=== PATIENT | male | born 1945 | race Caucasian/White ===

== ENCOUNTER → 2017-12-01 09:52 | Outpatient (CLI) | payer MEDICARE, SELFPAY ==
--- NOTE | 2017-12-01 09:57 | MRI_ITS ---
STUDY: MRI LEFT SHOULDER REASON FOR EXAM: Left shoulder pain status post fall. TECHNIQUE: Standardized fat and water weighted pulse sequences were obtained in all 3 orthogonal planes. COMPARISON: Radiographs 11/19/2017. FINDINGS: Although there is image degradation secondary to patient motion, there is still significant diagnostically useful information available from this examination. There is a full-thickness tear of the supraspinatus tendon retracted approximately 3.3 cm to the level of acromioclavicular joint and extending into the anterior infraspinatus tendon (T2 coronal images 9-16). There is an undersurface partial-thickness tear of the distal subscapularis tendon with medial dislocation of the long biceps tendon (T2 axial images 11-13). Normal teres minor tendon. There is mild edema in the supraspinatus muscle. Normal infraspinatus muscle. Normal subscapularis muscle. Normal teres minor muscle. There is a glenohumeral joint effusion. Normal humeral head and visualized proximal humerus. Normal biceps labral complex. Normal labrum. Normal capsulo- ligamentous complex. There is acromioclavicular arthrosis without substantial undersurface osteophytes (T2 sagittal image 8). There is a Type II morphology (curved), with a neutral orientation. There is a small volume of subacromial-subdeltoid bursal fluid. There is thickening of the coracoacromial ligament (T2 sagittal image 10). Normal deltoid muscle. Normal trapezius muscle. MRI/Upper Ext Joint Only(Routine) IMPRESSION: Full-thickness tear of the supraspinatus and infraspinatus tendons. Partial-thickness tear of the subscapularis tendon with medial dislocation of the long biceps tendon. Acromioclavicular arthrosis. Thickening of the coracoacromial ligament. Glenohumeral joint fluid communicating with the subacromial-subdeltoid bursa. Electronically Signed: Jose Alejandro Nunes MD at 13:21 EST Tel , Service support ,
== END ==
PROVIDERS: Family Provider Family Medicine; PCP Family Medicine; Visit Provider Family Medicine
DX: M25.512 Pain in left shoulder (principal)
CPT/HCPCS: 73221

== ENCOUNTER → 2018-01-04 13:03 | Outpatient (CLI) | payer MEDICARE, SELFPAY ==
--- NOTE | 2018-01-04 13:00 | SP.MBSS_ITS ---
PRIMARY / SECONDARY DIAGNOSIS: dysphagia (R13.12) REFERRING PHYSICIAN: Dr. Kameron Fitzgerald MD CURRENT DIET: mechanical soft textures, nectar thickened liquids DENTITION: WFL MENTAL STATUS: mild impairment RESPIRATORY STATUS: O2 via room air PREVIOUS MODIFIED BARIUM SWALLOW STUDY: 11/15/2014 MBS revealing mild to moderate oropharyngeal dysphagia with penetration without ejection of thin liquids 10/09/2016 MBS revealing mild to moderate oropharyngeal dysphagia with SILENT aspiration of thin liquids via chin tuck 10/07/2017 MBS revealed moderate to severe oropharyngeal dysphagia with SILENT aspiration of thin, nectar, and honey thickened liquids via cup (cleared for honey via tsp.) 10/19/2017 MBS revealed moderate oropharyngeal dysphagia (R13.12) with SILENT aspiration of thin liquids REASON FOR REFERRAL: Patient is a 72 year old male referred for a modified barium swallow (MBS) study to reassess the Patients oropharyngeal swallow function under fluoroscopy following recent MBS completion demonstrating extensive silent aspiration secondary to the diagnosis of Parkinsons disease exacerbated by recent medical condition. Patient well known to this clinician, Patient and Patients report stable intake tolerance with use of thickened liquids since prior study. Continued overall improved physical appearance and functioning in comparison to prior session. MEDICAL HISTORY: Parkinsons disease, hypertension, history of cancer (approximately 10 years ago ), history of an appendectomy, and previous knee replacement. STUDY FINDINGS: Patient participated in a Modified Barium Swallow (MBS) study on 01/04/2018. Dr. Barrera was the radiologist present for this evaluation. This study was recorded in the lateral view and images were sent to PACs for storage. The following consistencies were presented to this patient for analysis of oropharyngeal swallow function: thin liquids, nectar thickened liquids, pudding , and a regular textured, [place] cookie. Results of the MBS are as follows: PENETRATION / ASPIRATION SCALE (TOL[place]ERT): 1 = does not enter airway 2 = enters airway/above vocal folds/ejected 3 = enters airway/above vocal folds/not ejected 4 = enters airway/contacts vocal folds/ejected 5 = enters airway/contacts vocal folds/not ejected 6 = enters airway/below vocal folds/ejected 7 = enters airway/below vocal folds/not ejected despite effort 8 = enters airway/below vocal folds/no effort VIDEOFLOROSCOPIC SCALE SCORE ([place]ERT): Grade I = aspiration of material that has penetrated into the laryngeal vestibule, intact cough reflex Grade II = aspiration < 10 % of the bolus, intact cough reflex Grade III = aspiration of < 10 % of the bolus, reduced cough reflex or aspiration of > 10 % of the bolus, intact cough reflex Grade IV = aspiration of > 10 % of the bolus, reduced cough reflex PENETRATION / ASPIRATION SCALE (SCORE) WITH VIDEOFLOROSCOPIC SCALE SCORE: Thin liquid - 5 mL tsp.: 1 Thin liquids via cup (single sip): NA* Thin liquids via straw (single sip): NA Thin liquids via straw (single sip): 8 - Grade III [place] thickened liquids via cup (single sip): 1 [place] thickened liquids via cup (single sip): 5 [place] thickened liquids via cup (single sip): 1 [place] thickened liquids via cup (single sip): 1 Thin liquids via straw (single sip): 8 - Grade IV Pudding via spoon: 1 Regular textured cookie: 1 [place] thickened liquids via cup (single sip): 1 * denotes inability to consume liquid from cup, noted freezing of movement. denotes inability to visualize trial due to excessive forward movement IMPRESSION: DIAGNOSIS: moderate oropharyngeal dysphagia (R13.12) ORAL PHASE CHARACTERIZED BY: LABIAL SEAL: no labial escape TONGUE CONTROL DURING BOLUS MANIPULATION: intermittent posterior escape of greater than half of bolus; consistent posterior escape of less than half of bolus BOLUS PREPARATION / MASTICATION: timely and efficient chewing with notable anterior munching quality (improved) BOLUS TRANSPORT / LINGUAL MOTION: repetitive/disorganized tongue motion; slowed tongue motion ORAL RESIDUE: trace residue lining oral structures (improved) PHARYNGEAL PHASE CHARACTERIZED BY: INITIATION OF PHARYNGEAL SWALLOW: bolus head in pyriforms at first hyoid excursion SOFT PALATE ELEVATION: intermittent trace column of contrast/air between soft palate and pharyngeal wall LARYNGEAL ELEVATION: partial superior movement of thyroid cartilage/partial approximation of arytenoids cartilage to epiglottic petiole ANTERIOR HYOID EXCURSION: partial anterior movement EPIGLOTTIC MOVEMENT: intermittent complete epiglottic inversion LARYNGEAL VESTIBULE CLOSURE AT HEIGHT OF SWALLOW: incomplete laryngeal vestibule closure with narrow column of air/contrast in laryngeal vestibule PHARYNGEAL STRIPPING WAVE: pharyngeal stripping wave present / diminished PHARYNGOESOPHAGEAL SEGMENT OPENING: complete distension and complete duration with no obstruction of flow TONGUE BASE RETRACTION: narrow column of contrast between tongue base and posterior pharyngeal wall PHARYNGEAL RESIDUE: collection of residue within or on pharyngeal structures ESOPHAGEAL PHASE CHARACTERIZED BY: ESOPHAGEAL BOLUS CLEARANCE IN THE UPRIGHT POSITION: could not view EFFECTS OF TREATMENT STRATEGIES ATTEMPTED: Anterior lean = minimally effective 3 second prep = ineffective Cough and reswallow = ineffective Reduced bolus size = moderately effective Removal of straw = moderately effective DIET TEXTURE RECOMMENDATIONS: Will recommend a regular-soft textured, nectar thickened liquid diet. COMPENSATORY STRATEGIES RECOMMENDED: Supervision, forward anterior lean, reduced bolus volume with solid textures cut into bite sized pieces, avoid straws, seated upright at 90 degrees during PO intake, remain upright for 30-60 minutes post meal (GERD precaution), medications whole with applesauce. INTERPRETATION OF RESULTS: Patient presents with moderate oropharyngeal dysphagia (R13.12) secondary to the diagnosis of Parkinsons disease exacerbated by current medical condition very similar in nature to the previous assessment, with multiple minor improvements in swallow subdomains, though limited functional improvements. Oral phase primarily marked by suboptimal lingual control with noted lingual festinations / lingual rolling pattern resulting in premature bolus loss contributing to pre-prandial penetration and aspiration; and continued delayed oral swallow onset resulting in premature bolus loss contributing to pre- prandial penetration and aspiration. Pharyngeal phase primarily marked by delayed pharyngeal swallow onset timing resulting in suboptimal bolus location upon swallow onset contributing to prandial penetration and aspiration; reduced closure of the airway during deglutition attributed to reduced laryngeal elevation and reduced anterior hyoid excursion resulting in insufficient epiglottic inversion and inconsistent laryngeal vestibule closure / pressure contributing to prandial penetration and aspiration; and suboptimal pharyngeal motility attributed to reduced tongue based retraction and reduced posterior pharyngeal stripping wave action resulting in pharyngeal retention primarily within the valleculae contributing to post-prandial penetration of thin liquids. Insufficient cough response to expel penetrated material / laryngotracheal aspiration with weak cued cough noted. Patient noted to SILENTLY aspirate with thin liquids, with clinical assessment at bedside relying on identification of classic overt signs and symptoms of aspiration unreliable. 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 RECOMMENDATIONS: Would strongly discourage advancement past nectar thickened liquids without completion of a repeat modified barium swallow study due to the extent of aspirate identified that was SILENT in nature. Would not anticipate any need for repeat MBS unless diet texture intolerance is suspected, as the Patient has likely returned to new baseline level of functioning. Recommend continued implementation of the Card Free Water Protocol (FFWP) following trials and Patient education to facilitate improved liquid intake between meals. No further skilled speech-language services warranted at this time targeting dysphagia. ADDITIONAL COMMENTS/RECOMMENDATIONS: Results and recommendations were discussed with the Patient immediately following MBS completion, with the Patient verbalizing understanding and agreement with all recommendations and education provided. IMAGE COUNT: [id number] G-CODES: SWALLOWING G8996 Current Status: SWALLOWING G8997 Goal Status: SWALLOWING G8998 Discharge Status: CJ
--- NOTE | 2018-01-04 13:05 | RAD_ITS ---
STUDY: SWALLOWING STUDY REASON FOR EXAM: Male, 72 years old. Parkinson's disease. TECHNIQUE: The examination was performed with Speech Pathology in attendance. Under fluoroscopic observation, the patient ingested thin barium, thick barium, barium pudding, and barium coated cracker. FLUOROSCOPY TIME: 2:00 minutes/seconds. 3990 spot views were obtained. RADIOLOGIST INVOLVEMENT: Radiologist was present and providing direct supervision. COMPARISON: Comparison is made with prior study dated October 19, 2017. FINDINGS: The following was observed during swallowing of the various mixtures of barium: Thin Barium: 17 aspiration with ingestion of thin liquids. Thick Barium: There was no evidence of aspiration or laryngeal penetration. Barium Pudding: There was no evidence of aspiration or laryngeal penetration. Barium Coated Cracker: There was no evidence of aspiration or laryngeal penetration. RAD/Swallowing Function w/Video IMPRESSION: Silent aspiration with ingestion of thin liquids. The swallow study findings were discussed with the patient by the speech pathologist at the conclusion of the examination. Please see speech pathology report for more information and recommendations. Electronically Signed: Grayson Barrera MD at 15:11 EST Tel [phone], Service support ,
== END ==
PROVIDERS: Family Provider Family Medicine; PCP Family Medicine; Visit Provider Family Medicine
DX: G20 Parkinson's disease (principal)
CPT/HCPCS: 74230; 92611; G8996; G8997; G8998

== ENCOUNTER 2018-03-25 12:00 | Outpatient (RCR) | payer MEDICARE, SELFPAY ==
--- NOTE | 2018-03-11 14:35 | HP.OTEVAL_ITS ---
Patient's Visit Information YNES CODY is a 72 year old M, referred to Occupational Therapy by Kameron Fitzgerald, with a diagnosis of Parkinsons. Date of Evaluation: 03/11/18 Occupational Therapist: Kita Boyd - Subjective Subjective: Pt seen for initial occupational therapy evaluation for physical reconditioning, strengthening BUE, ROM BUE and increasing independence with ADL' s using AE as needed. Pt has Parkinsons. Pt states pain in lower back and bilateral shoulders. Pt lives with in a one level condo with 1 step to enter holding onto door frame to get in/out of house. Bathroom setup-tub/shower w/ extended tub bench, grab bars and HHS, has walk in shower in other bathroom. BSC over std toilet. Requires assist with bathing tasks, sponge baths with assist on days he doesn't get in shower and requires assist. Completes own toileting 50% of the time, dressing requires increased assist with no AE. Indep w/ self feeding. AMB independently around house, has cane and WW, uses w/c in community occassionally pending on how he is feeling for the day. - Objective Objective/Observation: Lethargic, speaks very softly, slow moving extra time needed - ROM Shoulder: Flexion AROM R 100, L 90 PROM R 110, L 100 Elbow: WFL Forearm: WFL Wrist: WFL - Strength Shoulder: R 3+/5, L 3+/5 Elbow: R 3+/5, L 3+/5 [employer]: R 45#, L 45# Strength Comments: Generalized BUE strength 3+/5 - Edema Other: No Edema Noted - Sensation Sensation Comments: Numbness/Tingling L fingers - Movement Tremors: No tremors noted, spouse states he doesn't have tremors - Cognitive Skills Follows Directions: Yes Cognitive Comments: Oriented to person, place, date - Balance Static Sitting: Good Dynamic Sitting: Good - Transfers Transfers: Slow moving extra time needed, sit to stand transfer SBA/CGA with verbal cues for safety and proper hand placement. Pt sat on edge of w/c and had to scoot over with verbal cues to keep turning. - Quick DASH-Disab of Arm,Shoulder& Hand Quick DASH Score: 47.7250 - Goals Goal:: Pt will progress w/ generalized BUE strength 4/5 to increase independence with functional transfers and BADLs. Goal:: Pt will demo no pain greater than 1/10 bilateral shoulders by d/c from OT. Goal:: Pt will progress w/ UB/LB dressing tasks SUP level using AE as needed with good safety awareness. Goal:: Pt will progress with toilet transfers SUP level with good safety awareness and use of handles on commode. Goal:: Pt will progress with functional activity tolerance for BADL's 8-10 minutes without rest breaks needed. Goal:: Pt will be educated on BUE HEP with good understanding and demo 100%x. Goal:: Pt/spouse will be educated on DME/AE to assist with BADLs and adaptive techniques/compensatory strategies with good understanding and demo 100%x. - Rehabilitation General Assessment: Pt demonstrates decreased BUE strength, increased pain bilateral shoulders, decreased safety with transfers and ADLs, decreased independence with ADLs and decreased activity tolerance all indicating a need for skilled OT interventions to increase activity tolerance, strength, decrease pain of bilateral shoulders and increase independence with ADLs with good safety awareness. Rehabilitation Potential: Good - Anticipated Interventions Anticipated Interventions: A/AAROM/PROM, Strengthening, Modalities, Joint Protection/Energy Conservation, Fine Motor Coord/Kain, Neuro Reeducation, Visual/Perceptual Skills, ADL Training, Education re assistive Equipment, Caregiver Training, Home Program - Visit Plan Frequency: 1x/Week Duration: 4 Weeks General Plan: increase activity tolerance, strength, decrease pain of bilateral shoulders and increase independence with ADLs with good safety awareness. TEXT: Thank you for the opportunity to evaluate your patient. For Medicare and Medicare HMO plans, please review the plan of care and approve it. It will need to be FAXED BACK to us at [phone] for Medicare purposes. Please let me know if there are questions or concerns regarding this plan of care. Physician Signature: Date:
--- NOTE | 2018-09-16 14:27 | HP.OTDCNRP_ITS ---
HP - Discharge Summary - Patient Information YNES CODY was seen in my office for initial evaluation on 03/11/18. The following Plan of Care was established for this patient: Initial Frequency: 1x/Week Initial Duration: 4 Weeks Plan: plan to inform of pts limited progress and walker recommendation for safety with functional AMB for ADLs in the house. - Anticipated Interventions Anticipated Interventions: A/AAROM/PROM, Strengthening, Modalities, Joint Protection/Energy Conservation, Fine Motor Coord/Kain, Neuro Reeducation, Visual/Perceptual Skills, ADL Training, Education re assistive Equipment, Ca regiver Training, Home Program This patient was last seen in our office 03/25/18. Pertinent comments regarding their Occupational therapy will appear below: Pt last seen 03/25/18. Pt was completing OT services with a focus on increasing BUE strength and ROM, education on DME/AE for BADLs with increased safety awareness and increasing independence with self care tasks. Pt was working on functional transfers and increasing standing tolerance. Pt d/c from OT services. Non-returning pt. At this point I will be discontinuing this patient from occupational therapy. I would be happy to see this patient again in the future if found appropriate by the physician. Thank you! Kita Boyd
== END 2018-03-25 19:00 | disposition home or self-care (01) ==
LOC: OT 12:00
PROVIDERS: Family Provider Family Medicine; PCP Family Medicine; Visit Provider Family Medicine
DX: G20 Parkinson's disease (principal)
CPT/HCPCS: 97110; 97165; 97166; 97530; 97535; G8987; G8988

== ENCOUNTER 2018-04-04 16:33 | Emergency (ER) | payer MEDICARE, SELFPAY ==
[2018-04-04 16:33] VITALS: BP 84/55; PULSE 73; RESP 18; TEMP 36.4; O2SAT 97; BMI 22.2
[2018-04-04 16:47] VITALS: PULSE 66; RESP 14; O2SAT 97
--- NOTE | 2018-04-04 17:13 | EKG12_ITS ---
Test Reason : DIZZINESS Blood Pressure : / mmHG Vent. Rate : 061 BPM Atrial Rate : 061 BPM P-R Int : 230 ms QRS Dur : 088 ms QT Int : 444 ms P-R-T Axes : 081 000 037 degrees QTc Int : 446 ms Sinus rhythm with 1st degree A-V block Otherwise normal ECG Confirmed by GERRI ROBERTSON, DEISY ([id number]), slot editor EZEQUIEL GUZMAN ([id number]) on 04/14/2018 6:52:40 PM Referred By: REEMA Confirmed By:DEISY TALLEY MD
--- NOTE | 2018-04-04 17:13 | RAD_ITS ---
STUDY: X-RAY - LEFT WRIST REASON FOR EXAM: Male, 72 years old. Fall TECHNIQUE: 3 view(s) of the wrist were obtained. COMPARISON: None. FINDINGS: There is no evidence of fracture or dislocation. There are mild degenerative changes. There are no radiodense foreign bodies. RAD/Wrist min 3 Views IMPRESSION: No fracture or dislocation. Mild degenerative change. Electronically Signed: Devyn Gustafson, at 17:54 EDT Tel , Service support ,
--- NOTE | 2018-04-04 17:13 | RAD_ITS ---
STUDY: X-RAY CHEST REASON FOR EXAM: Male, 72 years old. Chest pain TECHNIQUE: Frontal view of the chest COMPARISON: 07/30/2017 FINDINGS: There is a stable calcified granuloma in the lingula The lungs are otherwise clear. There are no pleural effusions. There is no pneumothorax. The heart is normal in size. The visualized osseous structures are within normal limits. RAD/Chest 1 View (Portable) IMPRESSION: No acute thoracic pathology. Electronically Signed: Devyn Gustafson, at 18:15 EDT Tel , Service support ,
[2018-04-04] MEDS: 0.9% Normal Saline 1,000 ML 1000 ML IV (17:33)
[2018-04-04] MEDS: Aspirin 81 MG TAB.CHEW 324 MG PO (17:33)
[2018-04-04 17:35] VITALS: O2SAT 96
[2018-04-04 17:38] VITALS: BP 135/87; PULSE 61
[2018-04-04 17:41] LABS: Absolute Lymphocyte Count 1.56 X10^3/ul (0.83-4.51); Basophil# 0.01 X10^3/uL; Basophil% 0.1 % (0-1); Eosinophil# 0.03 X10^3/uL; Eosinophils% 0.2 % (0-5); Hematocrit 39.4 % (40-54); Hemoglobin 13.2 g/dl (13.0-16.5); Lymphocyte # 1.56 X10^3/ul (4.0); Lymphocyte % 11.3 % (19-41); Mean Corp Hgb Conc 33.5 g/gl (32-36); Mean Corpuscular Hgb 32.4 pg (27.0-32.0); Mean Corpuscular Volume 96.8 fL (80-94); Mean Platelet Vol. 9.5 fl (6.2-12.0); Monocyte# 1.17 X10^3/uL; Monocyte% 8.5 % (0-10); Neutrophil # 10.98 X10^3/uL (2.7-7.7); Neutrophil % 79.6 % (47-70); Platelet Count 317 K/mm3 (150-450); RBC Distribution Width CV 15.6 % (11.6-14.6); RBC Distribution Width SD 54.1 fl (35.1-43.9); Red Blood Count 4.07 M/mm3 (4.6-6.2); White Blood Count 13.8 K/mm3 (4.4-11.0)
[2018-04-04 17:42] LABS: POSITIVE COUNT NO; POSITIVE DIFFERENTIAL NO; POSITIVE MORPHOLOGY NO
[2018-04-04 17:57] LABS: Anion Gap 9 (5-15); BUN 12 mg/dL (7-18); BUN/Creat Ratio 15.1 RATIO (10-20); Calcium,Total 8.3 mg/dL (8.5-10.1); Chloride 103 mmol/L (98-107); EST Glomerular Filtration Rate 101 mL/min (>60); Est Glom Filt Rate - Afr Amer 122 mL/min (>60); Estimated Creatinine Clearance 72.81 ml/min; Glucose 87 mg/dL (74-106); Potassium 3.5 mmol/L (3.5-5.1); Sodium Level 137 mmol/L (136-145)
[2018-04-04 18:11] LABS: Lactic Acid 1.6 mmol/L (0.4-2.0)
[2018-04-04 18:15] LABS: Bacteria 0 SEEN /hpf (None Seen); Mucous, Urine 0 SEEN /hpf (<or=2+); Red Blood Cells-Urine 0 SEEN /hpf (0-5); Squamous Epithelial Cells - UA 0 SEEN /hpf (0-5); White Blood Cells 0 SEEN /hpf (0-5)
[2018-04-04 18:17] LABS: Color, Urine Yellow (Yellow); Glucose, Dipstick Normal (Normal); Ketone-Dipstick Negative (Negative); Leukocyte Esterase-Dipstick Negative /ul (Negative); Nitrite-Dipstick Negative (Negative); Occult Blood-Urine 10 /ul (Negative); Protein-Dipstick Negative (Negative); Urine Bilirubin Dipstick Negative (Negative); Urine Clarity Clear (Clear); Urine Urobilinogen Normal (Normal); Urine pH 6.5 (5.0 - 8.0)
--- NOTE | 2018-04-04 19:04 | ED.VISSUMM ---
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 According to his today he had decreased oral intake. Yesterday he was outside for lengthy period of time she is concerned he may be dehydrated. His any nausea, vomiting or diarrhea. No fever. No cough. No dysuria. She is giving the patient's information he is a poor informant due to dementia and Parkinson's disease. Physical Examination: Well-appearing older male. Vital signs initial blood pressure is 84/55 otherwise vital signs are stable afebrile. Pulse ox 97% room air no signs of hypoxia. H EENT exam atraumatic. His right eye prosthesis. No facial droop. Moist mucous membranes. Neck nontender no lymphadenopathy. Lungs clear to auscultation bilaterally. Heart regular rhythm rate about 60 no murmur. Abdomen is soft and nontender. Normal bowel sounds. Nondistended. No signs of obstruction. Nontender. No peritoneal signs. Moving all 4 extremities. Left wrist is mildly swollen with abrasions. No gross bony deformity. Left hand is neurovascular intact. Neurologically is awake. He follows commands. Test Results: Chest x-ray shows no acute abnormality. His left wrist x-ray shows soft tissue swelling but no fracture read both by myself the radiologist. There was degenerative changes. EKG shows a sinus rhythm rate is 60 with a first-degree AV block. CBC shows an elevated white count of 13.8. H&H of 13 and 39. No bands. Chemistry panel normal. Normal gap of 9 normal creatinine is 0.8. BUN of 12. UA was normal. Troponin normal. Due to the hypotension I did obtain a lactic acid which was normal 1.6. Emergency Department Course and Treatment: He was treated with a liter normal saline. On repeat exam at 1900 he is doing well. His current pressure is 150/74. I went over all test results with the patient and the family. They are comfortable taking him home. Treatment Plan: Discharged home. Follow-up primary care physician if not improving or return to ER if doing worse. Disposition: Discharge Impression: Acute transient hypotension resolved. Left wrist sprain and contusion This note was generated with Brag[employer]ation software. It may contain incorrect words, spelling, and punctuation that were not noted in review of the chart prior to signing ED Disposition - Plan for ED Patient: Chief Complaint: General Illness Referrals: Kameron Fitzgerald MD [Primary Care Provider] -
--- NOTE | 2018-04-04 19:10 | ED.DCSUM_ITS ---
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 According to his today he had decreased oral intake. Yesterday he was outside for lengthy period of time she is concerned he may be dehydrated. His any nausea, vomiting or diarrhea. No fever. No cough. No dysuria. She is giving the patient's information he is a poor informant due to dementia and Parkinson's disease. Physical Examination: Well-appearing older male. Vital signs initial blood pressure is 84/55 otherwise vital signs are stable afebrile. Pulse ox 97% room air no signs of hypoxia. H EENT exam atraumatic. His right eye prosthesis. No facial droop. Moist mucous membranes. Neck nontender no lymphadenopathy. Lungs clear to auscultation bilaterally. Heart regular rhythm rate about 60 no murmur. Abdomen is soft and nontender. Normal bowel sounds. Nondistended. No signs of obstruction. Nontender. No peritoneal signs. Moving all 4 extremities. Left wrist is mildly swollen with abrasions. No gross bony deformity. Left hand is neurovascular intact. Neurologically is awake. He follows commands. Test Results: Chest x-ray shows no acute abnormality. His left wrist x-ray shows soft tissue swelling but no fracture read both by myself the radiologist. There was degenerative changes. EKG shows a sinus rhythm rate is 60 with a first-degree AV block. CBC shows an elevated white count of 13.8. H&H of 13 and 39. No bands. Chemistry panel normal. Normal gap of 9 normal creatinine is 0.8. BUN of 12. UA was normal. Troponin normal. Due to the hypotension I did obtain a lactic acid which was normal 1.6. Emergency Department Course and Treatment: He was treated with a liter normal saline. On repeat exam at 1900 he is doing well. His current pressure is 150/ 74. I went over all test results with the patient and the family. They are comfortable taking him home. Treatment Plan: Discharged home. Follow-up primary care physician if not improving or return to ER if doing worse. Disposition: Discharge Impression: Acute transient hypotension resolved. Left wrist sprain and contusion This note was generated with [employer]rec[employer] software. It may contain incorrect words, spelling, and punctuation that were not noted in review of the chart prior to signing ED Disposition - Plan for ED Patient: Chief Complaint: General Illness Referrals: Kameron Fitzgerald MD [Primary Care Provider] -
--- NOTE | 2018-04-04 19:10 | ED.DEP ---
ED Disposition - Plan for ED Patient: Disposition: Home or Assisted Living Chief Complaint: General Illness Diagnosis: Generalized weakness Instructions: ED Hypotension All Causes Referrals: Kameron Fitzgerald MD [Primary Care Provider] - 1-2 Days if not improving Additional Instructions: Plenty of fluids and rest. Return if doing worse. Otherwise follow-up your primary care physician.
[2018-04-04 19:28] VITALS: BP 137/73; PULSE 61; RESP 15; O2SAT 96
== END 2018-04-04 19:29 | disposition home or self-care (01) ==
PROVIDERS: Emergency Provider Emergency Medicine; Family Provider Family Medicine; PCP Family Medicine
DX: I95.9 Hypotension, unspecified (principal); G20 Parkinson's disease; F02.80 Dementia in other diseases classified elsewhere, unspecified severity, without behavioral disturbance, psychotic disturbance, mood disturbance, and anxiety; Z85.840 Personal history of malignant neoplasm of eye; S63.502A Unspecified sprain of left wrist, initial encounter; S60.812A Abrasion of left wrist, initial encounter; Z79.899 Other long term (current) drug therapy; X58.XXXA Exposure to other specified factors, initial encounter; Y93.9 Activity, unspecified; Y92.9 Unspecified place or not applicable; Y99.9 Unspecified external cause status
CPT/HCPCS: 71045; 73110; 80048; 81001; 83605; 84484; 85025; 93005; 96360; 96361; 99285; J7030; A4216

== ENCOUNTER → 2018-04-06 12:15 | Outpatient (CLI) | payer MEDICARE, SELFPAY ==
--- NOTE | 2018-04-06 12:15 | DT_ITS ---
This patient was seen during an EMR downtime April 05, 2018 - April 12, 2018. This patient may have a combination of paper and electronic documentation or all paper documentation. All documentation is viewable within the e-chart portion of [facility] [employer] for each patient visit.
== END ==
PROVIDERS: Family Provider Family Medicine; PCP Family Medicine; Visit Provider Family Medicine
DX: L89.90 Pressure ulcer of unspecified site, unspecified stage (principal)
CPT/HCPCS: 87070; 87205

== ENCOUNTER 2018-06-28 13:00 | Outpatient (RCR) | payer MEDICARE, SELFPAY ==
[2018-06-07 14:46] VITALS: BP 135/80; PULSE 80; RESP 16; TEMP 37.4; BMI 22.6
--- NOTE | 2018-06-07 16:30 | PCM.WC.HP ---
(1) Pressure injury of coccygeal region, stage 3 Status: Acute Current Visit: Yes Code(s): L89.153 - Pressure ulcer of sacral region, stage 3 (2) Urinary incontinence Status: Chronic Current Visit: No Code(s): R32 - Unspecified urinary incontinence (3) Dementia Status: Chronic Current Visit: Yes Code(s): F03.90 - Unspecified dementia without behavioral disturbance (4) Debility Status: Chronic Current Visit: Yes Code(s): R53.81 - Other malaise (5) Failure to thrive Status: Chronic Current Visit: Yes (6) Parkinson's disease dementia Status: Chronic Current Visit: Yes Code(s): G20 - Parkinson's disease; F02.80 - Dementia in other diseases classified elsewhere without behavioral disturbance (7) Parkinson disease Status: Chronic Current Visit: No Code(s): G20 - Parkinson's disease (8) Generalized weakness Status: Acute Current Visit: No Code(s): R53.1 - Weakness History of Present Illness Date of Service: 06/07/18 Chief Complaint: Coccygeal pressure ulceration, stage III History of Wound: This is a 72-year-old male who is currently a resident of [facility]. Until recently, the patient lived at home, cared for by his elderly . Upon admission to the assisted, it was realized that the patient had a coccygeal pressure ulceration, though its age is indeterminate. The patient is currently on a waffle mattress. He has a nonspecific cushion on his wheelchair. He is of limited mobility, though ambulates with assistance and with the assistance of a walker. Otherwise, he spends long hours each day either lying in bed or sitting in a chair. Past Medical History Past Medical History: Chronic Problems Urinary incontinence (Chronic) Dementia (Chronic) Debility (Chronic) Failure to thrive (Chronic) Macrocytic anemia (Chronic) Parkinson's disease dementia (Chronic) Parkinson disease (Chronic) Past Medical History: The patient's history is negative for myocardial infarction, congestive heart failure, cerebrovascular accident, hypertension, diabetes mellitus, hyperlipidemia, thyroid disease, pulmonary disease, and renal disease. 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 The patient also suffers from urinary incontinence. He suffers from Parkinson's disease and dementia. Surgical History: appendectomy, herniorrhaphy - Multiple procedures in his groin., total knee arthroplasty - Right knee, - - Cervical spine surgery-fusion, removal of right eye approximately 25 years ago secondary to melanoma Allergies/Adverse Reactions: Allergies No Known Allergies Allergy (Verified 04/04/18 16:37) Home Medications: Ambulatory Orders Medication Instructions Recorded Donepezil HCl [Aricept] 5 mg PO QHS 10/06/17 Carbidopa/Levodopa 50/200 [Sinemet 1 tablet PO HS@2100 tablet.sa 10/09/17 CR 50/200] Carbidopa/Levodopa [Carbidopa-Levo 1 each PO TID 04/04/18 25-100 mg Odt] - Family History Maternal No pertinent history, - - The patient's mother had a history of rectal cancer. Paternal No pertinent history, - - Patient's father had a history of throat cancer. Social History: Patient is a resident of [facility]. He is . 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 Smoking and alcohol history are negative. Smoking Status: Never smoker Tobacco Use: Non-smoker Alcohol: None Drugs: None Review of Systems Constitutional: Denies: Chills, Fever, Weight Change Eyes: Denies: Pain, Vision Change HEENT: Denies: Difficulty Hearing, Difficulty Swallowing, Sinus Congestion Cardiovascular: Denies: Chest Pain, Palpitations Respiratory: Denies: Cough, Shortness of Breath Gastrointestinal: Denies: Diarrhea, Nausea, Vomiting Genitourinary: Denies: Dysuria, Hematuria Endocrine: Denies: Heat/ Cold Intolerance, Polydipsia, Polyuria Hematologic/ Lymphatic: Denies: Easy Bruising, Easy Bleeding - Physical Exam Vital Signs Temp Pulse Resp BP 99.3 F H 80 16 135/80 H 06/07/18 14:46 06/07/18 14:46 06/07/18 14:46 06/07/18 14:46 General: Alert, Oriented x3, Cooperative, No apparent distress, Well developed, - - The patient appears comfortable. However, he appears weak and debilitated. HEENT: Atraumatic, PERRLA, EOMI, Normocephalic Oral: Moist Mucosa Neck: Supple, No JVD, Negative Carotid Bruits, Negative Hepatojugular Reflux, No Nuchal Rigidity, Trachea Midline Lungs: Clear to auscultation, Normal air movement, No rhonchi, No wheeze, No rales Cardiovascular: Regular rate, Regular Rhythm, Normal S1, Normal S2, No murmurs Abdomen: Soft, Non Tender, Non-Distended Extremities: No clubbing, No cyanosis, No edema, No Calf Tenderness Skin: - - A coccygeal pressure ulceration is noted in the midline. Its dimensions are documented elsewhere. It is generally pink and healthy in appearance. There is no bertha-ulcer erythema or any sign of infection or cellulitis. However, swab cultures were obtained for aerobic and anaerobic growth. There is no significant undermining. Probing suggests that underlying bone may be involved, though bone is not visible. Wound Measurements and Assessment WC - Nurse 1 - General Ulcer Measurement Start: 06/07/18 14:33 Freq: Status: Active Protocol: Activity Type Activity Date Activity User E-Sign Co-Sign Detail Recorded Client Recorded Date Recorded By Document 06/07/18 14:46 [id number] 06/07/18 14:56 06/07/18 14:46 Wound Center Nurse 1 [Ulcer Assessment] #1 coccyx -Combined with other wound No -Current Size (cm) - Length 2.1 -Current Size (cm) - Width 1 -Current Size (cm) - Depth 1.5 -Total Square Cm 2.1 -Date of Last Picture (Recall this 06/07/18 field) -Photo Taken Yes -Epithelialization None Present -Tunneling No -Undermining/Tunneling No -Circular Undermining No -Exudate Amt Small (1-33%) -Exudate Type Serosanguineous -Wound Margin Distinct, Outline Attached -Granulation Amt Medium (34-66%) -Granulation Quality Red -Slough/Fibrin Yes -Necrosis Amt Medium (34-66%) -Necrotic Tissue Type Adherent Slough -Structure Exposed None/Limited to Skin Breakdown -Texture (Bertha-wound Skin Appearance) No Abnormality Assessed -Moisture (Bertha-wound Skin Appearance No Abnormality ) Assessed -Color (Bertha-wound Skin Appearance) No Abnormality Assessed -Temperature (Bertha-wound Skin No Abnormality Appearance) (Pt Warm) -Tenderness on Palpation (Bertha-wound No Skin Appearance) -Ulcer Cleansing Rinsed/ Irrigated with Saline -Foul Odor after Cleansing No -Anesthetic Used 4% Lidocaine Solution [Edema Assessment] -Lower Limb Edema Present NA WC - Nurse 2 - General Ulcer CM Notes Start: 06/07/18 14:33 Freq: Status: Active Protocol: Activity Type Activity Date Activity User E-Sign Co-Sign Detail Recorded Client Recorded Date Recorded By Document 06/07/18 15:37 [id number] 06/07/18 15:46 06/07/18 15:37 Wound Center Nurse 2 [Procedure/Treatment] #1 coccyx -Time 15:37 -Correct Patient Yes -Correct Side, Site, Position Yes -Correct Procedure Yes -Procedure Performed Yes -Type of Procedure Debridement -Clinical Debridement Subcutaneous -Post Debridement Size (cm) - Length 2.5 -Post Debridement Size (cm) - Width 1.3 -Post Debridement Size (cm) - Depth 2.5 -Total Square Cm 3.25 -Wound/Ulcer Outcome Not Healed -Ulcer Cleansing Rinsed/ Irrigated with Saline -Foul Odor after Cleansing No -Bioengineered Tissue No -Bleeding Controlled with NA -Treatment Response Procedure Tolerated Well [See Physician Procedure note for Specifics] Pain Scale: 0-10 Numeric [Pain] -Is Patient Pain Free? Yes Musculoskeletal: Muscle Wasting Neurological: Cranial nerves II-XII grossly intact, Neuro grossly intact, - - The patient responds appropriately to verbal questioning. Psych/Mental Status: Appropriate, Flat Affect Debridement Note Post-Debridement Measurements/Treatment WC - Nurse 2 - General Ulcer CM Notes Start: 06/07/18 14:33 Freq: Status: Active Protocol: Activity Type Activity Date Activity User E-Sign Co-Sign Detail Recorded Client Recorded Date Recorded By Document 06/07/18 15:37 [id number] 06/07/18 15:46 06/07/18 15:37 Wound Center Nurse 2 #1 coccyx -Time 15:37 -Correct Patient Yes -Correct Side, Site, Position Yes -Correct Procedure Yes -Procedure Performed Yes -Type of Procedure Debridement -Clinical Debridement Subcutaneous -Post Debridement Size (cm) - Length 2.5 -Post Debridement Size (cm) - Width 1.3 -Post Debridement Size (cm) - Depth 2.5 -Total Square Cm 3.25 -Wound/Ulcer Outcome Not Healed -Ulcer Cleansing Rinsed/ Irrigated with Saline -Foul Odor after Cleansing No -Bioengineered Tissue No -Bleeding Controlled with NA -Treatment Response Procedure Tolerated Well Pain Scale: 0-10 Numeric Is Patient Pain Free? Yes Laterality: Not Applicable - Coccygeal pressure ulceration Type of Debridement: Excisional debridement Anesthesia Used: 4% Lidocaine Solution Depth: Down to and including healthy tissue, in the subcutaneous layer Percentage of wound debrided: 100 Instrument Used: 5mm curette Severity: Fat Layer Exposed Amount of bleeding with debridement: Mild Bleeding Controlled with: Compression and gauze Patient tolerated procedure well Assessment/Plan Active Problems Pressure injury of coccygeal region, stage 3 (Acute) Dementia (Chronic) Debility (Chronic) Failure to thrive (Chronic) Parkinson's disease dementia (Chronic) Assessment: This is a 72-year-old debilitated male with Parkinson's disease and dementia. He is a recent resident of [facility]. He presents with a coccygeal pressure ulceration, appearing to be stage III. Cultures have been obtained, and results will be awaited. The patient appears to be of limited mobility, and generally weak and frail. Recent laboratory studies have been obtained, with results as follows: White blood count 13.8, hemoglobin 13.2, hematocrit 39.4, platelets 317,000, sodium 137, potassium 3.5, chloride 103, BUN 12, creatinine 0.80, glucose 87, calcium 8.3. Plan: Offloading measures are to be implemented. Frequent repositioning is to be recommended. A low air loss mattress has been advised. A Roho cushion for the patient's wheelchair is to be requested. Communication with the patient's caregivers will suggest repositioning of the patient on a frequent basis, with change of position at least every 30-60 minutes. Optimization of the patient's oral intake and good nutrition has been recommended. Continued oral supplements such as Ensure or Inderjit have been recommended. Culture results will be awaited, and appropriate management will be based upon the results. An x-ray of the patient's sacrococcygeal region will be obtained, to determine the possible presence of osteomyelitis. We are to implement the use of Silver Jil packing, which will be applied to the wound every other day, or more frequently if necessary. The patient is to return to the wound healing center 1 week for reassessment. Given the patient's advanced age and general debility, is not likely to be a candidate for plastic surgical consultation with consideration of flap reconstruction. Influenza vaccine was not administered today. The patient is not a smoker. He weighs 140 pounds. He stands 5 feet 6 inches tall. His BMI is 22.6, which is normal.
--- NOTE | 2018-06-07 16:35 | HP.PCM_ITS ---
(1) Pressure injury of coccygeal region, stage 3 Status: Acute Current Visit: Yes Code(s): L89.153 - Pressure ulcer of sacral region, stage 3 (2) Urinary incontinence Status: Chronic Current Visit: No Code(s): R32 - Unspecified urinary incontinence (3) Dementia Status: Chronic Current Visit: Yes Code(s): F03.90 - Unspecified dementia without behavioral disturbance (4) Debility Status: Chronic Current Visit: Yes Code(s): R53.81 - Other malaise (5) Failure to thrive Status: Chronic Current Visit: Yes (6) Parkinson's disease dementia Status: Chronic Current Visit: Yes Code(s): G20 - Parkinson's disease; F02.80 - Dementia in other diseases classified elsewhere without behavioral disturbance (7) Parkinson disease Status: Chronic Current Visit: No Code(s): G20 - Parkinson's disease (8) Generalized weakness Status: Acute Current Visit: No Code(s): R53.1 - Weakness History of Present Illness Date of Service: 06/07/18 Chief Complaint: Coccygeal pressure ulceration, stage III History of Wound: This is a 72-year-old male who is currently a resident of [facility]. Until recently, the patient lived at home, cared for by his elderly . Upon admission to the [place] [facility], it was realized that the patient had a coccygeal pressure ulceration, though its age is indeterminate. The patient is currently on a waffle mattress. He has a nonspecific cushion on his wheelchair. He is of limited mobility, though ambulates with assistance and with the assistance of a walker. Otherwise, he spends long hours each day either lying in bed or sitting in a chair. Past Medical History Past Medical History: Chronic Problems Urinary incontinence (Chronic) Dementia (Chronic) Debility (Chronic) Failure to thrive (Chronic) Macrocytic anemia (Chronic) Parkinson's disease dementia (Chronic) Parkinson disease (Chronic) Past Medical History: The patient's history is negative for myocardial infarction, congestive heart failure, cerebrovascular accident, hypertension, diabetes mellitus, hyperlipidemia, thyroid disease, pulmonary disease, and renal disease. 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 The patient also suffers from urinary incontinence. He suffers from Parkinson' s disease and dementia. Surgical History: appendectomy, herniorrhaphy - Multiple procedures in his groin., total knee arthroplasty - Right knee, - - Cervical spine surgery-fusion , removal of right eye approximately 25 years ago secondary to melanoma Allergies/Adverse Reactions: Allergies No Known Allergies Allergy (Verified 04/04/18 16:37) Home Medications: Ambulatory Orders Medication Instructions Recorded Donepezil HCl [Aricept] 5 mg PO QHS 10/06/17 Carbidopa/Levodopa 50/200 [Sinemet 1 tablet PO HS@2100 tablet.sa 10/09/17 CR 50/200] Carbidopa/Levodopa [Carbidopa-Levo 1 each PO TID 04/04/18 25-100 mg Odt] - Family History Maternal No pertinent history, - - The patient's mother had a history of rectal cancer. Paternal No pertinent history, - - Patient's father had a history of throat cancer. Social History: Patient is a resident of [facility]. He is . 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 Smoking and alcohol history are negative. Smoking Status: Never smoker Tobacco Use: Non-smoker Alcohol: None Drugs: None Review of Systems Constitutional: Denies: Chills, Fever, Weight Change Eyes: Denies: Pain, Vision Change HEENT: Denies: Difficulty Hearing, Difficulty Swallowing, Sinus Congestion Cardiovascular: Denies: Chest Pain, Palpitations Respiratory: Denies: Cough, Shortness of Breath Gastrointestinal: Denies: Diarrhea, Nausea, Vomiting Genitourinary: Denies: Dysuria, Hematuria Endocrine: Denies: Heat/ Cold Intolerance, Polydipsia, Polyuria Hematologic/ Lymphatic: Denies: Easy Bruising, Easy Bleeding - Physical Exam Vital Signs Temp Pulse Resp BP 99.3 F H 80 16 135/80 H 06/07/18 14:46 06/07/18 14:46 06/07/18 14:46 06/07/18 14:46 General: Alert, Oriented x3, Cooperative, No apparent distress, Well developed, - - The patient appears comfortable. However, he appears weak and debilitated. HEENT: Atraumatic, PERRLA, EOMI, Normocephalic Oral: Moist Mucosa Neck: Supple, No JVD, Negative Carotid Bruits, Negative Hepatojugular Reflux, No Nuchal Rigidity, Trachea Midline Lungs: Clear to auscultation, Normal air movement, No rhonchi, No wheeze, No rales Cardiovascular: Regular rate, Regular Rhythm, Normal S1, Normal S2, No murmurs Abdomen: Soft, Non Tender, Non-Distended Extremities: No clubbing, No cyanosis, No edema, No Calf Tenderness Skin: - - A coccygeal pressure ulceration is noted in the midline. Its dimensions are documented elsewhere. It is generally pink and healthy in appearance. There is no bertha-ulcer erythema or any sign of infection or cellulitis. However, swab cultures were obtained for aerobic and anaerobic growth. There is no significant undermining. Probing suggests that underlying bone may be involved, though bone is not visible. Wound Measurements and Assessment WC - Nurse 1 - General Ulcer Measurement Start: 06/07/18 14:33 Freq: Status: Active Protocol: Activity Type Activity Date Activity User E-Sign Co-Sign Detail Recorded Client Recorded Date Recorded By Document 06/07/18 14:46 [id number] 06/07/18 14:56 06/07/18 14:46 Wound Center Nurse 1 [Ulcer Assessment] #1 coccyx -Combined with other wound No -Current Size (cm) - Length 2.1 -Current Size (cm) - Width 1 -Current Size (cm) - Depth 1.5 -Total Square Cm 2.1 -Date of Last Picture (Recall this 06/07/18 field) -Photo Taken Yes -Epithelialization None Present -Tunneling No -Undermining/Tunneling No -Circular Undermining No -Exudate Amt Small (1-33%) -Exudate Type Serosanguineous -Wound Margin Distinct, Outline Attached -Granulation Amt Medium (34-66%) -Granulation Quality Red -Slough/Fibrin Yes -Necrosis Amt Medium (34-66%) -Necrotic Tissue Type Adherent Slough -Structure Exposed None/Limited to Skin Breakdown -Texture (Bertha-wound Skin Appearance) No Abnormality Assessed -Moisture (Berhta-wound Skin Appearance No Abnormality ) Assessed -Color (Bertha-wound Skin Appearance) No Abnormality Assessed -Temperature (Bertha-wound Skin No Abnormality Appearance) (Pt Warm) -Tenderness on Palpation (Bertha-wound No Skin Appearance) -Ulcer Cleansing Rinsed/ Irrigated with Saline -Foul Odor after Cleansing No -Anesthetic Used 4% Lidocaine Solution [Edema Assessment] -Lower Limb Edema Present NA WC - Nurse 2 - General Ulcer CM Notes Start: 06/07/18 14:33 Freq: Status: Active Protocol: Activity Type Activity Date Activity User E-Sign Co-Sign Detail Recorded Client Recorded Date Recorded By Document 06/07/18 15:37 [id number] 06/07/18 15:46 06/07/18 15:37 Wound Center Nurse 2 [Procedure/Treatment] #1 coccyx -Time 15:37 -Correct Patient Yes -Correct Side, Site, Position Yes -Correct Procedure Yes -Procedure Performed Yes -Type of Procedure Debridement -Clinical Debridement Subcutaneous -Post Debridement Size (cm) - Length 2.5 -Post Debridement Size (cm) - Width 1.3 -Post Debridement Size (cm) - Depth 2.5 -Total Square Cm 3.25 -Wound/Ulcer Outcome Not Healed -Ulcer Cleansing Rinsed/ Irrigated with Saline -Foul Odor after Cleansing No -Bioengineered Tissue No -Bleeding Controlled with NA -Treatment Response Procedure Tolerated Well [See Physician Procedure note for Specifics] Pain Scale: 0-10 Numeric [Pain] -Is Patient Pain Free? Yes Musculoskeletal: Muscle Wasting Neurological: Cranial nerves II-XII grossly intact, Neuro grossly intact, - - The patient responds appropriately to verbal questioning. Psych/Mental Status: Appropriate, Flat Affect Debridement Note Post-Debridement Measurements/Treatment WC - Nurse 2 - General Ulcer CM Notes Start: 06/07/18 14:33 Freq: Status: Active Protocol: Activity Type Activity Date Activity User E-Sign Co-Sign Detail Recorded Client Recorded Date Recorded By Document 06/07/18 15:37 [id number] 06/07/18 15:46 06/07/18 15:37 Wound Center Nurse 2 #1 coccyx -Time 15:37 -Correct Patient Yes -Correct Side, Site, Position Yes -Correct Procedure Yes -Procedure Performed Yes -Type of Procedure Debridement -Clinical Debridement Subcutaneous -Post Debridement Size (cm) - Length 2.5 -Post Debridement Size (cm) - Width 1.3 -Post Debridement Size (cm) - Depth 2.5 -Total Square Cm 3.25 -Wound/Ulcer Outcome Not Healed -Ulcer Cleansing Rinsed/ Irrigated with Saline -Foul Odor after Cleansing No -Bioengineered Tissue No -Bleeding Controlled with NA -Treatment Response Procedure Tolerated Well Pain Scale: 0-10 Numeric Is Patient Pain Free? Yes Laterality: Not Applicable - Coccygeal pressure ulceration Type of Debridement: Excisional debridement Anesthesia Used: 4% Lidocaine Solution Depth: Down to and including healthy tissue, in the subcutaneous layer Percentage of wound debrided: 100 Instrument Used: 5mm curette Severity: Fat Layer Exposed Amount of bleeding with debridement: Mild Bleeding Controlled with: Compression and gauze Patient tolerated procedure well Assessment/Plan Active Problems Pressure injury of coccygeal region, stage 3 (Acute) Dementia (Chronic) Debility (Chronic) Failure to thrive (Chronic) Parkinson's disease dementia (Chronic) Assessment: This is a 72-year-old debilitated male with Parkinson's disease and dementia. He is a recent resident of [facility]. He presents with a coccygeal pressure ulceration, appearing to be stage III. Cultures have been obtained, and results will be awaited. The patient appears to be of limited mobility, and generally weak and frail. Recent laboratory studies have been obtained, with results as follows: White blood count 13.8, hemoglobin 13.2 , hematocrit 39.4, platelets 317,000, sodium 137, potassium 3.5, chloride 103, BUN 12, creatinine 0.80, glucose 87, calcium 8.3. Plan: Offloading measures are to be implemented. Frequent repositioning is to be recommended. A low air loss mattress has been advised. A Roho cushion for the patient's wheelchair is to be requested. Communication with the patient's caregivers will suggest repositioning of the patient on a frequent basis, with change of position at least every 30-60 minutes. Optimization of the patient's oral intake and good nutrition has been recommended. Continued oral supplements such as Ensure or Inderjit have been recommended. Culture results will be awaited, and appropriate management will be based upon the results. An x-ray of the patient's sacrococcygeal region will be obtained, to determine the possible presence of osteomyelitis. We are to implement the use of Silver Jil packing, which will be applied to the wound every other day, or more frequently if necessary. The patient is to return to the wound healing center 1 week for reassessment. Given the patient's advanced age and general debility, is not likely to be a candidate for plastic surgical consultation with consideration of flap reconstruction. Influenza vaccine was not administered today. The patient is not a smoker. He weighs 140 pounds. He stands 5 feet 6 inches tall. His BMI is 22.6, which is normal.
[2018-06-14 14:14] VITALS: BP 121/70; PULSE 76; RESP 18; TEMP 37.3; BMI 22.6
--- NOTE | 2018-06-14 14:52 | PCM.WC.HP ---
(1) Pressure injury of coccygeal region, stage 3 Status: Chronic Current Visit: Yes Code(s): L89.153 - Pressure ulcer of sacral region, stage 3 (2) Urinary incontinence Status: Chronic Current Visit: No Code(s): R32 - Unspecified urinary incontinence (3) Dementia Status: Chronic Current Visit: Yes Code(s): F03.90 - Unspecified dementia without behavioral disturbance (4) Debility Status: Chronic Current Visit: Yes Code(s): R53.81 - Other malaise (5) Failure to thrive Status: Chronic Current Visit: Yes (6) Parkinson's disease dementia Status: Chronic Current Visit: Yes Code(s): G20 - Parkinson's disease; F02.80 - Dementia in other diseases classified elsewhere without behavioral disturbance (7) Parkinson disease Status: Chronic Current Visit: No Code(s): G20 - Parkinson's disease (8) Generalized weakness Status: Chronic Current Visit: Yes Code(s): R53.1 - Weakness History of Present Illness Date of Service: 06/14/18 Chief Complaint: Coccygeal pressure ulceration, stage III History of Wound: This is a 72-year-old male who is currently a resident of [facility]. Until recently, the patient lived at home, cared for by his elderly . Upon admission to the intermediate, it was realized that the patient had a coccygeal pressure ulceration, though its age is indeterminate. The patient is currently on a waffle mattress. He has a nonspecific cushion on his wheelchair. He is of limited mobility, though ambulates with assistance and with the assistance of a walker. Otherwise, he spends long hours each day either lying in bed or sitting in a chair. Past Medical History Past Medical History: Chronic Problems Pressure injury of coccygeal region, stage 3 (Chronic) Urinary incontinence (Chronic) Dementia (Chronic) Debility (Chronic) Failure to thrive (Chronic) Macrocytic anemia (Chronic) Parkinson's disease dementia (Chronic) Parkinson disease (Chronic) Generalized weakness (Chronic) Surgical History: appendectomy, herniorrhaphy - Multiple procedures in his groin., total knee arthroplasty - Right knee, - - Cervical spine surgery-fusion, removal of right eye approximately 25 years ago secondary to melanoma Allergies/Adverse Reactions: Allergies No Known Allergies Allergy (Verified 04/04/18 16:37) Home Medications: Ambulatory Orders Medication Instructions Recorded Donepezil HCl [Aricept] 5 mg PO QHS 10/06/17 Carbidopa/Levodopa 50/200 [Sinemet 1 tablet PO HS@2100 tablet.sa 10/09/17 CR 50/200] Carbidopa/Levodopa [Carbidopa-Levo 1 each PO TID 04/04/18 25-100 mg Odt] - Family History Maternal No pertinent history, - - The patient's mother had a history of rectal cancer. Paternal No pertinent history, - - Patient's father had a history of throat cancer. Smoking Status: Never smoker Tobacco Use: Non-smoker Alcohol: None Drugs: None Review of Systems Constitutional: Denies: Chills, Fever, Weight Change Eyes: Denies: Pain, Vision Change HEENT: Denies: Difficulty Hearing, Difficulty Swallowing, Sinus Congestion Cardiovascular: Denies: Chest Pain, Palpitations Respiratory: Denies: Cough, Shortness of Breath Gastrointestinal: Denies: Diarrhea, Nausea, Vomiting Genitourinary: Denies: Dysuria, Hematuria Endocrine: Denies: Heat/ Cold Intolerance, Polydipsia, Polyuria Hematologic/ Lymphatic: Denies: Easy Bruising, Easy Bleeding - Physical Exam Vital Signs Temp Pulse Resp BP 99.1 F 76 18 121/70 H 06/14/18 14:14 06/14/18 14:14 06/14/18 14:14 06/14/18 14:14 General: Alert, Oriented x3, Cooperative, No apparent distress, - - Patient appears sickly and frail HEENT: Atraumatic, PERRLA, EOMI, Normocephalic Oral: Moist Mucosa Neck: No JVD Lungs: Normal air movement Abdomen: Non-Distended Extremities: No clubbing, No cyanosis, No edema, No Calf Tenderness Skin: - - Stage III coccygeal pressure ulceration is noted. It is little changed from that noted last week. There is a mild amount of undermining. The ulceration is generally pink and healthy in appearance, with a moderate amount of bioburden. There is no obvious sign of infection or cellulitis. However, cultures from last week are positive for Streptococcus agalactiae Wound Measurements and Assessment WC - Nurse 1 - General Ulcer Measurement Start: 06/07/18 14:33 Freq: Status: Active Protocol: Activity Type Activity Date Activity User E-Sign Co-Sign Detail Recorded Client Recorded Date Recorded By Document 06/14/18 14:14 [id number] 06/14/18 14:16 06/14/18 14:14 Wound Center Nurse 1 [Ulcer Assessment] #1 coccyx -Combined with other wound No -Current Size (cm) - Length 1.7 -Current Size (cm) - Width 0.7 -Current Size (cm) - Depth 2.0 -Total Square Cm 1.19 -Photo Taken No -Tunneling No -Undermining/Tunneling No -Circular Undermining No -Exudate Amt Medium (34-66%) -Exudate Type Yellow/Green -Wound Margin Distinct, Outline Attached -Granulation Amt None Present (0 %) -Granulation Quality N/A -Slough/Fibrin Yes -Necrosis Amt None Present (0 %) -Necrotic Tissue Type Adherent Slough -Structure Exposed None/Limited to Skin Breakdown -Texture (Bertha-wound Skin Appearance) No Abnormality Assessed -Moisture (Bertha-wound Skin Appearance No Abnormality ) Assessed -Temperature (Bertha-wound Skin No Abnormality Appearance) (Pt Warm) -Tenderness on Palpation (Bertha-wound No Skin Appearance) -Ulcer Cleansing Wound Cleanser -Foul Odor after Cleansing No -Anesthetic Used 5% Lidocaine Gel [Edema Assessment] -Lower Limb Edema Present NA WC - Nurse 2 - General Ulcer CM Notes Start: 06/07/18 14:33 Freq: Status: Active Protocol: Activity Type Activity Date Activity User E-Sign Co-Sign Detail Recorded Client Recorded Date Recorded By Document 06/14/18 14:40 [id number] 06/14/18 14:43 06/14/18 14:40 Wound Center Nurse 2 [Procedure/Treatment] #1 coccyx -Time 14:40 -Correct Patient Yes -Correct Side, Site, Position Yes -Correct Procedure Yes -Procedure Performed Yes -Type of Procedure Debridement -Clinical Debridement Subcutaneous -Post Debridement Size (cm) - Length 1.3 -Post Debridement Size (cm) - Width 1.5 -Post Debridement Size (cm) - Depth 2.5 -Total Square Cm 1.95 -Wound/Ulcer Outcome Not Healed -Ulcer Cleansing Rinsed/ Irrigated with Saline -Foul Odor after Cleansing No -Bioengineered Tissue No -Bleeding Controlled with NA -Treatment Response Procedure Tolerated Well [See Physician Procedure note for Specifics] Pain Scale: 0-10 Numeric [Pain] -Is Patient Pain Free? Yes Musculoskeletal: Muscle Wasting Neurological: Cranial nerves II-XII grossly intact, Neuro grossly intact Psych/Mental Status: Normal Affect Debridement Note Post-Debridement Measurements/Treatment WC - Nurse 2 - General Ulcer CM Notes Start: 06/07/18 14:33 Freq: Status: Active Protocol: Activity Type Activity Date Activity User E-Sign Co-Sign Detail Recorded Client Recorded Date Recorded By Document 06/07/18 15:37 [email or web address] 06/07/18 15:46 JS Document 06/14/18 14:40 [id number] 06/14/18 14:43 JS 06/07/18 06/14/18 15:37 14:40 Wound Center Nurse 2 #1 coccyx -Time 15:37 14:40 -Correct Patient Yes Yes -Correct Side, Site, Position Yes Yes -Correct Procedure Yes Yes -Procedure Performed Yes Yes -Type of Procedure Debridement Debridement -Clinical Debridement Subcutaneous Subcutaneous -Post Debridement Size (cm) - Length 2.5 1.3 -Post Debridement Size (cm) - Width 1.3 1.5 -Post Debridement Size (cm) - Depth 2.5 2.5 -Total Square Cm 3.25 1.95 -Wound/Ulcer Outcome Not Healed Not Healed -Ulcer Cleansing Rinsed/ Rinsed/ Irrigated with Irrigated with Saline Saline -Foul Odor after Cleansing No No -Bioengineered Tissue No No -Bleeding Controlled with NA NA -Treatment Response Procedure Procedure Tolerated Well Tolerated Well Pain Scale: 0-10 Numeric Is Patient Pain Free? Yes Yes Laterality: Not Applicable - Coccygeal pressure ulcer Type of Debridement: Excisional debridement Anesthesia Used: 4% Lidocaine Solution Depth: Down to and including healthy tissue, in the subcutaneous layer Percentage of wound debrided: 100 Instrument Used: 5mm curette Severity: Fat Layer Exposed Amount of bleeding with debridement: Mild Bleeding Controlled with: Compression and gauze Patient tolerated procedure well Assessment/Plan Active Problems Pressure injury of coccygeal region, stage 3 (Chronic) Dementia (Chronic) Debility (Chronic) Failure to thrive (Chronic) Parkinson's disease dementia (Chronic) Generalized weakness (Chronic) Assessment: This is a 72-year-old debilitated male with Parkinson's disease and dementia. He is a recent resident of [facility]. He presents with a coccygeal pressure ulceration, appearing to be stage III. Cultures have been obtained, and results will be awaited. The patient appears to be of limited mobility, and generally weak and frail. Recent laboratory studies have been obtained, with results as follows: White blood count 13.8, hemoglobin 13.2, hematocrit 39.4, platelets 317,000, sodium 137, potassium 3.5, chloride 103, BUN 12, creatinine 0.80, glucose 87, calcium 8.3. The patient has also had an x-ray of the sacrum and coccyx, revealing no acute fracture or bony erosions. Magnetic resonance imaging is suggested for evaluation of osteomyelitis. Cultures which were taken last week are positive for Streptococcus agalactiae. Plan: Offloading measures are to be implemented. Frequent repositioning is to be recommended. A low air loss mattress has been advised. A Roho cushion for the patient's wheelchair is to be requested. Communication with the patient's caregivers will suggest repositioning of the patient on a frequent basis, with change of position at least every 30-60 minutes. Optimization of the patient's oral intake and good nutrition has been recommended. Continued oral supplements such as Ensure or Inderjit have been recommended. We are to initiate antibiotic treatment using amoxicillin 850 mg p.o. twice daily for 10 days. We are to continue the use of Silver Jil packing, which will be applied to the wound every other day, or more frequently if necessary. An MRI of the sacrococcygeal region will be obtained to assess for possible osteomyelitis. The patient is to [facility] for reassessment. Given the patient's advanced age and general debility, is not likely to be a candidate for plastic surgical consultation with consideration of flap reconstruction. Influenza vaccine was not administered today. The patient is not a smoker. He weighs 140 pounds. He stands 5 feet 6 inches tall. His BMI is 22.6, which is normal.
[2018-06-19 13:16] LABS: CREATININE FINGERSTICK 0.6 mg/dL (0.70-1.30)
[2018-06-22 13:39] VITALS: BP 134/72; PULSE 77; RESP 16; TEMP 36.9; BMI 22.6
--- NOTE | 2018-06-22 14:05 | PCM.WC.HP ---
(1) Pressure injury of coccygeal region, stage 3 Status: Inactive Current Visit: Yes Code(s): L89.153 - Pressure ulcer of sacral region, stage 3 (2) Urinary incontinence Status: Chronic Current Visit: No Code(s): R32 - Unspecified urinary incontinence (3) Dementia Status: Chronic Current Visit: Yes Code(s): F03.90 - Unspecified dementia without behavioral disturbance (4) Debility Status: Chronic Current Visit: Yes Code(s): R53.81 - Other malaise (5) Failure to thrive Status: Chronic Current Visit: Yes (6) Parkinson's disease dementia Status: Chronic Current Visit: Yes Code(s): G20 - Parkinson's disease; F02.80 - Dementia in other diseases classified elsewhere without behavioral disturbance (7) Parkinson disease Status: Chronic Current Visit: No Code(s): G20 - Parkinson's disease (8) Generalized weakness Status: Chronic Current Visit: Yes Code(s): R53.1 - Weakness (9) Pressure ulcer, stage 4 Status: Chronic Current Visit: Yes Qualifiers: Pressure injury location: sacral region Qualified Code(s): L89.154 - Pressure ulcer of sacral region, stage 4 Code(s): L89.94 - Pressure ulcer of unspecified site, stage 4 History of Present Illness Date of Service: 06/22/18 Chief Complaint: Sacro-coccygeal pressure ulceration, stage IV History of Wound: This is a 72-year-old male who is currently a resident of [facility]. Until recently, the patient lived at home, cared for by his elderly . Upon admission to the correction, it was realized that the patient had a sacro-coccygeal pressure ulceration, though its age is indeterminate. The patient was sleeping on a waffle mattress. He had a nonspecific cushion on his wheelchair. He is of limited mobility, though ambulates with assistance and with the assistance of a walker. Otherwise, he spends long hours each day either lying in bed or sitting in a chair. 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 Paternal No pertinent history, - - Patient's father had a history of throat cancer. Smoking Status: Never smoker Tobacco Use: Non-smoker Alcohol: None Drugs: None Review of Systems Constitutional: Denies: Chills, Fever, Weight Change Eyes: Denies: Pain, Vision Change HEENT: Denies: Difficulty Hearing, Difficulty Swallowing, Sinus Congestion Cardiovascular: Denies: Chest Pain, Palpitations Respiratory: Denies: Cough, Shortness of Breath Gastrointestinal: Denies: Diarrhea, Nausea, Vomiting Genitourinary: Denies: Dysuria, Hematuria Endocrine: Denies: Heat/ Cold Intolerance, Polydipsia, Polyuria Hematologic/ Lymphatic: Denies: Easy Bruising, Easy Bleeding - Physical Exam Vital Signs Temp Pulse Resp BP 98.4 F 77 16 134/72 H 06/22/18 13:39 06/22/18 13:39 06/22/18 13:39 06/22/18 13:39 General: Alert, Oriented x3, Cooperative, No apparent distress, Well developed, Well nourished, - - The patient is weak, frail, and debilitated HEENT: Atraumatic, PERRLA, EOMI, Normocephalic Oral: Moist Mucosa Neck: No JVD Lungs: Normal air movement Abdomen: Non-Distended Extremities: No clubbing, No cyanosis, No Calf Tenderness Skin: - - The patient's sacro-coccygeal pressure ulceration is relatively unchanged. It appears pink, with a moderate amount of bioburden. It appears to track down to underlying sacrum. Wound Measurements and Assessment - Nurse 1 - General Ulcer Measurement Start: 06/07/18 14:33 Freq: Status: Active Protocol: Activity Type Activity Date Activity User E-Sign Co-Sign Detail Recorded Client Recorded Date Recorded By Document 06/22/18 13:39 [id number] 06/22/18 13:51 06/22/18 13:39 Wound Center Nurse 1 [Ulcer Assessment] #1 coccyx -Combined with other wound No -Current Size (cm) - Length 1.1 -Current Size (cm) - Width 1 -Current Size (cm) - Depth 3 -Total Square Cm 1.1 -Photo Taken No -Epithelialization None Present -Tunneling No -Undermining/Tunneling No -Circular Undermining No -Exudate Amt Medium (34-66%) -Exudate Type Serosanguineous -Wound Margin Distinct, Outline Attached -Granulation Amt Large (67-100%) -Granulation Quality Red -Slough/Fibrin No -Necrosis Amt None Present (0 %) -Texture (Bertha-wound Skin Appearance) Scarring -Moisture (Bertha-wound Skin Appearance Maceration ) -Color (Bertha-wound Skin Appearance) Erythema Palor -Temperature (Bertha-wound Skin No Abnormality Appearance) (Pt Warm) -Tenderness on Palpation (Bertha-wound No Skin Appearance) -Ulcer Cleansing Rinsed/ Irrigated with Saline -Foul Odor after Cleansing No -Anesthetic Used 4% Lidocaine Solution - Nurse 2 - General Ulcer CM Notes Start: 06/07/18 14:33 Freq: Status: Active Protocol: Activity Type Activity Date Activity User E-Sign Co-Sign Detail Recorded Client Recorded Date Recorded By Document 06/22/18 13:56 [id number] 06/22/18 13:59 06/22/18 13:56 Wound Center Nurse 2 [Procedure/Treatment] -Time 13:57 -Correct Patient Yes -Correct Side, Site, Position Yes -Correct Procedure Yes -Procedure Performed Yes -Type of Procedure Debridement -Clinical Debridement Muscle Bone -Post Debridement Size (cm) - Length 1.1 -Post Debridement Size (cm) - Width 1.0 -Post Debridement Size (cm) - Depth 3.0 -Total Square Cm 1.10 -Wound/Ulcer Outcome Not Healed -Ulcer Cleansing Rinsed/ Irrigated with Saline -Foul Odor after Cleansing No -Bioengineered Tissue No -Bleeding Controlled with NA -Treatment Response Procedure Tolerated Well [See Physician Procedure note for Specifics] Pain Scale: 0-10 Numeric [Pain] -Is Patient Pain Free? Yes Musculoskeletal: Muscle Wasting Neurological: Cranial nerves II-XII grossly intact Psych/Mental Status: Flat Affect, - - Patient demonstrates behavior consistent with his diagnosis of dementia Debridement Note Post-Debridement Measurements/Treatment WC - Nurse 2 - General Ulcer CM Notes Start: 06/07/18 14:33 Freq: Status: Active Protocol: Activity Type Activity Date Activity User E-Sign Co-Sign Detail Recorded Client Recorded Date Recorded By Document 06/07/18 15:37 [id number] 06/07/18 15:46 JS Document 06/14/18 14:40 JS [id number] 06/14/18 14:43 JS Document 06/22/18 13:56 JS [id number] 06/22/18 13:59 JS 06/07/18 06/14/18 06/22/18 15:37 14:40 13:56 Wound Center Nurse 2 #1 coccyx -Time 15:37 14:40 13:57 -Correct Patient Yes Yes Yes -Correct Side, Site, Position Yes Yes Yes -Correct Procedure Yes Yes Yes -Procedure Performed Yes Yes Yes -Type of Procedure Debridement Debridement Debridement -Clinical Debridement Subcutaneous Subcutaneous Muscle Bone -Post Debridement Size (cm) - Length 2.5 1.3 1.1 -Post Debridement Size (cm) - Width 1.3 1.5 1.0 -Post Debridement Size (cm) - Depth 2.5 2.5 3.0 -Total Square Cm 3.25 1.95 1.10 -Wound/Ulcer Outcome Not Healed Not Healed Not Healed -Ulcer Cleansing Rinsed/ Rinsed/ Rinsed/ Irrigated with Irrigated with Irrigated with Saline Saline Saline -Foul Odor after Cleansing No No No -Bioengineered Tissue No No No -Bleeding Controlled with NA NA NA -Treatment Response Procedure Procedure Procedure Tolerated Well Tolerated Well Tolerated Well Pain Scale: 0-10 Numeric Is Patient Pain Free? Yes Yes Yes Laterality: Not Applicable - Sacro-coccygeal pressure ulceration Type of Debridement: Excisional debridement Anesthesia Used: 4% Lidocaine Solution Depth: Down to and including healthy tissue, to bone Percentage of wound debrided: 100 Instrument Used: 5mm curette Severity: Necrosis of Bone Amount of bleeding with debridement: Mild Bleeding Controlled with: Compression and gauze Patient tolerated procedure well Assessment/Plan Clinical Impression(s) from Imaging Studies Pelvis MRI 06/19/18 07:45 IMPRESSION: 1. 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 2. Enhancement of the precoccygeal soft tissues and gluteus juan bilaterally is consistent with adjacent inflammation. 3. 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 Electronically Signed: Sandrita Wakefield MD at 17:56 EDT Tel , Service support , Active Problems Dementia (Chronic) Debility (Chronic) Pressure ulcer, stage 4 (Chronic) Failure to thrive (Chronic) Parkinson's disease dementia (Chronic) Generalized weakness (Chronic) Assessment: This is a 72-year-old debilitated male with Parkinson's disease and dementia. He is a recent resident of [facility]. He presented with a sacro-coccygeal pressure ulceration, appearing to be stage IV. Cultures have been obtained, and results were positive for Streptococcus algactiae. The patient appears to be of limited mobility, and generally weak and frail. Recent laboratory studies have been obtained, with results as follows: White blood count 13.8, hemoglobin 13.2, hematocrit 39.4, platelets 317,000, sodium 137, potassium 3.5, chloride 103, BUN 12, creatinine 0.80, glucose 87, calcium 8.3. The patient has also had an x-ray of the sacrum and coccyx, revealing no acute fracture or bony erosions. Magnetic resonance imaging has been performed, which reveals the presence of coccygeal osteomyelitis. As result of the positive cultures, and confirmation of osteomyelitis, patient has been placed on amoxicillin 850 mg p.o. twice daily, which will continue for several weeks. To assist in the patient's management, we are to seek consultation with the Plastic Surgery service and the Infectious Disease service. Assistance with appropriate antibiotic management will be sought, with evaluation to determine whether there may be a role for surgical debridement, bone culture, and possible preparation for flap reconstruction. Plan: Offloading measures are to be implemented. Frequent repositioning is to be recommended. A low air loss mattress has been obtained. An offloading cushion for the patient's wheelchair has been obtained. Communication with the patient's caregivers will suggest repositioning of the patient on a frequent basis, with change of position at least every 30-60 minutes. Optimization of the patient's oral intake and good nutrition has been recommended. Continued oral supplements such as Ensure or Inderjit have been recommended. We are to continue antibiotic treatment using amoxicillin 850 mg p.o. twice daily. We are to continue the use of Silver Jil packing, which will be applied to the wound every other day, or more frequently if necessary. Given confirmation of osteomyelitis of the sacrum by MRI exam, we are to seek consultation with the Plastic Surgery and Infectious Disease specialists. The patient is to return to the [facility] 1 week for reassessment. Given the patient's advanced age and general debility, is not likely to be a candidate for plastic surgical consultation with consideration of flap reconstruction. However, such input will be helpful. Influenza vaccine was not administered today. The patient is not a smoker. He weighs 140 pounds. He stands 5 feet 6 inches tall. His BMI is 22.6, which is normal.
[2018-06-28 13:00] VITALS: BP 108/59; PULSE 78; RESP 16; TEMP 36.6; BMI 22.6
--- NOTE | 2018-06-28 14:00 | PCM.WC.HP ---
(1) Urinary incontinence Status: Chronic Current Visit: No Code(s): R32 - Unspecified urinary incontinence (2) Dementia Status: Chronic Current Visit: Yes Code(s): F03.90 - Unspecified dementia without behavioral disturbance (3) Debility Status: Chronic Current Visit: Yes Code(s): R53.81 - Other malaise (4) Failure to thrive Status: Chronic Current Visit: Yes (5) Parkinson's disease dementia Status: Chronic Current Visit: Yes Code(s): G20 - Parkinson's disease; F02.80 - Dementia in other diseases classified elsewhere without behavioral disturbance (6) Parkinson disease Status: Chronic Current Visit: Yes Code(s): G20 - Parkinson's disease (7) Generalized weakness Status: Chronic Current Visit: Yes Code(s): R53.1 - Weakness (8) Pressure ulcer, stage 4 Status: Chronic Current Visit: Yes Qualifiers: Pressure injury location: sacral region Qualified Code(s): L89.154 - Pressure ulcer of sacral region, stage 4 Code(s): L89.94 - Pressure ulcer of unspecified site, stage 4 History of Present Illness Date of Service: 06/28/18 Chief Complaint: Sacro-coccygeal pressure ulceration, stage IV History of Wound: This is a 72-year-old male who is currently a resident of [facility]. Until recently, the patient lived at home, cared for by his elderly . Upon admission to the snf, it was realized that the patient had a sacro-coccygeal pressure ulceration, though its age is indeterminate. The patient was sleeping on a waffle mattress. He had a nonspecific cushion on his wheelchair. He is of very limited mobility, though ambulates with assistance and with the assistance of a walker. Otherwise, he spends long hours each day either lying in bed or sitting in a chair. 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 Paternal No pertinent history, - - Patient's father had a history of throat cancer. Smoking Status: Never smoker Tobacco Use: Non-smoker Alcohol: None Drugs: None Review of Systems Constitutional: Denies: Chills, Fever, Weight Change Eyes: Denies: Pain, Vision Change HEENT: Denies: Difficulty Hearing, Difficulty Swallowing, Sinus Congestion Cardiovascular: Denies: Chest Pain, Palpitations Respiratory: Denies: Cough, Shortness of Breath Gastrointestinal: Denies: Diarrhea, Nausea, Vomiting Genitourinary: Denies: Dysuria, Hematuria Endocrine: Denies: Heat/ Cold Intolerance, Polydipsia, Polyuria Hematologic/ Lymphatic: Denies: Easy Bruising, Easy Bleeding - Physical Exam Vital Signs Temp Pulse Resp BP 98 F 78 16 108/59 L 06/28/18 13:00 06/28/18 13:00 06/28/18 13:00 06/28/18 13:00 General: Cooperative, No apparent distress, Well developed, Well nourished, Lethargic, - - Patient appears frail and weak HEENT: Atraumatic, PERRLA, EOMI, Normocephalic Oral: Moist Mucosa Neck: No JVD Lungs: Normal air movement Abdomen: Non-Distended Extremities: No clubbing, No cyanosis, No edema Skin: Ulcer/ Wound - Sacrum, - - Stage IV sacral pressure ulceration is noted Wound Measurements and Assessment WC - Nurse 1 - General Ulcer Measurement Start: 06/07/18 14:33 Freq: Status: Active Protocol: Activity Type Activity Date Activity User E-Sign Co-Sign Detail Recorded Client Recorded Date Recorded By Document 06/28/18 13:00 DL [id number] 06/28/18 13:11 DL 06/28/18 13:00 Wound Center Nurse 1 [Ulcer Assessment] #1 coccyx -Current Size (cm) - Length 1.1 -Current Size (cm) - Width 1 -Current Size (cm) - Depth 2.4 -Total Square Cm 1.1 -Photo Taken No -Tunneling Position (O'clock) 12 -Tunneling Distance (cm) 2.2 -Exudate Amt Small (1-33%) -Exudate Type Serosanguineous -Wound Margin Distinct, Outline Attached -Granulation Amt Large (67-100%) -Granulation Quality Red -Necrosis Amt None Present (0 %) -Necrotic Tissue Type Adherent Slough -Structure Exposed N/A -Texture (Bertha-wound Skin Appearance) No Abnormality -Moisture (Bertha-wound Skin Appearance No Abnormality ) -Color (Bertha-wound Skin Appearance) No Abnormality -Temperature (Bertha-wound Skin No Abnormality Appearance) (Pt Warm) -Tenderness on Palpation (Bertha-wound Yes Skin Appearance) -Ulcer Cleansing Rinsed/ Irrigated with Saline -Foul Odor after Cleansing No -Anesthetic Used 5% Lidocaine Gel Musculoskeletal: Muscle Wasting Neurological: Cranial nerves II-XII grossly intact Psych/Mental Status: - - Patient did not participate in discussion, as it occurred between medical staff and the patient's family. He appears to be in no acute distress. Debridement Note Post-Debridement Measurements/Treatment WC - Nurse 2 - General Ulcer CM Notes Start: 06/07/18 14:33 Freq: Status: Active Protocol: Activity Type Activity Date Activity User E-Sign Co-Sign Detail Recorded Client Recorded Date Recorded By Document 06/07/18 15:37 [id number] 06/07/18 15:46 Document 06/14/18 14:40 [id number] 06/14/18 14:43 JS Document 06/22/18 13:56 [id number] 06/22/18 13:59 JS 06/07/18 06/14/18 06/22/18 15:37 14:40 13:56 Wound Center Nurse 2 #1 coccyx -Time 15:37 14:40 13:57 -Correct Patient Yes Yes Yes -Correct Side, Site, Position Yes Yes Yes -Correct Procedure Yes Yes Yes -Procedure Performed Yes Yes Yes -Type of Procedure Debridement Debridement Debridement -Clinical Debridement Subcutaneous Subcutaneous Muscle Bone -Post Debridement Size (cm) - Length 2.5 1.3 1.1 -Post Debridement Size (cm) - Width 1.3 1.5 1.0 -Post Debridement Size (cm) - Depth 2.5 2.5 3.0 -Total Square Cm 3.25 1.95 1.10 -Wound/Ulcer Outcome Not Healed Not Healed Not Healed -Ulcer Cleansing Rinsed/ Rinsed/ Rinsed/ Irrigated with Irrigated with Irrigated with Saline Saline Saline -Foul Odor after Cleansing No No No -Bioengineered Tissue No No No -Bleeding Controlled with NA NA NA -Treatment Response Procedure Procedure Procedure Tolerated Well Tolerated Well Tolerated Well Pain Scale: 0-10 Numeric Is Patient Pain Free? Yes Yes Yes Laterality: Not Applicable - Stage IV sacral pressure ulceration Type of Debridement: Excisional debridement Anesthesia Used: 4% Lidocaine Solution Depth: in the subcutaneous layer, to bone Percentage of wound debrided: 100 Instrument Used: 3mm curette Severity: Necrosis of Bone Amount of bleeding with debridement: Mild Bleeding Controlled with: Compression and gauze Patient tolerated procedure well Using the sterile curette, it is apparent that the patient's pressure ulceration extends down to bone in the sacral area. Assessment/Plan Clinical Impression(s) from Imaging Studies Pelvis MRI 06/19/18 07:45 IMPRESSION: 1. 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 2. Enhancement of the precoccygeal soft tissues and gluteus juan bilaterally is consistent with adjacent inflammation. 3. 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 Electronically Signed: Sandrita Wakefield MD at 17:56 EDT Tel , Service support , Active Problems Dementia (Chronic) Debility (Chronic) Pressure ulcer, stage 4 (Chronic) Failure to thrive (Chronic) Parkinson's disease dementia (Chronic) Parkinson disease (Chronic) Generalized weakness (Chronic) Assessment: This is a 72-year-old debilitated male with Parkinson's disease and dementia. He is a recent resident of [facility]. He presented with a sacro-coccygeal pressure ulceration, appearing to be stage IV. Cultures have been obtained, and results were positive for Streptococcus algactiae. The patient appears to be of limited mobility, and generally weak and frail. Recent laboratory studies have been obtained, with results as follows: White blood count 13.8, hemoglobin 13.2, hematocrit 39.4, platelets 317,000, sodium 137, potassium 3.5, chloride 103, BUN 12, creatinine 0.80, glucose 87, calcium 8.3. The patient has also had an x-ray of the sacrum and coccyx, revealing no acute fracture or bony erosions. Magnetic resonance imaging has been performed, which reveals the presence of sacro-coccygeal osteomyelitis. As result of the positive cultures, and confirmation of osteomyelitis, patient has been placed on amoxicillin 850 mg p.o. twice daily, which will continue for several weeks. To assist in the patient's management, we are to seek consultation with the Plastic Surgery service and the Infectious Disease service. The patient currently has an appointment with Dr. Bryant on July 19, 2018. We will continue in our efforts to secure a consultation with Infectious Disease. Assistance with appropriate antibiotic management will be sought, with evaluation to determine whether there may be a role for surgical debridement, bone culture, and possible preparation for flap reconstruction. Plan: Offloading measures are to be implemented. Frequent repositioning is to be recommended. A low air loss mattress has been obtained. An offloading cushion for the patient's wheelchair has been obtained. We are to request a Roho cushion. Communication with the patient's caregivers will suggest repositioning of the patient on a frequent basis, with change of position at least every 30-60 minutes. Optimization of the patient's oral intake and good nutrition has been recommended. Continued oral supplements such as Ensure or Inderjit have been recommended. We are to continue antibiotic treatment using amoxicillin 850 mg p.o. twice daily. We are to continue the use of Silver Jil packing, which will be applied to the wound every other day, or more frequently if necessary. Given confirmation of osteomyelitis of the sacrum by MRI exam, we are to seek consultation with the Plastic Surgery and Infectious Disease specialists. The [facility] for reassessment. Given the patient's advanced age and general debility, is not likely to be a candidate for plastic surgical consultation with consideration of flap reconstruction. However, such input will be helpful. Influenza vaccine was not administered today. The patient is not a smoker. He weighs 140 pounds. He stands 5 feet 6 inches tall. His BMI is 22.6, which is normal.
== END 2018-07-02 23:59 ==
LOC: WC 13:00
PROVIDERS: Family Provider Family Medicine; PCP Family Medicine; Visit Provider Surgery
DX: L89.153 Pressure ulcer of sacral region, stage 3 (principal); R32 Unspecified urinary incontinence; F03.90 Unspecified dementia, unspecified severity, without behavioral disturbance, psychotic disturbance, mood disturbance, and anxiety; G20 Parkinson's disease; F02.80 Dementia in other diseases classified elsewhere, unspecified severity, without behavioral disturbance, psychotic disturbance, mood disturbance, and anxiety; Z85.820 Personal history of malignant melanoma of skin
CPT/HCPCS: 11042; 72197; 87070; 87075; 87077; 87186; 87205; 99213; A9585; G0463

== ENCOUNTER 2018-07-27 10:30 | Outpatient (RCR) | payer MEDICARE, SELFPAY ==
[2018-07-03 01:40] VITALS: BP 108/59; PULSE 78; RESP 16; TEMP 36.6
[2018-07-06 10:36] VITALS: BP 140/72; PULSE 71; RESP 18; TEMP 37.2
--- NOTE | 2018-07-06 11:03 | PCM.WC.HP ---
(1) Pressure injury of coccygeal region, stage 3 Status: Inactive Current Visit: No Code(s): L89.153 - Pressure ulcer of sacral region, stage 3 (2) Urinary incontinence Status: Chronic Current Visit: Yes Code(s): R32 - Unspecified urinary incontinence (3) Dementia Status: Chronic Current Visit: Yes Code(s): F03.90 - Unspecified dementia without behavioral disturbance (4) Debility Status: Chronic Current Visit: Yes Code(s): R53.81 - Other malaise (5) Pressure ulcer, stage 4 Status: Chronic Current Visit: Yes Qualifiers: Pressure injury location: sacral region Code(s): L89.94 - Pressure ulcer of unspecified site, stage 4 (6) Dysphagia Status: Acute Current Visit: No Code(s): R13.10 - Dysphagia, unspecified (7) Failure to thrive Status: Chronic Current Visit: Yes Qualifiers: Failure to thrive age range: in adult Qualified Code(s): R62.7 - Adult failure to thrive (8) Macrocytic anemia Status: Chronic Current Visit: No Code(s): D53.9 - Nutritional anemia, unspecified (9) Parkinson's disease dementia Status: Chronic Current Visit: Yes Code(s): G20 - Parkinson's disease; F02.80 - Dementia in other diseases classified elsewhere without behavioral disturbance (10) Parkinson disease Status: Chronic Current Visit: Yes Code(s): G20 - Parkinson's disease (11) Incontinence Status: Acute Current Visit: Yes Qualifiers: Incontinence type: fecal Code(s): R32 - Unspecified urinary incontinence (12) Generalized weakness Status: Chronic Current Visit: Yes Code(s): R53.1 - Weakness History of Present Illness Date of Service: 07/06/18 Chief Complaint: Sacro-coccygeal pressure ulceration, stage IV History of Wound: This is a 72-year-old male who is currently a resident of [facility]. Until recently, the patient lived at home, cared for by his elderly . Upon admission to the halfway, it was realized that the patient had a sacro-coccygeal pressure ulceration, though its age is indeterminate. The patient was sleeping on a waffle mattress. He had a nonspecific cushion on his wheelchair. He is of very limited mobility, though ambulates with assistance and with the assistance of a walker. Otherwise, he spends long hours each day either lying in bed or sitting in a chair. 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 Paternal No pertinent history, - - Patient's father had a history of throat cancer. Smoking Status: Never smoker Tobacco Use: Non-smoker Review of Systems Constitutional: Denies: Chills, Fever, Weight Change Eyes: Denies: Pain, Vision Change HEENT: Denies: Difficulty Hearing, Difficulty Swallowing, Sinus Congestion Cardiovascular: Denies: Chest Pain, Palpitations Respiratory: Denies: Cough, Shortness of Breath Gastrointestinal: Denies: Diarrhea, Nausea, Vomiting Genitourinary: Denies: Dysuria, Hematuria Endocrine: Denies: Heat/ Cold Intolerance, Polydipsia, Polyuria Hematologic/ Lymphatic: Denies: Easy Bruising, Easy Bleeding - Physical Exam Vital Signs Temp Pulse Resp BP 98.9 F 71 18 140/72 H 07/06/18 10:36 07/06/18 10:36 07/06/18 10:36 07/06/18 10:36 General: Alert, Oriented x3, Cooperative, No apparent distress, Well developed, Well nourished HEENT: Atraumatic, PERRLA, EOMI, Normocephalic Oral: Moist Mucosa Neck: No JVD Lungs: Normal air movement Abdomen: Non-Distended Extremities: No clubbing, No cyanosis, No edema, No Calf Tenderness Skin: - - The sacrococcygeal pressure ulceration is little changed in appearance. It appears to represent a stage IV pressure ulceration. It extends down to underlying bone. There is no significant drainage. There is no malodor. Dimensions are documented elsewhere. Wound Measurements and Assessment WC - Nurse 1 - General Ulcer Measurement Start: 07/06/18 10:36 Freq: Status: Active Protocol: Activity Type Activity Date Activity User E-Sign Co-Sign Detail Recorded Client Recorded Date Recorded By Document 07/06/18 10:36 [id number] 07/06/18 10:38 07/06/18 10:36 Wound Center Nurse 1 [Ulcer Assessment] #1 coccyx -Combined with other wound No -Current Size (cm) - Length 1.3 -Current Size (cm) - Width 0.3 -Current Size (cm) - Depth 3.5 -Total Square Cm 0.39 -Date of Last Picture (Recall this 07/06/18 field) -Photo Taken Yes -Epithelialization None Present -Tunneling No -Undermining/Tunneling No -Circular Undermining No -Exudate Amt None Present (0 %) -Exudate Type Serosanguineous -Wound Margin Distinct, Outline Attached -Granulation Amt Medium (34-66%) -Granulation Quality Red -Slough/Fibrin Yes -Necrosis Amt None Present (0 %) -Necrotic Tissue Type Adherent Slough -Structure Exposed Bone -Texture (Bertha-wound Skin Appearance) No Abnormality Assessed -Moisture (Bertha-wound Skin Appearance No Abnormality ) Assessed -Color (Bertha-wound Skin Appearance) No Abnormality Assessed -Temperature (Bertha-wound Skin No Abnormality Appearance) (Pt Warm) -Tenderness on Palpation (Bertha-wound No Skin Appearance) -Ulcer Cleansing Rinsed/ Irrigated with Saline -Foul Odor after Cleansing No -Anesthetic Used 4% Lidocaine Solution [Edema Assessment] -Lower Limb Edema Present NA Neurological: Cranial nerves II-XII grossly intact Psych/Mental Status: Flat Affect, - - The patient interacts with environment, but only upon demand. Debridement Note Laterality: Not Applicable - Sacrococcygeal pressure ulcer Type of Debridement: Excisional debridement Anesthesia Used: 4% Lidocaine Solution Depth: Down to and including healthy tissue, in the subcutaneous layer Percentage of wound debrided: 100 Instrument Used: 5mm curette Severity: Fat Layer Exposed Amount of bleeding with debridement: Mild Bleeding Controlled with: Compression and gauze Patient tolerated procedure well Assessment/Plan Active Problems Urinary incontinence (Chronic) Dementia (Chronic) Debility (Chronic) Pressure ulcer, stage 4 (Chronic) Failure to thrive (Chronic) Parkinson's disease dementia (Chronic) Parkinson disease (Chronic) Incontinence (Acute) Generalized weakness (Chronic) Assessment: This is a 72-year-old debilitated male with Parkinson's disease and dementia. He is a recent resident of [facility]. He presented with a sacro-coccygeal pressure ulceration, appearing to be stage IV. Cultures have been obtained, and results were positive for Streptococcus algactiae. The patient appears to be of limited mobility, and generally weak and frail. Recent laboratory studies have been obtained, with results as follows: White blood count 13.8, hemoglobin 13.2, hematocrit 39.4, platelets 317,000, sodium 137, potassium 3.5, chloride 103, BUN 12, creatinine 0.80, glucose 87, calcium 8.3. The patient has also had an x-ray of the sacrum and coccyx, revealing no acute fracture or bony erosions. Magnetic resonance imaging has been performed, which reveals the presence of sacro-coccygeal osteomyelitis. As result of the positive cultures, and confirmation of osteomyelitis, patient has been placed on amoxicillin 850 mg p.o. twice daily, which will continue for several weeks. To assist in the patient's management, we are to seek consultation with the Plastic Surgery service and the Infectious Disease service. The patient currently has an appointment with Dr. Bryant on July 19, 2018. We will continue in our efforts to secure a consultation with Infectious Disease. Assistance with appropriate antibiotic management will be sought, with evaluation to determine whether there may be a role for surgical debridement, bone culture, and possible preparation for flap reconstruction. Plan: Offloading measures are to be implemented. Frequent repositioning is to be recommended. A low air loss mattress has been obtained. An offloading cushion for the patient's wheelchair has been obtained. We are to request a Roho cushion. Communication with the patient's caregivers will suggest repositioning of the patient on a frequent basis, with change of position at least every 30-60 minutes. Optimization of the patient's oral intake and good nutrition has been recommended. Continued oral supplements such as Ensure or Inderjit have been recommended. We are to continue antibiotic treatment using amoxicillin 850 mg p.o. twice daily. We are to continue the use of Silver Jil packing, which will be applied to the wound every other day, or more frequently if necessary. Given confirmation of osteomyelitis of the sacrum by MRI exam, we are to seek consultation with the Plastic Surgery and Infectious Disease specialists. A multidisciplinary approach to the patient's management will be implemented. The [facility] to [facility] for reassessment. Given the patient's advanced age and general debility, is not likely to be a candidate for plastic surgical consultation with consideration of flap reconstruction, or perhaps even aggressive surgical debridement and unroofing. However, such multi-disciplinary input will be helpful. Influenza vaccine was not administered today. The patient is not a smoker. He weighs 140 pounds. He stands 5 feet 6 inches tall. His BMI is 22.6, which is normal.
[2018-07-13 11:31] VITALS: BP 134/78; PULSE 70; RESP 16; TEMP 36.9
--- NOTE | 2018-07-13 12:18 | PCM.WC.HP ---
(1) Urinary incontinence Status: Chronic Current Visit: Yes Code(s): R32 - Unspecified urinary incontinence (2) Dementia Status: Chronic Current Visit: Yes Code(s): F03.90 - Unspecified dementia without behavioral disturbance (3) Debility Status: Chronic Current Visit: Yes Code(s): R53.81 - Other malaise (4) Pressure ulcer, stage 4 Status: Chronic Current Visit: Yes Qualifiers: Pressure injury location: sacral region Code(s): L89.94 - Pressure ulcer of unspecified site, stage 4 (5) Dysphagia Status: Acute Current Visit: No Code(s): R13.10 - Dysphagia, unspecified (6) Failure to thrive Status: Chronic Current Visit: Yes Qualifiers: Failure to thrive age range: in adult Qualified Code(s): R62.7 - Adult failure to thrive (7) Macrocytic anemia Status: Chronic Current Visit: No Code(s): D53.9 - Nutritional anemia, unspecified (8) Parkinson's disease dementia Status: Chronic Current Visit: Yes Code(s): G20 - Parkinson's disease; F02.80 - Dementia in other diseases classified elsewhere without behavioral disturbance (9) Parkinson disease Status: Chronic Current Visit: Yes Code(s): G20 - Parkinson's disease (10) Incontinence Status: Acute Current Visit: Yes Qualifiers: Incontinence type: fecal Code(s): R32 - Unspecified urinary incontinence (11) Generalized weakness Status: Chronic Current Visit: Yes Code(s): R53.1 - Weakness History of Present Illness Date of Service: 07/13/18 Chief Complaint: Sacro-coccygeal pressure ulceration, stage IV History of Wound: This is a 72-year-old male who is currently a resident of [facility]. Until recently, the patient lived at home, cared for by his elderly . Upon admission to the [facility], it was realized that the patient had a sacro-coccygeal pressure ulceration, though its age is indeterminate. The patient was sleeping on a waffle mattress. He had a nonspecific cushion on his wheelchair. He is of very limited mobility, though ambulates with assistance and with the assistance of a walker. Otherwise, he spends long hours each day either lying in bed or sitting in a chair. 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 Paternal No pertinent history, - - Patient's father had a history of throat cancer. Smoking Status: Never smoker Tobacco Use: Non-smoker Review of Systems Constitutional: Denies: Chills, Fever, Weight Change Eyes: Denies: Pain, Vision Change HEENT: Denies: Difficulty Hearing, Difficulty Swallowing, Sinus Congestion Cardiovascular: Denies: Chest Pain, Palpitations Respiratory: Denies: Cough, Shortness of Breath Gastrointestinal: Denies: Diarrhea, Nausea, Vomiting Genitourinary: Denies: Dysuria, Hematuria Endocrine: Denies: Heat/ Cold Intolerance, Polydipsia, Polyuria Hematologic/ Lymphatic: Denies: Easy Bruising, Easy Bleeding - Physical Exam Vital Signs Temp Pulse Resp BP 98.4 F 70 16 134/78 H 07/13/18 11:31 07/13/18 11:31 07/13/18 11:31 07/13/18 11:31 General: Alert, Oriented x3, Cooperative, No apparent distress, Well developed, Well nourished, - - The patient is bedridden, weak, and debilitated HEENT: Atraumatic, PERRLA, EOMI, Normocephalic Oral: Moist Mucosa Neck: No JVD Lungs: Normal air movement Abdomen: Non-Distended Extremities: No clubbing, No cyanosis, No edema, No Calf Tenderness Skin: - - There is little change in the patient's sacrococcygeal pressure ulceration. It appears to be a stage IV pressure ulcer, extending down to bone, and positive for osteomyelitis. Dimensions are documented elsewhere. Wound Measurements and Assessment WC - Nurse 1 - General Ulcer Measurement Start: 07/06/18 10:36 Freq: Status: Active Protocol: Activity Type Activity Date Activity User E-Sign Co-Sign Detail Recorded Client Recorded Date Recorded By Document 07/13/18 11:31 [facility] [id number] 07/13/18 11:33 [facility] 07/13/18 11:31 Wound Center Nurse 1 [Ulcer Assessment] #1 coccyx -Combined with other wound No -Current Size (cm) - Length 1 -Current Size (cm) - Width 0.8 -Current Size (cm) - Depth 2.5 -Total Square Cm 0.8 -Photo Taken No -Epithelialization None Present -Tunneling No -Undermining/Tunneling Yes -Undermining/Tunneling Starts (O' 12 clock) -Undermining/Tunneling Ends (O'clock) 12 -Circular Undermining Yes -Exudate Amt Small (1-33%) -Exudate Type Serous -Wound Margin Distinct, Outline Attached -Granulation Amt Large (67-100%) -Granulation Quality Red -Slough/Fibrin No -Necrosis Amt None Present (0 %) -Structure Exposed Bone -Texture (Bertha-wound Skin Appearance) Scarring -Moisture (Bertha-wound Skin Appearance Assessed ) -Color (Bertha-wound Skin Appearance) Erythema -Temperature (Bertha-wound Skin No Abnormality Appearance) (Pt Warm) -Tenderness on Palpation (Bertha-wound No Skin Appearance) -Ulcer Cleansing Rinsed/ Irrigated with Saline -Foul Odor after Cleansing No -Anesthetic Used 5% Lidocaine Gel Musculoskeletal: Muscle Wasting Neurological: Cranial nerves II-XII grossly intact, Neuro grossly intact Psych/Mental Status: Normal Affect, Appropriate Debridement Note Post-Debridement Measurements/Treatment WC - Nurse 2 - General Ulcer CM Notes Start: 07/06/18 10:36 Freq: Status: Active Protocol: Activity Type Activity Date Activity User E-Sign Co-Sign Detail Recorded Client Recorded Date Recorded By Document 07/06/18 10:50 [id number] 07/06/18 11:06 07/06/18 10:50 Wound Center Nurse 2 #1 coccyx -Time 10:51 -Correct Patient Yes -Correct Side, Site, Position Yes -Correct Procedure Yes -Procedure Performed Yes -Type of Procedure Debridement -Clinical Debridement Subcutaneous -Post Debridement Size (cm) - Length 1.4 -Post Debridement Size (cm) - Width 0.5 -Post Debridement Size (cm) - Depth 3.4 -Total Square Cm 0.70 -Wound/Ulcer Outcome Amputation Anticipated Laterality: Not Applicable - Sacrococcygeal pressure ulcer Type of Debridement: Excisional debridement Anesthesia Used: 4% Lidocaine Solution Depth: Down to and including healthy tissue, in the subcutaneous layer Percentage of wound debrided: 100 Instrument Used: 5mm curette Severity: Fat Layer Exposed Amount of bleeding with debridement: Mild Bleeding Controlled with: Compression and gauze Patient tolerated procedure well Assessment/Plan Active Problems Urinary incontinence (Chronic) Dementia (Chronic) Debility (Chronic) Pressure ulcer, stage 4 (Chronic) Failure to thrive (Chronic) Parkinson's disease dementia (Chronic) Parkinson disease (Chronic) Incontinence (Acute) Generalized weakness (Chronic) Assessment: This is a 72-year-old debilitated male with Parkinson's disease and dementia. He is a recent resident of [facility]. He presented with a sacro-coccygeal pressure ulceration, appearing to be stage IV. Cultures have been obtained, and results were positive for Streptococcus algactiae. The patient appears to be of limited mobility, and generally weak and frail. Recent laboratory studies have been obtained, with results as follows: White blood count 13.8, hemoglobin 13.2, hematocrit 39.4, platelets 317,000, sodium 137, potassium 3.5, chloride 103, BUN 12, creatinine 0.80, glucose 87, calcium 8.3. The patient has also had an x-ray of the sacrum and coccyx, revealing no acute fracture or bony erosions. Magnetic resonance imaging has been performed, which reveals the presence of sacro-coccygeal osteomyelitis. As result of the positive cultures, and confirmation of osteomyelitis, patient has been placed on amoxicillin 850 mg p.o. twice daily, which will continue for several weeks. To assist in the patient's management, we are to seek consultation with the Plastic Surgery service and the Infectious Disease service. The patient currently has an appointment with Dr. Bryant on July 19, 2018. We will continue in our efforts to secure a consultation with Infectious Disease. Assistance with appropriate antibiotic management will be sought, with evaluation to determine whether there may be a role for surgical debridement, bone culture, and possible preparation for flap reconstruction. Plan: Offloading measures are to be implemented. Frequent repositioning is to be recommended. A low air loss mattress has been obtained. An offloading cushion for the patient's wheelchair has been obtained. We are to request a Roho cushion. Communication with the patient's caregivers will suggest repositioning of the patient on a frequent basis, with change of position at least every 30-60 minutes. Optimization of the patient's oral intake and good nutrition has been recommended. Continued oral supplements such as Ensure or Inderjit have been recommended. We are to continue antibiotic treatment using amoxicillin 850 mg p.o. twice daily. We are to continue the use of Silver Jil packing, which will be applied to the wound every other day, or more frequently if necessary. Given confirmation of osteomyelitis of the sacrum by MRI exam, we are to seek consultation with the Plastic Surgery and Infectious Disease specialists. A multidisciplinary approach to the patient's management will be implemented. The [facility] for reassessment. Given the patient's advanced age and general debility, is not likely to be a candidate for plastic surgical consultation with consideration of flap reconstruction, or perhaps even aggressive surgical debridement and unroofing. However, such multi-disciplinary input will be helpful. Influenza vaccine was not administered today. The patient is not a smoker. He weighs 140 pounds. He stands 5 feet 6 inches tall. His BMI is 22.6, which is normal.
--- NOTE | 2018-07-13 12:23 | HP.PCM_ITS ---
(1) Urinary incontinence Status: Chronic Current Visit: Yes Code(s): R32 - Unspecified urinary incontinence (2) Dementia Status: Chronic Current Visit: Yes Code(s): F03.90 - Unspecified dementia without behavioral disturbance (3) Debility Status: Chronic Current Visit: Yes Code(s): R53.81 - Other malaise (4) Pressure ulcer, stage 4 Status: Chronic Current Visit: Yes Qualifiers: Pressure injury location: sacral region Code(s): L89.94 - Pressure ulcer of unspecified site, stage 4 (5) Dysphagia Status: Acute Current Visit: No Code(s): R13.10 - Dysphagia, unspecified (6) Failure to thrive Status: Chronic Current Visit: Yes Qualifiers: Failure to thrive age range: in adult Qualified Code(s): R62.7 - Adult failure to thrive (7) Macrocytic anemia Status: Chronic Current Visit: No Code(s): D53.9 - Nutritional anemia, unspecified (8) Parkinson's disease dementia Status: Chronic Current Visit: Yes Code(s): G20 - Parkinson's disease; F02.80 - Dementia in other diseases classified elsewhere without behavioral disturbance (9) Parkinson disease Status: Chronic Current Visit: Yes Code(s): G20 - Parkinson's disease (10) Incontinence Status: Acute Current Visit: Yes Qualifiers: Incontinence type: fecal Code(s): R32 - Unspecified urinary incontinence (11) Generalized weakness Status: Chronic Current Visit: Yes Code(s): R53.1 - Weakness History of Present Illness Date of Service: 07/13/18 Chief Complaint: Sacro-coccygeal pressure ulceration, stage IV History of Wound: This is a 72-year-old male who is currently a resident of [facility]. Until recently, the patient lived at home, cared for by his elderly . Upon admission to the [facility], it was realized that the patient had a sacro-coccygeal pressure ulceration, though its age is indeterminate. The patient was sleeping on a waffle mattress. He had a nonspecific cushion on his wheelchair. He is of very limited mobility, though ambulates with assistance and with the assistance of a walker. Otherwise, he spends long hours each day either lying in bed or sitting in a chair. 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 Paternal No pertinent history, - - Patient's father had a history of throat cancer. Smoking Status: Never smoker Tobacco Use: Non-smoker Review of Systems Constitutional: Denies: Chills, Fever, Weight Change Eyes: Denies: Pain, Vision Change HEENT: Denies: Difficulty Hearing, Difficulty Swallowing, Sinus Congestion Cardiovascular: Denies: Chest Pain, Palpitations Respiratory: Denies: Cough, Shortness of Breath Gastrointestinal: Denies: Diarrhea, Nausea, Vomiting Genitourinary: Denies: Dysuria, Hematuria Endocrine: Denies: Heat/ Cold Intolerance, Polydipsia, Polyuria Hematologic/ Lymphatic: Denies: Easy Bruising, Easy Bleeding - Physical Exam Vital Signs Temp Pulse Resp BP 98.4 F 70 16 134/78 H 07/13/18 11:31 07/13/18 11:31 07/13/18 11:31 07/13/18 11:31 General: Alert, Oriented x3, Cooperative, No apparent distress, Well developed, Well nourished, - - The patient is bedridden, weak, and debilitated HEENT: Atraumatic, PERRLA, EOMI, Normocephalic Oral: Moist Mucosa Neck: No JVD Lungs: Normal air movement Abdomen: Non-Distended Extremities: No clubbing, No cyanosis, No edema, No Calf Tenderness Skin: - - There is little change in the patient's sacrococcygeal pressure ulceration. It appears to be a stage IV pressure ulcer, extending down to bone , and positive for osteomyelitis. Dimensions are documented elsewhere. Wound Measurements and Assessment WC - Nurse 1 - General Ulcer Measurement Start: 07/06/18 10:36 Freq: Status: Active Protocol: Activity Type Activity Date Activity User E-Sign Co-Sign Detail Recorded Client Recorded Date Recorded By Document 07/13/18 11:31 [facility] [id number] 07/13/18 11:33 [facility] 07/13/18 11:31 Wound Center Nurse 1 [Ulcer Assessment] #1 coccyx -Combined with other wound No -Current Size (cm) - Length 1 -Current Size (cm) - Width 0.8 -Current Size (cm) - Depth 2.5 -Total Square Cm 0.8 -Photo Taken No -Epithelialization None Present -Tunneling No -Undermining/Tunneling Yes -Undermining/Tunneling Starts (O' 12 clock) -Undermining/Tunneling Ends (O'clock) 12 -Circular Undermining Yes -Exudate Amt Small (1-33%) -Exudate Type Serous -Wound Margin Distinct, Outline Attached -Granulation Amt Large (67-100%) -Granulation Quality Red -Slough/Fibrin No -Necrosis Amt None Present (0 %) -Structure Exposed Bone -Texture (Bertha-wound Skin Appearance) Scarring -Moisture (Bertha-wound Skin Appearance Assessed ) -Color (Bertha-wound Skin Appearance) Erythema -Temperature (Bertha-wound Skin No Abnormality Appearance) (Pt Warm) -Tenderness on Palpation (Bertha-wound No Skin Appearance) -Ulcer Cleansing Rinsed/ Irrigated with Saline -Foul Odor after Cleansing No -Anesthetic Used 5% Lidocaine Gel Musculoskeletal: Muscle Wasting Neurological: Cranial nerves II-XII grossly intact, Neuro grossly intact Psych/Mental Status: Normal Affect, Appropriate Debridement Note Post-Debridement Measurements/Treatment WC - Nurse 2 - General Ulcer CM Notes Start: 07/06/18 10:36 Freq: Status: Active Protocol: Activity Type Activity Date Activity User E-Sign Co-Sign Detail Recorded Client Recorded Date Recorded By Document 07/06/18 10:50 [id number] 07/06/18 11:06 07/06/18 10:50 Wound Center Nurse 2 #1 coccyx -Time 10:51 -Correct Patient Yes -Correct Side, Site, Position Yes -Correct Procedure Yes -Procedure Performed Yes -Type of Procedure Debridement -Clinical Debridement Subcutaneous -Post Debridement Size (cm) - Length 1.4 -Post Debridement Size (cm) - Width 0.5 -Post Debridement Size (cm) - Depth 3.4 -Total Square Cm 0.70 -Wound/Ulcer Outcome Amputation Anticipated Laterality: Not Applicable - Sacrococcygeal pressure ulcer Type of Debridement: Excisional debridement Anesthesia Used: 4% Lidocaine Solution Depth: Down to and including healthy tissue, in the subcutaneous layer Percentage of wound debrided: 100 Instrument Used: 5mm curette Severity: Fat Layer Exposed Amount of bleeding with debridement: Mild Bleeding Controlled with: Compression and gauze Patient tolerated procedure well Assessment/Plan Active Problems Urinary incontinence (Chronic) Dementia (Chronic) Debility (Chronic) Pressure ulcer, stage 4 (Chronic) Failure to thrive (Chronic) Parkinson's disease dementia (Chronic) Parkinson disease (Chronic) Incontinence (Acute) Generalized weakness (Chronic) Assessment: This is a 72-year-old debilitated male with Parkinson's disease and dementia. He is a recent resident of [facility]. He presented with a sacro-coccygeal pressure ulceration, appearing to be stage IV. Cultures have been obtained, and results were positive for Streptococcus algactiae. The patient appears to be of limited mobility, and generally weak and frail. Recent laboratory studies have been obtained, with results as follows: White blood count 13.8, hemoglobin 13.2, hematocrit 39.4, platelets 317,000, sodium 137, potassium 3.5, chloride 103, BUN 12, creatinine 0.80, glucose 87, calcium 8.3. The patient has also had an x-ray of the sacrum and coccyx, revealing no acute fracture or bony erosions. Magnetic resonance imaging has been performed , which reveals the presence of sacro-coccygeal osteomyelitis. As result of the positive cultures, and confirmation of osteomyelitis, patient has been placed on amoxicillin 850 mg p.o. twice daily, which will continue for several weeks. To assist in the patient's management, we are to seek consultation with the Plastic Surgery service and the Infectious Disease service. The patient currently has an appointment with Dr. Bryant on July 19, 2018. We will continue in our efforts to secure a consultation with Infectious Disease. Assistance with appropriate antibiotic management will be sought, with evaluation to determine whether there may be a role for surgical debridement, bone culture, and possible preparation for flap reconstruction. Plan: Offloading measures are to be implemented. Frequent repositioning is to be recommended. A low air loss mattress has been obtained. An offloading cushion for the patient's wheelchair has been obtained. We are to request a Roho cushion. Communication with the patient's caregivers will suggest repositioning of the patient on a frequent basis, with change of position at least every 30-60 minutes. Optimization of the patient's oral intake and good nutrition has been recommended. Continued oral supplements such as Ensure or Inderjit have been recommended. We are to continue antibiotic treatment using amoxicillin 850 mg p.o. twice daily. We are to continue the use of Silver Jil packing, which will be applied to the wound every other day, or more frequently if necessary. Given confirmation of osteomyelitis of the sacrum by MRI exam, we are to seek consultation with the Plastic Surgery and Infectious Disease specialists. A multidisciplinary approach to the patient's management will be implemented. The patient is to [facility] 1 [facility] for reassessment. Given the patient's advanced age and general debility, is not likely to be a candidate for plastic surgical consultation with consideration of flap reconstruction, or perhaps even aggressive surgical debridement and unroofing. However, such multi-disciplinary input will be helpful. Influenza vaccine was not administered today. The patient is not a smoker. He weighs 140 pounds. He stands 5 feet 6 inches tall. His BMI is 22.6, which is normal.
--- NOTE | 2018-07-13 14:45 | WC ---
Orders and Progress Note from 07/13/18 Wound Center visit faxed to [facility]. Receipt of Fax received.
[2018-07-19 09:53] VITALS: BP 116/61; PULSE 72; RESP 16; TEMP 36.7
--- NOTE | 2018-07-19 23:07 | PCM.WC.HP ---
History of Present Illness Date of Service: 07/19/18 - WOUND CENTER CONSULT REFERRING PHYSICIAN: Dr. Daniels. ELECTROSTATIC POWDER COATING TECHNICIAN: Dr. Bryant. Chief Complaint: Sacral pressure sore, stage IV. History of Wound: This is a 72-year-old male who is currently a resident of [facility]. He presented to the Wound Center with a sacral pressure sore. Recent culture showed Streptococcus agalactiae and is on Amoxicillin. MRI was done which showed osteomyelitis. Wound care is currently being done with Silver dressings. At the shelter, he takes nutritional supplementation with protein to help the healing process. He has a history of urinary incontinence. He is of very limited mobility, though ambulates with assistance and with the assistance of a walker. Otherwise, he spends long hours each day either lying in bed or sitting in a chair. I was asked to evaluate this patient for surgical options for treatment. Past Medical History Past Medical History: Chronic Problems Chronic osteomyelitis of sacrum (Chronic) Pressure ulcer of sacral region, stage 4 (Chronic) Urinary incontinence (Chronic) Dementia (Chronic) Debility (Chronic) Pressure ulcer, stage 4 (Chronic) Failure to thrive (Chronic) Macrocytic anemia (Chronic) Parkinson's disease dementia (Chronic) Parkinson disease (Chronic) Generalized weakness (Chronic) Surgical History: appendectomy, herniorrhaphy - Multiple procedures in his groin., total knee arthroplasty - Right knee, - - Cervical spine surgery-fusion, removal of right eye approximately 25 years ago secondary to melanoma Allergies/Adverse Reactions: Allergies No Known Allergies Allergy (Verified 08/11/18 13:10) Home Medications: Ambulatory Orders Medication Instructions Recorded Donepezil HCl [Aricept] 5 mg PO QHS 10/06/17 Carbidopa/Levodopa 50/200 [Sinemet 1 tablet PO HS@2100 tablet.sa 10/09/17 CR 50/200] Acetaminophen [Tylenol Extra 500 mg PO BID 08/11/18 Strength] Amoxicillin 875 mg PO BID 08/11/18 Carbidopa/Levodopa 25/100 [Sinemet] 2 tablet PO TIDAC 08/11/18 Cholecalciferol (Vitamin D3) 1,000 unit PO DAILY 08/11/18 [Vitamin D3] Multivitamin [Multiple Vitamins] 1 each PO DAILY 08/11/18 Polyethylene Glycol 3350 [Miralax] 17 gm PO DAILY 08/11/18 Vitamin B Complex 1 each PO DAILY 08/11/18 - Family History Maternal No pertinent history, - - The patient's mother had a history of rectal cancer. Paternal No pertinent history, - - Patient's father had a history of throat cancer. Smoking Status: Never smoker Tobacco Use: Non-smoker Review of Systems Constitutional: Denies: Chills, Fever, Weight Change. Eyes: Denies: Pain, Vision Change. HEENT: Denies: Difficulty Hearing, Difficulty Swallowing, Sinus Congestion. Cardiovascular: Denies: Chest Pain, Palpitations. Respiratory: Denies: Cough, Shortness of Breath. Gastrointestinal: Denies: Diarrhea, Nausea, Vomiting. Genitourinary: Denies: Dysuria, Hematuria. Has urinary incontinence. Endocrine: Denies: Heat/ Cold Intolerance, Polydipsia, Polyuria. Hematologic/ Lymphatic: Denies: Easy Bruising, Easy Bleeding. Neuro: Has some dementia. Skin: Has a sacral pressure sore, Stage IV. - Physical Exam General: Alert, Oriented x3. No apparent distress. The patient appears comfortable. He appears weak and debilitated. HEENT: PERRLA, EOMI. Oral: Moist Mucosa. Neck: Supple, Nontender. No cervical adenopathy. Lungs: Clear to auscultation. Cardiovascular: Regular rate, Regular Rhythm. Abdomen: Soft, Non-Distended. Extremities: No clubbing, No cyanosis, No edema, No Calf Tenderness. Skin: - - There is a sacral pressure sore. The pressure sore extends to the bone. Measures 2 x 1 x 3 cm. Some undermining is present. It is generally pink and healthy in appearance. There is no kareen-ulcer erythema or any sign of infection or cellulitis. Musculoskeletal: Muscle Wasting Neurological: Cranial nerves II-XII grossly intact. Psych/Mental Status: Appropriate, Flat Affect. Vital Signs Temp Pulse Resp BP 98.0 F 72 16 116/61 07/19/18 09:53 07/19/18 09:53 07/19/18 09:53 07/19/18 09:53 Wound Measurements and Assessment WC - Nurse 1 - General Ulcer Measurement Start: 07/06/18 10:36 Freq: Status: Active Protocol: Activity Type Activity Date Activity User E-Sign Co-Sign Detail Recorded Client Recorded Date Recorded By Document 07/19/18 09:53 [id number] 07/19/18 09:55 CS 07/19/18 09:53 Wound Center Nurse 1 [Ulcer Assessment] #1 coccyx -Combined with other wound No -Current Size (cm) - Length 1.2 -Current Size (cm) - Width 0.4 -Current Size (cm) - Depth 2.3 -Total Square Cm 0.48 -Photo Taken No -Epithelialization None Present -Tunneling No -Undermining/Tunneling No -Circular Undermining No -Exudate Amt Small (1-33%) -Exudate Type Serosanguineous -Wound Margin Distinct, Outline Attached -Granulation Amt Medium (34-66%) -Granulation Quality Laverne -Slough/Fibrin Yes -Necrosis Amt None Present (0 %) -Necrotic Tissue Type Adherent Slough -Structure Exposed Bone -Texture (Kareen-wound Skin Appearance) No Abnormality Assessed -Moisture (Kareen-wound Skin Appearance No Abnormality ) Assessed -Color (Kareen-wound Skin Appearance) No Abnormality Assessed -Temperature (Kareen-wound Skin No Abnormality Appearance) (Pt Warm) -Tenderness on Palpation (Kareen-wound No Skin Appearance) -Ulcer Cleansing Rinsed/ Irrigated with Saline -Foul Odor after Cleansing No -Anesthetic Used 4% Lidocaine Solution [Edema Assessment] -Lower Limb Edema Present NA - Nurse 2 - General Ulcer CM Notes Start: 07/06/18 10:36 Freq: Status: Active Protocol: Activity Type Activity Date Activity User E-Sign Co-Sign Detail Recorded Client Recorded Date Recorded By Document 07/19/18 10:39 [id number] 07/19/18 10:40 07/19/18 10:39 Wound Center Nurse 2 [Procedure/Treatment] #1 coccyx -Time 10:39 -Correct Patient Yes -Correct Side, Site, Position Yes -Correct Procedure Yes -Procedure Performed Yes -Type of Procedure Debridement -Clinical Debridement Muscle -Post Debridement Size (cm) - Length 1.2 -Post Debridement Size (cm) - Width 0.5 -Post Debridement Size (cm) - Depth 2.8 -Total Square Cm 0.60 -Wound/Ulcer Outcome Not Healed -Ulcer Cleansing Rinsed/ Irrigated with Saline -Foul Odor after Cleansing No -Bioengineered Tissue No -Bleeding Controlled with Pressure -Treatment Response Procedure Tolerated Well [See Physician Procedure note for Specifics] Pain Scale: 0-10 Numeric [Pain] -Is Patient Pain Free? Yes Debridement Note Post-Debridement Measurements/Treatment WC - Nurse 2 - General Ulcer CM Notes Start: 07/06/18 10:36 Freq: Status: Active Protocol: Activity Type Activity Date Activity User E-Sign Co-Sign Detail Recorded Client Recorded Date Recorded By Document 07/06/18 10:50 [id number] 07/06/18 11:06 JS Document 07/13/18 12:12 JS [id number] 07/13/18 12:19 JS Document 07/19/18 10:39 [id number] 07/19/18 10:40 07/06/18 07/13/18 07/19/18 10:50 12:12 10:39 Wound Center Nurse 2 #1 coccyx -Time 10:51 12:12 10:39 -Correct Patient Yes Yes Yes -Correct Side, Site, Position Yes Yes Yes -Correct Procedure Yes Yes Yes -Procedure Performed Yes Yes Yes -Type of Procedure Debridement Debridement Debridement -Clinical Debridement Subcutaneous Bone Muscle -Post Debridement Size (cm) - Length 1.4 1.2 1.2 -Post Debridement Size (cm) - Width 0.5 0.7 0.5 -Post Debridement Size (cm) - Depth 3.4 3.2 2.8 -Total Square Cm 0.70 0.84 0.60 -Wound/Ulcer Outcome Amputation Not Healed Not Healed Anticipated -Ulcer Cleansing Rinsed/ Rinsed/ Irrigated with Irrigated with Saline Saline -Foul Odor after Cleansing No No -Bioengineered Tissue No No -Bleeding Controlled with NA Pressure -Treatment Response Procedure Procedure Tolerated Well Tolerated Well Pain Scale: 0-10 Numeric Is Patient Pain Free? Yes Yes Wound debrided: #1 Sacral area. Laterality: Not Applicable Wound Grade/Stage: IV. Type of Debridement: Excisional debridement Anesthesia Used: 4% Lidocaine Solution Depth: Down to and including healthy tissue, in the subcutaneous layer, to muscle, to bone - bone is palpable but not debrided. Percentage of wound debrided: 100 Instrument Used: 7mm curette Tissue Removed: subcutaneous tissue and muscle. Severity: Fat Layer Exposed - muscle is exposed. bone is palpable but not debrided. Amount of bleeding with debridement: Mild Bleeding Controlled with: Pressure Patient tolerated procedure well Assessment/Plan Assessment: 1. Sacral pressure sore, Stage IV. 2. Osteomyelitis. 3. Urinary incontinence. 4. Dementia. Plan: Continue Silver dressing changes daily. Continue Amoxicillin for recent culture showing Streptococcus agalactiae. MRI reviewed. There is some evidence of osteomyelitis. Recommend to the patient and his caregivers present that surgical excision of this pressure sore is necessary. The pressure sore will not heal with surgery. With healing comes lessening of his pain in the area. Since bone is palpable and the MRI shows osteomyelitis, a partial ostectomy will be necessary to evaluate for osteomyelitis. Encourage nutritional supplementation with protein to help the healing process. At the time of surgery, a Prealbumin will be checked. Discussed with the patient and his caregivers, that surgery will make the ulcer larger, but it will make the wound care easier with the VAC if no undermining is present. At the time of surgery, soft tissue and bone will be sent to Pathology for analysis to rule out carcinoma and to assess for osteomyelitis and to Microbiology for culture. A positive culture may necessitate antibiotic modification. Surgery will be done under general anesthesia with an overnight stay at the [facility]. The VAC will be placed the next day. After surgery, will order PT to help to get him a little bit more which will help healing because of pressure releases that are done when he gets up. With his advanced age and medical comorbidities, he is not a good candidate for future surgery to close the pressure sore with muscle flaps. That would require 6 weeks of bedrest. Even before considering a discussion about wound closure with muscle flaps in the future, the infection needs to be controlled and his nutrition needs to be maximized. Will discuss with his family in the future at the appropriate time. Patient and his caregivers in the room were informed of the risks and complications of the procedure including alternatives to surgery. These were discussed with them personally. They voice understanding and wish to proceed.
== END 2018-08-01 23:59 ==
LOC: WC 10:30
PROVIDERS: Family Provider Family Medicine; PCP Family Medicine; Visit Provider Surgery
DX: L89.154 Pressure ulcer of sacral region, stage 4 (principal); G20 Parkinson's disease; F02.80 Dementia in other diseases classified elsewhere, unspecified severity, without behavioral disturbance, psychotic disturbance, mood disturbance, and anxiety; R32 Unspecified urinary incontinence; R62.7 Adult failure to thrive; Z85.820 Personal history of malignant melanoma of skin; Z79.899 Other long term (current) drug therapy
CPT/HCPCS: 11042; 11043; 99204; G0463

== ENCOUNTER 2018-08-17 15:49 | Inpatient (IN) | payer MEDICARE, SELFPAY ==
[2018-08-17] VITALS (8 sets, daily range): BP systolic 94–189; BP diastolic 54–90; PULSE 63–86; RESP 16–18; TEMP 36.4–37.4; O2SAT 84–98; BMI 24.3
--- NOTE | 2018-08-17 12:30 | PRES_PTH ---
PATIENT: YNES CODY LOC: MS3 U#:[id number] AGE/SX: 73/M ROOM: MS319 RE08/17/[address]: Dr. Luis M Gonzales DO : 1945 BED: 1 DIS: 08/23/2018 SPEC #: [id number] RECD: 08/17/18 16:24 STATUS: REKHA REQ #: [id number] JOLENE: 08/17/18 12:[address]: Elier Bryant DEPT: SURGICAL PATHOLOGY RECD BY: Octavio Jose ENTERED: 08/18/18 08:22 SP TYPE: PRESS SORE OTHR DR: DO Dr. Kameron Mendez MD Dr. Ghasem E Ashelfah, MD Dr. James A Slaby, MD Tissues: A - Sacrum, NOS B - Sacral region Procedures: Decalcification bone/plaque Surgery Specimen Level III Comments: @ Ordering doctor for DEC edited from to @ by BRITANY at 08/18/18 1301 @ Ordering doctor for SUIV edited from to @ by BRITANY at 08/18/18 1301 @ Submitting doctor edited from to @ by NJOD at 08/18/18 1301 HEADER OPERATION: Excision pressure sore with partial ostectomy for osteomyelitis PRE-OP DIAGNOSIS: Sacral pressure sore stage IV; osteomyelitis TISSUE SUBMITTED: A - Sacral bone, B - Sacral soft tissue MICROSCOPIC DIAGNOSIS A. Sacral bone: Pieces of bone with acute osteomyelitis. B. Sacral soft tissue: Focal ulceration, acute and chronic inflammation and granulation tissue reaction. JOAN:lyle 08/23/18 MICROSCOPIC DESCRIPTION Slides are reviewed. GROSS DESCRIPTION A - Received in fixative is one container labeled with the patient's name and designated sacral bone. The specimen consists of multiple fragments of bone that in aggregate measure 5 x 3 x 0.4 cm. The entire specimen is submitted in two cassettes after decalcification. B - Received in fixative is one container labeled with the patient's name and designated sacral soft tissue. The specimen consists of a piece of skin with underlying tissue measuring 4.5 x 3 cm and up to 1.8 cm in thickness. Also present in the container is a detached piece of indurated tissue measuring 3 x 2 x 1.5 cm. Sections do not reveal any mass lesion. Communications And Signals Supervisor sections are submitted in three cassettes. / JOAN:lyle 08/18/18 TC:2 CPT: 26826 x2, 45031
--- NOTE | 2018-08-17 15:43 | PCM.IMDPSTOP ---
Immediate Post-Op Note Date of Procedure: 08/17/18 Primary Surgeon/Physician: Elier Bryant risk management specialist: None Pre-Operative Diagnosis: 1. Sacral pressure sore, Stage IV. 2. Osteomyelitis. 3. Urinary incontinence. 4. Dementia. Post-Operative Diagnosis: Same. Surgery/Procedure Performed:: Excision sacral pressure sore, Stage IV, with partial ostectomy for osteomyelitis. Description of Surgical Findings:: This is a 73-year-old male who is currently a resident of [facility]. He presented to the Wound Center with a sacral pressure sore. Recent culture showed Streptococcus agalactiae and is on Amoxicillin. MRI was done which showed osteomyelitis. Wound care is currently being done with Silver dressings. At the snf, he takes nutritional supplementation with protein to help the healing process. He has a history of urinary incontinence. He is of very limited mobility, though ambulates with assistance and with the assistance of a walker. Otherwise, he spends long hours each day either lying in bed or sitting in a chair. I was asked to evaluate this patient for surgical options for treatment. Today the patient underwent excision sacral pressure sore, Stage IV, with partial ostectomy for osteomyelitis. Size of defect sacral area - 5 x 4 x 4 cm. Estimated Blood Loss: 50 ml. Specimen's removed: 1. Sacral pressure sore soft tissue to Pathology and Microbiology. 2. Sacral pressure sore bone to Pathology and Microbiology. Drains: None. Type of Anesthesia:: General - Admit VTE Documentation VTE Present on Admission: No VTE Mechan Device Prophylaxis: SCD's VTE Pharm Prophylaxis ordered?: No
--- NOTE | 2018-08-17 15:46 | OP.PN_ITS ---
Immediate Post-Op Note Date of Procedure: 08/17/18 Primary Surgeon/Physician: Elier Bryant intellectual property lawyer: None Pre-Operative Diagnosis: 1. Sacral pressure sore, Stage IV. 2. Osteomyelitis. 3. Urinary incontinence. 4. Dementia. Post-Operative Diagnosis: Same. Surgery/Procedure Performed:: Excision sacral pressure sore, Stage IV, with partial ostectomy for osteomyelitis. Description of Surgical Findings:: This is a 73-year-old male who is currently a resident of [facility]. He presented to the Wound Center with a sacral pressure sore. Recent culture showed Streptococcus agalactiae and is on Amoxicillin. MRI was done which showed osteomyelitis. Wound care is currently being done with Silver dressings. At the skilled nursing, he takes nutritional supplementation with protein to help the healing process. He has a history of urinary incontinence. He is of very limited mobility, though ambulates with assistance and with the assistance of a walker. Otherwise, he spends long hours each day either lying in bed or sitting in a chair. I was asked to evaluate this patient for surgical options for treatment. Today the patient underwent excision sacral pressure sore, Stage IV, with partial ostectomy for osteomyelitis. Size of defect sacral area - 5 x 4 x 4 cm. Estimated Blood Loss: 50 ml. Specimen's removed: 1. Sacral pressure sore soft tissue to Pathology and Microbiology. 2. Sacral pressure sore bone to Pathology and Microbiology. Drains: None. Type of Anesthesia:: General - Admit VTE Documentation VTE Present on Admission: No VTE Mechan Device Prophylaxis: SCD's VTE Pharm Prophylaxis ordered?: No
--- NOTE | 2018-08-17 17:10 | PCM.PROGNOTE ---
Subjective: Chief complaint: Consultation for postoperative medical management. This patient underwent excision of stage IV sacral pressure sore with partial ostectomy for osteomyelitis and I was consulted for postoperative medical management. The patient has a history of dementia and Parkinson's disease and he is having difficulty communicating. He was not able to provide any good history. He was able to answer couple of questions by yes or no. He denied chest pain or shortness of breath. He denied abdominal pain, nausea or vomiting. He denied headache. I was not able to assess his orientation. He was able to move all limbs. At this time, no family were at the bedside. He is afebrile, blood pressure is elevated, other vital signs are stable. - Physical Exam General: Alert, Cooperative, No apparent distress, - - Resting tremor. HEENT: Atraumatic, PERRLA, EOMI, Normocephalic Oral: Moist Mucosa, No Gingival or Mucosal Lesions/ Ulcerations Neck: Supple, No JVD, Negative Carotid Bruits, Trachea Midline, Thyroid Normal Size and Texture Lungs: Clear to auscultation, No rhonchi, No wheeze, No rales, Diminished Cardiovascular: Regular rate, Regular Rhythm, Normal S1, Normal S2, PMI Normal Abdomen: Bowel Sounds Present, Soft, Non Tender, Non-Distended, No Hepato-splenomegaly Extremities: No clubbing, No cyanosis, No edema Skin: No rashes, No breakdown Lymphatic: No Cervical, Supraclavicular, or Inguinal Adenopathy Neurological: Cranial nerves II-XII grossly intact, Neuro grossly intact Psych/Mental Status: Flat Affect Vital Signs Temp Pulse Resp BP Pulse Ox 97.6 F L 82 16 186/90 H 97 08/17/18 16:58 08/17/18 16:58 08/17/18 16:58 08/17/18 16:58 08/17/18 16:58 Oxygen Flow Rate (L/min) 2 Oxygen Delivery Method Room Air Weight: 151 lb Body Mass Index (BMI) 24.3 Intake and Output for Last 24 Hours 08/15/18 08/16/18 08/17/18 23:59 23:59 23:59 Intake Total 1300 / 1300 Balance 1300 / 1300 Medical Necessity - Tobacco Use Smoking Status: Never smoker Assessment/Plan This is a 73 years old male patient underwent excision of stage IV sacral pressure sore with partial ostectomy for stage IV sacral pressure sore with osteomyelitis and I am seeing this patient in consultation for postoperative medical management. #1 status post excision of sacral pressure sore stage IV with partial ostectomy for osteomyelitis: This was done for sacral pressure sore stage IV and sacral osteomyelitis, postoperative day 0. At this time, patient has no complaints although he has difficult in communication, not able to speak and he is almost nonverbal. His blood pressure elevated, other vital signs are stable. He is on IV Unasyn. Wound culture sent. Plastic surgery is managing. #2 elevated blood pressure: Without history of hypertension. Patient is not on any antihypertensive medications. This could be because of surgery and pain. Plan: Start IV Dilaudid as needed, close monitoring. #3 Parkinson's disease: Continue Sinemet. #4 dementia: Continue donepezil. #5 urinary incontinence: He is on Sanchez catheter. #6 DVT prophylaxis: SCDs for now. This note was generated with [employer] dictation software. It may contain incorrect words, spelling, and punctuation that were not noted in checking the note before signing. Code Visit Inpatient E&M: 53642 Subs Hosp L2
--- NOTE | 2018-08-17 17:13 | PN_ITS ---
Subjective: Chief complaint: Consultation for postoperative medical management. This patient underwent excision of stage IV sacral pressure sore with partial o stectomy for osteomyelitis and I was consulted for postoperative medical management. The patient has a history of dementia and Parkinson's disease and he is having difficulty communicating. He was not able to provide any good history. He was able to answer couple of questions by yes or no. He denied chest pain or shortness of breath. He denied abdominal pain, nausea or vomiting. He denied headache. I was not able to assess his orientation. He was able to move all limbs. At this time, no family were at the bedside. He is afebrile, blood pressure is elevated, other vital signs are stable. - Physical Exam General: Alert, Cooperative, No apparent distress, - - Resting tremor. HEENT: Atraumatic, PERRLA, EOMI, Normocephalic Oral: Moist Mucosa, No Gingival or Mucosal Lesions/ Ulcerations Neck: Supple, No JVD, Negative Carotid Bruits, Trachea Midline, Thyroid Normal Size and Texture Lungs: Clear to auscultation, No rhonchi, No wheeze, No rales, Diminished Cardiovascular: Regular rate, Regular Rhythm, Normal S1, Normal S2, PMI Normal Abdomen: Bowel Sounds Present, Soft, Non Tender, Non-Distended, No Hepato- splenomegaly Extremities: No clubbing, No cyanosis, No edema Skin: No rashes, No breakdown Lymphatic: No Cervical, Supraclavicular, or Inguinal Adenopathy Neurological: Cranial nerves II-XII grossly intact, Neuro grossly intact Psych/Mental Status: Flat Affect Vital Signs Temp Pulse Resp BP Pulse Ox 97.6 F L 82 16 186/90 H 97 08/17/18 16:58 08/17/18 16:58 08/17/18 16:58 08/17/18 16:58 08/17/18 16:58 Oxygen Flow Rate (L/min) 2 Oxygen Delivery Method Room Air Weight: 151 lb Body Mass Index (BMI) 24.3 Intake and Output for Last 24 Hours 08/15/18 08/16/18 08/17/18 23:59 23:59 23:59 Intake Total 1300 / 1300 Balance 1300 / 1300 Medical Necessity - Tobacco Use Smoking Status: Never smoker Assessment/Plan This is a 73 years old male patient underwent excision of stage IV sacral pr essure sore with partial ostectomy for stage IV sacral pressure sore with osteomyelitis and I am seeing this patient in consultation for postoperative medical management. #1 status post excision of sacral pressure sore stage IV with partial ostectomy for osteomyelitis: This was done for sacral pressure sore stage IV and sacral osteomyelitis, postoperative day 0. At this time, patient has no complaints although he has difficult in communication, not able to speak and he is almost nonverbal. His blood pressure elevated, other vital signs are stable. He is on IV Unasyn. Wound culture sent. Plastic surgery is managing. #2 elevated blood pressure: Without history of hypertension. Patient is not on any antihypertensive medications. This could be because of surgery and pain. Plan: Start IV Dilaudid as needed, close monitoring. #3 Parkinson's disease: Continue Sinemet. #4 dementia: Continue donepezil. #5 urinary incontinence: He is on Sanchez catheter. #6 DVT prophylaxis: SCDs for now. This note was generated with [employer] dictation software. It may contain incorrect words, spelling, and punctuation that were not noted in checking the note before signing. Code Visit Inpatient E&M: 99515 Subs Hosp L2
--- NOTE | 2018-08-17 17:37 | PCA ---
rn in with pt
--- NOTE | 2018-08-17 17:39 | NURSING ---
CALL PLACED TO [facility] REGARDING ADMISSION QUESTIONS FOR PT. PT HAS NOT RECEIVED FLU VACCINE THIS SEASON, WILL RE-EVAL WITH . HEARD PLACED 06/26/18 WITH NOT RECORDED DATE OF BEING CHANGED-WILL CHANGE HEARD PER POLICY. UPDATED NAN LAROSE FROM [facility] REGARDING POC.
[2018-08-17] MEDS: Carbidopa/Levodopa 25/100 Tablet PO (17:54)
[2018-08-17] MEDS: hydrALAZINE 20 MG/ML Vial 10 MG IV (17:55)
--- NOTE | 2018-08-17 19:14 | PCM.OPRPT ---
Report of Operation Date of Procedure: 08/17/18 Pre-Operative Diagnosis: 1. Sacral pressure sore, Stage IV. 2. Osteomyelitis. 3. Urinary incontinence. 4. Dementia. Post-Operative Diagnosis: Same. Surgery/Procedure Performed:: Excision sacral pressure sore, Stage IV, with partial ostectomy for osteomyelits. Description of Surgical Findings:: This is a 73-year-old male who is currently a resident of [facility]. He presented to the [facility] with a sacral pressure sore. Recent culture showed Streptococcus agalactiae and is on Amoxicillin. MRI was done which showed osteomyelitis. Wound care is currently being done with Silver dressings. At the group home, he takes nutritional supplementation with protein to help the healing process. He has a history of urinary incontinence. He is of very limited mobility, though ambulates with assistance and with the assistance of a walker. Otherwise, he spends long hours each day either lying in bed or sitting in a chair. I was asked to evaluate this patient for surgical options for treatment. Patient and his family were informed of the risks and complications of the procedure including alternatives to surgery. These were discussed with them personally. They voice understanding and wish to proceed. Size of defect sacral area - 5 x 4 x 4 cm. interventional tech: None Type of Anesthesia:: General Specimen's removed: 1. Sacral pressure sore soft tissue to Pathology and Microbiology. 2. Sacral pressure sore bone to Pathology and Microbiology. Drains: None. Estimated Blood Loss (mL): 50 ml. Description of Procedure: Patient was taken to OR in supine position and was placed under general anesthesia. He was then placed in the prone position. The sacral area was prepped and draped in the usual fashion. SCD's were placed for DVT prophylaxis. Perioperative antibiotics were given intravenously. Using xylocaine with epinephrine, the sacral pressure sore was infiltrated. After waiting 5 minutes for the anesthetic to take effect, I probed the pressure sore and there was superior undermining. Not much was noted laterally and inferiorly. Using a scalpel, I excised the pressure sore into the subcutaneous tissue through the muscle until the bone was seen. There was a sinus tract that extended to the bone. A partial ostectomy was performed with rongeurs. The bone was not very strong. It looked clinically suspicious for osteomyelitis. A rasp was used to smooth out the bony edges. Half the soft tissue and half the bone was sent to Pathology for analysis to rule out carcinoma and to evaluate for osteomyelitis. Half the soft tissue and half the bone was sent to Microbiology for culture. A positive culture may necessitate antibiotic modification. The size of the defect after excision of the pressure sore was 5 x 4 x 4 cm. Hemostasis was obtained with electrocautery. The wound was irrigated with saline. The wound was then dressed with Mepitel nonadherent dressing and Kerlix gauze with Betadine followed by dry Kerlix gauze and ABD pads compression dressing. Patient tolerated the procedure well and was sent to PACU in satisfactory condition. Patient will be sent upstairs for continued postop care. Will continue IV antibiotics. The VAC will be applied tomorrow. Grafts/Implants Used: None. - Complications None. - Admit VTE Documentation VTE Present on Admission: No VTE Mechan Device Prophylaxis: SCD's VTE Pharm Prophylaxis ordered?: No Code Visit Surgery Charges CPT - 51693 ICD-10 - L89.154, M86.68
[2018-08-17] MEDS: Donepezil HCl 5 MG Tablet PO (21:42)
[2018-08-17] MEDS: Acetaminophen 500 MG Tablet PO (21:42)
[2018-08-17] MEDS: CARBIDOPA/LEVODOPA CR 50/200 Tablet PO (21:42)
[2018-08-18] MEDS: Lactated Ringers 1,000 ML 60 ML IV ×2 (00:20→22:03)
[2018-08-18 02:45] VITALS: BP 125/67; PULSE 80; RESP 16; TEMP 36.6; O2SAT 93
[2018-08-18] MEDS: Enoxaparin 30 MG/0.3 ML Syringe SC (06:42)
[2018-08-18] MEDS: Carbidopa/Levodopa 25/100 Tablet PO ×3 (06:42→17:52)
[2018-08-18 07:44] LABS: Hemoglobin 10.8 g/dl (13.0-16.5); Mean Corp Hgb Conc 32.7 g/gl (32-36); Mean Corpuscular Volume 100.9 fL (80-94); Mean Platelet Vol. 9.3 fl (6.2-12.0); Platelet Count 256 K/mm3 (150-450); RBC Distribution Width CV 17.3 % (11.6-14.6); RBC Distribution Width SD 63.5 fl (35.1-43.9); Red Blood Count 3.27 M/mm3 (4.6-6.2); White Blood Count 9.6 K/mm3 (4.4-11.0)
[2018-08-18 07:47] LABS: Scan Indicated on CBC? Y/N NO
[2018-08-18 08:11] LABS: Anion Gap 8 (5-15); BUN 20 mg/dL (7-18); BUN/Creat Ratio 21.9 RATIO (10-20); Calcium,Total 8.3 mg/dL (8.5-10.1); Chloride 107 mmol/L (98-107); Creatinine, Serum 0.91 mg/dL (0.70-1.30); EST Glomerular Filtration Rate 86 mL/min (>60); Est Glom Filt Rate - Afr Amer 104 mL/min (>60); Estimated Creatinine Clearance 64.27 ml/min; Glucose 83 mg/dL (74-106); Potassium 4.4 mmol/L (3.5-5.1); Prealbumin 27.6 mg/dL (20.0-40.0); Sodium Level 142 mmol/L (136-145)
[2018-08-18] MEDS: oxyCODONE 5 MG Tablet PO ×2 (08:42→22:10)
[2018-08-18] MEDS: Multivitamins,Therapeutic Tablet 1 TABLET PO (08:42)
[2018-08-18] MEDS: Vitamin B Comp W-C Capsule 1 CAP PO (08:42)
[2018-08-18 08:45] VITALS: BP 125/67; PULSE 75; RESP 16; TEMP 37.3; O2SAT 94
--- NOTE | 2018-08-18 09:29 | NURSING ---
wound photo: sacrum
--- NOTE | 2018-08-18 11:00 | PCM.PN.HOSP ---
Subjective: Follow up medical mgmt: Uncomfortable. but no new complaints. Vitals/I&O's: Vital Signs Temp Pulse Resp BP Pulse Ox 37.3 C 75 16 125/67 H 94 08/18/18 08:45 08/18/18 08:45 08/18/18 08:45 08/18/18 08:45 08/18/18 08:45 Oxygen Flow Rate (L/min) 2 Oxygen Delivery Method Room Air Weight: 68.492 kg Body Mass Index (BMI) 24.3 Intake and Output for Last 24 Hours 08/16/18 08/17/18 08/18/18 23:59 23:59 23:59 Intake Total 1555 / 1555 909 / 909 Output Total 350 / 350 400 / 400 Balance 1205 / 1205 509 / 509 General: Alert, No apparent distress HEENT: Atraumatic, Normocephalic Oral: Moist Mucosa, No Gingival or Mucosal Lesions/ Ulcerations Neck: No Nodes, Thyroid Normal Size and Texture Lungs: Clear to auscultation, Normal air movement, No rhonchi, No wheeze Cardiovascular: Regular rate, Regular Rhythm, Normal S1, Normal S2 Abdomen: Bowel Sounds Present, Soft, Non Tender, Non-Distended Extremities: No edema, No Calf Tenderness Skin: No rashes, No breakdown Musculoskeletal: Cachexia, Muscle Wasting Psych/Mental Status: Normal Affect, Appropriate Microbiology Past 72 Hours 08/17/18 Unknown Tissue - Other Gram Stain - Final 08/17/18 Unknown Bone - Other Gram Stain - Final Laboratory Results 08/18/18 07:14: WBC 9.6, RBC 3.27 L, Hgb 10.8 L, Hct 33.0 L, MCV 100.9 H, MCH 33.0 H, MCHC 32.7, RDW 17.3 H, RDW Differential 63.5 H, Plt Count 256, MPV 9.3 08/18/18 07:14: Sodium 142, Potassium 4.4, Chloride 107, Carbon Dioxide 27.0, Anion Gap 8, BUN 20 H, Creatinine 0.91, Estim Creat Clear Calc 64.27, Est GFR (MDRD) Af Amer 104, Est GFR (MDRD) Non-Af 86, BUN/Creatinine Ratio 21.9 H, Glucose 83, Calcium 8.3 L, Prealbumin 27.6 Current Medications Acetaminophen (Tylenol) 500 mg PO BID [facility] Last Admin: 08/17/18 21:42 Dose: 500 mg Carbidopa/Levodopa (Sinemet) 2 tablet PO TIDAC [facility] Last Admin: 08/18/18 06:42 Dose: 2 tablet Carbidopa/Levodopa (Sinemet Cr) 1 tablet PO HS@2100 [facility] Last Admin: 08/17/18 21:42 Dose: 1 tablet Cholecalciferol (Vitamin D) 1,000 unit PO DAILY@1000 [facility] Donepezil HCl (Aricept) 5 mg PO QHS [facility] Last Admin: 08/17/18 21:42 Dose: 5 mg Enoxaparin Sodium (Lovenox) 30 mg SC DAILY@0600 [facility] Last Admin: 08/18/18 06:42 Dose: 30 mg Hydralazine HCl (Apresoline Iv) 10 mg IV Q6H PRN PRN PRN Reason: for SBP>160 Last Admin: 08/17/18 17:55 Dose: 10 mg Ampicillin Sodium/Sulbactam (Sodium 3 gm/ Sodium Chloride) 112 mls @ 150 mls/hr IV Q6 [facility] Last Admin: 08/18/18 06:43 Dose: 150 mls/hr Lactated Ringer's () 1,000 mls @ 60 mls/hr IV .[id number] [facility] Last Admin: 08/18/18 00:20 Dose: 60 mls/hr Multivitamins (Multivitamin) 1 tablet PO DAILY@0800 [facility] Last Admin: 08/18/18 08:42 Dose: 1 tablet Multivitamins (Allbee W/C Caplet, Thera B Comp/C) 1 capsule PO DAILY@0800 [facility] Last Admin: 08/18/18 08:42 Dose: 1 capsule Nutritional Formula (Inderjit - [place] Flavor) 1 packet PO BIDCM [facility] Last Admin: 08/18/18 08:42 Dose: 1 packet Ondansetron HCl (Zofran) 4 mg IV Q6H PRN PRN PRN Reason: NAUSEA Oxycodone HCl (Oxyir) 5 mg PO Q4H PRN PRN PRN Reason: SEVERE PAIN (6-10/10) Last Admin: 08/18/18 08:42 Dose: 5 mg Polyethylene Glycol (Miralax) 17 gm PO DAILY [facility] Promethazine HCl (Phenergan Tablet) 25 mg PO Q4H PRN PRN PRN Reason: NAUSEA/VOMITING Sodium Chloride () 5 - 30 ml IV UD PRN PRN Reason: SALINE FLUSH Medical Necessity - Tobacco Use Smoking Status: Never smoker Assessment/Plan 1. stage IV sacral pressure ulcer 2/p ostectomy and debridement on empiric unasyn cultures pending wound vac in place 2. Parkinson's disease continue Sinemet avoid medications that can exacerbate confusion (I have discontinued the diazepam and hydromorphone--which he hasn't taken) 3. DVT proph: LMWH. DW patient's at bedside. Code Visit Inpatient E&M: 70603 Subs Hosp L2
--- NOTE | 2018-08-18 11:06 | PN_ITS ---
Subjective: Follow up medical mgmt: Uncomfortable. but no new complaints. Vitals/I&O's: Vital Signs Temp Pulse Resp BP Pulse Ox 37.3 C 75 16 125/67 H 94 08/18/18 08:45 08/18/18 08:45 08/18/18 08:45 08/18/18 08:45 08/18/18 08:45 Oxygen Flow Rate (L/min) 2 Oxygen Delivery Method Room Air Weight: 68.492 kg Body Mass Index (BMI) 24.3 Intake and Output for Last 24 Hours 08/16/18 08/17/18 08/18/18 23:59 23:59 23:59 Intake Total 1555 / 1555 909 / 909 Output Total 350 / 350 400 / 400 Balance 1205 / 1205 509 / 509 General: Alert, No apparent distress HEENT: Atraumatic, Normocephalic Oral: Moist Mucosa, No Gingival or Mucosal Lesions/ Ulcerations Neck: No Nodes, Thyroid Normal Size and Texture Lungs: Clear to auscultation, Normal air movement, No rhonchi, No wheeze Cardiovascular: Regular rate, Regular Rhythm, Normal S1, Normal S2 Abdomen: Bowel Sounds Present, Soft, Non Tender, Non-Distended Extremities: No edema, No Calf Tenderness Skin: No rashes, No breakdown Musculoskeletal: Cachexia, Muscle Wasting Psych/Mental Status: Normal Affect, Appropriate Microbiology Past 72 Hours 08/17/18 Unknown Tissue - Other Gram Stain - Final 08/17/18 Unknown Bone - Other Gram Stain - Final Laboratory Results 08/18/18 07:14: WBC 9.6, RBC 3.27 L, Hgb 10.8 L, Hct 33.0 L, MCV 100.9 H, MCH 33.0 H, MCHC 32.7, RDW 17.3 H, RDW Differential 63.5 H, Plt Count 256, MPV 9.3 08/18/18 07:14: Sodium 142, Potassium 4.4, Chloride 107, Carbon Dioxide 27.0, Anion Gap 8, BUN 20 H, Creatinine 0.91, Estim Creat Clear Calc 64.27, Est GFR (MDRD) Af Amer 104, Est GFR (MDRD) Non-Af 86, BUN/Creatinine Ratio 21.9 H, Glucose 83, Calcium 8.3 L, Prealbumin 27.6 Current Medications Acetaminophen (Tylenol) 500 mg PO BID [facility] Last Admin: 08/17/18 21:42 Dose: 500 mg Carbidopa/Levodopa (Sinemet) 2 tablet PO TIDAC [facility] Last Admin: 08/18/18 06:42 Dose: 2 tablet Carbidopa/Levodopa (Sinemet Cr) 1 tablet PO HS@2100 [facility] Last Admin: 08/17/18 21:42 Dose: 1 tablet Cholecalciferol (Vitamin D) 1,000 unit PO DAILY@1000 [facility] Donepezil HCl (Aricept) 5 mg PO QHS [facility] Last Admin: 08/17/18 21:42 Dose: 5 mg Enoxaparin Sodium (Lovenox) 30 mg SC DAILY@0600 [facility] Last Admin: 08/18/18 06:42 Dose: 30 mg Hydralazine HCl (Apresoline Iv) 10 mg IV Q6H PRN PRN PRN Reason: for SBP>160 Last Admin: 08/17/18 17:55 Dose: 10 mg Ampicillin Sodium/Sulbactam (Sodium 3 gm/ Sodium Chloride) 112 mls @ 150 mls/hr IV Q6 [facility] Last Admin: 08/18/18 06:43 Dose: 150 mls/hr Lactated Ringer's () 1,000 mls @ 60 mls/hr IV .[id number] [facility] Last Admin: 08/18/18 00:20 Dose: 60 mls/hr Multivitamins (Multivitamin) 1 tablet PO DAILY@0800 [facility] Last Admin: 08/18/18 08:42 Dose: 1 tablet Multivitamins (Allbee W/C Caplet, Thera B Comp/C) 1 capsule PO DAILY@0800 [facility] Last Admin: 08/18/18 08:42 Dose: 1 capsule Nutritional Formula (Inderjit - [place] Flavor) 1 packet PO BIDCM [facility] Last Admin: 08/18/18 08:42 Dose: 1 packet Ondansetron HCl (Zofran) 4 mg IV Q6H PRN PRN PRN Reason: NAUSEA Oxycodone HCl (Oxyir) 5 mg PO Q4H PRN PRN PRN Reason: SEVERE PAIN (6-10/10) Last Admin: 08/18/18 08:42 Dose: 5 mg Polyethylene Glycol (Miralax) 17 gm PO DAILY [facility] Promethazine HCl (Phenergan Tablet) 25 mg PO Q4H PRN PRN PRN Reason: NAUSEA/VOMITING Sodium Chloride () 5 - 30 ml IV UD PRN PRN Reason: SALINE FLUSH Medical Necessity - Tobacco Use Smoking Status: Never smoker Assessment/Plan 1. stage IV sacral pressure ulcer * 2/p ostectomy and debridement * on empiric unasyn * cultures pending * wound vac in place 2. Parkinson's disease * continue Sinemet * avoid medications that can exacerbate confusion (I have discontinued the diazepam and hydromorphone--which he hasn't taken) 3. DVT proph: LMWH. DW patient's at bedside. Code Visit Inpatient E&M: 75783 Subs Hosp L2
[2018-08-18] MEDS: Acetaminophen 500 MG Tablet PO ×2 (11:48→22:02)
[2018-08-18] MEDS: Polyethylene Glycol 3350 17 GM PACKET PO (11:48)
--- NOTE | 2018-08-18 11:57 | CASEMGMT ---
Social Work Note Pt is listed as being from [facility]. Per previous reports, pt has difficulty communicating, is not able to speak and almost nonverbal. GABRIELLE met with pt and pt's Ginger present in room. GABRIELLE introduced self and role at [facility]. Ginger confirms that pt came from [facility] and the plan is for pt to return there at discharge. Ginger states that equipment operator intermodal yard care for pt has been talked about but states the hope is that pt is able to return home at some point. GABRIELLE placed a call to Yandy Gonzalez in admissions at [facility] ([phone] ext: [phone]) and left a message for Yandy regarding pt's admission into hospital. GABRIELLE received a call back from Yandy stating he would like to get pre-cert for pt and information can be faxed to [phone]. GABRIELLE faxed clinicals to [facility]. RN TOMASA Prieto placed a call to Dr. Bryant updating him on plan and asked if PT/OT could be ordered for pt as typically insurance companies like to see PT/OT notes for pre-cert. SW to continue to follow along to assist with discharge planning. Plan: [facility] pending pre-cert Keely Hanna BICYCLE II ASSEMBLER, ROLL OR TAPE EDGE MACHINE OPERATOR
--- NOTE | 2018-08-18 14:07 | CASEMGMT ---
Social Work Note RN TOMASA Prieto updated this worker that she spoke with pt's and pt's would like [facility] to transport pt when discharged. Keely Hanna MONTESSORI PARAPROFESSIONAL, FIELD ARTILLERY SENIOR SERGEANT
[2018-08-18 14:45] VITALS: BP 112/61; PULSE 73; RESP 16; TEMP 37.1; O2SAT 93
--- NOTE | 2018-08-18 19:15 | OP.PCM_ITS ---
Report of Operation Date of Procedure: 08/17/18 Pre-Operative Diagnosis: 1. Sacral pressure sore, Stage IV. 2. Osteomyelitis. 3. Urinary incontinence. 4. Dementia. Post-Operative Diagnosis: Same. Surgery/Procedure Performed:: Excision sacral pressure sore, Stage IV, with partial ostectomy for osteomyelits. Description of Surgical Findings:: This is a 73-year-old male who is currently a resident of [facility]. He presented to the Wound Center with a sacral pressure sore. Recent culture showed Streptococcus agalactiae and is on Amoxicillin. MRI was done which showed osteomyelitis. Wound care is currently being done with Silver dressings. At the [facility], he takes nutritional supplementation with protein to help the healing process. He has a history of urinary incontinence. He is of very limited mobility, though ambulates with assistance and with the assistance of a walker. Otherwise, he spends long hours each day either lying in bed or sitting in a chair. I was asked to evaluate this patient for surgical options for treatment. Patient and his family were informed of the risks and complications of the procedure including alternatives to surgery. These were discussed with them personally. They voice understanding and wish to proceed. Size of defect sacral area - 5 x 4 x 4 cm. machine or machinery mechanic: None Type of Anesthesia:: General Specimen's removed: 1. Sacral pressure sore soft tissue to Pathology and Microbiology. 2. Sacral pressure sore bone to Pathology and Microbiology. Drains: None. Estimated Blood Loss (mL): 50 ml. Description of Procedure: Patient was taken to OR in supine position and was placed under general anesthesia. He was then placed in the prone position. The sacral area was prepped and draped in the usual fashion. SCD's were placed for DVT prophylaxis. Perioperative antibiotics were given intravenously. Using xylocaine with epinephrine, the sacral pressure sore was infiltrated. After waiting 5 minutes for the anesthetic to take effect, I probed the pressure sore and there was superior undermining. Not much was noted laterally and inferiorly. Using a scalpel, I excised the pressure sore into the subcutaneous tissue through the muscle until the bone was seen. There was a sinus tract that extended to the bone. A partial ostectomy was performed with rongeurs. The bone was not very strong. It looked clinically suspicious for osteomyelitis. A rasp was used to smooth out the bony edges. Half the soft tissue and half the bone was sent to Pathology for analysis to rule out carcinoma and to evaluate for osteomyelitis. Half the soft tissue and half the bone was sent to Microbiology for culture. A positive culture may necessitate antibiotic modification. The size of the defect after excision of the pressure sore was 5 x 4 x 4 cm. Hemostasis was obtained with electrocautery. The wound was irrigated with saline. The wound was then dressed with Mepitel nonadherent dressing and Kerlix gauze with Betadine followed by dry Kerlix gauze and ABD pads compression dressing. Patient tolerated the procedure well and was sent to PACU in satisfactory condition. Patient will be sent upstairs for continued postop care. Will continue IV antibiotics. The VAC will be applied tomorrow. Grafts/Implants Used: None. - Complications None. - Admit VTE Documentation VTE Present on Admission: No VTE Mechan Device Prophylaxis: SCD's VTE Pharm Prophylaxis ordered?: No Code Visit Surgery Charges CPT - 10597 ICD-10 - L89.154, M86.68
--- NOTE | 2018-08-18 19:15 | PCM.PN.SRG ---
Subjective: Postop #1 Patient is resting comfortably. - Physical Exam General: Alert, Oriented x3 HEENT: PERRLA, EOMI Oral: Moist Mucosa Neck: Supple Abdomen: Soft, Non-Distended Skin: Ulcer/ Wound - sacral wound is stable. Minor oozing easily controlled with gentle pressure as reported by the nurses. VAC applied today. Neurological: Cranial nerves II-XII grossly intact Psych/Mental Status: Appropriate, Flat Affect Vital Signs Temp Pulse Resp BP Pulse Ox 98.7 F 73 16 112/61 93 08/18/18 14:45 08/18/18 14:45 08/18/18 14:45 08/18/18 14:45 08/18/18 14:45 Oxygen Flow Rate (L/min) 2 Oxygen Delivery Method Room Air Weight: 150 lb 15.984 oz Body Mass Index (BMI) 24.3 Intake and Output for Last 24 Hours 08/16/18 08/17/18 08/18/18 23:59 23:59 23:59 Intake Total 1555 / 1555 1873 / 1873 Output Total 350 / 350 1300 / 1300 Balance 1205 / 1205 573 / 573 Microbiology Past 72 Hours 08/17/18 Unknown Gram Stain - Final Tissue - Other Wound Culture - Preliminary No growth-Final to follow 08/17/18 Unknown Gram Stain - Final Bone - Other Pathology - pending. Laboratory Tests Past 24 Hrs 08/18/18 08/18/18 07:14 07:14 WBC 9.6 RBC 3.27 L Hgb 10.8 L Hct 33.0 L MCV 100.9 H MCH 33.0 H MCHC 32.7 RDW 17.3 H RDW Differential 63.5 H Plt Count 256 MPV 9.3 Sodium 142 Potassium 4.4 Chloride 107 Carbon Dioxide 27.0 Anion Gap 8 BUN 20 H Creatinine 0.91 Estim Creat Clear Calc 64.27 Est GFR (MDRD) Af Amer 104 Est GFR (MDRD) Non-Af 86 BUN/Creatinine Ratio 21.9 H Glucose 83 Calcium 8.3 L Prealbumin 27.6 Medical Necessity - Tobacco Use Smoking Status: Never smoker Assessment/Plan 1. Sacral pressure sore, Stage IV. 2. Osteomyelitis. 3. Urinary incontinence. 4. Dementia. 5. s/p excision sacral pressure sore, Stage IV, with partial ostectomy for osteomyelitis. VAC applied today. To be changed three times per week at 150 mmHg continuous suction. Continue Unasyn. Operative cultures are pending thus far. Pathology is pending. Prealbumin was 27.6. Encourage nutritional supplementation with protein to help the healing process. Will have PT evaluate for ambulation and gait training and strengthening. Will return back to his ECF that he was at before surgery, [facility].
[2018-08-18 22:00] VITALS: BP 132/55; PULSE 67; RESP 16; TEMP 36.6; O2SAT 93
[2018-08-18] MEDS: Donepezil HCl 5 MG Tablet PO (22:02)
[2018-08-18] MEDS: CARBIDOPA/LEVODOPA CR 50/200 Tablet PO (22:03)
[2018-08-19 04:00] VITALS: BP 164/74; PULSE 70; RESP 16; TEMP 37.1; O2SAT 96
[2018-08-19] MEDS: Enoxaparin 30 MG/0.3 ML Syringe SC (06:14)
[2018-08-19] MEDS: Carbidopa/Levodopa 25/100 Tablet PO ×3 (06:14→17:04)
[2018-08-19] MEDS: oxyCODONE 5 MG Tablet PO ×2 (06:15→17:04)
[2018-08-19 06:25] VITALS: BP 164/74; PULSE 71
[2018-08-19] MEDS: hydrALAZINE 20 MG/ML Vial 10 MG IV (06:25)
[2018-08-19 06:53] LABS: Hematocrit 32.1 % (40-54); Hemoglobin 10.8 g/dl (13.0-16.5); Mean Corp Hgb Conc 33.6 g/gl (32-36); Mean Corpuscular Hgb 34.3 pg (27.0-32.0); Mean Corpuscular Volume 101.9 fL (80-94); Mean Platelet Vol. 9.2 fl (6.2-12.0); Platelet Count 249 K/mm3 (150-450); RBC Distribution Width CV 16.5 % (11.6-14.6); RBC Distribution Width SD 58.5 fl (35.1-43.9); Red Blood Count 3.15 M/mm3 (4.6-6.2); White Blood Count 8.1 K/mm3 (4.4-11.0)
[2018-08-19 07:03] LABS: Scan Indicated on CBC? Y/N NO
[2018-08-19 07:06] LABS: BUN 18 mg/dL (7-18); Creatinine, Serum 0.79 mg/dL (0.70-1.30); Glucose 89 mg/dL (74-106)
[2018-08-19 07:07] LABS: Anion Gap 6 (5-15); BUN/Creat Ratio 22.9 RATIO (10-20); Calcium,Total 8.4 mg/dL (8.5-10.1); Chloride 108 mmol/L (98-107); EST Glomerular Filtration Rate 103 mL/min (>60); Est Glom Filt Rate - Afr Amer 124 mL/min (>60); Estimated Creatinine Clearance 58.48 ml/min; Potassium 3.9 mmol/L (3.5-5.1); Sodium Level 141 mmol/L (136-145)
[2018-08-19 07:10] VITALS: BP 131/62
--- NOTE | 2018-08-19 07:41 | NURSING ---
Kalpesh, LITO assisting patient with breakfast. wound VAC with good seal noted at 150mmHg low continuous suction. possible discharge back to detention today. will remove wound VAC dressing and apply a wet to dry dressing if discharged.
[2018-08-19 08:10] VITALS: BP 128/83; PULSE 60; RESP 16; TEMP 37.2; O2SAT 93
--- NOTE | 2018-08-19 08:28 | PCM.PN.SRG ---
Subjective: Postop #2 Patient is resting comfortably. - Physical Exam HEENT: PERRLA Oral: Moist Mucosa Neck: Supple Abdomen: Soft, Non-Distended Skin: Ulcer/ Wound - sacral wound stable. VAC in place. Minimal drainage in the canister. Neurological: Cranial nerves II-XII grossly intact Psych/Mental Status: Appropriate, Flat Affect Vital Signs Temp Pulse Resp BP Pulse Ox 98.9 F 60 16 128/83 H 93 08/19/18 08:10 08/19/18 08:10 08/19/18 08:10 08/19/18 08:10 08/19/18 08:10 Oxygen Flow Rate (L/min) 2 Oxygen Delivery Method Room Air Weight: 150 lb 15.984 oz Body Mass Index (BMI) 24.3 Intake and Output for Last 24 Hours 08/17/18 08/18/18 08/19/18 23:59 23:59 23:59 Intake Total 1555 / 1555 1873 / 1873 793 / 793 Output Total 350 / 350 1300 / 1300 1275 / 1275 Balance 1205 / 1205 573 / 573 -482 / -482 Microbiology Past 72 Hours 08/17/18 Unknown Gram Stain - Final Tissue - Other Wound Culture - Preliminary No growth-Final to follow 08/17/18 Unknown Gram Stain - Final Bone - Other Pathology - pending. Laboratory Tests Past 24 Hrs 08/19/18 08/19/18 06:34 06:34 WBC 8.1 RBC 3.15 L Hgb 10.8 L Hct 32.1 L MCV 101.9 H MCH 34.3 H MCHC 33.6 RDW 16.5 H RDW Differential 58.5 H Plt Count 249 MPV 9.2 Sodium 141 Potassium 3.9 Chloride 108 H Carbon Dioxide 27.0 Anion Gap 6 BUN 18 Creatinine 0.79 Estim Creat Clear Calc 58.48 Est GFR (MDRD) Af Amer 124 Est GFR (MDRD) Non-Af 103 BUN/Creatinine Ratio 22.9 H Glucose 89 Calcium 8.4 L Medical Necessity - Tobacco Use Smoking Status: Never smoker Assessment/Plan 1. Sacral pressure sore, Stage IV. 2. Osteomyelitis. 3. Urinary incontinence. 4. Dementia. 5. s/p excision sacral pressure sore, Stage IV, with partial ostectomy for osteomyelitis. VAC in place. Minimal drainage in the canister. To be changed three times per week at 150 mmHg continuous suction. Continue Unasyn. Operative cultures are pending thus far. Pathology is pending. I anticipate osteomyelitis is present. If so, will need emt intermediate IV antibiotics. Prealbumin was 27.6. Encourage nutritional supplementation with protein to help the healing process. Will have PT evaluate for ambulation and gait training and strengthening. At discharge, he will return back to his ECF that he was at before surgery, [facility].
[2018-08-19] MEDS: Polyethylene Glycol 3350 17 GM PACKET PO (09:14)
[2018-08-19] MEDS: Acetaminophen 500 MG Tablet PO ×2 (09:15→23:18)
[2018-08-19] MEDS: Multivitamins,Therapeutic Tablet 1 TABLET PO (09:15)
[2018-08-19] MEDS: Vitamin B Comp W-C Capsule 1 CAP PO (09:15)
--- NOTE | 2018-08-19 11:23 | CASEMGMT ---
Addendum entered by Keely Hanna 08/19/18 11:43: GABRIELLE [facility]. GABRIELLE informed Denice and this worker has a call out to the physician already today to determine if pt will be discharged on IV antibiotics. GABRIELLE informed Denice that as soon as this worker gets confirmation about IV antibiotics this worker will call her back. Denice states understanding. Original Note: Social Work Note GABRIELLE received message from Yandy at [facility] asking if pt will be discharged on IV antibiotics and if PT has evaluated pt yet as pt's insurance is asking. RN TOMASA Prieto placed a call to Dr. Bryant and left him a message asking about IV antibiotics. Per physician's note, pt is currently on Unasyn and operative cultures are pending thus far. GABRIELLE faxed updated clinicals to Yandy at [facility]. GABRIELLE to continue to follow along to assist with discharge planning. Plan: [facility] pending pre-cert Keely Hanna BOOKMAKER MAP, PHOTOVOLTAIC SOLAR CELL DESIGNER
[2018-08-19 14:22] VITALS: BP 105/50; PULSE 76; RESP 16; TEMP 37; O2SAT 94
[2018-08-19] MEDS: Lactated Ringers 1,000 ML 60 ML IV (16:03)
--- NOTE | 2018-08-19 18:46 | PCM.PROGNOTE ---
Subjective: She was seen and examined today, I talked extensively with his who is in the room during my examination, I also talked with plastic surgery who stated that it would be necessary to put a PICC line in the patient so he could have at least 2 weeks of antibiotics when he returns to an extended care facility. We are currently awaiting bone biopsy results, he states that if the bone biopsy results are positive the patient may need up to 6 weeks of IV antibiotic treatment. I talked this over with the patient's who is in the room today. Patient was nonverbal during my examination today. - Physical Exam General: Alert, No apparent distress, Well developed HEENT: Atraumatic, PERRLA, EOMI, Normocephalic Oral: Moist Mucosa Neck: Supple, No Nuchal Rigidity, Trachea Midline, Thyroid Normal Size and Texture Lungs: Clear to auscultation, Normal air movement, No rhonchi, No wheeze, No rales Cardiovascular: Regular rate, Regular Rhythm, Normal S1, Normal S2, No murmurs, No Ectopic Activity, PMI Normal, No rub noted, No Gallop Abdomen: Bowel Sounds Present, Soft, Non Tender, Non-Distended, No hernias noted Extremities: No clubbing, No cyanosis, No edema Neurological: Cranial nerves II-XII grossly intact, Neuro grossly intact, Sensory exam intact to light touch and pain Psych/Mental Status: Flat Affect, - - Patient is alert, he is nonverbal Vital Signs Temp Pulse Resp BP Pulse Ox 98.6 F 76 16 105/50 L 94 08/19/18 14:22 08/19/18 14:22 08/19/18 14:22 08/19/18 14:22 08/19/18 14:22 Oxygen Flow Rate (L/min) 2 Oxygen Delivery Method Room Air Weight: 68.492 kg Body Mass Index (BMI) 24.3 Intake and Output for Last 24 Hours 08/17/18 08/18/18 08/19/18 23:59 23:59 23:59 Intake Total 1555 / 1555 1873 / 1873 1968 / 1968 Output Total 350 / 350 1300 / 1300 2425 / 2425 Balance 1205 / 1205 573 / 573 -456 / -456 Microbiology Past 72 Hours 08/17/18 Unknown Gram Stain - Final Tissue - Other Wound Culture - Preliminary Gram Positive Cocci Anaerobic Culture - Preliminary No growth in 48 hours. 08/17/18 Unknown Gram Stain - Final Bone - Other Wound Culture - Preliminary Gram Positive Cocci Laboratory Tests Past 24 Hrs 08/19/18 08/19/18 06:34 06:34 WBC 8.1 RBC 3.15 L Hgb 10.8 L Hct 32.1 L MCV 101.9 H MCH 34.3 H MCHC 33.6 RDW 16.5 H RDW Differential 58.5 H Plt Count 249 MPV 9.2 Sodium 141 Potassium 3.9 Chloride 108 H Carbon Dioxide 27.0 Anion Gap 6 BUN 18 Creatinine 0.79 Estim Creat Clear Calc 58.48 Est GFR (MDRD) Af Amer 124 Est GFR (MDRD) Non-Af 103 BUN/Creatinine Ratio 22.9 H Glucose 89 Calcium 8.4 L Medical Necessity - Tobacco Use Smoking Status: Never smoker Assessment/Plan #1 Parkinson's disease #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
--- NOTE | 2018-08-19 19:44 | NURSING ---
prior to picc insertion, this RN educated pt and his on necessity for line. Patient nodded head in agreement when asked if it was ok. verbalized understanding and stated that she would sign for patient as he is unable to do so for himself. Same completed.
--- NOTE | 2018-08-19 21:12 | NURSING ---
Addendum entered by Nimo Rodríguez 08/19/18 23:16: This note was written by this RN not by Denice Candelario RN. Original Note: Talked to Catherine Gonzalez from [facility]. She said they give pt his medications whole in applesauce. In particular, we were concerned about pt's ER Sinemet. Catherine indicated that he takes that just fine and even some larger pills without difficulty.
[2018-08-19 21:17] VITALS: BP 161/86; PULSE 77; RESP 16; TEMP 37.1; O2SAT 93
[2018-08-19] MEDS: CARBIDOPA/LEVODOPA CR 50/200 Tablet PO (23:18)
[2018-08-19] MEDS: Donepezil HCl 5 MG Tablet PO (23:18)
--- NOTE | 2018-08-19 23:18 | NURSING ---
PT TAKES PO PILLS WITHOUT DIFFICULTY.
[2018-08-20 05:17] VITALS: BP 155/83; PULSE 69; RESP 16; TEMP 37.1; O2SAT 94
[2018-08-20] MEDS: 0.9% NaCl Peripheral Flush Adult/Peds IV (05:21)
[2018-08-20] MEDS: Enoxaparin 30 MG/0.3 ML Syringe SC (05:22)
[2018-08-20] MEDS: Carbidopa/Levodopa 25/100 Tablet PO ×3 (07:35→16:21)
[2018-08-20] MEDS: Multivitamins,Therapeutic Tablet 1 TABLET PO (07:35)
[2018-08-20] MEDS: Vitamin B Comp W-C Capsule 1 CAP PO (07:38)
--- NOTE | 2018-08-20 09:17 | CASEMGMT ---
Addendum entered by Keely Hanna 08/20/18 13:54: GABRIELLE faxed IV antibiotics script to Yandy at [facility]. Original Note: Addendum entered by Keely Hanna 08/20/18 11:43: GABRIELLE received call from Yandy at [facility] frequency, dose, and length of IV antibiotics pt will be on at discharge. GABRIELLE informed Yandy that this worker is still waiting for script for IV antibiotics. GABRIELLE informed Yandy that this worker will check on reports and send him what is available. GABRIELLE faxed pharmacology report, microbiology and PT/OT notes from today to Yandy. Original Note: Social Work Note GABRIELLE faxed updated clinicals to Yandy at [facility]. Pt had PICC line inserted yesterday and per physician notes pt will be discharged on IV antibiotics. GABRIELLE placed a call to Yandy and updated him on this information. GABRIELLE informed Yandy that cultures are still pending. Yandy states that he will send updates to [facility] this morning. Plan: [facility] pending pre-cert Keely Hanna [employer]LY[employer] TUBE TESTER, DIE REAMER
[2018-08-20] MEDS: Lactated Ringers 1,000 ML 60 ML IV (09:52)
[2018-08-20] MEDS: Acetaminophen 500 MG Tablet PO ×2 (09:52→21:56)
[2018-08-20] MEDS: Polyethylene Glycol 3350 17 GM PACKET PO (09:53)
[2018-08-20 10:10] VITALS: BP 134/74; PULSE 74; RESP 18; TEMP 37.3; O2SAT 96
--- NOTE | 2018-08-20 10:39 | PCM.RX.CS ---
Consult Pharmacy has been consulted to manage selected antiobiotic: Vancomycin Type of Consult: New start Suspected Infection: Osteomyelitis Prior Doses of Antibiotics Received/Current Regimen: Received ~25mg/kg (1750mg) IV x 1 08.20.18. Labs: Sodium 141 mmol/L (136-145) 08/19/18 06:34 Potassium 3.9 mmol/L (3.5-5.1) 08/19/18 06:34 Chloride 108 mmol/L (98-107) H 08/19/18 06:34 Carbon Dioxide 27.0 mmol/L (21.0-32.0) 08/19/18 06:34 Anion Gap 6 (5-15) 08/19/18 06:34 BUN 18 mg/dL (7-18) 08/19/18 06:34 Creatinine 0.79 mg/dL (0.70-1.30) 08/19/18 06:34 Est GFR (MDRD) Af Amer 124 mL/min (>60) 08/19/18 06:34 Est GFR (MDRD) Non-Af 103 mL/min (>60) 08/19/18 06:34 BUN/Creatinine Ratio 22.9 RATIO (10-20) H 08/19/18 06:34 Glucose 89 mg/dL (74-106) 08/19/18 06:34 Microbiology: Microbiology 08/17/18 Unknown Tissue - Other Gram Stain - Final 08/17/18 Unknown Tissue - Other Wound Culture - Final Staphylococcus epidermidis 08/17/18 Unknown Tissue - Other Anaerobic Culture - Preliminary No growth in 48 hours. 08/17/18 Unknown Bone - Other Gram Stain - Final 08/17/18 Unknown Bone - Other Wound Culture - Final Meth. resistant Staph. aureus Weight used for dosin.5 kg Estimated Creatinine Clearance: 58 ml/min Goal Trough: 15-20 mcg/mL Pharmacy Plan for Drug Dosing: Patient reviewed for indication, weight and renal status (Cr 0.8 with CrCl ~58 ml/min). After initial dose of 1750mg, will follow with 750mg IV q12h. Vancomycin trough is ordered for before 4th dose with goal of 15-20 mcg/ml. Pharmacy Service will continue to monitor and adjust dosing as required. Follow-Up Labs: Trough Vancomycin - 08.21.18 @2130 before 2200 dose
--- NOTE | 2018-08-20 13:58 | PCM.HP.ID ---
Problem List (1) Chronic osteomyelitis of sacrum Status: Chronic Reason for Consult: osteo Consulted by: Dr. Gonzales History of Present Illness: The patient is a 73 year old M with Parkinson's and dementia who presented for sacral osteo. Follows with Dr. Bryant at wound care center. Had sacral wound for several months. Had cx in June with strep, had been on amox. Wound worsened, MRI showed osteo, taken to OR 08/17 for debridement. Now bone cx with MRSA, so vanc started and unasyn stopped. No fever, no n/v/d. Picc in place. D/c to ECF planned. ROS limited by mental status and ability to communicate, but denies cough, SOB, fever, abd pain, n/v. - Medical History Past Medical History (Chronic Problems): Chronic Problems Chronic osteomyelitis of sacrum (Chronic) Pressure ulcer of sacral region, stage 4 (Chronic) Urinary incontinence (Chronic) Dementia (Chronic) Debility (Chronic) Pressure ulcer, stage 4 (Chronic) Failure to thrive (Chronic) Macrocytic anemia (Chronic) Parkinson's disease dementia (Chronic) Parkinson disease (Chronic) Generalized weakness (Chronic) Allergies/Adverse Reactions: Allergies No Known Allergies Allergy (Verified 08/11/18 13:10) Home Medications: Ambulatory Orders Medication Instructions Recorded Donepezil HCl [Aricept] 5 mg PO QHS 10/06/17 Carbidopa/Levodopa 50/200 [Sinemet 1 tablet PO HS@2100 tablet.sa 10/09/17 CR 50/200] Acetaminophen [Tylenol Extra 500 mg PO BID 08/11/18 Strength] Amoxicillin 875 mg PO BID 08/11/18 Carbidopa/Levodopa 25/100 [Sinemet] 2 tablet PO TIDAC 08/11/18 Cholecalciferol (Vitamin D3) 1,000 unit PO DAILY 08/11/18 [Vitamin D3] Multivitamin [Multiple Vitamins] 1 each PO DAILY 08/11/18 Polyethylene Glycol 3350 [Miralax] 17 gm PO DAILY 08/11/18 Vitamin B Complex 1 each PO DAILY 08/11/18 Vancomycin IV 750 mg IV Q12H #85 vial 08/20/18 - Social History Tobacco Use: non-smoker Vital Signs Temp Pulse Resp BP Pulse Ox 99.1 F 74 18 134/74 H 96 08/20/18 10:10 08/20/18 10:10 08/20/18 10:10 08/20/18 10:10 08/20/18 10:10 Oxygen Flow Rate (L/min) 2 Oxygen Delivery Method Room Air Weight: 68.492 kg Body Mass Index (BMI) 24.3 Microbiology Past 72 Hours 08/17/18 Unknown Gram Stain - Final Tissue - Other Wound Culture - Final Staphylococcus epidermidis Anaerobic Culture - Preliminary No growth in 48 hours. 08/17/18 Unknown Gram Stain - Final Bone - Other Wound Culture - Final Meth. resistant Staph. aureus - Other Studies Radiology: [] reviewed Other Studies: [] Route of nutrition/ use of supplements: [] Nutritional Intake: [] IV Site: [] Sanchez Catheter: [] - Physical Exam General: Cooperative, No apparent distress HEENT: Atraumatic, PERRLA, EOMI Neck: Supple, No Nodes Lungs: Clear to auscultation, Normal air movement Cardiovascular: Regular rate, Regular Rhythm Abdomen: Soft, Non Tender, Non-Distended Extremities: No edema Skin: Ulcer/ Wound - bandaged IV Site: PICC, without redness Musculoskeletal: No Tenderness to Palpation of Joints or Extremities Neurological: - - parkinson's - Assessment/Plan Antibiotics: [] Assessment/Plan: [] Sacral MRSA osteo - s/p OR 08/17/[address] Bryant. Tissue cx also with MRSE. Prior cx with strepKelby Robert for d/c to facility for 6 week course of iv vanc. Rx written with weekly labs. I can follow him at wound center as needed. Thank you, d/w child support case officer and primary team.
[2018-08-20 14:37] VITALS: BP 121/70; PULSE 71; RESP 18; TEMP 36.6; O2SAT 96
[2018-08-20 14:44] VITALS: RESP 18
--- NOTE | 2018-08-20 15:23 | CASEMGMT ---
Social Work Note SW is leaving for the day. GABRIELLE placed a call to Yandy at [facility] and left him a message informing him that this worker is leaving and if pre-cert is obtained to call the floor. Direct number for floor provided to Yandy. GABRIELLE completed convalescent [facility] in [facility]. GABRIELLE placed Green sheet, transport form, and convalescent [facility]000 on pt's chart. Plan: Discharge to [facility] IF pre-cert is obtained. Keely Hanna OYSTER WORKER, MUSIC TYPOGRAPHER
--- NOTE | 2018-08-20 18:50 | PCM.PROGNOTE ---
Subjective: Patient seen and examined today, I talked at length with his , we were not able to obtain approval for the patient to go to a shelter facility today. Patient's bone culture grew out MRSA, patient was switched to IV vancomycin, his Unasyn was stopped and infectious diseases saw the patient. - Physical Exam General: Alert, Cooperative, No apparent distress, Well developed HEENT: Atraumatic, PERRLA, EOMI, Normocephalic Oral: Moist Mucosa Neck: Supple, No Nuchal Rigidity, Trachea Midline, Thyroid Normal Size and Texture Lungs: Clear to auscultation, Normal air movement, No rhonchi, No wheeze, No rales Cardiovascular: Regular rate, Regular Rhythm, Normal S1, Normal S2, No murmurs, No Ectopic Activity, PMI Normal Abdomen: Bowel Sounds Present, Soft, Non Tender, Non-Distended Extremities: No clubbing, No cyanosis, No edema Neurological: Cranial nerves II-XII grossly intact, Neuro grossly intact, Sensory exam intact to light touch and pain Psych/Mental Status: Flat Affect, - - Patient is alert, he does not spontaneously enter into conversation with this examiner, he does speak but has slurred speech which is chronic Vital Signs Temp Pulse Resp BP Pulse Ox 97.9 F 71 18 121/70 H 96 08/20/18 14:37 08/20/18 14:37 08/20/18 14:44 08/20/18 14:37 08/20/18 14:37 Oxygen Flow Rate (L/min) 2 Oxygen Delivery Method Room Air Weight: 68.492 kg Body Mass Index (BMI) 24.3 Intake and Output for Last 24 Hours 08/18/18 08/19/18 08/20/18 23:59 23:59 23:59 Intake Total 1873 / 1873 1968 / 1969 3898 / 3898 Output Total 1300 / 1300 2425 / 2425 1999 / 1999 Balance 573 / 573 -456 / -456 1898 / 1898 Microbiology Past 72 Hours 08/17/18 Unknown Gram Stain - Final Tissue - Other Wound Culture - Final Staphylococcus epidermidis Anaerobic Culture - Preliminary No growth in 48 hours. 08/17/18 Unknown Gram Stain - Final Bone - Other Wound Culture - Final Meth. resistant Staph. 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
--- NOTE | 2018-08-20 18:55 | PN_ITS ---
Subjective: Patient seen and examined today, I talked at length with his , we were not able to obtain approval for the patient to go to a [facility] facility today. Patient's bone culture grew out MRSA, patient was switched to IV vancomycin, his Unasyn was stopped and infectious diseases saw the patient. - Physical Exam General: Alert, Cooperative, No apparent distress, Well developed HEENT: Atraumatic, PERRLA, EOMI, Normocephalic Oral: Moist Mucosa Neck: Supple, No Nuchal Rigidity, Trachea Midline, Thyroid Normal Size and Texture Lungs: Clear to auscultation, Normal air movement, No rhonchi, No wheeze, No rales Cardiovascular: Regular rate, Regular Rhythm, Normal S1, Normal S2, No murmurs, No Ectopic Activity, PMI Normal Abdomen: Bowel Sounds Present, Soft, Non Tender, Non-Distended Extremities: No clubbing, No cyanosis, No edema Neurological: Cranial nerves II-XII grossly intact, Neuro grossly intact, Sensory exam intact to light touch and pain Psych/Mental Status: Flat Affect, - - Patient is alert, he does not spontaneously enter into conversation with this examiner, he does speak but has slurred speech which is chronic Vital Signs Temp Pulse Resp BP Pulse Ox 97.9 F 71 18 121/70 H 96 08/20/18 14:37 08/20/18 14:37 08/20/18 14:44 08/20/18 14:37 08/20/18 14:37 Oxygen Flow Rate (L/min) 2 Oxygen Delivery Method Room Air Weight: 68.492 kg Body Mass Index (BMI) 24.3 Intake and Output for Last 24 Hours 08/18/18 08/19/18 08/20/18 23:59 23:59 23:59 Intake Total 1873 / 1873 1968 / 1969 3898 / 3898 Output Total 1300 / 1300 2425 / 2425 1999 / 1999 Balance 573 / 573 -456 / -456 1898 / 1898 Microbiology Past 72 Hours 08/17/18 Unknown Gram Stain - Final Tissue - Other Wound Culture - Final Staphylococcus epidermidis Anaerobic Culture - Preliminary No growth in 48 hours. 08/17/18 Unknown Gram Stain - Final Bone - Other Wound Culture - Final Meth. resistant Staph. 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
--- NOTE | 2018-08-20 20:50 | PCM.PN.SRG ---
Subjective: Postop #3 Patient is resting comfortably. - Physical Exam General: Alert, Oriented x3 HEENT: PERRLA, EOMI Oral: Moist Mucosa Neck: Supple Abdomen: Soft, Non-Distended Skin: Ulcer/ Wound - sacral wound is stable. VAC in place. Neurological: Cranial nerves II-XII grossly intact Psych/Mental Status: Appropriate, Flat Affect Vital Signs Temp Pulse Resp BP Pulse Ox 97.9 F 71 18 121/70 H 96 08/20/18 14:37 08/20/18 14:37 08/20/18 14:44 08/20/18 14:37 08/20/18 14:37 Oxygen Flow Rate (L/min) 2 Oxygen Delivery Method Room Air Weight: 150 lb 15.984 oz Body Mass Index (BMI) 24.3 Intake and Output for Last 24 Hours 08/18/18 08/19/18 08/20/18 23:59 23:59 23:59 Intake Total 1873 / 1873 1968 / 1968 3898 / 3898 Output Total 1300 / 1300 2425 / 2425 1999 Balance 573 / 573 -456 / -456 1898 / 1898 Microbiology Past 72 Hours 08/17/18 Unknown Gram Stain - Final Tissue - Other Wound Culture - Final Staphylococcus epidermidis Anaerobic Culture - Preliminary No growth in 48 hours. 08/17/18 Unknown Gram Stain - Final Bone - Other Wound Culture - Final Meth. resistant Staph. aureus Pathology - pending. Medical Necessity - Tobacco Use Smoking Status: Never smoker Assessment/Plan 1. Sacral pressure sore, Stage IV. 2. Osteomyelitis. 3. Urinary incontinence. 4. Dementia. 5. s/p excision sacral pressure sore, Stage IV, with partial ostectomy for osteomyelitis. 6. MRSA. VAC in place. Minimal drainage in the canister. To be changed three times per week at 150 mmHg continuous suction. Operative cultures show MRSA in the bone and MRSE in the soft tissue. Will stop the Unasyn and Start Vancomycin. Will need 6 weeks of IV antibiotics. PICC line has been placed. Pathology is pending. I anticipate osteomyelitis is present. Prealbumin was 27.6. Encourage nutritional supplementation with protein to help the healing process. Will have PT evaluate for ambulation and gait training and strengthening. At discharge, he will return back to his [facility] that he was at before surgery, [facility].
--- NOTE | 2018-08-20 20:54 | PN.SURG_ITS ---
Subjective: Postop #3 Patient is resting comfortably. - Physical Exam General: Alert, Oriented x3 HEENT: PERRLA, EOMI Oral: Moist Mucosa Neck: Supple Abdomen: Soft, Non-Distended Skin: Ulcer/ Wound - sacral wound is stable. VAC in place. Neurological: Cranial nerves II-XII grossly intact Psych/Mental Status: Appropriate, Flat Affect Vital Signs Temp Pulse Resp BP Pulse Ox 97.9 F 71 18 121/70 H 96 08/20/18 14:37 08/20/18 14:37 08/20/18 14:44 08/20/18 14:37 08/20/18 14:37 Oxygen Flow Rate (L/min) 2 Oxygen Delivery Method Room Air Weight: 150 lb 15.984 oz Body Mass Index (BMI) 24.3 Intake and Output for Last 24 Hours 08/18/18 08/19/18 08/20/18 23:59 23:59 23:59 Intake Total 1873 / 1873 1968 / 1968 3898 / 3898 Output Total 1300 / 1300 2425 / 2425 1999 Balance 573 / 573 -456 / -456 1898 / 1898 Microbiology Past 72 Hours 08/17/18 Unknown Gram Stain - Final Tissue - Other Wound Culture - Final Staphylococcus epidermidis Anaerobic Culture - Preliminary No growth in 48 hours. 08/17/18 Unknown Gram Stain - Final Bone - Other Wound Culture - Final Meth. resistant Staph. aureus Pathology - pending. Medical Necessity - Tobacco Use Smoking Status: Never smoker Assessment/Plan 1. Sacral pressure sore, Stage IV. 2. Osteomyelitis. 3. Urinary incontinence. 4. Dementia. 5. s/p excision sacral pressure sore, Stage IV, with partial ostectomy for osteomyelitis. 6. MRSA. VAC in place. Minimal drainage in the canister. To be changed three times per week at 150 mmHg continuous suction. Operative cultures show MRSA in the bone and MRSE in the soft tissue. Will stop the Unasyn and Start Vancomycin. Will need 6 weeks of IV antibiotics. PICC line has been placed. Pathology is pending. I anticipate osteomyelitis is present. Prealbumin was 27.6. Encourage nutritional supplementation with protein to help the healing process. Will have PT evaluate for ambulation and gait training and strengthening. At discharge, he will return back to his [facility] that he was at before surgery, [facility].
[2018-08-20 21:40] VITALS: BP 134/73; PULSE 72; RESP 18; TEMP 37.2; O2SAT 94
[2018-08-20] MEDS: CARBIDOPA/LEVODOPA CR 50/200 Tablet PO (21:55)
[2018-08-20] MEDS: Donepezil HCl 5 MG Tablet PO (21:56)
[2018-08-21 03:31] VITALS: BP 161/84; PULSE 71; RESP 18; TEMP 37.1; O2SAT 94
[2018-08-21] MEDS: Lactated Ringers 1,000 ML 60 ML IV (06:05)
[2018-08-21] MEDS: Carbidopa/Levodopa 25/100 Tablet PO ×3 (06:08→15:38)
[2018-08-21] MEDS: Enoxaparin 30 MG/0.3 ML Syringe SC (06:08)
[2018-08-21] MEDS: Multivitamins,Therapeutic Tablet 1 TABLET PO (08:41)
[2018-08-21] MEDS: Polyethylene Glycol 3350 17 GM PACKET PO (08:41)
[2018-08-21] MEDS: Vitamin B Comp W-C Capsule 1 CAP PO (08:41)
[2018-08-21] MEDS: Acetaminophen 500 MG Tablet PO ×2 (09:59→21:34)
[2018-08-21 10:05] VITALS: BP 160/78; PULSE 78; RESP 16; TEMP 37; O2SAT 95
--- NOTE | 2018-08-21 12:21 | PCM.PROGNOTE ---
Subjective: Patient seen and examined today, his is in the room, patient responds to simple questions. - Physical Exam General: Alert, Cooperative, No apparent distress, Well developed HEENT: Atraumatic, PERRLA, EOMI, Normocephalic Oral: Moist Mucosa Neck: Supple, No Nuchal Rigidity, Trachea Midline, Thyroid Normal Size and Texture Lungs: Clear to auscultation, Normal air movement, No rhonchi, No wheeze Cardiovascular: Regular rate, Regular Rhythm, Normal S1, Normal S2, No murmurs, PMI Normal, No rub noted, No Gallop Abdomen: Bowel Sounds Present, Soft, Non Tender, Non-Distended Extremities: No clubbing, No cyanosis, No edema, Capillary Refill Less than 3 Seconds Neurological: Cranial nerves II-XII grossly intact, Neuro grossly intact, Sensory exam intact to light touch and pain Psych/Mental Status: Flat Affect, - - Patient answers simple questions appropriately Vital Signs Temp Pulse Resp BP Pulse Ox 98.6 F 78 16 160/78 H 95 08/21/18 10:05 08/21/18 10:05 08/21/18 10:05 08/21/18 10:05 08/21/18 10:05 Oxygen Flow Rate (L/min) 2 Oxygen Delivery Method Room Air Weight: 68.492 kg Body Mass Index (BMI) 24.3 Intake and Output for Last 24 Hours 08/19/18 08/20/18 08/21/18 23:59 23:59 23:59 Intake Total 1968 / 1968 4397 / 4397 375 / 375 Output Total 2425 / 2425 2650 / 2650 900 / 900 Balance -456 / -456 1747 / 1747 -525 / -525 Microbiology Past 72 Hours 08/17/18 Unknown Gram Stain - Final Bone - Other Wound Culture - Final Meth. resistant Staph. aureus Anaerobic Culture - Final No anaerobic bacteria isolated. 08/17/18 Unknown Gram Stain - Final Tissue - Other Wound Culture - Final Staphylococcus epidermidis Anaerobic Culture - Preliminary No growth in 48 hours. 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
--- NOTE | 2018-08-21 12:24 | PN_ITS ---
Subjective: Patient seen and examined today, his is in the room, patient responds to simple questions. - Physical Exam General: Alert, Cooperative, No apparent distress, Well developed HEENT: Atraumatic, PERRLA, EOMI, Normocephalic Oral: Moist Mucosa Neck: Supple, No Nuchal Rigidity, Trachea Midline, Thyroid Normal Size and Texture Lungs: Clear to auscultation, Normal air movement, No rhonchi, No wheeze Cardiovascular: Regular rate, Regular Rhythm, Normal S1, Normal S2, No murmurs, PMI Normal, No rub noted, No Gallop Abdomen: Bowel Sounds Present, Soft, Non Tender, Non-Distended Extremities: No clubbing, No cyanosis, No edema, Capillary Refill Less than 3 Seconds Neurological: Cranial nerves II-XII grossly intact, Neuro grossly intact, Sensory exam intact to light touch and pain Psych/Mental Status: Flat Affect, - - Patient answers simple questions appropriately Vital Signs Temp Pulse Resp BP Pulse Ox 98.6 F 78 16 160/78 H 95 08/21/18 10:05 08/21/18 10:05 08/21/18 10:05 08/21/18 10:05 08/21/18 10:05 Oxygen Flow Rate (L/min) 2 Oxygen Delivery Method Room Air Weight: 68.492 kg Body Mass Index (BMI) 24.3 Intake and Output for Last 24 Hours 08/19/18 08/20/18 08/21/18 23:59 23:59 23:59 Intake Total 1968 / 1968 4397 / 4397 375 / 375 Output Total 2425 / 2425 2650 / 2650 900 / 900 Balance -456 / -456 1747 / 1747 -525 / -525 Microbiology Past 72 Hours 08/17/18 Unknown Gram Stain - Final Bone - Other Wound Culture - Final Meth. resistant Staph. aureus Anaerobic Culture - Final No anaerobic bacteria isolated. 08/17/18 Unknown Gram Stain - Final Tissue - Other Wound Culture - Final Staphylococcus epidermidis Anaerobic Culture - Preliminary No growth in 48 hours. 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
--- NOTE | 2018-08-21 12:58 | PCM.PN.SRG ---
Subjective: Postop #4 Patient is resting comfortably. - Physical Exam General: Alert, Oriented x3 HEENT: PERRLA, EOMI Oral: Moist Mucosa Neck: Supple Abdomen: Soft, Non-Distended Skin: Ulcer/ Wound - sacral wound is stable. VAC in place. Neurological: Cranial nerves II-XII grossly intact Psych/Mental Status: Appropriate, Flat Affect Vital Signs Temp Pulse Resp BP Pulse Ox 98.6 F 78 16 160/78 H 95 08/21/18 10:05 08/21/18 10:05 08/21/18 10:05 08/21/18 10:05 08/21/18 10:05 Oxygen Flow Rate (L/min) 2 Oxygen Delivery Method Room Air Weight: 150 lb 15.984 oz Body Mass Index (BMI) 24.3 Intake and Output for Last 24 Hours 08/19/18 08/20/18 08/21/18 23:59 23:59 23:59 Intake Total 1968 / 1968 4397 / 4397 375 / 375 Output Total 2425 / 2425 2650 / 2650 900 / 900 Balance -456 / -456 1747 / 1747 -525 / -525 Microbiology Past 72 Hours 08/17/18 Unknown Gram Stain - Final Bone - Other Wound Culture - Final Meth. resistant Staph. aureus Anaerobic Culture - Final No anaerobic bacteria isolated. 08/17/18 Unknown Gram Stain - Final Tissue - Other Wound Culture - Final Staphylococcus epidermidis Anaerobic Culture - Preliminary No growth in 48 hours. Pathology - pending. Medical Necessity - Tobacco Use Smoking Status: Never smoker Assessment/Plan 1. Sacral pressure sore, Stage IV. 2. Osteomyelitis. 3. Urinary incontinence. 4. Dementia. 5. s/p excision sacral pressure sore, Stage IV, with partial ostectomy for osteomyelitis. 6. MRSA. VAC in place. Minimal drainage in the canister. To be changed three times per week at 150 mmHg continuous suction. Operative cultures show MRSA in the bone and MRSE in the soft tissue. Continue Vancomycin. Will need 6 weeks of IV antibiotics. PICC line has been placed. Pathology is pending. I anticipate osteomyelitis is present. Prealbumin was 27.6. Encourage nutritional supplementation with protein to help the healing process. Will have PT evaluate for ambulation and gait training and strengthening. Awaiting evaluation for return to [facility].
[2018-08-21 15:34] VITALS: BP 146/71; PULSE 64; RESP 16; TEMP 37.2; O2SAT 93
[2018-08-21 17:21] VITALS: BP 152/83; PULSE 70; RESP 18; TEMP 36.7; O2SAT 95
[2018-08-21] MEDS: oxyCODONE 5 MG Tablet PO ×2 (17:29→21:33)
[2018-08-21 21:23] VITALS: RESP 18
[2018-08-21 21:28] VITALS: BP 155/77; PULSE 67; RESP 16; TEMP 37; O2SAT 92
[2018-08-21] MEDS: Donepezil HCl 5 MG Tablet PO (21:34)
[2018-08-21] MEDS: CARBIDOPA/LEVODOPA CR 50/200 Tablet PO (21:34)
[2018-08-21 22:15] LABS: Vancomycin, Trough Level 9.7 ug/mL (5.0-15.0)
[2018-08-22] VITALS (8 sets, daily range): BP systolic 133–189; BP diastolic 71–95; PULSE 65–84; RESP 16–18; TEMP 36.7–37.1; O2SAT 93–100
--- NOTE | 2018-08-22 00:01 | PCM.RX.CS ---
Consult Pharmacy has been consulted to manage selected antiobiotic: Vancomycin Type of Consult: Follow-up Suspected Infection: Skin/Soft tissue Prior Doses of Antibiotics Received/Current Regimen: Medications Vancomycin HCl 1,250 mg/ (Sodium Chloride) 275 mls @ 167 mls/hr IV Q12H [facility] Discontinued Medications Vancomycin HCl 750 mg/ Sodium (Chloride) 265 mls @ 250 mls/hr IV Q12H [facility] Last Admin: 08/21/18 21:33 Dose: 250 mls/hr Labs: Sodium 141 mmol/L (136-145) 08/19/18 06:34 Potassium 3.9 mmol/L (3.5-5.1) 08/19/18 06:34 Chloride 108 mmol/L (98-107) H 08/19/18 06:34 Carbon Dioxide 27.0 mmol/L (21.0-32.0) 08/19/18 06:34 Anion Gap 6 (5-15) 08/19/18 06:34 BUN 18 mg/dL (7-18) 08/19/18 06:34 Creatinine 0.79 mg/dL (0.70-1.30) 08/19/18 06:34 Est GFR (MDRD) Af Amer 124 mL/min (>60) 08/19/18 06:34 Est GFR (MDRD) Non-Af 103 mL/min (>60) 08/19/18 06:34 BUN/Creatinine Ratio 22.9 RATIO (10-20) H 08/19/18 06:34 Glucose 89 mg/dL (74-106) 08/19/18 06:34 Vancomycin Trough 9.7 ug/mL (5.0-15.0) 08/21/18 21:25 Microbiology: Microbiology 08/17/18 Unknown Bone - Other Gram Stain - Final 08/17/18 Unknown Bone - Other Wound Culture - Final Meth. resistant Staph. aureus 08/17/18 Unknown Bone - Other Anaerobic Culture - Final No anaerobic bacteria isolated. 08/17/18 Unknown Tissue - Other Gram Stain - Final 08/17/18 Unknown Tissue - Other Wound Culture - Final Staphylococcus epidermidis 08/17/18 Unknown Tissue - Other Anaerobic Culture - Preliminary No growth in 48 hours. Weight used for dosin.5 kg Estimated Creatinine Clearance: 58 Goal Trough: 15-20 mcg/mL Pharmacy Plan for Drug Dosing: Received trough level of 9.7, below the target range of 15-20. Dose was increased to 1250mg q 12 hours. Another trough level will be drawn after 4 doses. Pharmacy Service will continue to monitor and adjust dosing as required. Follow-Up Labs: Trough Vancomycin Labs to be done on [date and time ordered]: 08/23/18 @5983
[2018-08-22] MEDS: Lactated Ringers 1,000 ML 60 ML IV ×2 (03:50→23:16)
[2018-08-22] MEDS: Enoxaparin 30 MG/0.3 ML Syringe SC (06:29)
[2018-08-22] MEDS: Carbidopa/Levodopa 25/100 Tablet PO ×3 (06:29→15:43)
[2018-08-22] MEDS: oxyCODONE 5 MG Tablet PO (06:29)
[2018-08-22] MEDS: Vitamin B Comp W-C Capsule 1 CAP PO (09:09)
[2018-08-22] MEDS: Multivitamins,Therapeutic Tablet 1 TABLET PO (09:09)
[2018-08-22] MEDS: Polyethylene Glycol 3350 17 GM PACKET PO (09:09)
[2018-08-22] MEDS: Acetaminophen 500 MG Tablet PO ×2 (09:43→21:17)
--- NOTE | 2018-08-22 18:36 | PN_ITS ---
Subjective: Was seen and examined today, there is been no overall change in his condition, we are currently awaiting approval for the patient to go to an extended care facility. I talked briefly with his today who was in the room. Patient's blood pressure is been a little bit elevated today, I am going to place the patient on a small amount of Diovan for his blood pressure, I have reviewed his blood pressure readings since his admission and his blood pressure for the most part seems to be elevated. - Physical Exam General: Alert, No apparent distress, Well developed HEENT: Atraumatic, PERRLA, EOMI, Normocephalic Oral: Moist Mucosa Neck: Supple, No Nuchal Rigidity, Trachea Midline, Thyroid Normal Size and Texture Lungs: Clear to auscultation, Normal air movement, No rhonchi, No wheeze, No rales Cardiovascular: Regular rate, Regular Rhythm, Normal S1, Normal S2, No murmurs, No Ectopic Activity, PMI Normal, No rub noted, No Gallop Abdomen: Bowel Sounds Present, Soft, Non Tender, Non-Distended, No hernias noted Extremities: No clubbing, No cyanosis, No edema, Capillary Refill Less than 3 Seconds Neurological: Cranial nerves II-XII grossly intact, Neuro grossly intact Psych/Mental Status: Flat Affect, - - Patient answer some questions appropriately, for the most part he is confused Vital Signs Temp Pulse Resp BP Pulse Ox 98.1 F 81 16 168/89 H 94 08/22/18 15:07 08/22/18 15:42 08/22/18 15:07 08/22/18 15:42 08/22/18 15:07 Oxygen Flow Rate (L/min) 2 Oxygen Delivery Method Room Air Weight: 68.492 kg Body Mass Index (BMI) 24.3 Intake and Output for Last 24 Hours 08/20/18 08/21/18 08/22/18 23:59 23:59 23:59 Intake Total 4397 / 4397 2256 / 2256 1725 / 1725 Output Total 2650 / 2650 2800 / 2800 3100 / 3100 Balance 1747 / 1747 -544 / -544 -1375 / -1375 Microbiology Past 72 Hours 08/17/18 Unknown Gram Stain - Final Bone - Other Wound Culture - Final Meth. resistant Staph. aureus Anaerobic Culture - Final No anaerobic bacteria isolated. 08/17/18 Unknown Gram Stain - Final Tissue - Other Wound Culture - Final Staphylococcus epidermidis Anaerobic Culture - Preliminary No growth in 48 hours. 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 daily # 6 oropharyngeal dysphagia-secondary to Parkinson's disease, speech therapy is participating in his care, patient is on a modified diet Further note: I talked with the patient's son who was in his room yesterday in the presence of the patient and the patient's , I asked the patient's and son that they consider what would be done if the patient was not able to eat due to his Parkinson's disease. They have not made any decision about any other means of feeding concerning this patient. I think in the end it may come down to this if the patient's health continues to deteriorate. Code Visit Inpatient E&M: 47388 Subs Hosp L2
[2018-08-22] MEDS: Donepezil HCl 5 MG Tablet PO (21:17)
[2018-08-22] MEDS: CARBIDOPA/LEVODOPA CR 50/200 Tablet PO (21:22)
--- NOTE | 2018-08-22 21:28 | PCM.PN.SRG ---
Subjective: Postop #5 Patient is resting comfortably. - Physical Exam General: Alert, Oriented x3 HEENT: PERRLA, EOMI Oral: Moist Mucosa Neck: Supple Abdomen: Soft, Non-Distended Skin: Ulcer/ Wound - sacral wound is stable. VAC in place. Minimal drainage noted in the canister. Neurological: Cranial nerves II-XII grossly intact Psych/Mental Status: Appropriate, Flat Affect Vital Signs Temp Pulse Resp BP Pulse Ox 98.0 F 76 18 180/87 H 93 08/22/18 21:12 08/22/18 21:12 08/22/18 21:12 08/22/18 21:12 08/22/18 21:12 Oxygen Flow Rate (L/min) 2 Oxygen Delivery Method Room Air Weight: 150 lb 15.984 oz Body Mass Index (BMI) 24.3 Intake and Output for Last 24 Hours 08/20/18 08/21/18 08/22/18 23:59 23:59 23:59 Intake Total 4397 / 4397 2256 / 2256 2176 / 2176 Output Total 2650 / 2650 2800 / 2800 4100 / 4100 Balance 1747 / 1747 -544 / -544 -1924 / -1924 Microbiology Past 72 Hours 08/17/18 Unknown Gram Stain - Final Bone - Other Wound Culture - Final Meth. resistant Staph. aureus Anaerobic Culture - Final No anaerobic bacteria isolated. 08/17/18 Unknown Gram Stain - Final Tissue - Other Wound Culture - Final Staphylococcus epidermidis Anaerobic Culture - Preliminary No growth in 48 hours. Pathology - pending. Laboratory Tests Past 24 Hrs 08/21/18 21:25 Vancomycin Trough 9.7 Medical Necessity - Tobacco Use Smoking Status: Never smoker Assessment/Plan 1. Sacral pressure sore, Stage IV. 2. Osteomyelitis. 3. Urinary incontinence. 4. Dementia. 5. s/p excision sacral pressure sore, Stage IV, with partial ostectomy for osteomyelitis. 6. MRSA. VAC in place. Minimal drainage in the canister. To be changed three times per week at 150 mmHg continuous suction. Operative cultures show MRSA in the bone and MRSE in the soft tissue. Continue Vancomycin. Will need 6 weeks of IV antibiotics. PICC line has been placed. Pathology is pending. I anticipate osteomyelitis is present. Prealbumin was 27.6. Encourage nutritional supplementation with protein to help the healing process. Will have PT evaluate for ambulation and gait training and strengthening. Awaiting evaluation for return to ECF.
[2018-08-23 00:55] VITALS: BP 163/84; PULSE 73
[2018-08-23 03:15] VITALS: BP 150/70; PULSE 73; RESP 18; TEMP 36.7; O2SAT 94
[2018-08-23] MEDS: Enoxaparin 30 MG/0.3 ML Syringe SC (06:32)
[2018-08-23] MEDS: Carbidopa/Levodopa 25/100 Tablet PO ×3 (06:32→17:39)
[2018-08-23 08:16] VITALS: BP 155/81; PULSE 74; RESP 16; TEMP 37.3; O2SAT 91
--- NOTE | 2018-08-23 09:26 | CASEMGMT ---
Social Work Note GABRIELLE received message from Yandy at [facility] stating he submitted clinicals to [facility] on Thursday but he hasn't heard back yet. Yandy is requesting updated clinicals. GABRIELLE faxed updated clinicals to Yandy at [facility]. Plan: [facility] pending pre-cert Keely Hanna PREPARATION PLANT SUPERVISOR, VEST MAKER
[2018-08-23] MEDS: Multivitamins,Therapeutic Tablet 1 TABLET PO (10:00)
[2018-08-23] MEDS: Vitamin B Comp W-C Capsule 1 CAP PO (10:00)
[2018-08-23] MEDS: Polyethylene Glycol 3350 17 GM PACKET PO (10:00)
[2018-08-23] MEDS: Acetaminophen 500 MG Tablet PO (10:00)
[2018-08-23 11:00] VITALS: BP 138/68; PULSE 68; TEMP 36.9; O2SAT 91
--- NOTE | 2018-08-23 11:06 | NURSING ---
wound photo: sacrum
--- NOTE | 2018-08-23 13:50 | PN.ID_ITS ---
Subjective: Feeling ok no fever, no n/v/d. - Physical Exam General: Cooperative, No apparent distress Lungs: Clear to auscultation, Normal air movement Cardiovascular: Regular rate, Regular Rhythm Abdomen: Soft, Non Tender, Non-Distended Skin: No rashes Vital Signs Temp Pulse Resp BP Pulse Ox 98.5 F 68 16 138/68 H 91 08/23/18 11:00 08/23/18 11:00 08/23/18 08:16 08/23/18 11:00 08/23/18 11:00 Oxygen Flow Rate (L/min) 2 Oxygen Delivery Method Room Air Weight: 68.492 kg Body Mass Index (BMI) 24.3 Intake and Output for Last 24 Hours 08/21/18 08/22/18 08/23/18 23:59 23:59 23:59 Intake Total 2256 / 2256 2992 / 2992 1432 / 1432 Output Total 2800 / 2800 4750 / 4750 1700 / 1700 Balance -544 / -544 -1758 / -1758 -268 / -268 Microbiology Past 72 Hours 08/17/18 Unknown Gram Stain - Final Tissue - Other Wound Culture - Final Staphylococcus epidermidis Anaerobic Culture - Final No growth in 5 days. 08/17/18 Unknown Gram Stain - Final Bone - Other Wound Culture - Final Meth. resistant Staph. aureus Anaerobic Culture - Final No anaerobic bacteria isolated. Medical Necessity - Tobacco Use Smoking Status: Never smoker Route of nutrition/ use of supplements: [] Nutritional Intake: [] IV Site: [] Sanchez Catheter: [] - Assessment/Plan Antibiotics: [] Assessment/Plan: [] Sacral MRSA osteo - s/p OR 08/17/[address] Bryant. Tissue cx also with MRSE. Prior cx with strep. Ok for d/c to facility for 6 week course of iv vanc, stop 10/01/18. Rx written with weekly labs. I can follow him at wound center as needed. Vanc dose adjusted, rx updated. Thank you, d/w continuous pillowcase cutter and primary team.
--- NOTE | 2018-08-23 13:58 | CASEMGMT ---
Social Work Note SW received message from Yandy at [facility] stating pre-cert has been obtained and pt is able to discharge today. SW updated physician of this. SW in to speak with pt's Ginger and updated her that pre-cert has been obtained. SW to fax discharge paperwork once completed. Plan: Discharge to [facility] skilled today Keely Hanna TRANSPORTATION JOB TITLES, LINING SCRUBBER
--- NOTE | 2018-08-23 14:37 | CASEMGMT ---
Addendum entered by Keely Hanna 08/23/18 16:34: GABRIELLE spoke with Yandy and updated him that this worker is leaving for the day and staff will fax discharge paperwork when completed. Yandy has [facility] direct number if he has questions about discharge. Yandy states understanding. NAN Burton states she called Dr. Bryant and left him a message stating pre-cert has been obtained and pt is able to discharge today. Green sheet on chart. Transportation form on chart. [facility] completed in [facility]. Original on pt's chart. Original Note: Social Work Note GABRIELLE placed a call to Yandy in admissions and updated him that pt will be discharged today and that this worker is waiting for the physician to complete discharge paperwork. Plan: Discharge to [facility] today skilled Keely Hanna OIL WELL PERFORATOR OPERATOR, IMPLEMENTATION PROJECT MANAGER
--- NOTE | 2018-08-23 16:28 | TREXTCAR_ITS ---
- Diet 08/17/18 16:32 Diet: Regular Diet Dietary Modifications:: Mechanical Soft Diet [place] Thick Liquids Diet Comments: ground meats - Wound(s) SACROILIAC RIGHT Wound Type: Surgical Incision Dressing Change: Dry Sterile Dressing sacrum Wound Type: Pressure Injury Dressing Change: Wet to Dry Dressing left flank Wound Type: Abrasion L knee Wound Type: scab - Therapies Weight Bearing: Weight bearing as tolerated - with wheeled walker Physical Therapy: Eval and Treat Occupational Therapy: Eval and Treat Speech Therapy: Eval and Treat - Problem/Diagnosis (1) Chronic osteomyelitis of sacrum Status: Chronic Current Visit: No (2) Pressure ulcer of sacral region, stage 4 Status: Chronic Current Visit: No (3) Urinary incontinence Status: Chronic Current Visit: No (4) Dementia Status: Chronic Current Visit: No (5) Parkinson disease Status: Chronic Current Visit: No - Allergies/Procedures Done in Hospital Allergies/Adverse Reactions: Allergies No Known Allergies Allergy (Verified 08/11/18 13:10) Procedures: - - excision sacral pressure ulcer stage 4, partial ostectomy for osteomyelitis- 08/17/18 - Type of Care/Length of Stay Estimated LOS: Convalescent Care Less Than 30 days Type of Care Needed: Skilled Rehab Potential: Fair Prognosis: Fair - Additional Orders/Day of Discharge Additional Orders: See Dr. Bryant at wound center-call for appointment. Wound vac to be changed three times per week at 150mm continuous suction. See Dr. Wood at wound center-call for appointment Day of Discharge: 08/23/18 - Dietary and Speech Recommendations Dietitian Recommendations/Changes: Will provide ensure pudding or magic cup w/ meals for increased nutrition if consumed. Continue regular diet- consistency per BLOW MOLD MACHINE OPERATOR. Continue Inderjit BID for wound healing - Follow Up Care Primary Care Physician: Kameron Fitzgerald MD [Primary Care Provider] -
[2018-08-23 17:40] VITALS: BP 155/76; PULSE 71; RESP 16; TEMP 37.1; O2SAT 95
[2018-08-23] MEDS: 0.9% NaCl Peripheral Flush Adult/Peds IV (17:42)
[2018-08-23] MEDS: Acetaminophen 325 MG Tablet 650 MG PO (17:47)
--- NOTE | 2018-08-23 18:00 | NURSING ---
report called to Xuan at [facility]
--- NOTE | 2018-08-23 18:00 | PCM.DC.SUM ---
Discharge Date and Diagnosis Date of Admission: 08/17/18 Date of Discharge: 08/23/18 - Primary Discharge Diagnosis Sacral pressure sore, Stage IV. Osteomyelitis. MRSA. - Secondary Discharge Diagnosis Urinary incontinence Dementia Debility Failure to thrive Macrocytic anemia Parkinson's disease dementia Parkinson disease Generalized weakness Hospital Course and Treatment Imaging Results: None. Consultations 08/18/18 06:53 Consult: Onc/Wound/manager advertising Routine Comment: Reason for Consult:: VAC application Hospitalist Group - Drs. Vigil, Dawn, and Janet. Infectious Diseases - Dr. Wood. Operations: - - 08/17/18 - Excision sacral pressure sore, Stage IV, with partial ostectomy for osteomyelitis. Procedures: PICC line placement, Wound vac placement Summary of Care Provided: This is a 73-year-old male who is currently a resident of [facility]. He presented to the Wound Center with a sacral pressure sore. Recent culture showed Streptococcus agalactiae and is on Amoxicillin. MRI was done which showed osteomyelitis. Wound care is currently being done with Silver dressings. At the long term, he takes nutritional supplementation with protein to help the healing process. He has a history of urinary incontinence. A torres catheter was placed. He is of very limited mobility, though ambulates with assistance and with the assistance of a walker. Otherwise, he spends long hours each day either lying in bed or sitting in a chair. I was asked to evaluate this patient for surgical options for treatment. Patient was taken to the OR on 08/17/18 and underwent excision sacral pressure sore, Stage IV, with partial ostectomy for osteomyelitis. Patient tolerated the procedure well. The following day the VAC was applied. He was initially treated with Unasyn for a preop culture that showed Streptococcus agalactiae. The Hospitalist Group was consulted for medical management. Infectious Diseases was consulted for antibiotic management. His Prealbumin was 27.6. Encourage nutritional supplementation with protein to help the healing process. On the third postop day, operative cultures showed MRSE in the soft tissue and MRSA in the bone. The Unasyn was stopped and he was started on Vancomycin. A PICC line was placed in anticipation of long term care social worker IV antibiotics after discharge. PT was also involved to help with ambulation, gait training, and strengthening. On the 6th postop day, he was approve to go back to the ECF that he came from, [facility]. The Pathology was available on that day prior to discharge. It was positive for acute osteomyelitis. So he will continue IV antibiotics with Vancomycin for 6 weeks. He was discharged in satisfactory condition. He will followup at the Wound Center in the next 2-4 weeks to monitor the healing of his sacral pressure sore. Subjective: Postop #6 Patient is resting comfortably. - Physical Exam General: Alert, Oriented x3 HEENT: PERRLA, EOMI Oral: Moist Mucosa Neck: Supple Abdomen: Soft, Non-Distended Skin: Ulcer/ Wound - sacral wound is stable. VAC in place. Minimal drainage in the canister. Neurological: Cranial nerves II-XII grossly intact Psych/Mental Status: Appropriate, Flat Affect Vital Signs Temp Pulse Resp BP Pulse Ox 98.5 F 68 16 138/68 H 91 08/23/18 11:00 08/23/18 11:00 08/23/18 08:16 08/23/18 11:00 08/23/18 11:00 Oxygen Flow Rate (L/min) 2 Oxygen Delivery Method Room Air Weight: 150 lb 15.984 oz Body Mass Index (BMI) 24.3 Intake and Output for Last 24 Hours 08/21/18 08/22/18 08/23/18 23:59 23:59 23:59 Intake Total 2256 / 2256 2992 / 2992 1432 / 1432 Output Total 2800 / 2800 4750 / 4750 1700 / 1700 Balance -544 / -544 -1758 / -1758 -268 / -268 Microbiology Past 72 Hours 08/17/18 Unknown Gram Stain - Final Tissue - Other Wound Culture - Final Staphylococcus epidermidis Anaerobic Culture - Final No growth in 5 days. 08/17/18 Unknown Gram Stain - Final Bone - Other Wound Culture - Final Meth. resistant Staph. aureus Anaerobic Culture - Final No anaerobic bacteria isolated. Discharge Diet: No Restrictions, - - encourage nutritional supplementation with protein to help the healing process. Call your doctor if your incision/area has: Continuous Slow Oozing, Sudden Increased Bleeding, Increased Pain/ Swelling, Increased Redness, Foul Smelling Discharge, Swelling at the incision site Call your doctor if you observe: Fever of 101 or Higher, Coldness, Increased Pain, Shortness of breath, Chest pain, Calf discomfort, Uncontrolled pain Suture Line Care: - - vac changes three times per week at 150 mmHg continuous suction. Change Dressing in (Days):: 2 - vac changes three times per week. Cleanse incision/area with: Soap & Water - cleanse the wound with soap and water on the days the vac is changed. Catheter: Torres to leg bag Home Medications: Medications to take at Discharge Carbidopa/Levodopa 50/200 [Sinemet CR 50/200] 1 tablet PO HS@2100 tablet.sa 10/09/17 Acetaminophen [Tylenol] 500 mg PO BID 08/11/18 Carbidopa/Levodopa 25/100 [Sinemet 25/100] 2 tablet PO TIDAC 08/11/18 Cholecalciferol (Vitamin D3) [Vitamin D3] 1,000 unit PO DAILY 08/11/18 Multivitamin [Multiple Vitamins] 1 each PO DAILY 08/11/18 Polyethylene Glycol 3350 [Miralax] 17 gm PO DAILY 08/11/18 Vitamin B Complex 1 each PO DAILY 08/11/18 Donepezil HCl [Aricept] 10 mg PO QHS #1 tablet 08/23/18 Nutritional Supplement [Inderjit - ORANGE FLAVOR] 1 packet PO BIDCM packet 08/23/18 Oxycodone [Oxyir] 5 mg PO Q4H PRN PRN 7 Days #20 tab 08/23/18 Valsartan [Diovan] 80 mg PO DAILY tablet 08/23/18 Vancomycin IV 1,250 mg IV Q12H #76 vial 08/23/18 Following Prescrptions Were Given to Patient: Oxycodone [Oxyir] 5 mg PO Q4H PRN PRN 7 Days #20 tab PRN Reason: Severe Pain (-08/11) Donepezil HCl [Aricept] 10 mg PO QHS #1 tablet Vancomycin IV 1,250 mg IV Q12H #76 vial Primary Care Physician: Kameron Fitzgerald MD [Primary Care Provider] - Please Follow Up With: Elier Bryant MD When: 2-4 weeks at the Wound Center. call [phone] for appt. Disposition: Custodial facility Minutes spent on discharge:: 35 Patient Condition:: Stable Medical Necessity - Tobacco Use Smoking Status: Never smoker Meaningful Use Info Meaningful Use Diagnoses (Choose all that apply): None applicable
--- NOTE | 2018-08-25 18:26 | PCM.PROGNOTE ---
Subjective: The date of this progress note should be 08/23/18: Patient was seen and examined today, he does not appear to be in any distress, we received approval for transfer to an extended care facility today. I talked briefly with his who is at the bedside today. - Physical Exam General: Alert, Cooperative, No apparent distress, Well developed HEENT: Atraumatic, PERRLA, EOMI, Normocephalic Oral: Moist Mucosa Neck: Supple, Trachea Midline, Thyroid Normal Size and Texture Lungs: Clear to auscultation, Normal air movement, No rhonchi, No wheeze, No rales Cardiovascular: Regular rate, Regular Rhythm, Normal S1, Normal S2, No murmurs, No Ectopic Activity Abdomen: Bowel Sounds Present, Soft, Non Tender, Non-Distended, No hernias noted Extremities: No edema, Capillary Refill Less than 3 Seconds Neurological: Cranial nerves II-XII grossly intact, Neuro grossly intact, Sensory exam intact to light touch and pain Psych/Mental Status: Flat Affect, - - Patient exhibits mild confusion Vital Signs Temp Pulse Resp BP Pulse Ox 98.7 F 71 16 155/76 H 95 08/23/18 17:40 08/23/18 17:40 08/23/18 17:40 08/23/18 17:40 08/23/18 17:40 Oxygen Flow Rate (L/min) 2 Oxygen Delivery Method Room Air Weight: 68.492 kg Body Mass Index (BMI) 24.3 Intake and Output for Last 24 Hours 08/23/18 08/24/18 08/25/18 23:59 23:59 23:59 Intake Total 1815 / 1815 Output Total 1900 / 1900 Balance -85 / -85 Microbiology Past 72 Hours 08/17/18 Unknown Gram Stain - Final Tissue - Other Wound Culture - Final Staphylococcus epidermidis Anaerobic Culture - Final No growth in 5 days. 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 Discharge paper work for transfer to the extended care facility was filled out by myself Code Visit Inpatient E&M: [id number] Subs Hosp L2
== END 2018-08-23 18:17 | disposition skilled nursing facility (03) | DRG 477 ==
LOC: SDC 08-18 14:06
PROVIDERS: Admitting Provider Surgery; Family Provider Family Medicine; PCP Family Medicine; Referring Provider Surgery; Visit Provider Internal Medicine
PROC: 0KBP0ZZ Excision of Left Hip Muscle, Open Approach (ICD-10-PCS; principal; 2018-08-17 12:15)
DX: M46.28 Osteomyelitis of vertebra, sacral and sacrococcygeal region (principal); L89.154 Pressure ulcer of sacral region, stage 4; G20 Parkinson's disease; R32 Unspecified urinary incontinence; Z23 Encounter for immunization; F03.90 Unspecified dementia, unspecified severity, without behavioral disturbance, psychotic disturbance, mood disturbance, and anxiety; B95.62 Methicillin resistant Staphylococcus aureus infection as the cause of diseases classified elsewhere; R13.12 Dysphagia, oropharyngeal phase; D53.9 Nutritional anemia, unspecified
CPT/HCPCS: 36415; 36569; 80048; 80202; 84134; 85027; 87070; 87075; 87077; 87102; 87186; 87205; 87206; 88304; 88305; 88311; 92526; 97110; 97116; 97163; 97165; 97530; 97535; 97802; J7040; J7050; J7120; 90686; A4216; J0295; J2405

== ENCOUNTER 2018-09-27 10:30 | Outpatient (RCR) | payer MEDICARE, SELFPAY ==
[2018-08-02 01:14] VITALS: BP 116/61; PULSE 72; RESP 16; TEMP 36.7
[2018-09-13 10:38] VITALS: BP 105/55; PULSE 81; RESP 18; TEMP 37.1; BMI 25.1
--- NOTE | 2018-09-13 17:41 | PCM.WC.PN ---
Type of Wound Date of Service: 09/13/18 Chief Complaint: Sacral pressure sore, stage IV. History of Wound: Surgery 08/17/18 - Excision sacral pressure sore, Stage IV, with partial ostectomy for osteomyelitis. Wound care - VAC. Operative culture - soft tissue, MRSE, and bone, MRSA. He was placed on Vancomycin. Pathology - acute osteomyelitis. Prealbumin from 08/18/18 was 27.6. Encourage nutritional supplementation with protein to help with the healing process. MRI Pelvis from 06/19/18 was consistent with osteomyelitis. Today the patient denies fever. His appetite is ok. Progress of Wound: Slowly healing. - Physical Exam Vital Signs Temp Pulse Resp BP 98.7 F 81 18 105/55 L 09/13/18 10:38 09/13/18 10:38 09/13/18 10:38 09/13/18 10:38 Wound Measurements and Assessment WC - Nurse 1 - General Ulcer Measurement Start: 09/13/18 10:38 Freq: Status: Active Protocol: Activity Type Activity Date Activity User E-Sign Co-Sign Detail Recorded Client Recorded Date Recorded By Document 09/13/18 10:38 MW [id number] 09/13/18 10:41 MW 09/13/18 10:38 Wound Center Nurse 1 [Ulcer Assessment] #2 coccyx -Combined with other wound No -Current Size (cm) - Length 4.8 -Current Size (cm) - Width 3.8 -Current Size (cm) - Depth 4.0 -Total Square Cm 18.24 -Date of Last Picture (Recall this 09/13/18 field) -Photo Taken Yes -Epithelialization None Present -Tunneling No -Undermining/Tunneling No -Circular Undermining No -Classification - Pressure Ulcer Stage 4 -Exudate Amt Medium (34-66%) -Exudate Type Serosanguineous -Wound Margin Distinct, Outline Attached -Granulation Amt Large (67-100%) -Granulation Quality Red -Slough/Fibrin Yes -Necrosis Amt Small (1-33%) -Necrotic Tissue Type Adherent Slough -Structure Exposed Bone -Texture (Bertha-wound Skin Appearance) Assessed Scarring -Moisture (Bertha-wound Skin Appearance No Abnormality ) Assessed -Color (Bertha-wound Skin Appearance) No Abnormality Assessed -Temperature (Bertha-wound Skin No Abnormality Appearance) (Pt Warm) -Tenderness on Palpation (Bertha-wound No Skin Appearance) -Ulcer Cleansing Rinsed/ Irrigated with Saline -Foul Odor after Cleansing No -Anesthetic Used 4% Lidocaine Solution [Edema Assessment] -Lower Limb Edema Present No - Nurse 2 - General Ulcer CM Notes Start: 09/13/18 10:38 Freq: Status: Active Protocol: Activity Type Activity Date Activity User E-Sign Co-Sign Detail Recorded Client Recorded Date Recorded By Document 09/13/18 11:21 [id number] 09/13/18 11:24 09/13/18 11:21 Wound Center Nurse 2 [Procedure/Treatment] #2 coccyx -Time 11:23 -Correct Patient Yes -Correct Side, Site, Position Yes -Correct Procedure Yes -Procedure Performed Yes -Type of Procedure Debridement -Clinical Debridement Muscle -Post Debridement Size (cm) - Length 4.8 -Post Debridement Size (cm) - Width 3.9 -Post Debridement Size (cm) - Depth 4.1 -Total Square Cm 18.72 -Wound/Ulcer Outcome Not Healed -Ulcer Cleansing Rinsed/ Irrigated with Saline -Foul Odor after Cleansing No -Bioengineered Tissue No -Bleeding Controlled with Pressure -Treatment Response Procedure Tolerated Well [See Physician Procedure note for Specifics] Pain Scale: 0-10 Numeric [Pain] -Is Patient Pain Free? Yes Debridement Note Post-Debridement Measurements/Treatment JOSHUA - Nurse 2 - General Ulcer CM Notes Start: 09/13/18 10:38 Freq: Status: Active Protocol: Activity Type Activity Date Activity User E-Sign Co-Sign Detail Recorded Client Recorded Date Recorded By Document 09/13/18 11:21 [id number] 09/13/18 11:24 09/13/18 11:21 Wound Center Nurse 2 #2 coccyx -Time 11:23 -Correct Patient Yes -Correct Side, Site, Position Yes -Correct Procedure Yes -Procedure Performed Yes -Type of Procedure Debridement -Clinical Debridement Muscle -Post Debridement Size (cm) - Length 4.8 -Post Debridement Size (cm) - Width 3.9 -Post Debridement Size (cm) - Depth 4.1 -Total Square Cm 18.72 -Wound/Ulcer Outcome Not Healed -Ulcer Cleansing Rinsed/ Irrigated with Saline -Foul Odor after Cleansing No -Bioengineered Tissue No -Bleeding Controlled with Pressure -Treatment Response Procedure Tolerated Well Pain Scale: 0-10 Numeric Is Patient Pain Free? Yes Wound debrided: #2 Sacral area. Laterality: Not Applicable Wound Grade/Stage: IV. Type of Debridement: Excisional debridement Anesthesia Used: 4% Lidocaine Solution Depth: Down to and including healthy tissue, in the subcutaneous layer, to muscle, to bone - bone is partially exposed but not debrided. Percentage of wound debrided: 100 Instrument Used: 7mm curette Tissue Removed: subcutaneous tissue and muscle. Severity: Fat Layer Exposed - muscle is exposed. bone is partially exposed but not debrided. Amount of bleeding with debridement: Mild Bleeding Controlled with: Pressure Patient tolerated procedure well Assessment/Plan Assessment: 1. Sacral pressure sore, Stage IV. 2. Osteomyelitis. 3. MRSA. 4. Dementia. Plan: Continue the VAC at 150 mmHg continuous suction. To be changed three times per week. Continue Vancomycin for MRSA. Prealbumin from 08/18/18 was 27.6. Encourage nutritional supplementation with protein to help the healing process. With his advanced age and medical comorbidities, he is not a good candidate for future surgery to close the pressure sore with muscle flaps. That would require 6 weeks of bedrest. Even before considering a discussion about wound closure with muscle flaps in the future, the infection needs to be controlled and his nutrition needs to be maximized. Followup 2 weeks.
[2018-09-27 11:02] VITALS: BP 133/69; PULSE 79; RESP 16; TEMP 36.7; BMI 25.1
--- NOTE | 2018-09-27 22:21 | PN.PCM_ITS ---
Type of Wound Date of Service: 09/27/18 Chief Complaint: Sacral pressure sore, stage IV. History of Wound: Surgery 08/17/18 - Excision sacral pressure sore, Stage IV, with partial ostectomy for osteomyelitis. Wound care - VAC. Operative culture - soft tissue, MRSE, and bone, MRSA. He was placed on Vancomycin. Pathology - acute osteomyelitis. Prealbumin from 08/18/18 was 27.6. Encourage nutritional supplementation with protein to help with the healing process. MRI Pelvis from 06/19/18 was consistent with osteomyelitis. Today the patient denies fever. His appetite is ok. Progress of Wound: Slowly healing. - Physical Exam Vital Signs Temp Pulse Resp BP 98.0 F 79 16 133/69 H 09/27/18 11:02 09/27/18 11:02 09/27/18 11:02 09/27/18 11:02 Wound Measurements and Assessment WC - Nurse 1 - General Ulcer Measurement Start: 09/13/18 10:38 Freq: Status: Active Protocol: Activity Type Activity Date Activity User E-Sign Co-Sign Detail Recorded Client Recorded Date Recorded By Document 09/27/18 11:02 [id number] 09/27/18 11:30 09/27/18 11:02 Wound Center Nurse 1 [Ulcer Assessment] #2 coccyx -Combined with other wound No -Current Size (cm) - Length 5.0 -Current Size (cm) - Width 2.1 -Current Size (cm) - Depth 4.5 -Total Square Cm 10.50 -Photo Taken No -Epithelialization None Present -Tunneling No -Undermining/Tunneling No -Circular Undermining No -Classification - Thickness Full Thickness without Exposed Support Structure -Classification - Pressure Ulcer Stage 4 -Change in Wound Grade/Stage No Query Text:If change please identify the Stage/Grade in the comment (ie. S2 G3) -Exudate Type Serosanguineous -Wound Margin Distinct, Outline Attached -Granulation Amt Large (67-100%) -Granulation Quality Red -Slough/Fibrin Yes -Necrosis Amt None Present (0 %) -Necrotic Tissue Type Adherent Slough -Structure Exposed Muscle -Texture (Bertha-wound Skin Appearance) No Abnormality -Moisture (Bertha-wound Skin Appearance No Abnormality ) -Color (Bertha-wound Skin Appearance) No Abnormality -Temperature (Bertha-wound Skin No Abnormality Appearance) (Pt Warm) -Tenderness on Palpation (Bertha-wound No Skin Appearance) -Ulcer Cleansing Rinsed/ Irrigated with Saline -Foul Odor after Cleansing No -Anesthetic Used 4% Lidocaine Solution - Nurse 2 - General Ulcer CM Notes Start: 09/13/18 10:38 Freq: Status: Active Protocol: Activity Type Activity Date Activity User E-Sign Co-Sign Detail Recorded Client Recorded Date Recorded By Document 09/27/18 12:16 [id number] 09/27/18 12:17 09/27/18 12:16 Wound Center Nurse 2 [Procedure/Treatment] -Time 12:16 -Correct Patient Yes -Correct Side, Site, Position Yes -Correct Procedure Yes -Procedure Performed Yes -Type of Procedure Debridement -Clinical Debridement Muscle -Post Debridement Size (cm) - Length 5.2 -Post Debridement Size (cm) - Width 2.2 -Post Debridement Size (cm) - Depth 4.5 -Total Square Cm 11.44 -Wound/Ulcer Outcome Not Healed -Ulcer Cleansing Rinsed/ Irrigated with Saline -Foul Odor after Cleansing No -Bioengineered Tissue No -Bleeding Controlled with Pressure -Treatment Response Procedure Tolerated Well [See Physician Procedure note for Specifics] Pain Scale: 0-10 Numeric [Pain] -Is Patient Pain Free? Yes Debridement Note Post-Debridement Measurements/Treatment - Nurse 2 - General Ulcer CM Notes Start: 09/13/18 10:38 Freq: Status: Active Protocol: Activity Type Activity Date Activity User E-Sign Co-Sign Detail Recorded Client Recorded Date Recorded By Document 09/13/18 11:21 [id number] 09/13/18 11:24 Document 09/27/18 12:16 [id number] 09/27/18 12:17 09/13/18 09/27/18 11:21 12:16 Wound Center Nurse 2 #2 coccyx -Time 11:23 12:16 -Correct Patient Yes Yes -Correct Side, Site, Position Yes Yes -Correct Procedure Yes Yes -Procedure Performed Yes Yes -Type of Procedure Debridement Debridement -Clinical Debridement Muscle Muscle -Post Debridement Size (cm) - Length 4.8 5.2 -Post Debridement Size (cm) - Width 3.9 2.2 -Post Debridement Size (cm) - Depth 4.1 4.5 -Total Square Cm 18.72 11.44 -Wound/Ulcer Outcome Not Healed Not Healed -Ulcer Cleansing Rinsed/ Rinsed/ Irrigated with Irrigated with Saline Saline -Foul Odor after Cleansing No No -Bioengineered Tissue No No -Bleeding Controlled with Pressure Pressure -Treatment Response Procedure Procedure Tolerated Well Tolerated Well Pain Scale: 0-10 Numeric Is Patient Pain Free? Yes Yes Wound debrided: #2 Sacral area. Laterality: Not Applicable Wound Grade/Stage: IV. Type of Debridement: Excisional debridement Anesthesia Used: 4% Lidocaine Solution Depth: Down to and including healthy tissue, in the subcutaneous layer, to muscle, to bone - bone is partially exposed but not debrided. Percentage of wound debrided: 100 Instrument Used: 7mm curette Tissue Removed: subcutaneous tissue and muscle. Severity: Fat Layer Exposed - muscle is exposed. bone is partially exposed but not debrided. Amount of bleeding with debridement: Mild Bleeding Controlled with: Pressure Patient tolerated procedure well Assessment/Plan Assessment: 1. Sacral pressure sore, Stage IV. 2. Osteomyelitis. 3. MRSA. 4. Dementia. Plan: Continue the VAC at 150 mmHg continuous suction. To be changed three time s per week. Continue Vancomycin for MRSA. The Vancomycin treatment will end 10/01/18. Prealbumin from 08/18/18 was 27.6. Encourage nutritional supplementation with protein to help the healing process. With his advanced age and medical comorbidities, he is not a good candidate for future surgery to close the pressure sore with muscle flaps. That would require 6 weeks of bedrest. Even before considering a discussion about wound closure with muscle flaps in the future, the infection needs to be controlled and his nutrition needs to be maximized. Family states he gets [facility] at the [facility] with assist. He is working with therapy for strengthening and ambulation. I looked at his wheelchair and the cushion is not very good. It is not pressure reducing. He needs a Roho cushion. Will order one. The problem is at the facility, when they get him in the wheelchair, sometimes he will sit there for a few hours without any effort with pressure releases. Followup 3 weeks.
== END 2018-10-01 23:59 ==
LOC: WC 10:30
PROVIDERS: Family Provider Family Medicine; PCP Family Medicine; Referring Provider Surgery; Visit Provider Surgery
DX: L89.154 Pressure ulcer of sacral region, stage 4 (principal); F03.90 Unspecified dementia, unspecified severity, without behavioral disturbance, psychotic disturbance, mood disturbance, and anxiety; Z86.14 Personal history of Methicillin resistant Staphylococcus aureus infection; M46.28 Osteomyelitis of vertebra, sacral and sacrococcygeal region
CPT/HCPCS: 11043; 97605

== ENCOUNTER 2018-10-18 09:25 | Outpatient (RCR) | payer SELFPAY ==
[2018-10-02 00:16] VITALS: BP 133/69; PULSE 79; RESP 16; TEMP 36.7
[2018-10-18 11:23] VITALS: BP 126/84; PULSE 81; RESP 18; TEMP 27.2; BMI 25.1
--- NOTE | 2018-10-18 19:14 | PCM.WC.PN ---
Type of Wound Date of Service: 10/18/18 Chief Complaint: Sacral pressure sore, stage IV. History of Wound: Surgery 08/17/18 - Excision sacral pressure sore, Stage IV, with partial ostectomy for osteomyelitis. Wound care - VAC. Operative culture - soft tissue, MRSE, and bone, MRSA. He was placed on Vancomycin and has finished them. Pathology - acute osteomyelitis. Prealbumin from 08/18/18 was 27.6. Encourage nutritional supplementation with protein to help with the healing process. MRI Pelvis from 06/19/18 was consistent with osteomyelitis. Today the patient denies fever. His appetite is ok. It was noted when the NPWT device was being changed that there were bugs in the canister. Patient's is concerned about the bugs. Progress of Wound: Slowly healing. - Physical Exam Vital Signs Temp Pulse Resp BP 81 F L 81 18 126/84 H 10/18/18 11:23 10/18/18 11:23 10/18/18 11:23 10/18/18 11:23 Wound Measurements and Assessment WC - Nurse 1 - General Ulcer Measurement Start: 10/18/18 11:22 Freq: Status: Active Protocol: Activity Type Activity Date Activity User E-Sign Co-Sign Detail Recorded Client Recorded Date Recorded By Document 10/18/18 11:23 DV [id number] 10/18/18 11:41 DV 10/18/18 11:23 Wound Center Nurse 1 [Ulcer Assessment] #2 coccyx -Combined with other wound No -Current Size (cm) - Length 4 -Current Size (cm) - Width 3.4 -Current Size (cm) - Depth 3.5 -Total Square Cm 13.6 -Photo Taken No -Epithelialization None Present -Tunneling No -Undermining/Tunneling No -Exudate Amt Medium (34-66%) -Exudate Type Serosanguineous -Wound Margin Distinct, Outline Attached -Granulation Amt Large (67-100%) -Granulation Quality Red -Slough/Fibrin Yes -Necrosis Amt Small (1-33%) -Necrotic Tissue Type Adherent Slough -Structure Exposed None/Limited to Skin Breakdown -Texture (Bertha-wound Skin Appearance) Scarring -Moisture (Bertha-wound Skin Appearance No Abnormality ) Assessed -Color (Bertha-wound Skin Appearance) No Abnormality Assessed -Temperature (Bertha-wound Skin No Abnormality Appearance) (Pt Warm) -Tenderness on Palpation (Bertha-wound Yes Skin Appearance) -Ulcer Cleansing Rinsed/ Irrigated with Saline -Foul Odor after Cleansing No -Anesthetic Used 4% Lidocaine Solution [Edema Assessment] -Lower Limb Edema Present NA - Nurse 2 - General Ulcer CM Notes Start: 10/18/18 11:22 Freq: Status: Active Protocol: Activity Type Activity Date Activity User E-Sign Co-Sign Detail Recorded Client Recorded Date Recorded By Document 10/18/18 12:13 [email or web address] [id number] 10/18/18 12:16 [email or web address] 10/18/18 12:13 Wound Center Nurse 2 [Procedure/Treatment] #2 coccyx -Time 12:14 -Correct Patient Yes -Correct Side, Site, Position Yes -Correct Procedure Yes -Procedure Performed Yes -Type of Procedure Debridement -Clinical Debridement Muscle -Post Debridement Size (cm) - Length 4 -Post Debridement Size (cm) - Width 3.5 -Post Debridement Size (cm) - Depth 3.5 -Total Square Cm 14.0 -Wound/Ulcer Outcome Not Healed -Ulcer Cleansing Rinsed/ Irrigated with Saline -Foul Odor after Cleansing No -Bioengineered Tissue No -Bleeding Controlled with Pressure -Offloading No -Treatment Response Procedure Tolerated Well [See Physician Procedure note for Specifics] Pain Scale: 0-10 Numeric [Pain] -Is Patient Pain Free? Yes Debridement Note Post-Debridement Measurements/Treatment - Nurse 2 - General Ulcer CM Notes Start: 10/18/18 11:22 Freq: Status: Active Protocol: Activity Type Activity Date Activity User E-Sign Co-Sign Detail Recorded Client Recorded Date Recorded By Document 10/18/18 12:13 [email or web address] [id number] 10/18/18 12:16 [email or web address] 10/18/18 12:13 Wound Center Nurse 2 #2 coccyx -Time 12:14 -Correct Patient Yes -Correct Side, Site, Position Yes -Correct Procedure Yes -Procedure Performed Yes -Type of Procedure Debridement -Clinical Debridement Muscle -Post Debridement Size (cm) - Length 4 -Post Debridement Size (cm) - Width 3.5 -Post Debridement Size (cm) - Depth 3.5 -Total Square Cm 14.0 -Wound/Ulcer Outcome Not Healed -Ulcer Cleansing Rinsed/ Irrigated with Saline -Foul Odor after Cleansing No -Bioengineered Tissue No -Bleeding Controlled with Pressure -Offloading No -Treatment Response Procedure Tolerated Well Pain Scale: 0-10 Numeric Is Patient Pain Free? Yes Wound debrided: #2 Sacral area. Laterality: Not Applicable Wound Grade/Stage: IV. Type of Debridement: Excisional debridement Anesthesia Used: 4% Lidocaine Solution Depth: Down to and including healthy tissue, in the subcutaneous layer, to muscle, to bone - bone is partially exposed but not debrided. Percentage of wound debrided: 100 Instrument Used: 7mm curette Tissue Removed: subcutaneous tissue and muscle. Severity: Fat Layer Exposed - muscle is exposed. bone is partially exposed but not debrided. Amount of bleeding with debridement: Mild Bleeding Controlled with: Pressure Patient tolerated procedure well Assessment/Plan Assessment: 1. Sacral pressure sore, Stage IV. 2. Osteomyelitis. 3. MRSA. 4. Dementia. Plan: Continue NPWT device. To be changed three times per week. The Vancomycin for MRSA has been completed. Prealbumin from 08/18/18 was 27.6. Encourage nutritional supplementation with protein to help the healing process. With his advanced age and medical comorbidities, he is not a good candidate for future surgery to close the pressure sore with muscle flaps. That would require 6 weeks of bedrest. Even before considering a discussion about wound closure with muscle flaps in the future, the infection needs to be controlled and his nutrition needs to be maximized. Family states he gets up at the [facility] with assist. He is working with therapy for strengthening and ambulation. I looked at his wheelchair and the cushion is not very good. It is not pressure reducing. He needs a Roho cushion. It has been ordered. The problem is at the facility, when they get him in the wheelchair, sometimes he will sit there for a few hours without any effort with pressure releases. Recommended an Extermination Service at the facility to help with the bug problem. With the presence of the bug problem, if it can't be controlled, he may need additional surgical debridement to try and improve the healing. Followup 4 weeks.
--- OUTSIDE RECORDS SUMMARY | 2019-01-19 21:37 | XMS RPT_ITS ---
:1945 Author Organization [place] Support Name Relationship Address Phone DETWEITER, JERSON Unavailable [address] [place] [address] GONZALEZ, SHIVANI Unavailable [address] + [place] [address] R Unavailable Unavailable Unavailable DETWEITER, JERSON Unavailable [address] + [address] [place] [address] GONZALEZ, SHIVANI Unavailable [address] + [place] [address] R Unavailable Unavailable Unavailable GLO, JERSON Unavailable Unavailable Unavailable GONZALEZ, SHIVANI Unavailable [address] + [place] [address] DETWEITER, JERSON Unavailable [address] + [address] [place] [address] GONZALEZ, SHIVANI Unavailable [address] + [place] [address] R Unavailable Unavailable Unavailable DETWEITER, JERSON Unavailable [address] + [address] [place] [address] GONZALEZ, SHIVANI Unavailable [address] + [place] [address] R Unavailable Unavailable Unavailable DETWEITER, JERSON Unavailable [address] + [address] [place] [address] GONZALEZ, SHIVANI Unavailable [address] + [place] [address] R Unavailable Unavailable Unavailable DETWEITER, JERSON Unavailable [address] + [address] [place] [address] GONZALEZ, SHIVANI Unavailable [address] + [place] [address] R Unavailable Unavailable Unavailable DETWEITER, JERSON Unavailable [address] + [address] [place] [address] GONZALEZ, SHIVANI Unavailable [address] + [place] [address] R Unavailable Unavailable Unavailable GONZALEZ, SHIVANI Unavailable [address] + [facility] [place] [address] GONZALEZ, SHIVANI Unavailable [address] + [place] [address] DETWEITER, JERSON Unavailable [address] + [address] [place] [address] GONZALEZ, SHIVANI Unavailable [address] + [place] [address] R Unavailable Unavailable Unavailable DETWEITER, JERSON Unavailable [address] + [address] [place] [address] GONZALEZ, SHIVANI Unavailable [address] + [place] [address] R Unavailable Unavailable Unavailable DETWEITER, JERSON Unavailable [address] + [address] [place] [address] GONZALEZ, SHIVANI Unavailable [address] + [place] [address] R Unavailable Unavailable Unavailable DETWEITER, JERSON Unavailable [address] + [address] [place] [address] GONZALEZ, SHIVANI Unavailable [address] + [place] [address] R Unavailable Unavailable Unavailable DETWEITER, JERSON Unavailable [address] + [address] [place] [address] GONZALEZ, SHIVANI Unavailable [address] + [place] [address] R Unavailable Unavailable Unavailable DETWEITER, JERSON Unavailable [address] + [address] [place] [address] GONZALEZ, SHIVANI Unavailable [address] + [place] [address] R Unavailable Unavailable Unavailable DETWEITER, JERSON Unavailable [address] + [address] [place] [address] GONZALEZ, SHIVANI Unavailable [address] + [place] [address] R Unavailable Unavailable Unavailable DETWEITER, JERSON Unavailable [address] + [address] [place] [address] GONZALEZ, SHIVANI Unavailable [address] + [place] [address] R Unavailable Unavailable Unavailable DETWEITER, JERSON Unavailable [address] + [address] [place] [address] GONZALEZ, SHIVANI Unavailable [address] + [place] [address] R Unavailable Unavailable Unavailable DETWEITER, JERSON Unavailable [address] + [address] [place] [address] GONZALEZ, SHIVANI Unavailable [address] + [place] [address] R Unavailable Unavailable Unavailable DETWEITER, JERSON Unavailable [address] + [address] [place] [address] GONZALEZ, SHIVANI Unavailable [address] + [place] [address] R Unavailable Unavailable Unavailable DETWEITER, JERSON Unavailable [address] + [address] [place] [address] GONZALEZ, SHIVANI Unavailable [address] + [place] [address] R Unavailable Unavailable Unavailable DETWEITER, JERSON Unavailable [address] + [address] [place] [address] GONZALEZ, SHIVANI Unavailable [address] + [place] [address] R Unavailable Unavailable Unavailable DETWEITER, JERSON Unavailable [address] + [address] [place] [address] GONZALEZ, SHIVANI Unavailable [address] + [place] [address] R Unavailable Unavailable Unavailable DETWEITER, JERSON Unavailable [address] + [address] [place] [address] GONZALEZ, SHIVANI Unavailable [address] + [place] [address] R Unavailable Unavailable Unavailable DETWEITER, JERSON Unavailable [address] + [address] [place] [address] GONZALEZ, SHIVANI Unavailable [address] + [place] [address] R Unavailable Unavailable Unavailable DETWEITER, JERSON Unavailable [address] + [address] [place] [address] GONZALEZ, SHIVANI Unavailable [address] + [place] [address] R Unavailable Unavailable Unavailable DETWEITER, JERSON Unavailable [address] + [address] [place] [address] GONZALEZ, SHIVANI Unavailable [address] + [place] [address] R Unavailable Unavailable Unavailable DETWEITER, JERSON Unavailable [address] + [address] [place] [address] GONZALEZ, SHIVANI Unavailable [address] + [place] [address] R Unavailable Unavailable Unavailable GONZALEZ, SHIVANI Unavailable [address] + [place] [address] DETWEITER, JERSON Unavailable [address] + [address] [place] [address] GONZALEZ, SHIVANI Unavailable [address] + [place] [address] R Unavailable Unavailable Unavailable DETWEITER, JERSON Unavailable [address] + [address] [place] [address] GONZALEZ, SHIVANI Unavailable [address] + [place] [address] R Unavailable Unavailable Unavailable DETWEITER, JERSON Unavailable [address] + [address] [place] [address] GONZALEZ, SHIVANI Unavailable [address] + [place] [address] R Unavailable Unavailable Unavailable DETWEITER, JERSON Unavailable [address] + [address] [place] [address] GONZALEZ, SHIVANI Unavailable [address] + [place] [address] R Unavailable Unavailable Unavailable DETWEITER, JERSON Unavailable [address] + [address] [place] [address] SHIVANI GONZALEZ Unavailable [address] + [place] [address] R Unavailable Unavailable Unavailable NICHOL GONZALEZDA Unavailable Unavailable + Care Team Providers Name Role Phone SHO FITZGERALD Admitting Unavailable SHO FITZGERALD Attending Unavailable LINDA FITZGERALDIC A Primary Care Unavailable SHO FITZGERALD A Consulting Unavailable PROVIDER, UNKNOWN Consulting Unavailable SHO GONZALEZ MD Admitting Unavailable SHO GONZALEZ MD Attending Unavailable SHO GONZALEZ MD Primary Care Unavailable LINDA FITZGERALDIC A Consulting Unavailable PROVIDER, UNKNOWN Consulting Unavailable DAVID, DR MARCELO Kim Admitting Unavailable DAVID, DR MARCELO Kim Attending Unavailable DAVID, DR MARCELO Kim Primary Care Unavailable SHO FITZGERALD A Consulting Unavailable PROVIDER, UNKNOWN Consulting Unavailable SHO GONZALEZ MD Admitting Unavailable SHO GONZALEZ MD Attending Unavailable SHO GONZALEZ MD Primary Care Unavailable SHO FITZGERALD A Consulting Unavailable PROVIDER, UNKNOWN Consulting Unavailable SHO GONZALEZ MD Admitting Unavailable SHO GONZALEZ MD Attending Unavailable SHO GONZALEZ MD Primary Care Unavailable SHO FITZGERALD A Consulting Unavailable PROVIDER, UNKNOWN Consulting Unavailable Linda Fitzgeraldic Attending Unavailable Fitzgerald, Sho Referring Unavailable Fitzgerald, Sho Primary Care Unavailable Elier Bryant Attending Unavailable Daniels, Emanuel Referring Unavailable Fitzgerald, Sho Primary Care Unavailable Jeremiah Emanuel Consulting Unavailable Elier Bryant Admitting Unavailable Elier Bryant Attending Unavailable Elier Bryant Referring Unavailable Fitzgerald, Sho Primary Care Unavailable Ashelfah, Ghasem Consulting Unavailable Tereletsky, Luis M Consulting Unavailable Elier Bryant Attending Unavailable Daniels, Emanuel Referring Unavailable Fitzgerald, Sho Primary Care Unavailable Elier Bryant Attending Unavailable Daniels, Emanuel Referring Unavailable Fitzgerald, Sho Primary Care Unavailable Elier Bryant Consulting Unavailable Elier Bryant Admitting Unavailable Elier Bryant Attending Unavailable Elier Bryant Referring Unavailable Fitzgerald, Sho Primary Care Unavailable Ashelfah, Ghasem Consulting Unavailable Israel, Sahil Consulting Unavailable Tereletsky, Luis M Consulting Unavailable Elier Bryant Admitting Unavailable Janet Luis M Attending Unavailable Elier Bryant Referring Unavailable Fitzgerald, Sho Primary Care Unavailable Ashelfah, Ghasem Consulting Unavailable Israel, Sahil Consulting Unavailable Tereletsky, Luis M Consulting Unavailable Slabaugustine, Elier Admitting Unavailable Tereletsky, Luis M Attending Unavailable Slaby, Elier Referring Unavailable Fitzgerald, Sho Primary Care Unavailable Ashelfah, Ghasem Consulting Unavailable Israel, Sahil Consulting Unavailable Tereletsky, Luis M Consulting Unavailable Slaby, Elier Admitting Unavailable Slaby, Elier Attending Unavailable Slabaugustine, Elier Referring Unavailable Fitzgerald, Sho Primary Care Unavailable Ashelfah, Ghasem Consulting Unavailable Israel, Sahil Consulting Unavailable Tereletsky, Luis M Consulting Unavailable Slaby, Elier Admitting Unavailable Tereletsky, Luis M Attending Unavailable Slaby, Elier Referring Unavailable Fitzgerald, Sho Primary Care Unavailable Ashelfah, Ghasem Consulting Unavailable Israel, Sahil Consulting Unavailable Tereletsky, Luis M Consulting Unavailable Slaby, Elier Admitting Unavailable Slaby, Elier Attending Unavailable Slabaugustine, Elier Referring Unavailable Fitzgerald, Sho Primary Care Unavailable Ashelfah, Ghasem Consulting Unavailable Israel, Sahil Consulting Unavailable Tereletsky, Luis M Consulting Unavailable Slaby, Elier Admitting Unavailable Tereletsky, Luis M Attending Unavailable Slabaugustine, Elier Referring Unavailable Fitzgerald, Sho Primary Care Unavailable Ashelfah, Ghasem Consulting Unavailable Israel, Sahil Consulting Unavailable Tereletsky, Luis M Consulting Unavailable Slabaugustine, Elier Admitting Unavailable Slabaugustine, Elier Attending Unavailable Annette, Elier Referring Unavailable Fitzgerald, Sho Primary Care Unavailable Ashelfah, Ghasem Consulting Unavailable Israel, Sahil Consulting Unavailable Tereletsky, Luis M Consulting Unavailable Slabaugustine, Elier Admitting Unavailable Terjaguar, Luis M Attending Unavailable Annette, Elier Referring Unavailable Fitzgerald, Sho Primary Care Unavailable Ashelfah, Ghasem Consulting Unavailable Israel, Sahil Consulting Unavailable Tereletsky, Luis M Consulting Unavailable Slaby, Elier Admitting Unavailable Tereletsky, Luis M Attending Unavailable Slabaugustine, Elier Referring Unavailable Fitzgerald, Sho Primary Care Unavailable Ashelfah, Ghasem Consulting Unavailable Tereletsky, Luis M Consulting Unavailable Annette, Elier Admitting Unavailable Annette, Elier Attending Unavailable Annette, Elier Referring Unavailable Fitzgerald, Sho Primary Care Unavailable Ashelfah, Ghasem Consulting Unavailable Tereletsky, Luis M Consulting Unavailable Annette, Elier Admitting Unavailable Elier Bryant Attending Unavailable Annette, Elier Referring Unavailable Fitzgerald, Sho Primary Care Unavailable Ashelfah, Ghasem Consulting Unavailable Tereletsky, Luis M Consulting Unavailable Sho Seymour Attending Unavailable Annette, Elier Referring Unavailable Fitzgerald, Sho Primary Care Unavailable Ashelfah, Ghasem Consulting Unavailable Jopperi, Sho Consulting Unavailable Ashelfah, Ghasem Attending Unavailable Slabaugustine, Elier Referring Unavailable Fitzgerald, Sho Primary Care Unavailable Ashelfah, Ghasem Consulting Unavailable Slaby, Elier Consulting Unavailable Slaby, Elier Referring Unavailable Fitzgerald, Sho Primary Care Unavailable Ashelfah, Ghasem Consulting Unavailable Slabaugustine, Elier Admitting Unavailable Luis M Gonzales Attending Unavailable Sahil Wood Consulting Unavailable Daniels, Emanuel Referring Unavailable Fitzgerald, Sho Primary Care Unavailable Slaby, Elier Attending Unavailable Daniels, Emanuel Attending Unavailable Daniels, Emanuel Referring Unavailable Fitzgerald, Sho Primary Care Unavailable Daniels, Emanuel Attending Unavailable Fitzgerald, Sho Primary Care Unavailable Daniels, Emanuel Referring Unavailable Fitzgerald, Sho Attending Unavailable Fitzgerald, Sho Primary Care Unavailable Fitzgerald, Sho Primary Care Unavailable Dima Delatorre Attending Unavailable Kita Hussein Attending Unavailable Daniels, Emanuel Referring Unavailable Fitzgerald, Sho Primary Care Unavailable Slaby, Elier Consulting Unavailable Fitzgerald, Sho Attending Unavailable Fitzgerald, Sho Referring Unavailable Fitzgerald, Sho Primary Care Unavailable Fitzgerald, Sho Attending Unavailable Fitzgerald, Sho Referring Unavailable Fitzgerald, Sho Primary Care Unavailable Slaby, Elier Attending Unavailable Daniels, Emanuel Referring Unavailable Fitzgerald, Sho Primary Care Unavailable Slaby, Elier Attending Unavailable Daniels, Emanuel Referring Unavailable Fitzgerald, Sho Primary Care Unavailable Slaby, Elier Consulting Unavailable Slaby, Elier Attending Unavailable Daniels, Emanuel Referring Unavailable Fitzgerald, Sho Primary Care Unavailable Slaby, Elier Consulting Unavailable PROBLEMS PROBLEMS DATE TYPE CONDITION / CODE ATTENDING STATUS SOURCE 11/12/2018 Unknown L89.154 - Elier Bryant Active Davin 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 / Repository L89.154(ICD-10) 08/28/[address] MARCELO HERNANDEZ Active Yassine [place] Diagnosis examination and [facility] other specified Repository reasons / Z0489(ICD-10) 08/28/[address] MARCELO HERNANDEZ Active Yassine [place] Diagnosis examination and [facility] other specified Repository reasons / Z0489(ICD-10) 04/13/2018 Admitting Encounter for SHO GONZALEZ MD Active Yassine [facility] Diagnosis [facility] examination Repository without abnormal findings / Z0000(ICD-10) 04/13/2018 Principle [facility] SHO GONZALEZ MD Active Yassine [place] Diagnosis (current) use of [facility] antibiotics / Hospital Z792(ICD-10) Repository 04/13/2018 Secondary Other acute SHO GONZALEZ MD Active Yassine [place] Diagnosis osteomyelitis, [facility] unspecified site Hospital / M8610(ICD-10) Repository 04/29/2018 Unknown L89.90 - Pressure Sho Fitzgerald Active [facility] ulcer of [facility] unspecified site, Hospital unspecified stage Repository / L89.90(ICD-10) 09/20/2018 Unknown G20 - Parkinson's Sho Fitzgerald Active Davin disease / Community G20(ICD-10) Hospital Repository PROCEDURES PROCEDURES No Procedure Records FoundRESULTS RESULTS CBC Collected: 09/29/2018 Status: F [facility] REPOSITORY TYPE CODE TESTS RESULT OUT OF RANGE REFERENCE UNITS LAB CBC(LOINC) CBC Result Comment: CBC-COMPLETE BLOOD COUNT LAB WBC(LOINC) 4.5 - 10.8 x 10EE3/UL WBC High 12.3 LAB RBC(LOINC) 4.50 - x 10EE6/UL 6.00 RBC Low 3.37 LAB HEMOGLOBIN(LOINC 13.0 - g/dl ) 17.5 Low HEMOGLOBIN 11.0 LAB HEMATOCRIT(LOINC 40.0 - % ) 52.0 Low HEMATOCRIT 32.1 LAB MCV(LOINC) 81 - 98 fl MCV 95 LAB MCH(LOINC) 27 - 33 pg MCH 33 LAB MCHC(LOINC) 32 - 36 X10 3 MCHC 34 LAB RDW/CV(LOINC) 12.0 - % 15.6 RDW/CV High 17.0 LAB PLATELET(LOINC) 150 - 450 x10EE3/UL PLATELET 347 LAB MPV(LOINC) 6.4 - 10.5 fl MPV 7.6 Result Comment: AUTOMATED DIFFERENTIAL LAB NEUT %(LOINC) 46.0 - 76.0 % NEUT % High 80.5 LAB LYMPH %(LOINC) 20.0 - 45.0 % Low LYMPH % 11.6 LAB MONOS %(LOINC) 0.0 - 10.0 % MONOS % 5.5 LAB EO %(LOINC) 0.0 - 7.0 % EO % 1.9 LAB BASO %(LOINC) 0.0 - 2.0 % BASO % 0.5 LAB Lymph #(LOINC) 0.80 - 2.80 x10EE3/U L Lymph # 1.40 LAB Neut #(LOINC) 1.50 - 7.10 x10EE3/U L Neut # High 9.90 LAB Quay #(LOINC) 0.20 - 1.00 x10EE3/U L Quay # 0.70 LAB EO #(LOINC) 0.00 - 0.50 x10EE3/U L EO # 0.20 LAB Baso #(LOINC) 0.00 - 0.10 x10EE3/U L Baso # 0.10 LAB MANUAL DIFF(LOINC) MANUAL DIFF N/A LAB MORPHOLOGY(LOINC ) MORPHOLOGY N/A Result Comment: {CD] Performed By: #### [id number] #### [facility],[address] [place] [address] BMP WITH EGFR Collected: 09/29/2018 Status: F Source: [facility] 8:30 AM [facility] REPOSITORY TYPE CODE TESTS RESULT OUT OF RANGE REFERENCE UNITS LAB BMP with eGFR(LOINC) BMP with eGFR Result Comment: BASIC METABOLIC PANEL LAB SODIUM(LOINC) 136 - 145 mmol/l SODIUM 140 LAB POTASSIUM(LOINC) 3.5 - 5.1 mmol/L POTASSIUM 4.3 LAB CHLORIDE(LOINC) 98 - 107 mmol/L CHLORIDE 104 LAB CO2(LOINC) 21.0 - mmol/L 31.0 CO2 29.4 LAB GLUCOSE(LOINC) 74 - 106 mg/dl GLUCOSE 87 LAB BUN(LOINC) 6 - 20 mg/dl BUN 19 LAB CREATININE(LOINC) 0.7 - 1.3 mg/dl CREATININE 0.8 LAB CALCIUM(LOINC) 8.6 - mg/dl 10.2 CALCIUM 9.7 LAB ANION GAP(LOINC) 10 - 20 mmol/L ANION GAP 11 LAB AGE(LOINC) years AGE 73 LAB eGFR(LOINC) 60 - 999 ML/MINUTE eGFR >60 LAB eGFR(AA)(LOINC) 60 - 999 ML/MINUTE eGFR(AA) >60 Result Comment: ACCORDING TO THE NATIONAL KIDNEY DISEASE EDUCATION PROGRAM(NKDE), A NORMAL eGFR IS A VALUE GREATER THAN OR EQUAL TO 60 ML/MIN/1.73 SQ METERS. CHRONIC KIDNEY DISEASE: <60mL/MIN/1.73 SQ METERS KIDNEY FAILURE: <15mL/MIN/1.73 SQ METERS THIS TEST SHOULD ONLY BE USED FOR PATIENTS 18 YEARS OF AGE AND OLDER. Performed By: #### [id number] #### [place] [address] VANCOMYCIN TROUGH Collected: 09/29/2018 Status: F Source: [facility] 8:30 AM [facility] REPOSITORY TYPE CODE TESTS RESULT OUT OF RANGE REFERENCE UNITS LAB VANCOMYCIN, 10.0 - 15.0 ug/mL TROUGH(LOIN High C) 21.9 VANCOMYCIN,T ROUGH Performed By: #### [id number] #### [place] [address] SEDRATE Collected: 09/29/2018 Status: F Source: [facility] 8:30 AM [facility] REPOSITORY TYPE CODE TESTS RESULT OUT OF REFERENCE UNITS RANGE LAB SEDRATE(PAIGE 0 - 20 mm/hr NC) High SEDRATE 60 Performed By: #### [id number] #### [place] [address] CBC Collected: 09/22/2018 Status: F Source: [facility] 8:10 AM [facility] REPOSITORY TYPE CODE TESTS RESULT OUT OF RANGE REFERENCE UNITS LAB CBC(LOINC) CBC Result Comment: CBC-COMPLETE BLOOD COUNT LAB WBC(LOINC) 4.5 - 10.8 x 10EE3/UL WBC High 11.8 LAB RBC(LOINC) 4.50 - x 10EE6/UL 6.00 RBC Low 3.46 LAB HEMOGLOBIN(LOINC 13.0 - g/dl ) 17.5 Low HEMOGLOBIN 11.2 LAB HEMATOCRIT(LOINC 40.0 - % ) 52.0 Low HEMATOCRIT 33.3 LAB MCV(LOINC) 81 - 98 fl MCV 96 LAB MCH(LOINC) 27 - 33 pg MCH 32 LAB MCHC(LOINC) 32 - 36 X10 3 MCHC 34 LAB RDW/CV(LOINC) 12.0 - % 15.6 RDW/CV High 16.7 LAB PLATELET(LOINC) 150 - 450 x10EE3/UL PLATELET 430 LAB MPV(LOINC) 6.4 - 10.5 fl MPV 7.9 Result Comment: AUTOMATED DIFFERENTIAL LAB NEUT %(LOINC) 46.0 - 76.0 % NEUT % High 79.0 LAB LYMPH %(LOINC) 20.0 - 45.0 % Low LYMPH % 12.4 LAB MONOS %(LOINC) 0.0 - 10.0 % MONOS % 6.8 LAB EO %(LOINC) 0.0 - 7.0 % EO % 1.1 LAB BASO %(LOINC) 0.0 - 2.0 % BASO % 0.7 LAB Lymph #(LOINC) 0.80 - 2.80 x10EE3/U L Lymph # 1.50 LAB Neut #(LOINC) 1.50 - 7.10 x10EE3/U L Neut # High 9.40 LAB Quay #(LOINC) 0.20 - 1.00 x10EE3/U L Quay # 0.80 LAB EO #(LOINC) 0.00 - 0.50 x10EE3/U L EO # 0.10 LAB Baso #(LOINC) 0.00 - 0.10 x10EE3/U L Baso # 0.10 LAB MANUAL DIFF(LOINC) MANUAL DIFF N/A LAB MORPHOLOGY(INC ) MORPHOLOGY N/A Result Comment: {CD] Performed By: #### [id number] #### [facility],[address] [place] [address] BMP WITH EGFR Collected: 09/22/2018 Status: F Source: [facility] 8:10 AM [facility] REPOSITORY TYPE CODE TESTS RESULT OUT OF RANGE REFERENCE UNITS LAB BMP with eGFR(LOINC) BMP with eGFR Result Comment: BASIC METABOLIC PANEL LAB SODIUM(LOINC) 136 - 145 mmol/l SODIUM 139 LAB POTASSIUM(LOINC) 3.5 - 5.1 mmol/L POTASSIUM 4.2 LAB CHLORIDE(LOINC) 98 - 107 mmol/L CHLORIDE 104 LAB CO2(LOINC) 21.0 - mmol/L 31.0 CO2 27.2 LAB GLUCOSE(LOINC) 74 - 106 mg/dl GLUCOSE 90 LAB BUN(LOINC) 6 - 20 mg/dl BUN 20 LAB CREATININE(LOINC) 0.7 - 1.3 mg/dl CREATININE 0.8 LAB CALCIUM(LOINC) 8.6 - mg/dl 10.2 CALCIUM 9.2 LAB ANION GAP(LOINC) 10 - 20 mmol/L ANION GAP 12 LAB AGE(LOINC) years AGE 73 LAB eGFR(LOINC) 60 - 999 ML/MINUTE eGFR >60 LAB eGFR(AA)(LOINC) 60 - 999 ML/MINUTE eGFR(AA) >60 Result Comment: ACCORDING TO THE NATIONAL KIDNEY DISEASE EDUCATION PROGRAM(NKDE), A NORMAL eGFR IS A VALUE GREATER THAN OR EQUAL TO 60 ML/MIN/1.73 SQ METERS. CHRONIC KIDNEY DISEASE: <60mL/MIN/1.73 SQ METERS KIDNEY FAILURE: <15mL/MIN/1.73 SQ METERS THIS TEST SHOULD ONLY BE USED FOR PATIENTS 18 YEARS OF AGE AND OLDER. Performed By: #### [id number] #### [address] [address] VANCOMYCIN TROUGH Collected: 09/22/2018 Status: F Source: [facility] 8:10 AM [facility] REPOSITORY TYPE CODE TESTS RESULT OUT OF RANGE REFERENCE UNITS LAB VANCOMYCIN, 10.0 - 15.0 ug/mL TROUGH(LOIN High C) 18.6 VANCOMYCIN,T ROUGH Performed By: #### [id number] #### [address] [address] SEDRATE Collected: 09/22/2018 Status: F Source: [facility] 8:10 AM [facility] REPOSITORY TYPE CODE TESTS RESULT OUT OF REFERENCE UNITS RANGE LAB SEDRATE(PAIGE 0 - 20 mm/hr NC) High SEDRATE 53 Performed By: #### [id number] #### [address] [address] OT D/C OF NON Observed: 09/16/2018 Status: F Source: [facility] PT 3:08 PM [facility] REPOSITORY [facility] [place], [place] [id number] Fax REHABILITATION SERVICES DISCHARGE SUMMARY MR#: [id number] Acct: [id number] Name: YNES CODY Rep #: [id number] : 1945 73 From: Kita Boyd Referring Dr.: Sho Fitzgerald MD Status: REG RCR Eval Date: Discharge Date: HP - Discharge Summary - Patient Information YNES CODY was seen in my office for initial evaluation on 03/11/18. The following Plan of Care was established for this patient: Initial Frequency: 1x/Week Initial Duration: 4 Weeks Plan: plan to inform of pts limited progress and walker recommendation for safety with functional AMB for ADLs in the house. - Anticipated Interventions Anticipated Interventions: A/AAROM/PROM, Strengthening, Modalities, Joint Protection/Energy Conservation, Fine Motor Coord/Kain, Neuro Reeducation, Visual/Perceptual Skills, ADL Training, Education re assistive Equipment, Caregiver Training, Home Program This patient was last seen in our office 03/25/18. Pertinent comments regarding their Occupational therapy will appear below: Pt last seen 03/25/18. Pt was completing OT services with a focus on increasing BUE strength and ROM, education on DME/AE for BADLs with increased safety awareness and increasing independence with self care tasks. Pt was working on functional transfers and increasing standing tolerance. Pt d/c from OT services. Non-returning pt. At this point I will be discontinuing this patient from occupational therapy. I would be happy to see this patient again in the future if found appropriate by the physician. Thank you! Kita Boyd <Electronically signed by Kita Boyd > 09/16/18 1508 CC: Sho Fitzgerald MD VERA Signed CBC Collected: 09/15/2018 Status: F Source: [facility] 8:09 AM [facility] REPOSITORY TYPE CODE TESTS RESULT OUT OF RANGE REFERENCE UNITS LAB CBC(LOINC) CBC Result Comment: CBC-COMPLETE BLOOD COUNT LAB WBC(LOINC) 4.5 - 10.8 x 10EE3/UL WBC High 11.1 LAB RBC(LOINC) 4.50 - x 10EE6/UL 6.00 RBC Low 3.46 LAB HEMOGLOBIN(LOINC 13.0 - g/dl ) 17.5 Low HEMOGLOBIN 11.5 LAB HEMATOCRIT(LOINC 40.0 - % ) 52.0 Low HEMATOCRIT 33.6 LAB MCV(LOINC) 81 - 98 fl MCV 97 LAB MCH(LOINC) 27 - 33 pg MCH 33 LAB MCHC(LOINC) 32 - 36 X10 3 MCHC 34 LAB RDW/CV(LOINC) 12.0 - % 15.6 RDW/CV High 17.0 LAB PLATELET(LOINC) 150 - 450 x10EE3/UL PLATELET 441 LAB MPV(LOINC) 6.4 - 10.5 fl MPV 7.7 Result Comment: AUTOMATED DIFFERENTIAL LAB NEUT %(LOINC) 46.0 - 76.0 % NEUT % High 78.6 LAB LYMPH %(LOINC) 20.0 - 45.0 % Low LYMPH % 12.7 LAB MONOS %(LOINC) 0.0 - 10.0 % MONOS % 6.5 LAB EO %(LOINC) 0.0 - 7.0 % EO % 1.4 LAB BASO %(LOINC) 0.0 - 2.0 % BASO % 0.8 LAB Lymph #(LOINC) 0.80 - 2.80 x10EE3/U L Lymph # 1.40 LAB Neut #(LOINC) 1.50 - 7.10 x10EE3/U L Neut # High 8.80 LAB Quay #(LOINC) 0.20 - 1.00 x10EE3/U L Quay # 0.70 LAB EO #(LOINC) 0.00 - 0.50 x10EE3/U L EO # 0.20 LAB Baso #(LOINC) 0.00 - 0.10 x10EE3/U L Baso # 0.10 LAB MANUAL DIFF(LOINC) MANUAL DIFF N/A LAB MORPHOLOGY(LOINC ) MORPHOLOGY N/A Result Comment: {CD] Performed By: #### [id number] #### [facility],[address] [place] [address] BMP WITH EGFR Collected: 09/15/2018 Status: F Source: [facility] 8:09 AM [facility] REPOSITORY TYPE CODE TESTS RESULT OUT OF RANGE REFERENCE UNITS LAB BMP with eGFR(LOINC) BMP with eGFR Result Comment: BASIC METABOLIC PANEL LAB SODIUM(LOINC) 136 - 145 mmol/l SODIUM 138 LAB POTASSIUM(LOINC) 3.5 - 5.1 mmol/L POTASSIUM 4.4 LAB CHLORIDE(LOINC) 98 - 107 mmol/L CHLORIDE 104 LAB CO2(LOINC) 21.0 - mmol/L 31.0 CO2 26.7 LAB GLUCOSE(LOINC) 74 - 106 mg/dl GLUCOSE 93 LAB BUN(LOINC) 6 - 20 mg/dl BUN High 23 LAB CREATININE(LOINC) 0.7 - 1.3 mg/dl CREATININE 0.8 LAB CALCIUM(LOINC) 8.6 - mg/dl 10.2 CALCIUM 9.4 LAB ANION GAP(LOINC) 10 - 20 mmol/L ANION GAP 12 LAB AGE(LOINC) years AGE 73 LAB eGFR(LOINC) 60 - 999 ML/MINUTE eGFR >60 LAB eGFR(AA)(LOINC) 60 - 999 ML/MINUTE eGFR(AA) >60 Result Comment: ACCORDING TO THE NATIONAL KIDNEY DISEASE EDUCATION PROGRAM(NKDE), A NORMAL eGFR IS A VALUE GREATER THAN OR EQUAL TO 60 ML/MIN/1.73 SQ METERS. CHRONIC KIDNEY DISEASE: <60mL/MIN/1.73 SQ METERS KIDNEY FAILURE: <15mL/MIN/1.73 SQ METERS THIS TEST SHOULD ONLY BE USED FOR PATIENTS 18 YEARS OF AGE AND OLDER. Performed By: #### [id number] #### [place] [address] VANCOMYCIN TROUGH Collected: 09/15/2018 Status: F Source: [facility] 8:09 [facility] REPOSITORY TYPE CODE TESTS RESULT OUT OF RANGE REFERENCE UNITS LAB VANCOMYCIN, 10.0 - 15.0 ug/mL TROUGH(LOIN High C) 18.8 VANCOMYCIN,T ROUGH Performed By: #### [id number] #### [place] [address] SEDRATE Collected: 09/15/2018 Status: F Source: [facility] 8:09 [facility] REPOSITORY TYPE CODE TESTS RESULT OUT OF REFERENCE UNITS RANGE LAB SEDRATE(PAIGE 0 - 20 mm/hr NC) High SEDRATE 37 Performed By: #### [id number] #### [place] [address] CBC Collected: 09/08/2018 Status: F Source: [facility] 8:13 [facility] REPOSITORY TYPE CODE TESTS RESULT OUT OF RANGE REFERENCE UNITS LAB CBC(LOINC) CBC Result Comment: CBC-COMPLETE BLOOD COUNT LAB WBC(LOINC) 4.5 - 10.8 x 10EE3/UL WBC 9.2 LAB RBC(LOINC) 4.50 - x 10EE6/UL 6.00 RBC Low 3.25 LAB HEMOGLOBIN(LOINC 13.0 - g/dl ) 17.5 Low HEMOGLOBIN 10.9 LAB HEMATOCRIT(LOINC 40.0 - % ) 52.0 Low HEMATOCRIT 31.4 LAB MCV(LOINC) 81 - 98 fl MCV 97 LAB MCH(LOINC) 27 - 33 pg MCH 33 LAB MCHC(LOINC) 32 - 36 X10 3 MCHC 35 LAB RDW/CV(LOINC) 12.0 - % 15.6 RDW/CV High 17.0 LAB PLATELET(LOINC) 150 - 450 x10EE3/UL PLATELET 384 LAB MPV(LOINC) 6.4 - 10.5 fl MPV 7.3 Result Comment: AUTOMATED DIFFERENTIAL LAB NEUT %(LOINC) 46.0 - 76.0 % NEUT % 72.2 LAB LYMPH %(LOINC) 20.0 - 45.0 % LYMPH % Low 15.7 LAB MONOS %(LOINC) 0.0 - 10.0 % MONOS % 7.8 LAB EO %(LOINC) 0.0 - 7.0 % EO % 3.1 LAB BASO %(LOINC) 0.0 - 2.0 % BASO % 1.2 LAB Lymph #(LOINC) 0.80 - 2.80 x10EE3/U L Lymph # 1.40 LAB Neut #(LOINC) 1.50 - 7.10 x10EE3/U L Neut # 6.70 LAB Quay #(LOINC) 0.20 - 1.00 x10EE3/U L Quay # 0.70 LAB EO #(LOINC) 0.00 - 0.50 x10EE3/U L EO # 0.30 LAB Baso #(LOINC) 0.00 - 0.10 x10EE3/U L Baso # 0.10 LAB MANUAL DIFF(LOINC) MANUAL DIFF N/A LAB MORPHOLOGY(LOINC ) MORPHOLOGY N/A Result Comment: {CD] Performed By: #### [id number] #### [facility],[address] [place] [address] BMP WITH EGFR Collected: 09/08/2018 Status: F Source: [facility] 8:13 AM [facility] REPOSITORY TYPE CODE TESTS RESULT OUT OF RANGE REFERENCE UNITS LAB BMP with eGFR(LOINC) BMP with eGFR Result Comment: BASIC METABOLIC PANEL LAB SODIUM(LOINC) 136 - 145 mmol/l SODIUM 140 LAB POTASSIUM(LOINC) 3.5 - 5.1 mmol/L POTASSIUM 4.2 LAB CHLORIDE(LOINC) 98 - 107 mmol/L CHLORIDE 105 LAB CO2(LOINC) 21.0 - mmol/L 31.0 CO2 26.9 LAB GLUCOSE(LOINC) 74 - 106 mg/dl GLUCOSE 94 LAB BUN(LOINC) 6 - 20 mg/dl BUN 16 LAB CREATININE(LOINC) 0.7 - 1.3 mg/dl CREATININE 0.9 LAB CALCIUM(LOINC) 8.6 - mg/dl 10.2 CALCIUM 9.3 LAB ANION GAP(LOINC) 10 - 20 mmol/L ANION GAP 12 LAB AGE(LOINC) years AGE 73 LAB eGFR(LOINC) 60 - 999 ML/MINUTE eGFR >60 LAB eGFR(AA)(INC) 60 - 999 ML/MINUTE eGFR(AA) >60 Result Comment: ACCORDING TO THE NATIONAL KIDNEY DISEASE EDUCATION PROGRAM(NKDE), A NORMAL eGFR IS A VALUE GREATER THAN OR EQUAL TO 60 ML/MIN/1.73 SQ METERS. CHRONIC KIDNEY DISEASE: <60mL/MIN/1.73 SQ METERS KIDNEY FAILURE: <15mL/MIN/1.73 SQ METERS THIS TEST SHOULD ONLY BE USED FOR PATIENTS 18 YEARS OF AGE AND OLDER. Performed By: #### [id number] #### [place] [address] VANCOMYCIN TROUGH Collected: 09/08/2018 Status: F Source: [facility] 8:[facility] REPOSITORY TYPE CODE TESTS RESULT OUT OF RANGE REFERENCE UNITS LAB VANCOMYCIN, 10.0 - 15.0 ug/mL TROUGH(LOIN High C) 19.5 VANCOMYCIN,T ROUGH Performed By: #### [id number] #### [place] [id number] SEDRATE Collected: 09/08/2018 Status: F [facility] REPOSIT[facility] TYPE CODE TESTS RESULT OUT OF REFERENCE UNITS RANGE LAB SEDRATE(PAIGE 0 - 20 mm/hr NC) High SEDRATE 31 Performed By: #### [id number] #### [place] [id number] CBC Collected: 09/01/2018 Status: F Source: [facility] 8:03 AM [facility] REPOSITORY TYPE CODE TESTS RESULT OUT OF RANGE REFERENCE UNITS LAB CBC(LOINC) CBC Result Comment: CBC-COMPLETE BLOOD COUNT LAB WBC(LOINC) 4.5 - 10.8 x 10EE3/UL WBC 8.1 LAB RBC(LOINC) 4.50 - x 10EE6/UL 6.00 RBC Low 3.28 LAB HEMOGLOBIN(LOINC 13.0 - g/dl ) 17.5 Low HEMOGLOBIN 11.0 LAB HEMATOCRIT(LOINC 40.0 - % ) 52.0 Low HEMATOCRIT 32.3 LAB MCV(LOINC) 81 - 98 fl MCV 98 LAB MCH(LOINC) 27 - 33 pg MCH High 34 LAB MCHC(LOINC) 32 - 36 X10 3 MCHC 34 LAB RDW/CV(LOINC) 12.0 - % 15.6 RDW/CV High 17.6 LAB PLATELET(LOINC) 150 - 450 x10EE3/UL PLATELET 314 LAB MPV(LOINC) 6.4 - 10.5 fl MPV 7.9 Result Comment: AUTOMATED DIFFERENTIAL LAB NEUT %(LOINC) 46.0 - 76.0 % NEUT % High 76.9 LAB LYMPH %(LOINC) 20.0 - 45.0 % Low LYMPH % 9.4 LAB MONOS %(LOINC) 0.0 - 10.0 % MONOS % 9.2 LAB EO %(LOINC) 0.0 - 7.0 % EO % 4.1 LAB BASO %(LOINC) 0.0 - 2.0 % BASO % 0.4 LAB Lymph #(LOINC) 0.80 - 2.80 x10EE3/U L Lymph # 0.80 LAB Neut #(LOINC) 1.50 - 7.10 x10EE3/U L Neut # 6.20 LAB Quay #(LOINC) 0.20 - 1.00 x10EE3/U L Quay # 0.70 LAB EO #(LOINC) 0.00 - 0.50 x10EE3/U L EO # 0.30 LAB Baso #(LOINC) 0.00 - 0.10 x10EE3/U L Baso # 0.00 LAB MANUAL DIFF(LOINC) MANUAL DIFF N/A LAB MORPHOLOGY(LOINC ) MORPHOLOGY N/A Result Comment: {CD] Performed By: #### [id number] #### [facility],[address] [place], [place] [id number] BMP WITH EGFR Collected: 09/01/2018 Status: F [facility] REPOSITORY TYPE CODE TESTS RESULT OUT OF RANGE REFERENCE UNITS LAB BMP with eGFR(LOINC) BMP with eGFR Result Comment: BASIC METABOLIC PANEL LAB SODIUM(LOINC) 136 - 145 mmol/l SODIUM 138 LAB POTASSIUM(LOINC) 3.5 - 5.1 mmol/L POTASSIUM 4.8 LAB CHLORIDE(LOINC) 98 - 107 mmol/L CHLORIDE 103 LAB CO2(LOINC) 21.0 - mmol/L 31.0 CO2 27.4 LAB GLUCOSE(LOINC) 74 - 106 mg/dl GLUCOSE 88 LAB BUN(LOINC) 6 - 20 mg/dl BUN High 21 LAB CREATININE(LOINC) 0.7 - 1.3 mg/dl CREATININE 0.8 LAB CALCIUM(LOINC) 8.6 - mg/dl 10.2 CALCIUM 9.2 LAB ANION GAP(LOINC) 10 - 20 mmol/L ANION GAP 12 LAB AGE(LOINC) years AGE 73 LAB eGFR(LOINC) 60 - 999 ML/MINUTE eGFR >60 LAB eGFR(AA)(LOINC) 60 - 999 ML/MINUTE eGFR(AA) >60 Result Comment: ACCORDING TO THE NATIONAL KIDNEY DISEASE EDUCATION PROGRAM(NKDE), A NORMAL eGFR IS A VALUE GREATER THAN OR EQUAL TO 60 ML/MIN/1.73 SQ METERS. CHRONIC KIDNEY DISEASE: <60mL/MIN/1.73 SQ METERS KIDNEY FAILURE: <15mL/MIN/1.73 SQ METERS THIS TEST SHOULD ONLY BE USED FOR PATIENTS 18 YEARS OF AGE AND OLDER. Performed By: #### [id number] #### [facility],[address] [place], [place] [id number] VANCOMYCIN TROUGH Collected: 09/01/2018 Status: F [facility] REPOSITORY TYPE CODE TESTS RESULT OUT OF RANGE REFERENCE UNITS LAB VANCOMYCIN, 10.0 - 15.0 ug/mL TROUGH(LOIN High C) 16.4 VANCOMYCIN,T ROUGH Performed By: #### [id number] #### [facility],[address] [place], [place] [address] SEDRATE Collected: 09/01/2018 Status: F Source: [facility] 8[facility] AM [facility] REPOSITORY TYPE CODE TESTS RESULT OUT OF REFERENCE UNITS RANGE LAB SEDRATE(PAIGE 0 - 20 mm/hr NC) High SEDRATE 31 Performed By: #### [id number] #### [facility],[address] [place] [id number] PICC INSERTION Observed: 08/31/2018 Status: F Source: [facility] 3:17 PM [facility] REPOSITORY [place] [address] Patient: YNES CODY Phone#: : 1945 Age: 73 Gender: M Pt. Type: Out Account: [id number] Location: Ordering: SHO GONZALEZ Exam Date: 08/31/2018/14:16 Family Phys: SHO FITZGERALD Charge Code: 184657 Physician: Noble Order #: [id number] DLP Dose#: PROCEDURE: PICC COMPARISON: None. INDICATIONS: Picc FINDINGS: PICC LINE: Right sided PICC line. PICC line terminates in the right atrium. LUNGS: Poor inspiratory effort. There is chronic interstitial changes. No focal parenchymal abnormality. VASCULATURE: Normal. Unremarkable pulmonary vasculature. CARDIAC: Mild cardiomegaly. MEDIASTINUM: Mediastinum appears widened. The upper trachea is deviated to the right. PLEURA: Normal. No effusion or pleural thickening. BONES: There are degenerative changes of the spine. Hardware at the lower cervical spine, correlate with surgical history. OTHER: Negative. CONCLUSION: 1. Right approach PICC line tip terminates in the right atrium. Recommend withdrawing 2 cm. This was communicated to the PICC nurse. 2. Mediastinal widening and rightward deviation of the trachea. This may be due to an aneurysm versus mediastinal mass versus other mediastinal abnormality. Recommend correlation with any recent CT chest that may have been performed elsewhere. If none available recommend further evaluation. Dictated by: Dilcia Joseph MD on 08/31/2018 at 15:25 Approved by: Dilcia Joseph MD on 08/31/2018 at 16:27 EMERGENCY REPORT Observed: 08/28/2018 Status: F Source: [facility] 11:58 AM [facility] EMERGENCY ROOM REPORT NAME ACCOUNT SEX AGE ADMIT DISCHARGE PT MED. RECORD# NUMBER DATE DATE TYPE GLO [id number] Melissa 73 08/28/18 3 YNES Kolb [id number] ROOM: ER DATE OF : 1945 DICTATING PHYSICIAN: Marcelo Hernandez CHIEF COMPLAINT: Needs IV access. HISTORY OF PRESENT ILLNESS: The patient is a senior living resident. He has been getting antibiotics through a PICC line but apparently pulled his PICC line out today. Initially I was told that he was being sent to the ED for a PICC line placement. I was able to reach Dr. Davis to go over this with him and made him aware that PICC line placement is not done emergently through the ED. We would be able to place an IV if they wanted us to proceed with that, and he mentioned that basically that is what he would prefer is to have an IV placed and he can return to the senior living for his IV treatment. He needs no other treatment or intervention at this time. PAST MEDICAL HISTORY: Reviewed on his accompanying chart information. SOCIAL HISTORY: Reviewed on his accompanying chart information. PHYSICAL EXAMINATION: This is a 73-year-old male who does not appear in any acute distress. Skin is pale, pink, warm and dry. Vital signs as noted. He did not appear in any distress. EMERGENCY DEPARTMENT COURSE AND TREATMENT: Nursing personnel were able to place an IV easily upon his arrival, and he was discharged at that point to return to the senior living for his IV treatment. DIAGNOSIS: IV placement for antibiotic infusion as an outpatient. Dictated By: Marcelo Hernandez MD 08/28/18 12:11 JOB #: [id number] Transcribed By: [email or web address] 08/28/18 12:15 Electronically signed by: BLAS Hernandez M.D. 09/04/18 07:25 Page 1 of 1 YNES CODY Emergency Room Report W DISCHARGE SUMMARY Observed: 08/26/2018 Status: F Source: [facility] 1:07 AM [facility] Medical Records Department [address] [place] [address] Discharge Summary 08/23/18 1800 MR#: [id number] Acct: [id number] Name: GLO,YNES Kolb Rep #: [id number] : 1945 73 From: Elier Bryant MD PCP: Sho Fitzgerald MD Status: DIS IN Y Location: MS3 [id number] Discharge Date and Diagnosis Date of Admission: 08/17/18 Date of Discharge: 08/23/18 - Primary Discharge Diagnosis Sacral pressure sore, Stage IV. Osteomyelitis. MRSA. - Secondary Discharge Diagnosis Urinary incontinence Dementia Debility Failure to thrive Macrocytic anemia Parkinson's disease dementia Parkinson disease Generalized weakness Hospital Course and Treatment Imaging Results: None. Consultations 08/18/18 06:53 Consult: Onc/Wound/nipple machine operator Routine Comment: Reason for Consult:: VAC application Hospitalist Group - Drs. Vigil, Dawn, and Janet. Infectious Diseases - Dr. Wood. Operations: - - 08/17/18 - Excision sacral pressure sore, Stage IV, with partial ostectomy for osteomyelitis. Procedures: PICC line placement, Wound vac placement Summary of Care Provided: This is a 73-year-old male who is currently a resident of [facility]. He presented to the Wound Center with a sacral pressure sore. Recent culture showed Streptococcus agalactiae and is on Amoxicillin. MRI was done which showed osteomyelitis. Wound care is currently being done with Silver dressings. At the senior living, he takes nutritional supplementation with protein to help the healing process. He has a history of urinary incontinence. A torres catheter was placed. He is of very limited mobility, though ambulates with assistance and with the assistance of a walker. Otherwise, he spends long hours each day either lying in bed or sitting in a chair. I was asked to evaluate this patient for surgical options for treatment. Patient was taken to the OR on 08/17/18 and underwent excision sacral pressure sore, Stage IV, with partial ostectomy for osteomyelitis. Patient tolerated the procedure well. The following day the VAC was applied. He was initially treated with Unasyn for a preop culture that showed Streptococcus agalactiae. The Hospitalist Group was consulted for medical management. Infectious Diseases was consulted for antibiotic management. His Prealbumin was 27.6. Encourage nutritional supplementation with protein to help the healing process. On the third postop day, operative cultures showed MRSE in the soft tissue and MRSA in the bone. The Unasyn was stopped and he was started on Vancomycin. A PICC line was placed in anticipation of halfway IV antibiotics after discharge. PT was also involved to help with ambulation, gait training, and strengthening. On the 6th postop day, he was approve to go back to the [facility] that he came from, [facility]. The Pathology was available on that day prior to discharge. It was positive for acute osteomyelitis. So he will continue IV antibiotics with Vancomycin for 6 weeks. He was discharged in satisfactory condition. He will followup at the Wound Center in the next 2-4 weeks to monitor the healing of his sacral pressure sore. Subjective: Postop #6 Patient is resting comfortably. - Physical Exam General: Alert, Oriented x3 HEENT: PERRLA, EOMI Oral: Moist Mucosa Neck: Supple Abdomen: Soft, Non-Distended Skin: Ulcer/ Wound - sacral wound is stable. VAC in place. Minimal drainage in the canister. Neurological: Cranial nerves II-XII grossly intact Psych/Mental Status: Appropriate, Flat Affect Vital Signs Temp Pulse Resp BP Pulse Ox 98.5 F 68 16 138/68 H 91 08/23/18 11:00 08/23/18 11:00 08/23/18 08:16 08/23/18 11:00 08/23/18 11:00 Oxygen Flow Rate (L/min) 2 Oxygen Delivery Method Room Air Weight: 150 lb 15.984 oz Body Mass Index (BMI) 24.3 Intake and Output for Last 24 Hours Intake Total 2256 / 2256 2992 / 2992 1432 / 1432 Output Total 2800 / 2800 4750 / 4750 1700 / 1700 Balance -544 / -544 -1758 / -1758 -268 / -268 Microbiology Past 72 Hours 08/17/18 Unknown Gram Stain - Final Tissue - Other Wound Culture - Final Discharge Diet: No Restrictions, - - encourage nutritional supplementation with protein to help the healing process. Call your doctor if your incision/area has: Continuous Slow Oozing, Sudden Increased Bleeding, Increased Pain/ Swelling, Increased Redness, Foul Smelling Discharge, Swelling at the incision site Call your doctor if you observe: Fever of 101 or Higher, Coldness, Increased Pain, Shortness of breath, Chest pain, Calf discomfort, Uncontrolled pain Suture Line Care: - - vac changes three times per week at 150 mmHg continuous suction. Change Dressing in (Days):: 2 - vac changes three times per week. Cleanse incision/area with: Soap AND Water - cleanse the wound with soap and water on the days the vac is changed. Catheter: Torres to leg bag Home Medications: Medications to take at Discharge Carbidopa/Levodopa 50/200 [Sinemet CR 50/200] 1 tablet PO HS@2100 tablet.sa 10/09/17 Acetaminophen [Tylenol] 500 mg PO BID 08/11/18 Carbidopa/Levodopa 25/100 [Sinemet 25/100] 2 tablet PO TIDAC 08/11/18 Cholecalciferol (Vitamin D3) [Vitamin D3] 1,000 unit PO DAILY 08/11/18 Multivitamin [Multiple Vitamins] 1 each PO DAILY 08/11/18 Polyethylene Glycol 3350 [Miralax] 17 gm PO DAILY 08/11/18 Vitamin B Complex 1 each PO DAILY 08/11/18 Donepezil HCl [Aricept] 10 mg PO QHS #1 tablet 08/23/18 Nutritional Supplement [Inderjit - ORANGE FLAVOR] 1 packet PO BIDCM packet 08/23/18 Oxycodone [Oxyir] 5 mg PO Q4H PRN PRN 7 Days #20 tab 08/23/18 Valsartan [Diovan] 80 mg PO DAILY tablet 08/23/18 Vancomycin IV 1,250 mg IV Q12H #76 vial 08/23/18 Following Prescrptions Were Given to Patient: Oxycodone [Oxyir] 5 mg PO Q4H PRN PRN 7 Days #20 tab PRN Reason: Severe Pain (6-08/11) Donepezil HCl [Aricept] 10 mg PO QHS #1 tablet Vancomycin IV 1,250 mg IV Q12H #76 vial Primary Care Physician: Sho Fitzgerald MD [Primary Care Provider] - Please Follow Up With: Elier Bryant MD When: 2-4 weeks at the Wound Center. call [phone] for appt. Disposition: Long Term facility Minutes spent on discharge:: 35 Patient Condition:: Stable Medical Necessity - Tobacco Use Smoking Status: Never smoker Meaningful Use Info Meaningful Use Diagnoses (Choose all that apply): None applicable 08/26/18 0107 <Electronically signed by Elier Bryant MD> Date Elier Bryant MD Cosigner Signature (if applicable): Date CC: Sho Seymour DO; Sho Fitzgerald MD; Carlyle Vigil; Elier Bryant MD; Emanuel Daniels MD; Luis M Gonzales DO; Sahil Wood MD; [facility] Signed BMP WITH EGFR Collected: 08/25/2018 Status: F Source: [facility] 8:40 AM [facility] REPOSITORY TYPE CODE TESTS RESULT OUT OF RANGE REFERENCE UNITS LAB BMP with eGFR(LOINC) BMP with eGFR Result Comment: BASIC METABOLIC PANEL LAB SODIUM(LOINC) 136 - 145 mmol/l SODIUM 139 LAB POTASSIUM(LOINC) 3.5 - 5.1 mmol/L POTASSIUM 3.8 LAB CHLORIDE(LOINC) 98 - 107 mmol/L CHLORIDE 106 LAB CO2(LOINC) 21.0 - mmol/L 31.0 CO2 24.6 LAB GLUCOSE(LOINC) 74 - 106 mg/dl GLUCOSE 93 LAB BUN(LOINC) 6 - 20 mg/dl BUN 18 LAB CREATININE(LOINC) 0.7 - 1.3 mg/dl CREATININE 0.8 LAB CALCIUM(LOINC) 8.6 - mg/dl 10.2 CALCIUM 8.8 LAB ANION GAP(LOINC) 10 - 20 mmol/L ANION GAP 12 LAB AGE(LOINC) years AGE 73 LAB eGFR(LOINC) 60 - 999 ML/MINUTE eGFR >60 LAB eGFR(AA)(LOINC) 60 - 999 ML/MINUTE eGFR(AA) >60 Result Comment: ACCORDING TO THE NATIONAL KIDNEY DISEASE EDUCATION PROGRAM(NKDE), A NORMAL eGFR IS A VALUE GREATER THAN OR EQUAL TO 60 ML/MIN/1.73 SQ METERS. CHRONIC KIDNEY DISEASE: <60mL/MIN/1.73 SQ METERS KIDNEY FAILURE: <15mL/MIN/1.73 SQ METERS THIS TEST SHOULD ONLY BE USED FOR PATIENTS 18 YEARS OF AGE AND OLDER. Performed By: #### [id number] #### [facility],[address] [place] [address] VANCOMYCIN TROUGH Collected: 08/25/2018 Status: F Source: [facility] 8:40 [facility] REPOSITORY TYPE CODE TESTS RESULT OUT OF RANGE REFERENCE UNITS LAB VANCOMYCIN, 10.0 - 15.0 ug/mL TROUGH(LOIN High C) 17.4 VANCOMYCIN,T ROUGH Performed By: #### [id number] #### [facility],[address] [facility] [address] CBC Collected: 08/25/2018 Status: F Source: [facility] 8:40 [facility] REPOSITORY TYPE CODE TESTS RESULT OUT OF RANGE REFERENCE UNITS LAB CBC(LOINC) CBC Result Comment: CBC-COMPLETE BLOOD COUNT LAB WBC(LOINC) 4.5 - 10.8 x 10EE3/UL WBC High 11.7 LAB RBC(LOINC) 4.50 - x 10EE6/UL 6.00 RBC Low 3.53 LAB HEMOGLOBIN(LOINC 13.0 - g/dl ) 17.5 Low HEMOGLOBIN 11.8 LAB HEMATOCRIT(LOINC 40.0 - % ) 52.0 Low HEMATOCRIT 35.2 LAB MCV(LOINC) 81 - 98 fl MCV High 100 LAB MCH(LOINC) 27 - 33 pg MCH High 34 LAB MCHC(LOINC) 32 - 36 X10 3 MCHC 34 LAB RDW/CV(LOINC) 12.0 - % 15.6 RDW/CV High 17.5 LAB PLATELET(LOINC) 150 - 450 x10EE3/UL PLATELET 364 LAB MPV(LOINC) 6.4 - 10.5 fl MPV 8.2 Result Comment: AUTOMATED DIFFERENTIAL LAB NEUT %(LOINC) 46.0 - 76.0 % NEUT % High 80.8 LAB LYMPH %(LOINC) 20.0 - 45.0 % Low LYMPH % 10.9 LAB MONOS %(LOINC) 0.0 - 10.0 % MONOS % 6.3 LAB EO %(LOINC) 0.0 - 7.0 % EO % 1.4 LAB BASO %(LOINC) 0.0 - 2.0 % BASO % 0.6 LAB Lymph #(LOINC) 0.80 - 2.80 x10EE3/U L Lymph # 1.30 LAB Neut #(LOINC) 1.50 - 7.10 x10EE3/U L Neut # High 9.50 LAB Quay #(LOINC) 0.20 - 1.00 x10EE3/U L Quay # 0.70 LAB EO #(LOINC) 0.00 - 0.50 x10EE3/U L EO # 0.20 LAB Baso #(LOINC) 0.00 - 0.10 x10EE3/U L Baso # 0.10 LAB MANUAL DIFF(LOINC) MANUAL DIFF N/A LAB MORPHOLOGY(LOINC ) MORPHOLOGY N/A Result Comment: {CD] Performed By: #### [id number] #### [place] [address] SEDRATE Collected: 08/25/2018 Status: F Source: [facility] 8:40 AM [facility] REPOSITORY TYPE CODE TESTS RESULT OUT OF REFERENCE UNITS RANGE LAB SEDRATE(PAIGE 0 - 20 mm/hr NC) High SEDRATE 34 Performed By: #### [id number] #### [place] [address] TRANSFER TO EXTENDED Observed: 08/23/2018 Status: F Source: [facility] 4:31 PM [facility] REPOSITORY [facility] Medical Records Department [address] [place] [address] [facility] Care MR#: [id number] Acct: [id number] Name: YNES CODY Rep #: [id number] : 1945 73 From: Luis M Gonzales DO PCP: Sho Fitzgerald MD Status: ADM IN YNES CODY (Patient) (Health Ins. Claim No.) (Day of Discharge to Facility) Certification of patient admission REQUIRED AT TIME OF ADMISSION. I CERTIFY THAT POST-HOSPITAL ECF SERVICES ARE REQUIRED TO BE GIVEN ON AN IN-PATIENT BASIS BECAUSE OF THE ABOVE NAMED PATIENT'S NEED FOR FDC CARE ON A CONTINUING BASIS FOR THE CONDITION(S) FOR WHICH HE/SHE WAS RECEIVING IN-PATIENT HOSPITAL SERVICES PRIOR TO HIS/HER TRANSFER TO THE [facility]. 08/23/18 1631 <Electronically signed by Luis M Gonzales DO> Date Luis M Gonzales DO - Diet 08/17/18 16:32 Diet: Regular Diet Dietary Modifications:: Mechanical Soft Diet Nina Thick Liquids Diet Comments: ground meats - Wound(s) SACROILIAC RIGHT Wound Type: Surgical Incision Dressing Change: Dry Sterile Dressing sacrum Wound Type: Pressure Injury Dressing Change: Wet to Dry Dressing left flank Wound Type: Abrasion L knee Wound Type: scab - Therapies Weight Bearing: Weight bearing as tolerated - with wheeled walker Physical Therapy: Eval and Treat Occupational Therapy: Eval and Treat Speech Therapy: Eval and Treat - Problem/Diagnosis (1) Chronic osteomyelitis of sacrum Status: Chronic Current Visit: No (2) Pressure ulcer of sacral region, stage 4 Status: Chronic Current Visit: No (3) Urinary incontinence Status: Chronic Current Visit: No (4) Dementia Status: Chronic Current Visit: No (5) Parkinson disease Status: Chronic Current Visit: No - Allergies/Procedures Done in Hospital Allergies/Adverse Reactions: Allergies No Known Allergies Allergy (Verified 08/11/18 13:10) Procedures: - - excision sacral pressure ulcer stage 4, partial ostectomy for osteomyelitis- 08/17/18 - Type of Care/Length of Stay Estimated LOS: Convalescent Care Less Than 30 days Type of Care Needed: Skilled Rehab Potential: Fair Prognosis: Fair - Additional Orders/Day of Discharge Additional Orders: See Dr. Bryant at wound center-call for appointment. Wound vac to be changed three times per week at 150mm continuous suction. See Dr. Wood at wound center-call for appointment Day of Discharge: 08/23/18 - Dietary and Speech Recommendations Dietitian Recommendations/Changes: Will provide ensure pudding or magic cup w/ meals for increased nutrition if consumed. Continue regular diet- consistency per HEAD ATHLETIC TRAINER. Continue Inderjit BID for wound healing - Follow Up Care Primary Care Physician: Sho Fitzgerald MD [Primary Care Provider] - 08/23/18 5521 <Electronically signed by Luis M Gonzales DO> Date Luis M Gonzales DO CC: Sho Fitzgerald MD; Carlyle Vigil; Sahil Wood MD Signed VANCOMYCIN, TROUGH Collected: 08/21/2018 Status: F Source: DAVIN LEVEL 9:25 PM [facility] REPOSITORY Order Comment: Time Medication is to be Given? 2199 TYPE CODE TESTS RESULT OUT OF RANGE REFERENCE UNITS LAB L501.8820 5.0-15.0 ug/mL Normal VANCO, TROUGH 9.7 Result Comment: VANCOMYCIN STANDARED DRUG THERAPY TROUGH LEVEL: 5.0 - 15.0 mg/L VANCOMYCIN HIGH INTENSITY THERAPY TROUGH LEVEL: 15.0 - 20.0 mg/L High Intensity therapy recommended for serious life threatening infections include: - Meningitis -Endocarditis -Pneumonia (Ventilator/Healtcare Associated) -Sepsis PLEASE CONTACT PHARMACY SERVICES (#[phone]) FOR INTERPRETATION OF RESULTS. Performed By: #### L501.8820 #### [facility] [address] [facility] [place], [address] CONSULTATION Observed: 08/20/2018 Status: F Source: DAVIN 2:03 PM [facility] REPOSITORY [facility] Medical Records Department [address] [place] [address] Consultation 08/20/18 1358 MR#: [id number] Acct: [id number] Name: YNES CODY Rep #: [id number] : 1945 73 From: Sahil Wood MD PCP: Sho Fitzgerald MD Status: ADM IN Y [facility] Problem List (1) Chronic osteomyelitis of sacrum Status: Chronic Reason for Consult: osteo Consulted by: Dr. Gonzales History of Present Illness: The patient is a 73 year old M with Parkinson's and dementia who presented for sacral osteo. Follows with Dr. Bryant at wound care center. Had sacral wound for several months. Had cx in June with strep, had been on amox. Wound worsened, MRI showed osteo, taken to OR 08/17 for debridement. Now bone cx with MRSA, so vanc started and unasyn stopped. No fever, no n/v/d. Picc in place. D/c to ECF planned. ROS limited by mental status and ability to communicate, but denies cough, SOB, fever, abd pain, n/v. - Medical History Past Medical History (Chronic Problems): Chronic Problems Chronic osteomyelitis of sacrum (Chronic) Pressure ulcer of sacral region, stage 4 (Chronic) Urinary incontinence (Chronic) Dementia (Chronic) Debility (Chronic) Pressure ulcer, stage 4 (Chronic) Failure to thrive (Chronic) Macrocytic anemia (Chronic) Parkinson's disease dementia (Chronic) Parkinson disease (Chronic) Generalized weakness (Chronic) Allergies/Adverse Reactions: Allergies No Known Allergies Allergy (Verified 08/11/18 13:10) Home Medications: Ambulatory Orders Medication Instructions Recorded - Social History Tobacco Use: non-smoker Vital Signs Temp Pulse Resp BP Pulse Ox 99.1 F 74 18 134/74 H 96 08/20/18 10:10 08/20/18 10:10 08/20/18 10:10 08/20/18 10:10 08/20/18 10:10 Oxygen Flow Rate (L/min) 2 Oxygen Delivery Method Room Air Weight: 68.492 kg Body Mass Index (BMI) 24.3 Microbiology Past 72 Hours 08/17/18 Unknown Gram Stain - Final Tissue - Other Wound Culture - Final - Other Studies Radiology: [] reviewed Other Studies: [] Route of nutrition/ use of supplements: [] Nutritional Intake: [] IV Site: [] Torres Catheter: [] - Physical Exam General: Cooperative, No apparent distress HEENT: Atraumatic, PERRLA, EOMI Neck: Supple, No Nodes Lungs: Clear to auscultation, Normal air movement Cardiovascular: Regular rate, Regular Rhythm Abdomen: Soft, Non Tender, Non-Distended Extremities: No edema Skin: Ulcer/ Wound - bandaged IV Site: PICC, without redness Musculoskeletal: No Tenderness to Palpation of Joints or Extremities Neurological: - - parkinson's - Assessment/Plan Antibiotics: [] Assessment/Plan: [] Sacral MRSA osteo - s/p OR 08/17/[address] Bryant. Tissue cx also with MRSE. Prior cx with strep. Ok for d/c to facility for 6 week course of iv vanc. Rx written with weekly labs. I can follow him at wound center as needed. Thank you, d/w telehealth case manager and primary team. 08/20/18 4436 <Electronically signed by Sahil Wood MD> Date Sahil Wood MD Cosigner Signature (if applicable): Date CC: Sho Fitzgerald MD; Carlyle Vigil; Elier Bryant MD; Sahil Wood MD Signed CBC-COMPLETE BLOOD CNT Collected: 08/19/2018 Status: F Source: YPSILANTI NO DIFF 6:34 AM [facility] REPOSITORY TYPE CODE TESTS RESULT OUT OF RANGE REFERENCE UNITS LAB L100.1000 4.4-11.0 K/mm3 Normal WBC 8.1 LAB L100.1200 4.6-6.2 M/mm3 Low RBC 3.15 LAB L100.1300 13.0-16.5 g/dl Low HGB 10.8 LAB L100.1400 40-54 % Low HCT 32.1 LAB L100.1500 80-94 fL High MCV 101.9 LAB L100.1600 27.0-32.0 pg High MCH 34.3 LAB L100.1700 32-36 g/gl Normal MCHC 33.6 LAB L100.1810 11.6-14.6 % High RDW CV 16.5 LAB L100.1820 35.1-43.9 fl High RDW SD 58.5 LAB L100.1900 150-450 K/mm3 Normal PLT 249 LAB L100.2000 6.2-12.0 fl Normal MPV 9.2 Performed By: #### L100.0500 #### [facility] [place], [address] BASIC METABOLIC Collected: 08/19/2018 Status: F Source: YPSILANTI PROFILE (BMP) 6:34 AM [facility] REPOSITORY TYPE CODE TESTS RESULT OUT OF RANGE REFERENCE UNITS LAB L501.0100 74-106 mg/dL Normal GLU 89 Result Comment: Please note revised GLUCOSE reference range effective 2017. LAB L501.1000 7-18 mg/dL Normal BUN 18 LAB L501.1100 0.70-1.30 mg/dL Normal CREAT,SERUM 0.79 Result Comment: The validity of the calculated GFR AND GFRAA in patients over 70 years has not been determined. Clinical correlation is essential. LAB L501.1110 >60 mL/min Normal EST GFR 103 Result Comment: Non- GFR Calc LAB L501.1115 >60 mL/min Normal EST GFR - AA 124 Result Comment: GFR Calc LAB L501.1255 ml/min Normal Estimated CRCL 58.48 LAB L501.1300 10-20 RATIO High BUN/CRE 22.9 LAB L501.2200 8.5-10 mg/dL Low .1 CA 8.4 LAB L501.5300 136-14 mmol/L Normal 5 NA 141 LAB L501.5600 3.5-5. mmol/L Normal 1 K 3.9 LAB L501.5900 98-107 mmol/L High CL 108 LAB L501.6100 21.0-3 mmol/L Normal 2.0 CO2 27.0 LAB L501.6200 5-15 Normal GAP 6 Performed By: #### L500.2500 #### [facility] [address] [facility] [place], [address] OPERATIVE REPORT Observed: 08/18/2018 Status: F Source: YPSILANTI 8:56 PM [facility] REPOSITORY [facility] Medical Records Department [address] [place] [address] Operative Report 08/17/181913 MR#: [id number] Acct: [id number] Name: YNES CODY Rep #: [id number] : 1945 73 From: Elier Bryant MD PCP: Sho Fitzgerald MD Status: ADM IN Y Location: [facility] [id number] Report of Operation Date of Procedure: 08/17/18 Pre-Operative Diagnosis: 1. Sacral pressure sore, Stage IV. 2. Osteomyelitis. 3. Urinary incontinence. 4. Dementia. Post-Operative Diagnosis: Same. Surgery/Procedure Performed:: Excision sacral pressure sore, Stage IV, with partial ostectomy for osteomyelits. Description of Surgical Findings:: This is a 73-year-old male who is currently a resident of [facility]. He presented to the Wound Center with a sacral pressure sore. Recent culture showed Streptococcus agalactiae and is on Amoxicillin. MRI was done which showed osteomyelitis. Wound care is currently being done with Silver dressings. At the senior living, he takes nutritional supplementation with protein to help the healing process. He has a history of urinary incontinence. He is of very limited mobility, though ambulates with assistance and with the assistance of a walker. Otherwise, he spends long hours each day either lying in bed or sitting in a chair. I was asked to evaluate this patient for surgical options for treatment. Patient and his family were informed of the risks and complications of the procedure including alternatives to surgery. These were discussed with them personally. They voice understanding and wish to proceed. Size of defect sacral area - 5 x 4 x 4 cm. salesperson new cars: None Type of Anesthesia:: General Specimen's removed: 1. Sacral pressure sore soft tissue to Pathology and Microbiology. 2. Sacral pressure sore bone to Pathology and Microbiology. Drains: None. Estimated Blood Loss (mL): 50 ml. Description of Procedure: Patient was taken to OR in supine position and was placed under general anesthesia. He was then placed in the prone position. The sacral area was prepped and draped in the usual fashion. SCD's were placed for DVT prophylaxis. Perioperative antibiotics were given intravenously. Using xylocaine with epinephrine, the sacral pressure sore was infiltrated. After waiting 5 minutes for the anesthetic to take effect, I probed the pressure sore and there was superior undermining. Not much was noted laterally and inferiorly. Using a scalpel, I excised the pressure sore into the subcutaneous tissue through the muscle until the bone was seen. There was a sinus tract that extended to the bone. A partial ostectomy was performed with rongeurs. The bone was not very strong. It looked clinically suspicious for osteomyelitis. A rasp was used to smooth out the bony edges. Half the soft tissue and half the bone was sent to Pathology for analysis to rule out carcinoma and to evaluate for osteomyelitis. Half the soft tissue and half the bone was sent to Microbiology for culture. A positive culture may necessitate antibiotic modification. The size of the defect after excision of the pressure sore was 5 x 4 x 4 cm. Hemostasis was obtained with electrocautery. The wound was irrigated with saline. The wound was then dressed with Mepitel nonadherent dressing and Kerlix gauze with Betadine followed by dry Kerlix gauze and ABD pads compression dressing. Patient tolerated the procedure well and was sent to PACU in satisfactory condition. Patient will be sent upstairs for continued postop care. Will continue IV antibiotics. The VAC will be applied tomorrow. Grafts/Implants Used: None. - Complications None. - Admit VTE Documentation VTE Present on Admission: No VTE Mechan Device Prophylaxis: SCD's VTE Pharm Prophylaxis ordered?: No Code Visit Surgery Charges CPT - 63666 ICD-10 - L89.154, M86.68 08/18/182055 <Electronically signed by Elier Bryant MD> Date Elier Bryant MD CC: Sho Fitzgerald MD; Carlyle Vigil; Elier Bryant MD; Emanuel Daniels MD; [facility] Signed CBC-COMPLETE BLOOD CNT Collected: 08/18/2018 Status: F Source: DAVIN NO DIFF 7:14 AM [facility] REPOSITORY TYPE CODE TESTS RESULT OUT OF RANGE REFERENCE UNITS LAB L100.1000 4.4-11.0 K/mm3 Normal WBC 9.6 LAB L100.1200 4.6-6.2 M/mm3 Low RBC 3.27 LAB L100.1300 13.0-16.5 g/dl Low HGB 10.8 LAB L100.1400 40-54 % Low HCT 33.0 LAB L100.1500 80-94 fL High MCV 100.9 LAB L100.1600 27.0-32.0 pg High MCH 33.0 LAB L100.1700 32-36 g/gl Normal MCHC 32.7 LAB L100.1810 11.6-14.6 % High RDW CV 17.3 LAB L100.1820 35.1-43.9 fl High RDW SD 63.5 LAB L100.1900 150-450 K/mm3 Normal PLT 256 LAB L100.2000 6.2-12.0 fl Normal MPV 9.3 Performed By: #### L100.0500 #### [facility] [address] [place], [address] BASIC METABOLIC Collected: 08/18/2018 Status: F Source: DAVIN PROFILE (BMP) 7:14 AM [facility] REPOSITORY TYPE CODE TESTS RESULT OUT OF RANGE REFERENCE UNITS LAB L501.0100 74-106 mg/dL Normal GLU 83 Result Comment: Please note revised GLUCOSE reference range effective 2017. LAB L501.1000 7-18 mg/dL High BUN 20 LAB L501.1100 0.70-1.30 mg/dL Normal CREAT,SERUM 0.91 Result Comment: The validity of the calculated GFR AND GFRAA in patients over 70 years has not been determined. Clinical correlation is essential. LAB L501.1110 >60 mL/min Normal EST GFR 86 Result Comment: Non- GFR Calc LAB L501.1115 >60 mL/min Normal EST GFR - AA 104 Result Comment: GFR Calc LAB L501.1255 ml/min Normal Estimated CRCL 64.27 LAB L501.1300 10-20 RATIO High BUN/CRE 21.9 LAB L501.2200 8.5-10 mg/dL Low .1 CA 8.3 LAB L501.5300 136-14 mmol/L Normal 5 NA 142 LAB L501.5600 3.5-5. mmol/L Normal 1 K 4.4 LAB L501.5900 98-107 mmol/L Normal CL 107 LAB L501.6100 21.0-3 mmol/L Normal 2.0 CO2 27.0 LAB L501.6200 5-15 Normal GAP 8 Performed By: #### L500.2500, L506.0500 #### [facility] [address] [facility] [address] [place], [address] PREALBUMIN Collected: 08/18/2018 Status: F Source: DAVIN 7:14 AM [facility] REPOSITORY TYPE CODE TESTS RESULT OUT OF RANGE REFERENCE UNITS LAB L506.0500 20.0-40.0 mg/dL Normal PREALBUMIN 27.6 Performed By: #### L500.2500, L506.0500 #### [facility] [address] [place], [address] PRESSURE SORE Observed: 08/17/2018 Status: F Source: DAVIN 12:30 PM [facility] REPOSITORY Patient: YNES CODY : 1945 (73/M) Acct Num: [id number] Phys: Luis M Gonzales DO Unit Num: [id number] Loc: MS3 YV146-6 Specimen: [id number] Received: 08/17/18 - 1624 Spec Type: PRESS SORE TISSUES 1 TISSUES: A. Sacrum, NOS B. Sacral region GROSS DESCRIPTION A - Received in fixative is one container labeled with the patient's name and designated sacral bone. The specimen consists of multiple fragments of bone that in aggregate measure 5 x 3 x 0.4 cm. The entire specimen is submitted in two cassettes after decalcification. B - Received in fixative is one container labeled with the patient's name and designated sacral soft tissue. The specimen consists of a piece of skin with underlying tissue measuring 4.5 x 3 cm and up to 1.8 cm in thickness. Also present in the container is a detached piece of indurated tissue measuring 3 x 2 x 1.5 cm. Sections do not reveal any mass lesion. Laser Print Operator sections are submitted in three cassettes. / JOAN:lyle 08/18/18 TC:2 CPT: 96547 x2, 06458 HEADER OPERATION: Excision pressure sore with partial ostectomy for osteomyelitis PRE-OP DIAGNOSIS: Sacral pressure sore stage IV; osteomyelitis TISSUE SUBMITTED: A - Sacral bone, B - Sacral soft tissue MICROSCOPIC DESCRIPTION Slides are reviewed. MICROSCOPIC DIAGNOSIS A. Sacral bone: Pieces of bone with acute osteomyelitis. B. Sacral soft tissue: Focal ulceration, acute and chronic inflammation and granulation tissue reaction. JOAN:lyle 08/23/18 Signed Vikash Godinez 08/23/18 <signature on file> Performed By: #### PPRES #### [facility] [address] [place], [address] Observed: 08/17/2018 Status: F Source: YPSILANTI CULTURE, DEEP WOUND 12:00 AM [facility] REPOSITORY Order Date: 06/03/17 List Antibiotics Last 48 Hours? UNASYN Has pt arrived? Y Comments: SACRAL BONE Gram Stain Gram Stain 1+ White Blood Cells No organisms seen Wound Culture RESULTS CALLED TO Kwaku FITZGERALD 08/20/18 0758 Yessica Umaña. REPORT READ BACK BY STEPAN. ORGANISM 1: Meth. resistant Staph. aureus Amount Growth Very Rare Meth. resistant Staph. aureus: REACTION Benzylpenicillin NF >=0.5 R Cefoxitin *NF + Clindamycin $$ <=0.25 S Inducable Clindamycin Resistan - Erythromycin $ >=8 R Gentamicin $ <=0.5 S Levofloxacin $ <=0.12 S Linezolid $$$$ 2 S Oxacillin NF >=4 R Tigecycline $$$$ <=0.12 S Rifampin $$ <=0.5 S Tetracycline NF <=1 S Trimethoprim/Sulfametho $ <=10 S Vancomycin $ 1 S (NF) indicates non-formulary drug at [facility]. Approval by Infectious Disease Specialist required before non-formulary drugs may be ordered and/or dispensed. * CLSI guidelines does not recommend testing of cephalosporins. This interpretation is deduced from Beta-lactam/penicillin results. Cult, Anaerobic No anaerobic bacteria isolated. Performed By: #### M100.1500, M600.1900 #### [facility] [address] [place], [address] Observed: 08/17/2018 Status: F Source: RUEL SKINNER W/ 12:00 [facility] [id number] REPOSITORY Comments: SACRAL BONE Has pt arrived? Y Is this test to exclude patient from TB Isolation? Beckie [id number] TESTING PERFORMED AT [facility]. ORIGINAL REPORT ON FILE IN LAB CONTAINS ADDITIONAL TEST SITE INFORMATION. CUF No yeast or mold isolated after [address] TESTING PERFORMED AT [facility]. ORIGINAL REPORT ON FILE IN LAB CONTAINS ADDITIONAL TEST SITE INFORMATION. Fungus Stain No yeast or mold observed. Performed By: #### M100.1500, M600.1900 #### [facility] [address] [place], [address] Observed: 08/17/2018 Status: F Source: DAVIN CULTURE, DEEP WOUND 12:00 AM [facility] REPOSITORY Order Date: 06/03/17 List Antibiotics Last 48 Hours? unasyn Has pt arrived? Y Comments: sacral soft tissue Gram Stain Gram Stain 1+ White Blood Cells No organisms seen Wound Culture ORGANISM 1: Staphylococcus epidermidis Amount Growth Very Rare Staphylococcus epidermidis: REACTION Benzylpenicillin NF >=0.5 R Cefoxitin *NF + Clindamycin $$ <=0.25 S Inducable Clindamycin Resistan - Erythromycin $ >=8 R Gentamicin $ <=0.5 S Levofloxacin $ >=8 R Linezolid $$$$ 1 S Oxacillin NF >=4 R Tigecycline $$$$ <=0.12 S Rifampin $$ <=0.5 S Tetracycline NF <=1 S Vancomycin $ 1 S (NF) indicates non-formulary drug at [facility]. Approval by Infectious Disease Specialist required before non-formulary drugs may be ordered and/or dispensed. * CLSI guidelines does not recommend testing of cephalosporins. This interpretation is deduced from Beta-lactam/penicillin results. Cult, Anaerobic No growth in 5 days. Performed By: #### M100.1500 #### [facility] [address] [facility] [address] [place], [address] Observed: 08/17/2018 Status: F Source: DAVIN CULTURE, FUNGUS W/ 12:00 AM [facility] [id number] REPOSITORY Comments: sacral soft tissue Has pt arrived? Y Is this test to exclude patient from TB Isolation? N Daryl,[id number] TESTING PERFORMED AT [facility]. ORIGINAL REPORT ON FILE IN LAB CONTAINS ADDITIONAL TEST SITE INFORMATION. CUF No yeast or mold isolated after [address] TESTING PERFORMED AT [facility]. ORIGINAL REPORT ON FILE IN LAB CONTAINS ADDITIONAL TEST SITE INFORMATION. Fungus Stain No yeast or mold observed. Performed By: #### M600.1900 #### [facility] [address] [place], [place] [address] [place], [address] WOUND CTR HISTORY Observed: 08/15/2018 Status: F Source: DAVIN AND PHYSICAL 1:39 PM [facility] REPOSITORY [facility] [address] [place] [address] Wound Ctr History AND Physical 07/19/18 2307 MR#: [id number] Acct: [id number] Name: HARRISON CODY Rep #: [id number] : 1945 72 From: Elier Bryant MD PCP: Sho Fitzgerald MD Status: DIS RCR Y Location: History of Present Illness Date of Service: 07/19/18 - WOUND CENTER CONSULT REFERRING PHYSICIAN: Dr. Daniels. CABLE DRILLER: Dr. Bryant. Chief Complaint: Sacral pressure sore, stage IV. History of Wound: This is a 72-year-old male who is currently a resident of [facility]. He presented to the Wound Center with a sacral pressure sore. Recent culture showed Streptococcus agalactiae and is on Amoxicillin. MRI was done which showed osteomyelitis. Wound care is currently being done with Silver dressings. At the senior living, he takes nutritional supplementation with protein to help the healing process. He has a history of urinary incontinence. He is of very limited mobility, though ambulates with assistance and with the assistance of a walker. Otherwise, he spends long hours each day either lying in bed or sitting in a chair. I was asked to evaluate this patient for surgical options for treatment. 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 Paternal No pertinent history, - - Patient's father had a history of throat cancer. Smoking Status: Never smoker Tobacco Use: Non-smoker Review of Systems Constitutional: Denies: Chills, Fever, Weight Change. Eyes: Denies: Pain, Vision Change. HEENT: Denies: Difficulty Hearing, Difficulty Swallowing, Sinus Congestion. Cardiovascular: Denies: Chest Pain, Palpitations. Respiratory: Denies: Cough, Shortness of Breath. Gastrointestinal: Denies: Diarrhea, Nausea, Vomiting. Genitourinary: Denies: Dysuria, Hematuria. Has urinary incontinence. Endocrine: Denies: Heat/ Cold Intolerance, Polydipsia, Polyuria. Hematologic/ Lymphatic: Denies: Easy Bruising, Easy Bleeding. Neuro: Has some dementia. Skin: Has a sacral pressure sore, Stage IV. - Physical Exam General: Alert, Oriented x3. No apparent distress. The patient appears comfortable. He appears weak and debilitated. HEENT: PERRLA, EOMI. Oral: Moist Mucosa. Neck: Supple, Nontender. No cervical adenopathy. Lungs: Clear to auscultation. Cardiovascular: Regular rate, Regular Rhythm. Abdomen: Soft, Non-Distended. Extremities: No clubbing, No cyanosis, No edema, No Calf Tenderness. Skin: - - There is a sacral pressure sore. The pressure sore extends to the bone. Measures 2 x 1 x 3 cm. Some undermining is present. It is generally pink and healthy in appearance. There is no kareen-ulcer erythema or any sign of infection or cellulitis. Musculoskeletal: Muscle Wasting Neurological: Cranial nerves II-XII grossly intact. Psych/Mental Status: Appropriate, Flat Affect. Vital Signs Temp Pulse Resp BP 98.0 F 72 16 116/61 07/19/18 09:53 07/19/18 09:53 07/19/18 09:53 07/19/18 09:53 Wound Measurements and Assessment WC - Nurse 1 - General Ulcer Measurement Start: 07/06/18 10:36 Freq: Status: Active Protocol: Activity Type Activity Date Activity User E-Sign Co-Sign Detail Recorded Client Recorded Date Recorded By Document 07/19/18 09:53 CS [id number] 07/19/18 09:55 CS - Nurse 2 - General Ulcer CM Notes Start: 07/06/18 10:36 Freq: Status: Active Protocol: Activity Type Activity Date Activity User E-Sign Co-Sign Detail Recorded Client Recorded Date Recorded By Document 07/19/18 10:39 JF [id number] 07/19/18 10:40 JF Debridement Note Post-Debridement Measurements/Treatment - Nurse 2 - General Ulcer CM Notes Start: 07/06/18 10:36 Freq: Status: Active Protocol: Activity Type Activity Date Activity User E-Sign Co-Sign Detail Recorded Client Recorded Date Recorded By Wound Center Nurse 2 #1 coccyx -Time 10:51 12:12 10:39 -Correct Patient Yes Yes Yes -Correct Side, Site, Position Yes Yes Yes Wound debrided: #1 Sacral area. Laterality: Not Applicable Wound Grade/Stage: IV. Type of Debridement: Excisional debridement Anesthesia Used: 4% Lidocaine Solution Depth: Down to and including healthy tissue, in the subcutaneous layer, to muscle, to bone - bone is palpable but not debrided. Percentage of wound debrided: 100 Instrument Used: 7mm curette Tissue Removed: subcutaneous tissue and muscle. Severity: Fat Layer Exposed - muscle is exposed. bone is palpable but not debrided. Amount of bleeding with debridement: Mild Bleeding Controlled with: Pressure Patient tolerated procedure well Assessment/Plan Assessment: 1. Sacral pressure sore, Stage IV. 2. Osteomyelitis. 3. Urinary incontinence. 4. Dementia. Plan: Continue Silver dressing changes daily. Continue Amoxicillin for recent culture showing Streptococcus agalactiae. MRI reviewed. There is some evidence of osteomyelitis. Recommend to the patient and his caregivers present that surgical excision of this pressure sore is necessary. The pressure sore will not heal with surgery. With healing comes lessening of his pain in the area. Since bone is palpable and the MRI shows osteomyelitis, a partial ostectomy will be necessary to evaluate for osteomyelitis. Encourage nutritional supplementation with protein to help the healing process. At the time of surgery, a Prealbumin will be checked. Discussed with the patient and his caregivers, that surgery will make the ulcer larger, but it will make the wound care easier with the VAC if no undermining is present. At the time of surgery, soft tissue and bone will be sent to Pathology for analysis to rule out carcinoma and to assess for osteomyelitis and to Microbiology for culture. A positive culture may necessitate antibiotic modification. Surgery will be done under general anesthesia with an overnight stay at the the orthopedic specialty hospital. The VAC will be placed the next day. After surgery, will order PT to help to get him a little bit more which will help healing because of pressure releases that are done when he gets up. With his advanced age and medical comorbidities, he is not a good candidate for future surgery to close the pressure sore with muscle flaps. That would require 6 weeks of bedrest. Even before considering a discussion about wound closure with muscle flaps in the future, the infection needs to be controlled and his nutrition needs to be maximized. Will discuss with his family in the future at the appropriate time. Patient and his caregivers in the room were informed of the risks and complications of the procedure including alternatives to surgery. These were discussed with them personally. They voice understanding and wish to proceed. 08/15/18 1339 <Electronically signed by Elier Bryant MD> Date Elier Bryant MD CC: Signed WOUND CTR HISTORY Observed: 07/13/2018 Status: F Source: [facility] 12:23 PM [facility] REPOSITORY [facility] [address] [place] [address] Wound Ctr History AND Physical 07/13/18 1218 MR#: [id number] Acct: [id number] Name: HARRISON CODY Rep #: [id number] : 1945 72 From: Emanuel Daniels MD PCP: Sho Fitzgerald MD Status: REG RCR Y Location: (1) Urinary incontinence Status: Chronic Current Visit: Yes Code(s): R32 - Unspecified urinary incontinence (2) Dementia Status: Chronic Current Visit: Yes Code(s): F03.90 - Unspecified dementia without behavioral disturbance (3) Debility Status: Chronic Current Visit: Yes Code(s): R53.81 - Other malaise (4) Pressure ulcer, stage 4 Status: Chronic Current Visit: Yes Qualifiers: Pressure injury location: sacral region Code(s): L89.94 - Pressure ulcer of unspecified site, stage 4 (5) Dysphagia Status: Acute Current Visit: No Code(s): R13.10 - Dysphagia, unspecified (6) Failure to thrive Status: Chronic Current Visit: Yes Qualifiers: Failure to thrive age range: in adult Qualified Code(s): R62.7 - Adult failure to thrive (7) Macrocytic anemia Status: Chronic Current Visit: No Code(s): D53.9 - Nutritional anemia, unspecified (8) Parkinson's disease dementia Status: Chronic Current Visit: Yes Code(s): G20 - Parkinson's disease; F02.80 - Dementia in other diseases classified elsewhere without behavioral disturbance (9) Parkinson disease Status: Chronic Current Visit: Yes Code(s): G20 - Parkinson's disease (10) Incontinence Status: Acute Current Visit: Yes Qualifiers: Incontinence type: fecal Code(s): R32 - Unspecified urinary incontinence (11) Generalized weakness Status: Chronic Current Visit: Yes Code(s): R53.1 - Weakness History of Present Illness Date of Service: 07/13/18 Chief Complaint: Sacro-coccygeal pressure ulceration, stage IV History of Wound: This is a 72-year-old male who is currently a resident of [facility]. Until recently, the patient lived at home, cared for by his elderly . Upon admission to the senior living, it was realized that the patient had a sacro-coccygeal pressure ulceration, though its age is indeterminate. The patient was sleeping on a waffle mattress. He had a nonspecific cushion on his wheelchair. He is of very limited mobility, though ambulates with assistance and with the assistance of a walker. Otherwise, he spends long hours each day either lying in bed or sitting in a chair. 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 Paternal No pertinent history, - - Patient's father had a history of throat cancer. Smoking Status: Never smoker Tobacco Use: Non-smoker Review of Systems Constitutional: Denies: Chills, Fever, Weight Change Eyes: Denies: Pain, Vision Change HEENT: Denies: Difficulty Hearing, Difficulty Swallowing, Sinus Congestion Cardiovascular: Denies: Chest Pain, Palpitations Respiratory: Denies: Cough, Shortness of Breath Gastrointestinal: Denies: Diarrhea, Nausea, Vomiting Genitourinary: Denies: Dysuria, Hematuria Endocrine: Denies: Heat/ Cold Intolerance, Polydipsia, Polyuria Hematologic/ Lymphatic: Denies: Easy Bruising, Easy Bleeding - Physical Exam Vital Signs Temp Pulse Resp BP 98.4 F 70 16 134/78 H 07/13/18 11:31 07/13/18 11:31 07/13/18 11:31 07/13/18 11:31 General: Alert, Oriented x3, Cooperative, No apparent distress, Well developed, Well nourished, - - The patient is bedridden, weak, and debilitated HEENT: Atraumatic, PERRLA, EOMI, Normocephalic Oral: Moist Mucosa Neck: No JVD Lungs: Normal air movement Abdomen: Non-Distended Extremities: No clubbing, No cyanosis, No edema, No Calf Tenderness Skin: - - There is little change in the patient's sacrococcygeal pressure ulceration. It appears to be a stage IV pressure ulcer, extending down to bone, and positive for osteomyelitis. Dimensions are documented elsewhere. Wound Measurements and Assessment WC - Nurse 1 - General Ulcer Measurement Start: 07/06/18 10:36 Freq: Status: Active Protocol: Activity Type Activity Date Activity User E-Sign Co-Sign Detail Recorded Client Recorded Date Recorded By Document 07/13/18 11:31 [facility] [id number] 07/13/18 11:33 [facility] Wound Center Nurse 1 [Ulcer Assessment] #1 coccyx -Combined with other wound No -Current Size (cm) - Length 1 -Current Size (cm) - Width 0.8 Musculoskeletal: Muscle Wasting Neurological: Cranial nerves II-XII grossly intact, Neuro grossly intact Psych/Mental Status: Normal Affect, Appropriate Debridement Note Post-Debridement Measurements/Treatment - Nurse 2 - General Ulcer CM Notes Start: 07/06/18 10:36 Freq: Status: Active Protocol: Activity Type Activity Date Activity User E-Sign Co-Sign Detail Recorded Client Recorded Date Recorded By Document 07/06/18 10:50 [id number] 07/06/18 11:06 Wound Center Nurse 2 #1 coccyx -Time 10:51 Laterality: Not Applicable - Sacrococcygeal pressure ulcer Type of Debridement: Excisional debridement Anesthesia Used: 4% Lidocaine Solution Depth: Down to and including healthy tissue, in the subcutaneous layer Percentage of wound debrided: 100 Instrument Used: 5mm curette Severity: Fat Layer Exposed Amount of bleeding with debridement: Mild Bleeding Controlled with: Compression and gauze Patient tolerated procedure well Assessment/Plan Active Problems Urinary incontinence (Chronic) Dementia (Chronic) Debility (Chronic) Pressure ulcer, stage 4 (Chronic) Failure to thrive (Chronic) Parkinson's disease dementia (Chronic) Parkinson disease (Chronic) Incontinence (Acute) Generalized weakness (Chronic) Assessment: This is a 72-year-old debilitated male with Parkinson's disease and dementia. He is a recent resident of [facility]. He presented with a sacro-coccygeal pressure ulceration, appearing to be stage IV. Cultures have been obtained, and results were positive for Streptococcus algactiae. The patient appears to be of limited mobility, and generally weak and frail. Recent laboratory studies have been obtained, with results as follows: White blood count 13.8, hemoglobin 13.2, hematocrit 39.4, platelets 317,000, sodium 137, potassium 3.5, chloride 103, BUN 12, creatinine 0.80, glucose 87, calcium 8.3. The patient has also had an x-ray of the sacrum and coccyx, revealing no acute fracture or bony erosions. Magnetic resonance imaging has been performed, which reveals the presence of sacro-coccygeal osteomyelitis. As result of the positive cultures, and confirmation of osteomyelitis, patient has been placed on amoxicillin 850 mg p.o. twice daily, which will continue for several weeks. To assist in the patient's management, we are to seek consultation with the Plastic Surgery service and the Infectious Disease service. The patient currently has an appointment with Dr. Bryant on July 19, 2018. We will continue in our efforts to secure a consultation with Infectious Disease. Assistance with appropriate antibiotic management will be sought, with evaluation to determine whether there may be a role for surgical debridement, bone culture, and possible preparation for flap reconstruction. Plan: Offloading measures are to be implemented. Frequent repositioning is to be recommended. A low air loss mattress has been obtained. An offloading cushion for the patient's wheelchair has been obtained. We are to request a Roho cushion. Communication with the patient's caregivers will suggest repositioning of the patient on a frequent basis, with change of position at least every 30-60 minutes. Optimization of the patient's oral intake and good nutrition has been recommended. Continued oral supplements such as Ensure or Inderjit have been recommended. We are to continue antibiotic treatment using amoxicillin 850 mg p.o. twice daily. We are to continue the use of Silver Jil packing, which will be applied to the wound every other day, or more frequently if necessary. Given confirmation of osteomyelitis of the sacrum by MRI exam, we are to seek consultation with the Plastic Surgery and Infectious Disease specialists. A multidisciplinary approach to the patient's management will be implemented. The patient is to return to the [facility] 1 week for reassessment. Given the patient's advanced age and general debility, is not likely to be a candidate for plastic surgical consultation with consideration of flap reconstruction, or perhaps even aggressive surgical debridement and unroofing. However, such multi-disciplinary input will be helpful. Influenza vaccine was not administered today. The patient is not a smoker. He weighs 140 pounds. He stands 5 feet 6 inches tall. His BMI is 22.6, which is normal. 07/13/18 1223 <Electronically signed by Emanuel Daniels MD> Date Emanuel Daniels MD CC: Signed WOUND CTR HISTORY Observed: 07/06/2018 Status: F Source: [facility] 11:09 AM [facility] REPOSITORY [facility] W[facility] [address] [place] [address] Wound Ctr History AND Physical 07/06/18 1103 MR#: [id number] Acct: [id number] Name: HARRISON CODY Rep #: [id number] : 1945 72 From: Emanuel Daniels MD PCP: Amilcar ROBERTSON,Sho Status: REG RCR Y Location: WC (1) Pressure injury of coccygeal region, stage 3 Status: Inactive Current Visit: No Code(s): L89.153 - Pressure ulcer of sacral region, stage 3 (2) Urinary incontinence Status: Chronic Current Visit: Yes Code(s): R32 - Unspecified urinary incontinence (3) Dementia Status: Chronic Current Visit: Yes Code(s): F03.90 - Unspecified dementia without behavioral disturbance (4) Debility Status: Chronic Current Visit: Yes Code(s): R53.81 - Other malaise (5) Pressure ulcer, stage 4 Status: Chronic Current Visit: Yes Qualifiers: Pressure injury location: sacral region Code(s): L89.94 - Pressure ulcer of unspecified site, stage 4 (6) Dysphagia Status: Acute Current Visit: No Code(s): R13.10 - Dysphagia, unspecified (7) Failure to thrive Status: Chronic Current Visit: Yes Qualifiers: Failure to thrive age range: in adult Qualified Code(s): R62.7 - Adult failure to thrive (8) Macrocytic anemia Status: Chronic Current Visit: No Code(s): D53.9 - Nutritional anemia, unspecified (9) Parkinson's disease dementia Status: Chronic Current Visit: Yes Code(s): G20 - Parkinson's disease; F02.80 - Dementia in other diseases classified elsewhere without behavioral disturbance (10) Parkinson disease Status: Chronic Current Visit: Yes Code(s): G20 - Parkinson's disease (11) Incontinence Status: Acute Current Visit: Yes Qualifiers: Incontinence type: fecal Code(s): R32 - Unspecified urinary incontinence (12) Generalized weakness Status: Chronic Current Visit: Yes Code(s): R53.1 - Weakness History of Present Illness Date of Service: 07/06/18 Chief Complaint: Sacro-coccygeal pressure ulceration, stage IV History of Wound: This is a 72-year-old male who is currently a resident of [facility]. Until recently, the patient lived at home, cared for by his elderly . Upon admission to the senior living, it was realized that the patient had a sacro-coccygeal pressure ulceration, though its age is indeterminate. The patient was sleeping on a waffle mattress. He had a nonspecific cushion on his wheelchair. He is of very limited mobility, though ambulates with assistance and with the assistance of a walker. Otherwise, he spends long hours each day either lying in bed or sitting in a chair. 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 Paternal No pertinent history, - - Patient's father had a history of throat cancer. Smoking Status: Never smoker Tobacco Use: Non-smoker Review of Systems Constitutional: Denies: Chills, Fever, Weight Change Eyes: Denies: Pain, Vision Change HEENT: Denies: Difficulty Hearing, Difficulty Swallowing, Sinus Congestion Cardiovascular: Denies: Chest Pain, Palpitations Respiratory: Denies: Cough, Shortness of Breath Gastrointestinal: Denies: Diarrhea, Nausea, Vomiting Genitourinary: Denies: Dysuria, Hematuria Endocrine: Denies: Heat/ Cold Intolerance, Polydipsia, Polyuria Hematologic/ Lymphatic: Denies: Easy Bruising, Easy Bleeding - Physical Exam Vital Signs Temp Pulse Resp BP 98.9 F 71 18 140/72 H 07/06/18 10:36 07/06/18 10:36 07/06/18 10:36 07/06/18 10:36 General: Alert, Oriented x3, Cooperative, No apparent distress, Well developed, Well nourished HEENT: Atraumatic, PERRLA, EOMI, Normocephalic Oral: Moist Mucosa Neck: No JVD Lungs: Normal air movement Abdomen: Non-Distended Extremities: No clubbing, No cyanosis, No edema, No Calf Tenderness Skin: - - The sacrococcygeal pressure ulceration is little changed in appearance. It appears to represent a stage IV pressure ulceration. It extends down to underlying bone. There is no significant drainage. There is no malodor. Dimensions are documented elsewhere. Wound Measurements and Assessment WC - Nurse 1 - General Ulcer Measurement Start: 07/06/18 10:36 Freq: Status: Active Protocol: Activity Type Activity Date Activity User E-Sign Co-Sign Detail Recorded Client Recorded Date Recorded By Document 07/06/18 10:36 [id number] 07/06/18 10:38 Wound Center Nurse 1 [Ulcer Assessment] #1 coccyx -Combined with other wound No Neurological: Cranial nerves II-XII grossly intact Psych/Mental Status: Flat Affect, - - The patient interacts with environment, but only upon demand. Debridement Note Laterality: Not Applicable - Sacrococcygeal pressure ulcer Type of Debridement: Excisional debridement Anesthesia Used: 4% Lidocaine Solution Depth: Down to and including healthy tissue, in the subcutaneous layer Percentage of wound debrided: 100 Instrument Used: 5mm curette Severity: Fat Layer Exposed Amount of bleeding with debridement: Mild Bleeding Controlled with: Compression and gauze Patient tolerated procedure well Assessment/Plan Active Problems Urinary incontinence (Chronic) Dementia (Chronic) Debility (Chronic) Pressure ulcer, stage 4 (Chronic) Failure to thrive (Chronic) Parkinson's disease dementia (Chronic) Parkinson disease (Chronic) Incontinence (Acute) Generalized weakness (Chronic) Assessment: This is a 72-year-old debilitated male with Parkinson's disease and dementia. He is a recent resident of [facility]. He presented with a sacro-coccygeal pressure ulceration, appearing to be stage IV. Cultures have been obtained, and results were positive for Streptococcus algactiae. The patient appears to be of limited mobility, and generally weak and frail. Recent laboratory studies have been obtained, with results as follows: White blood count 13.8, hemoglobin 13.2, hematocrit 39.4, platelets 317,000, sodium 137, potassium 3.5, chloride 103, BUN 12, creatinine 0.80, glucose 87, calcium 8.3. The patient has also had an x-ray of the sacrum and coccyx, revealing no acute fracture or bony erosions. Magnetic resonance imaging has been performed, which reveals the presence of sacro-coccygeal osteomyelitis. As result of the positive cultures, and confirmation of osteomyelitis, patient has been placed on amoxicillin 850 mg p.o. twice daily, which will continue for several weeks. To assist in the patient's management, we are to seek consultation with the Plastic Surgery service and the Infectious Disease service. The patient currently has an appointment with Dr. Bryant on July 19, 2018. We will continue in our efforts to secure a consultation with Infectious Disease. Assistance with appropriate antibiotic management will be sought, with evaluation to determine whether there may be a role for surgical debridement, bone culture, and possible preparation for flap reconstruction. Plan: Offloading measures are to be implemented. Frequent repositioning is to be recommended. A low air loss mattress has been obtained. An offloading cushion for the patient's wheelchair has been obtained. We are to request a Roho cushion. Communication with the patient's caregivers will suggest repositioning of the patient on a frequent basis, with change of position at least every 30-60 minutes. Optimization of the patient's oral intake and good nutrition has been recommended. Continued oral supplements such as Ensure or Inderjit have been recommended. We are to continue antibiotic treatment using amoxicillin 850 mg p.o. twice daily. We are to continue the use of Silver Jil packing, which will be applied to the wound every other day, or more frequently if necessary. Given confirmation of osteomyelitis of the sacrum by MRI exam, we are to seek consultation with the Plastic Surgery and Infectious Disease specialists. A multidisciplinary approach to the patient's management will be implemented. The patient is to return to the [facility] 1 week for reassessment. Given the patient's advanced age and general debility, is not likely to be a candidate for plastic surgical consultation with consideration of flap reconstruction, or perhaps even aggressive surgical debridement and unroofing. However, such multi-disciplinary input will be helpful. Influenza vaccine was not administered today. The patient is not a smoker. He weighs 140 pounds. He stands 5 feet 6 inches tall. His BMI is 22.6, which is normal. 07/06/18 1109 <Electronically signed by Emanuel Daniels MD> Date Emanuel Daniels MD CC: Signed WOUND CTR HISTORY Observed: 06/28/2018 Status: F Source: [facility] 2:06 PM [facility] REPOSITORY [facility] [address] [place] [address] Wound Ctr History AND Physical 06/28/18 1400 MR#: [id number] Acct: [id number] Name: HARRISON CODY Rep #: [id number] : 1945 72 From: Emanuel Daniels MD PCP: Fitzgerald MD,Sho Status: REG RCR Y Location: (1) Urinary incontinence Status: Chronic Current Visit: No Code(s): R32 - Unspecified urinary incontinence (2) Dementia Status: Chronic Current Visit: Yes Code(s): F03.90 - Unspecified dementia without behavioral disturbance (3) Debility Status: Chronic Current Visit: Yes Code(s): R53.81 - Other malaise (4) Failure to thrive Status: Chronic Current Visit: Yes (5) Parkinson's disease dementia Status: Chronic Current Visit: Yes Code(s): G20 - Parkinson's disease; F02.80 - Dementia in other diseases classified elsewhere without behavioral disturbance (6) Parkinson disease Status: Chronic Current Visit: Yes Code(s): G20 - Parkinson's disease (7) Generalized weakness Status: Chronic Current Visit: Yes Code(s): R53.1 - Weakness (8) Pressure ulcer, stage 4 Status: Chronic Current Visit: Yes Qualifiers: Pressure injury location: sacral region Qualified Code(s): L89.154 - Pressure ulcer of sacral region, stage 4 Code(s): L89.94 - Pressure ulcer of unspecified site, stage 4 History of Present Illness Date of Service: 06/28/18 Chief Complaint: Sacro-coccygeal pressure ulceration, stage IV History of Wound: This is a 72-year-old male who is currently a resident of [facility]. Until recently, the patient lived at home, cared for by his elderly . Upon admission to the senior living, it was realized that the patient had a sacro-coccygeal pressure ulceration, though its age is indeterminate. The patient was sleeping on a waffle mattress. He had a nonspecific cushion on his wheelchair. He is of very limited mobility, though ambulates with assistance and with the assistance of a walker. Otherwise, he spends long hours each day either lying in bed or sitting in a chair. 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 Paternal No pertinent history, - - Patient's father had a history of throat cancer. Smoking Status: Never smoker Tobacco Use: Non-smoker Alcohol: None Drugs: None Review of Systems Constitutional: Denies: Chills, Fever, Weight Change Eyes: Denies: Pain, Vision Change HEENT: Denies: Difficulty Hearing, Difficulty Swallowing, Sinus Congestion Cardiovascular: Denies: Chest Pain, Palpitations Respiratory: Denies: Cough, Shortness of Breath Gastrointestinal: Denies: Diarrhea, Nausea, Vomiting Genitourinary: Denies: Dysuria, Hematuria Endocrine: Denies: Heat/ Cold Intolerance, Polydipsia, Polyuria Hematologic/ Lymphatic: Denies: Easy Bruising, Easy Bleeding - Physical Exam Vital Signs Temp Pulse Resp BP 98 F 78 16 108/59 L 06/28/18 13:00 06/28/18 13:00 06/28/18 13:00 06/28/18 13:00 General: Cooperative, No apparent distress, Well developed, Well nourished, Lethargic, - - Patient appears frail and weak HEENT: Atraumatic, PERRLA, EOMI, Normocephalic Oral: Moist Mucosa Neck: No JVD Lungs: Normal air movement Abdomen: Non-Distended Extremities: No clubbing, No cyanosis, No edema Skin: Ulcer/ Wound - Sacrum, - - Stage IV sacral pressure ulceration is noted Wound Measurements and Assessment WC - Nurse 1 - General Ulcer Measurement Start: 06/07/18 14:33 Freq: Status: Active Protocol: Activity Type Activity Date Activity User E-Sign Co-Sign Detail Recorded Client Recorded Date Recorded By Document 06/28/18 13:00 MARLA [id number] 06/28/18 13:11 DL Wound Center Nurse 1 Musculoskeletal: Muscle Wasting Neurological: Cranial nerves II-XII grossly intact Psych/Mental Status: - - Patient did not participate in discussion, as it occurred between medical staff and the patient's family. He appears to be in no acute distress. Debridement Note Post-Debridement Measurements/Treatment WC - Nurse 2 - General Ulcer CM Notes Start: 06/07/18 14:33 Freq: Status: Active Protocol: Activity Type Activity Date Activity User E-Sign Co-Sign Detail Recorded Client Recorded Date Recorded By Laterality: Not Applicable - Stage IV sacral pressure ulceration Type of Debridement: Excisional debridement Anesthesia Used: 4% Lidocaine Solution Depth: in the subcutaneous layer, to bone Percentage of wound debrided: 100 Instrument Used: 3mm curette Severity: Necrosis of Bone Amount of bleeding with debridement: Mild Bleeding Controlled with: Compression and gauze Patient tolerated procedure well Using the sterile curette, it is apparent that the patient's pressure ulceration extends down to bone in the sacral area. Assessment/Plan Clinical Impression(s) from Imaging Studies Pelvis MRI 06/19/18 07:45 IMPRESSION: 1. 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 2. Enhancement of the precoccygeal soft tissues and gluteus juan bilaterally is consistent with adjacent inflammation. 3. 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 Electronically Signed: Sandrita Wakefield MD at 17:56 EDT Tel , Service support , Active Problems Dementia (Chronic) Debility (Chronic) Pressure ulcer, stage 4 (Chronic) Failure to thrive (Chronic) Parkinson's disease dementia (Chronic) Parkinson disease (Chronic) Generalized weakness (Chronic) Assessment: This is a 72-year-old debilitated male with Parkinson's disease and dementia. He is a recent resident of [facility]. He presented with a sacro-coccygeal pressure ulceration, appearing to be stage IV. Cultures have been obtained, and results were positive for Streptococcus algactiae. The patient appears to be of limited mobility, and generally weak and frail. Recent laboratory studies have been obtained, with results as follows: White blood count 13.8, hemoglobin 13.2, hematocrit 39.4, platelets 317,000, sodium 137, potassium 3.5, chloride 103, BUN 12, creatinine 0.80, glucose 87, calcium 8.3. The patient has also had an x-ray of the sacrum and coccyx, revealing no acute fracture or bony erosions. Magnetic resonance imaging has been performed, which reveals the presence of sacro-coccygeal osteomyelitis. As result of the positive cultures, and confirmation of osteomyelitis, patient has been placed on amoxicillin 850 mg p.o. twice daily, which will continue for several weeks. To assist in the patient's management, we are to seek consultation with the Plastic Surgery service and the Infectious Disease service. The patient currently has an appointment with Dr. Bryant on July 19, 2018. We will continue in our efforts to secure a consultation with Infectious Disease. Assistance with appropriate antibiotic management will be sought, with evaluation to determine whether there may be a role for surgical debridement, bone culture, and possible preparation for flap reconstruction. Plan: Offloading measures are to be implemented. Frequent repositioning is to be recommended. A low air loss mattress has been obtained. An offloading cushion for the patient's wheelchair has been obtained. We are to request a Roho cushion. Communication with the patient's caregivers will suggest repositioning of the patient on a frequent basis, with change of position at least every 30-60 minutes. Optimization of the patient's oral intake and good nutrition has been recommended. Continued oral supplements such as Ensure or Inderjit have been recommended. We are to continue antibiotic treatment using amoxicillin 850 mg p.o. twice daily. We are to continue the use of Silver Jil packing, which will be applied to the wound every other day, or more frequently if necessary. Given confirmation of osteomyelitis of the sacrum by MRI exam, we are to seek consultation with the Plastic Surgery and Infectious Disease specialists. The patient [facility] to [facility] for reassessment. Given the patient's advanced age and general debility, is not likely to be a candidate for plastic surgical consultation with consideration of flap reconstruction. However, such input will be helpful. Influenza vaccine was not administered today. The patient is not a smoker. He weighs 140 pounds. He stands 5 feet 6 inches tall. His BMI is 22.6, which is normal. 06/28/18 1406 <Electronically signed by Emanuel Daniels MD> Date Emanuel Daniels MD CC: Signed WOUND CTR HISTORY Observed: 06/22/2018 Status: F Source: [facility] 2:19 PM [facility] REPOSITORY [facility] [address] [place] [address] Wound Ctr History AND Physical 06/22/18 1405 MR#: [id number] Acct: [id number] Name: HARRISON CODY Rep #: [id number] : 1945 72 From: Emanuel Daniels MD PCP: Sho Fitzgerald MD Status: REG RCR Y Location: WC (1) Pressure injury of coccygeal region, stage 3 Status: Inactive Current Visit: Yes Code(s): L89.153 - Pressure ulcer of sacral region, stage 3 (2) Urinary incontinence Status: Chronic Current Visit: No Code(s): R32 - Unspecified urinary incontinence (3) Dementia Status: Chronic Current Visit: Yes Code(s): F03.90 - Unspecified dementia without behavioral disturbance (4) Debility Status: Chronic Current Visit: Yes Code(s): R53.81 - Other malaise (5) Failure to thrive Status: Chronic Current Visit: Yes (6) Parkinson's disease dementia Status: Chronic Current Visit: Yes Code(s): G20 - Parkinson's disease; F02.80 - Dementia in other diseases classified elsewhere without behavioral disturbance (7) Parkinson disease Status: Chronic Current Visit: No Code(s): G20 - Parkinson's disease (8) Generalized weakness Status: Chronic Current Visit: Yes Code(s): R53.1 - Weakness (9) Pressure ulcer, stage 4 Status: Chronic Current Visit: Yes Qualifiers: Pressure injury location: sacral region Qualified Code(s): L89.154 - Pressure ulcer of sacral region, stage 4 Code(s): L89.94 - Pressure ulcer of unspecified site, stage 4 History of Present Illness Date of Service: 06/22/18 Chief Complaint: Sacro-coccygeal pressure ulceration, stage IV History of Wound: This is a 72-year-old male who is currently a resident of [facility]. Until recently, the patient lived at home, cared for by his elderly . Upon admission to the senior living, it was realized that the patient had a sacro-coccygeal pressure ulceration, though its age is indeterminate. The patient was sleeping on a waffle mattress. He had a nonspecific cushion on his wheelchair. He is of limited mobility, though ambulates with assistance and with the assistance of a walker. Otherwise, he spends long hours each day either lying in bed or sitting in a chair. 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 Paternal No pertinent history, - - Patient's father had a history of throat cancer. Smoking Status: Never smoker Tobacco Use: Non-smoker Alcohol: None Drugs: None Review of Systems Constitutional: Denies: Chills, Fever, Weight Change Eyes: Denies: Pain, Vision Change HEENT: Denies: Difficulty Hearing, Difficulty Swallowing, Sinus Congestion Cardiovascular: Denies: Chest Pain, Palpitations Respiratory: Denies: Cough, Shortness of Breath Gastrointestinal: Denies: Diarrhea, Nausea, Vomiting Genitourinary: Denies: Dysuria, Hematuria Endocrine: Denies: Heat/ Cold Intolerance, Polydipsia, Polyuria Hematologic/ Lymphatic: Denies: Easy Bruising, Easy Bleeding - Physical Exam Vital Signs Temp Pulse Resp BP 98.4 F 77 16 134/72 H 06/22/18 13:39 06/22/18 13:39 06/22/18 13:39 06/22/18 13:39 General: Alert, Oriented x3, Cooperative, No apparent distress, Well developed, Well nourished, - - The patient is weak, frail, and debilitated HEENT: Atraumatic, PERRLA, EOMI, Normocephalic Oral: Moist Mucosa Neck: No JVD Lungs: Normal air movement Abdomen: Non-Distended Extremities: No clubbing, No cyanosis, No Calf Tenderness Skin: - - The patient's sacro-coccygeal pressure ulceration is relatively unchanged. It appears pink, with a moderate amount of bioburden. It appears to track down to underlying sacrum. Wound Measurements and Assessment WC - Nurse 1 - General Ulcer Measurement Start: 06/07/18 14:33 Freq: Status: Active Protocol: Activity Type Activity Date Activity User E-Sign Co-Sign Detail Recorded Client Recorded Date Recorded By Document 06/22/18 13:39 [id number] 06/22/18 13:51 JS Wound Center Nurse 1 [Ulcer Assessment] WC - Nurse 2 - General Ulcer CM Notes Start: 06/07/18 14:33 Freq: Status: Active Protocol: Activity Type Activity Date Activity User E-Sign Co-Sign Detail Recorded Client Recorded Date Recorded By Document 06/22/18 13:56 [id number] 06/22/18 13:59 JS Wound Center Nurse 2 [Procedure/Treatment] -Time 13:57 -Correct Patient Yes -Correct Side, Site, Position Yes -Correct Procedure Yes -Procedure Performed Yes Musculoskeletal: Muscle Wasting Neurological: Cranial nerves II-XII grossly intact Psych/Mental Status: Flat Affect, - - Patient demonstrates behavior consistent with his diagnosis of dementia Debridement Note Post-Debridement Measurements/Treatment WC - Nurse 2 - General Ulcer CM Notes Start: 06/07/18 14:33 Freq: Status: Active Protocol: Activity Type Activity Date Activity User E-Sign Co-Sign Detail Recorded Client Recorded Date Recorded By Laterality: Not Applicable - Sacro-coccygeal pressure ulceration Type of Debridement: Excisional debridement Anesthesia Used: 4% Lidocaine Solution Depth: Down to and including healthy tissue, to bone Percentage of wound debrided: 100 Instrument Used: 5mm curette Severity: Necrosis of Bone Amount of bleeding with debridement: Mild Bleeding Controlled with: Compression and gauze Patient tolerated procedure well Assessment/Plan Clinical Impression(s) from Imaging Studies Pelvis MRI 06/19/18 07:45 IMPRESSION: 1. 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 2. Enhancement of the precoccygeal soft tissues and gluteus juan bilaterally is consistent with adjacent inflammation. 3. 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 Electronically Signed: Sandrita Wakefield MD at 17:56 EDT Tel , Service support , Active Problems Dementia (Chronic) Debility (Chronic) Pressure ulcer, stage 4 (Chronic) Failure to thrive (Chronic) Parkinson's disease dementia (Chronic) Generalized weakness (Chronic) Assessment: This is a 72-year-old debilitated male with Parkinson's disease and dementia. He is a recent resident of [facility]. He presented with a sacro-coccygeal pressure ulceration, appearing to be stage IV. Cultures have been obtained, and results were positive for Streptococcus algactiae. The patient appears to be of limited mobility, and generally weak and frail. Recent laboratory studies have been obtained, with results as follows: White blood count 13.8, hemoglobin 13.2, hematocrit 39.4, platelets 317,000, sodium 137, potassium 3.5, chloride 103, BUN 12, creatinine 0.80, glucose 87, calcium 8.3. The patient has also had an x-ray of the sacrum and coccyx, revealing no acute fracture or bony erosions. Magnetic resonance imaging has been performed, which reveals the presence of coccygeal osteomyelitis. As result of the positive cultures, and confirmation of osteomyelitis, patient has been placed on amoxicillin 850 mg p.o. twice daily, which will continue for several weeks. To assist in the patient's management, we are to seek consultation with the Plastic Surgery service and the Infectious Disease service. Assistance with appropriate antibiotic management will be sought, with evaluation to determine whether there may be a role for surgical debridement, bone culture, and possible preparation for flap reconstruction. Plan: Offloading measures are to be implemented. Frequent repositioning is to be recommended. A low air loss mattress has been obtained. An offloading cushion for the patient's wheelchair has been obtained. Communication with the patient's caregivers will suggest repositioning of the patient on a frequent basis, with change of position at least every 30-60 minutes. Optimization of the patient's oral intake and good nutrition has been recommended. Continued oral supplements such as Ensure or Inderjit have been recommended. We are to continue antibiotic treatment using amoxicillin 850 mg p.o. twice daily. We are to continue the use of Silver Jil packing, which will be applied to the wound every other day, or more frequently if necessary. Given confirmation of osteomyelitis of the sacrum by MRI exam, we are to seek consultation with the Plastic Surgery and Infectious Disease specialists. The patient is to return to the [facility] 1 week for reassessment. Given the patient's advanced age and general debility, is not likely to be a candidate for plastic surgical consultation with consideration of flap reconstruction. However, such input will be helpful. Influenza vaccine was not administered today. The patient is not a smoker. He weighs 140 pounds. He stands 5 feet 6 inches tall. His BMI is 22.6, which is normal. 06/22/18 1419 <Electronically signed by Emanuel Daniels MD> Date Emanuel Daniels MD CC: Signed CREATININE FINGERSTICK Collected: 06/19/2018 Status: F Source: [facility] 8:03 AM [facility] REPOSITORY TYPE CODE TESTS RESULT OUT OF REFERENCE UNITS RANGE LAB L9100.0210 0.70-1.30 mg/dL Low CREATININE WB 0.6 Performed By: #### L9100.0200 #### [facility] Point of Care [address] [place] [address] PELVIS W/WO CONTRAST Observed: 06/19/2018 Status: F Source: [facility] 7:52 AM [facility] REPOSITORY [facility] Imaging Services [address] [place] [address] Pelvis W/WO Contrast MR#: [id number] Acct: [id number] Name: HARRISON CODY Rep #: [id number] : 1945 M 72 From: Sandrita Wakefield MD PCP: Sho Fitzgerald MD Status: REG RCR Study: Pelvis W/WO Contrast Date of Exam: 06/19/18 Exam# [id number] Ordering Dr: Emanuel Daniels MD STUDY: MR PELVIS WITH T WITHOUT CONTRAST REASON FOR EXAM: Male, 72 years old. Sacrococcygeal pressure ulcer. TECHNIQUE: Standardized fat and water weighted pulse sequences were obtained in all 3 orthogonal planes, pre-and post contrast administration. 7 ml of Gadavist contrast material was administered intravenously for the contrast portion of the examination. COMPARISON: None. FINDINGS: There is no free fluid or hematoma in the pelvis. Urinary bladder is unremarkable. Visualized bowel is unremarkable. Sacral ulceration is identified, with tract extending to the coccyx. Coccygeal marrow edema is noted, with enhancement following the administration of contrast. Findings are consistent with osteomyelitis of the coccyx. Additionally, there is mild enhancing soft tissue in the precoccygeal space consistent with inflammation. There is no organized collection within the pelvis or posterior soft tissues. Marrow edema is otherwise normal. There is no fracture, bone contusion, or osteonecrosis. Sacroiliac and hip joints are unremarkable. There is mild interstitial edema in the gluteus juan bilaterally, greatest medially. There is mild enhancement following the administration of contrast, consistent with inflammation/myositis. Muscles and tendons about the pelvis are otherwise unremarkable. There is a 6.6 x 4.1 x 2.7 cm lesion with fat signal intensity between the right gluteus juan and medius, posterior and superior to the greater tuberosity. This is consistent with a benign lipoma. MRI/Pelvis W/WO Contrast IMPRESSION: 1. 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 2. Enhancement of the precoccygeal soft tissues and gluteus juan bilaterally is consistent with adjacent inflammation. 3. 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 Electronically Signed: Sandrita Wakefield MD at 17:56 EDT Tel , Service support , CC: Sho Fitzgerald MD; Emanuel Daniels MD Carriage Rider: Signed WOUND CTR HISTORY Observed: 06/14/2018 Status: F Source: [facility] 3:08 PM [facility] REPOSITORY [facility] Wound [facility]aling Center [address] [place] [address] [place] [address] Wound Ctr History AND Physical 06/14/18 1452 MR#: [id number] Acct: [id number] Name: HARRISON CODY Rep #: [id number] : 1945 72 From: Emanuel Daniels MD PCP: Sho Fitzgerald MD Status: REG RCR Y Location: (1) Pressure injury of coccygeal region, stage 3 Status: Chronic Current Visit: Yes Code(s): L89.153 - Pressure ulcer of sacral region, stage 3 (2) Urinary incontinence Status: Chronic Current Visit: No Code(s): R32 - Unspecified urinary incontinence (3) Dementia Status: Chronic Current Visit: Yes Code(s): F03.90 - Unspecified dementia without behavioral disturbance (4) Debility Status: Chronic Current Visit: Yes Code(s): R53.81 - Other malaise (5) Failure to thrive Status: Chronic Current Visit: Yes (6) Parkinson's disease dementia Status: Chronic Current Visit: Yes Code(s): G20 - Parkinson's disease; F02.80 - Dementia in other diseases classified elsewhere without behavioral disturbance (7) Parkinson disease Status: Chronic Current Visit: No Code(s): G20 - Parkinson's disease (8) Generalized weakness Status: Chronic Current Visit: Yes Code(s): R53.1 - Weakness History of Present Illness Date of Service: 06/14/18 Chief Complaint: Coccygeal pressure ulceration, stage III History of Wound: This is a 72-year-old male who is currently a resident of [facility]. Until recently, the patient lived at home, cared for by his elderly . Upon admission to the senior living, it was realized that the patient had a coccygeal pressure ulceration, though its age is indeterminate. The patient is currently on a waffle mattress. He has a nonspecific cushion on his wheelchair. He is of limited mobility, though ambulates with assistance and with the assistance of a walker. Otherwise, he spends long hours each day either lying in bed or sitting in a chair. 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 Paternal No pertinent history, - - Patient's father had a history of throat cancer. Smoking Status: Never smoker Tobacco Use: Non-smoker Alcohol: None Drugs: None Review of Systems Constitutional: Denies: Chills, Fever, Weight Change Eyes: Denies: Pain, Vision Change HEENT: Denies: Difficulty Hearing, Difficulty Swallowing, Sinus Congestion Cardiovascular: Denies: Chest Pain, Palpitations Respiratory: Denies: Cough, Shortness of Breath Gastrointestinal: Denies: Diarrhea, Nausea, Vomiting Genitourinary: Denies: Dysuria, Hematuria Endocrine: Denies: Heat/ Cold Intolerance, Polydipsia, Polyuria Hematologic/ Lymphatic: Denies: Easy Bruising, Easy Bleeding - Physical Exam Vital Signs Temp Pulse Resp BP 99.1 F 76 18 121/70 H 06/14/18 14:14 06/14/18 14:14 06/14/18 14:14 06/14/18 14:14 General: Alert, Oriented x3, Cooperative, No apparent distress, - - Patient appears sickly and frail HEENT: Atraumatic, PERRLA, EOMI, Normocephalic Oral: Moist Mucosa Neck: No JVD Lungs: Normal air movement Abdomen: Non-Distended Extremities: No clubbing, No cyanosis, No edema, No Calf Tenderness Skin: - - Stage III coccygeal pressure ulceration is noted. It is little changed from that noted last week. There is a mild amount of undermining. The ulceration is generally pink and healthy in appearance, with a moderate amount of bioburden. There is no obvious sign of infection or cellulitis. However, cultures from last week are positive for Streptococcus agalactiae Wound Measurements and Assessment WC - Nurse 1 - General Ulcer Measurement Start: 06/07/18 14:33 Freq: Status: Active Protocol: Activity Type Activity Date Activity User E-Sign Co-Sign Detail Recorded Client Recorded Date Recorded By Document 06/14/18 14:14 CS [id number] 06/14/18 14:16 CS Wound Center Nurse 1 [Ulcer Assessment] #1 coccyx -Combined with other wound No -Current Size (cm) - Length 1.7 WC - Nurse 2 - General Ulcer CM Notes Start: 06/07/18 14:33 Freq: Status: Active Protocol: Activity Type Activity Date Activity User E-Sign Co-Sign Detail Recorded Client Recorded Date Recorded By Document 06/14/18 14:40 JS [id number] 06/14/18 14:43 JS Musculoskeletal: Muscle Wasting Neurological: Cranial nerves II-XII grossly intact, Neuro grossly intact Psych/Mental Status: Normal Affect Debridement Note Post-Debridement Measurements/Treatment WC - Nurse 2 - General Ulcer CM Notes Start: 06/07/18 14:33 Freq: Status: Active Protocol: Activity Type Activity Date Activity User E-Sign Co-Sign Detail Wound Center Nurse 2 #1 coccyx Laterality: Not Applicable - Coccygeal pressure ulcer Type of Debridement: Excisional debridement Anesthesia Used: 4% Lidocaine Solution Depth: Down to and including healthy tissue, in the subcutaneous layer Percentage of wound debrided: 100 Instrument Used: 5mm curette Severity: Fat Layer Exposed Amount of bleeding with debridement: Mild Bleeding Controlled with: Compression and gauze Patient tolerated procedure well Assessment/Plan Active Problems Pressure injury of coccygeal region, stage 3 (Chronic) Dementia (Chronic) Debility (Chronic) Failure to thrive (Chronic) Parkinson's disease dementia (Chronic) Generalized weakness (Chronic) Assessment: This is a 72-year-old debilitated male with Parkinson's disease and dementia. He is a recent resident of [facility]. He presents with a coccygeal pressure ulceration, appearing to be stage III. Cultures have been obtained, and results will be awaited. The patient appears to be of limited mobility, and generally weak and frail. Recent laboratory studies have been obtained, with results as follows: White blood count 13.8, hemoglobin 13.2, hematocrit 39.4, platelets 317,000, sodium 137, potassium 3.5, chloride 103, BUN 12, creatinine 0.80, glucose 87, calcium 8.3. The patient has also had an x-ray of the sacrum and coccyx, revealing no acute fracture or bony erosions. Magnetic resonance imaging is suggested for evaluation of osteomyelitis. Cultures which were taken last week are positive for Streptococcus agalactiae. Plan: Offloading measures are to be implemented. Frequent repositioning is to be recommended. A low air loss mattress has been advised. A Roho cushion for the patient's wheelchair is to be requested. Communication with the patient's caregivers will suggest repositioning of the patient on a frequent basis, with change of position at least every 30-60 minutes. Optimization of the patient's oral intake and good nutrition has been recommended. Continued oral supplements such as Ensure or Inderjit have been recommended. We are to initiate antibiotic treatment using amoxicillin 850 mg p.o. twice daily for 10 days. We are to continue the use of Silver Jil packing, which will be applied to the wound every other day, or more frequently if necessary. An MRI of the sacrococcygeal region will be obtained to assess for possible osteomyelitis. The [facility] for reassessment. Given the patient's advanced age and general debility, is not likely to be a candidate for plastic surgical consultation with consideration of flap reconstruction. Influenza vaccine was not administered today. The patient is not a smoker. He weighs 140 pounds. He stands 5 feet 6 inches tall. His BMI is 22.6, which is normal. 06/14/18 1508 <Electronically signed by Emanuel Daniels MD> Date Emanuel Daniels MD CC: Signed WOUND CTR HISTORY Observed: 06/07/2018 Status: F Source: DAVIN AND PHYSICAL 4:52 PM [facility] REPOSITORY [facility] [address] [place] [address] Wound Ctr History AND Physical 06/07/18 1630 MR#: [id number] Acct: [id number] Name: HARRISON CODY Rep #: [id number] : 1945 72 From: Emanuel Daniels MD PCP: Fitzgerald MD,Sho Status: REG RCR Y Location: (1) Pressure injury of coccygeal region, stage 3 Status: Acute Current Visit: Yes Code(s): L89.153 - Pressure ulcer of sacral region, stage 3 (2) Urinary incontinence Status: Chronic Current Visit: No Code(s): R32 - Unspecified urinary incontinence (3) Dementia Status: Chronic Current Visit: Yes Code(s): F03.90 - Unspecified dementia without behavioral disturbance (4) Debility Status: Chronic Current Visit: Yes Code(s): R53.81 - Other malaise (5) Failure to thrive Status: Chronic Current Visit: Yes (6) Parkinson's disease dementia Status: Chronic Current Visit: Yes Code(s): G20 - Parkinson's disease; F02.80 - Dementia in other diseases classified elsewhere without behavioral disturbance (7) Parkinson disease Status: Chronic Current Visit: No Code(s): G20 - Parkinson's disease (8) Generalized weakness Status: Acute Current Visit: No Code(s): R53.1 - Weakness History of Present Illness Date of Service: 06/07/18 Chief Complaint: Coccygeal pressure ulceration, stage III History of Wound: This is a 72-year-old male who is currently a resident of [facility]. Until recently, the patient lived at home, cared for by his elderly . Upon admission to the senior living, it was realized that the patient had a coccygeal pressure ulceration, though its age is indeterminate. The patient is currently on a waffle mattress. He has a nonspecific cushion on his wheelchair. He is of limited mobility, though ambulates with assistance and with the assistance of a walker. Otherwise, he spends long hours each day either lying in bed or sitting in a chair. Past Medical History Past Medical History: Chronic Problems Urinary incontinence (Chronic) Dementia (Chronic) Debility (Chronic) Failure to thrive (Chronic) Macrocytic anemia (Chronic) Parkinson's disease dementia (Chronic) Parkinson disease (Chronic) Past Medical History: The patient's history is negative for myocardial infarction, congestive heart failure, cerebrovascular accident, hypertension, diabetes mellitus, hyperlipidemia, thyroid disease, pulmonary disease, and renal disease. 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 The patient also suffers from urinary incontinence. He suffers from Parkinson's disease and dementia. Surgical History: appendectomy, herniorrhaphy - Multiple procedures in his groin., total knee arthroplasty - Right knee, - - Cervical spine surgery-fusion, removal of right eye approximately 25 years ago secondary to melanoma Allergies/Adverse Reactions: Allergies No Known Allergies Allergy (Verified 04/04/18 16:37) Home Medications: Ambulatory Orders Medication Instructions Recorded Donepezil HCl [Aricept] 5 mg PO QHS 10/06/17 - Family History Maternal No pertinent history, - - The patient's mother had a history of rectal cancer. Paternal No pertinent history, - - Patient's father had a history of throat cancer. Social History: Patient is a resident of [facility]. He is . 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 Smoking and alcohol history are negative. Smoking Status: Never smoker Tobacco Use: Non-smoker Alcohol: None Drugs: None Review of Systems Constitutional: Denies: Chills, Fever, Weight Change Eyes: Denies: Pain, Vision Change HEENT: Denies: Difficulty Hearing, Difficulty Swallowing, Sinus Congestion Cardiovascular: Denies: Chest Pain, Palpitations Respiratory: Denies: Cough, Shortness of Breath Gastrointestinal: Denies: Diarrhea, Nausea, Vomiting Genitourinary: Denies: Dysuria, Hematuria Endocrine: Denies: Heat/ Cold Intolerance, Polydipsia, Polyuria Hematologic/ Lymphatic: Denies: Easy Bruising, Easy Bleeding - Physical Exam Vital Signs Temp Pulse Resp BP 99.3 F H 80 16 135/80 H 06/07/18 14:46 06/07/18 14:46 06/07/18 14:46 06/07/18 14:46 General: Alert, Oriented x3, Cooperative, No apparent distress, Well developed, - - The patient appears comfortable. However, he appears weak and debilitated. HEENT: Atraumatic, PERRLA, EOMI, Normocephalic Oral: Moist Mucosa Neck: Supple, No JVD, Negative Carotid Bruits, Negative Hepatojugular Reflux, No Nuchal Rigidity, Trachea Midline Lungs: Clear to auscultation, Normal air movement, No rhonchi, No wheeze, No rales Cardiovascular: Regular rate, Regular Rhythm, Normal S1, Normal S2, No murmurs Abdomen: Soft, Non Tender, Non-Distended Extremities: No clubbing, No cyanosis, No edema, No Calf Tenderness Skin: - - A coccygeal pressure ulceration is noted in the midline. Its dimensions are documented elsewhere. It is generally pink and healthy in appearance. There is no kareen-ulcer erythema or any sign of infection or cellulitis. However, swab cultures were obtained for aerobic and anaerobic growth. There is no significant undermining. Probing suggests that underlying bone may be involved, though bone is not visible. Wound Measurements and Assessment WC - Nurse 1 - General Ulcer Measurement Start: 06/07/18 14:33 Freq: Status: Active Protocol: Activity Type Activity Date Activity User E-Sign Co-Sign Detail Recorded Client Recorded Date Recorded By Document 06/07/18 14:46 [id number] 06/07/18 14:56 Wound Center Nurse 1 [Ulcer Assessment] #1 coccyx -Combined with other wound No WC - Nurse 2 - General Ulcer CM Notes Start: 06/07/18 14:33 Freq: Status: Active Protocol: Activity Type Activity Date Activity User E-Sign Co-Sign Detail Recorded Client Recorded Date Recorded By Document 06/07/18 15:37 [id number] 06/07/18 15:46 Musculoskeletal: Muscle Wasting Neurological: Cranial nerves II-XII grossly intact, Neuro grossly intact, - - The patient responds appropriately to verbal questioning. Psych/Mental Status: Appropriate, Flat Affect Debridement Note Post-Debridement Measurements/Treatment WC - Nurse 2 - General Ulcer CM Notes Start: 06/07/18 14:33 Freq: Status: Active Protocol: Activity Type Activity Date Activity User E-Sign Co-Sign Detail Recorded Client Recorded Date Recorded By Document 06/07/18 15:37 [id number] 06/07/18 15:46 Wound Center Nurse 2 #1 coccyx -Time 15:37 -Correct Patient Yes -Correct Side, Site, Position Yes Laterality: Not Applicable - Coccygeal pressure ulceration Type of Debridement: Excisional debridement Anesthesia Used: 4% Lidocaine Solution Depth: Down to and including healthy tissue, in the subcutaneous layer Percentage of wound debrided: 100 Instrument Used: 5mm curette Severity: Fat Layer Exposed Amount of bleeding with debridement: Mild Bleeding Controlled with: Compression and gauze Patient tolerated procedure well Assessment/Plan Active Problems Pressure injury of coccygeal region, stage 3 (Acute) Dementia (Chronic) Debility (Chronic) Failure to thrive (Chronic) Parkinson's disease dementia (Chronic) Assessment: This is a 72-year-old debilitated male with Parkinson's disease and dementia. He is a recent resident of [facility]. He presents with a coccygeal pressure ulceration, appearing to be stage III. Cultures have been obtained, and results will be awaited. The patient appears to be of limited mobility, and generally weak and frail. Recent laboratory studies have been obtained, with results as follows: White blood count 13.8, hemoglobin 13.2, hematocrit 39.4, platelets 317,000, sodium 137, potassium 3.5, chloride 103, BUN 12, creatinine 0.80, glucose 87, calcium 8.3. Plan: Offloading measures are to be implemented. Frequent repositioning is to be recommended. A low air loss mattress has been advised. A Roho cushion for the patient's wheelchair is to be requested. Communication with the patient's caregivers will suggest repositioning of the patient on a frequent basis, with change of position at least every 30-60 minutes. Optimization of the patient's oral intake and good nutrition has been recommended. Continued oral supplements such as Ensure or Inderjit have been recommended. Culture results will be awaited, and appropriate management will be based upon the results. An x-ray of the patient's sacrococcygeal region will be obtained, to determine the possible presence of osteomyelitis. We are to implement the use of Silver Jil packing, which will be applied to the wound every other day, or more frequently if necessary. The patient is to return to the wound healing center 1 week for reassessment. Given the patient's advanced age and general debility, is not likely to be a candidate for plastic surgical consultation with consideration of flap reconstruction. Influenza vaccine was not administered today. The patient is not a smoker. He weighs 140 pounds. He stands 5 feet 6 inches tall. His BMI is 22.6, which is normal. 06/07/18 9512 <Electronically signed by Emanuel Daniels MD> Date Emanuel Daniels MD CC: Signed Observed: 06/07/2018 Status: F Source: DAVIN CULTURE, DEEP WOUND 1:45 PM [facility] REPOSITORY Comments: COCCYX Gram Stain Gram Stain 4+ Red Blood Cells Rare White Blood Cells Rare Gram positive cocci Wound Culture ORGANISM 1: Streptococcus agalactiae (B) Amount Growth 3+ Streptococcus agalactiae (B): REACTION Ampicillin $ <=0.25 S Benzylpenicillin NF <=0.06 S Ceftriaxone $ <=0.12 S Clindamycin $$ >=1 R Inducable Clindamycin Resistan - Linezolid $$$$ <=2 S Vancomycin $ 0.5 S (NF) indicates non-formulary drug at [facility]. Approval by Infectious Disease Specialist required before non-formulary drugs may be ordered and/or dispensed. * CLSI guidelines does not recommend testing of cephalosporins. This interpretation is deduced from Beta-lactam/penicillin results. Cult, Anaerobic No anaerobic bacteria isolated. Performed By: #### M100.1500 #### [facility] [address] [place], [address] DOWNTIME REPORT Observed: 04/22/2018 Status: F Source: YPSILANTI 1:34 PM [facility] Medical Records Department [address] [place] [address] Downtime Report MR#: [id number] Acct: [id number] Name: HARRISON CODY Rep #: [id number] : 1945 72 From: Ynes Gonzalez PCP: Amilcar ROBERTSON,Sho Status: REG CLI This patient was seen during an EMR downtime April 05, 2018 - April 12, 2018. This patient may have a combination of paper and electronic documentation or all paper documentation. All documentation is viewable within the e-chart portion of [employer] for each patient visit. 12 LEAD ELECTROCARDIOGRAM Observed: 04/19/2018 Status: F Source: YPSILANTI 8:48 AM [facility] Cardiovascular Services [address] [place] [address] 12 Lead EKG 04/04/18 1725 MR#: [id number] Acct: [id number] Name: GLOHARRISON W Rep #: [id number] : 1945 72 From: Barrett Talley MD Attending Dr: Status: DEP ER Ordering Dr: Dima Delatorre MD Date: 04/04/18 Location: ED Sex: M C Admitted: Test Reason : DIZZINESS Blood Pressure : / mmHG Vent. Rate : 061 BPM Atrial Rate : 061 BPM P-R Int : 230 ms QRS Dur : 088 ms QT Int : 444 ms P-R-T Axes : 081 000 037 degrees QTc Int : 446 ms Sinus rhythm with 1st degree A-V block Otherwise normal ECG Confirmed by GERRI ROBERTSON, BARRETT ([id number]), graphics editor EZEQUIEL GONZALEZ ([id number]) on 04/14/2018 6:52:40 PM Referred By: REEMA Confirmed By:BARRETT TALLEY MD 04/14/18 185 Date Barrett Talley MD CC: Sho Fitzgerald MD; Dima Delatorre MD Signed Observed: 04/06/2018 Status: F Source: YPSILANTI CULTURE, WOUND 12:15 PM [facility] REPOSITORY RESULT(S) PREVIOUSLY REPORTED ON MANUAL REQUISITION DURING DOWNTIME. Gram Stain Gram Stain 1+ Red Blood Cells 1+ Red Cell Stroma No organisms seen Wound Culture Possible skin contamination, further Identification and sensitivity will be performed only by physician's request. ORGANISM 1: Coag Negative Staph Amount Growth Rare Performed By: #### M100.1400 #### [facility] [address] [facility] [place], [address] EMERGENCY DEPARTMENT Observed: 04/05/2018 Status: F Source: YPSILANTI SUMMARY 12:18 AM [facility] REPOSITORY [facility] Medical Records Department [address] [place] [address] Emergency Department Summary 04/04/18 1904 MR#: [id number] Acct: [id number] Name: HARRISON CODY Rep #: [id number] : 1945 72 From: Dima Delatorre MD PCP: Sho Fitzgerald MD Status: DEP ER - ER Visit Summary Date of Service: 04/04/18 Chief Complaint: Possibly dehydrated History of Present Illness: The patient is a 72 M history of Parkinson's disease, dementia and previous right eye cancer with right eye prosthesis. According to his today he had decreased oral intake. Yesterday he was outside for lengthy period of time she is concerned he may be dehydrated. His any nausea, vomiting or diarrhea. No fever. No cough. No dysuria. She is giving the patient's information he is a poor informant due to dementia and Parkinson's disease. Physical Examination: Well-appearing older male. Vital signs initial blood pressure is 84/55 otherwise vital signs are stable afebrile. Pulse ox 97% room air no signs of hypoxia. H EENT exam atraumatic. His right eye prosthesis. No facial droop. Moist mucous membranes. Neck nontender no lymphadenopathy. Lungs clear to auscultation bilaterally. Heart regular rhythm rate about 60 no murmur. Abdomen is soft and nontender. Normal bowel sounds. Nondistended. No signs of obstruction. Nontender. No peritoneal signs. Moving all 4 extremities. Left wrist is mildly swollen with abrasions. No gross bony deformity. Left hand is neurovascular intact. Neurologically is awake. He follows commands. Test Results: Chest x-ray shows no acute abnormality. His left wrist x-ray shows soft tissue swelling but no fracture read both by myself the radiologist. There was degenerative changes. EKG shows a sinus rhythm rate is 60 with a first-degree AV block. CBC shows an elevated white count of 13.8. H AND H of 13 and 39. No bands. Chemistry panel normal. Normal gap of 9 normal creatinine is 0.8. BUN of 12. UA was normal. Troponin normal. Due to the hypotension I did obtain a lactic acid which was normal 1.6. Emergency Department Course and Treatment: He was treated with a liter normal saline. On repeat exam at 1900 he is doing well. His current pressure is 150/74. I went over all test results with the patient and the family. They are comfortable taking him home. Treatment Plan: Discharged home. Follow-up primary care physician if not improving or return to ER if doing worse. Disposition: Discharge Impression: Acute transient hypotension resolved. Left wrist sprain and contusion This note was generated with [employer] dictation software. It may contain incorrect words, spelling, and punctuation that were not noted in review of the chart prior to signing ED Disposition - Plan for ED Patient: Chief Complaint: General Illness Referrals: Sho Fitzgerald MD [Primary Care Provider] - What to do if you have Problems For any increased pain, shortness of breath, bleeding, nausea or vomiting, chest pain, or any unexpected problems, contact your Primary Care Provider. Call [facility] ([phone]) or report to the closest Emergency Room. Call 911 if necessary. 04/05/1817 <Electronically signed by Dima Delatorre MD> Date Dima Delatorre MD Cosigner Signature (If Indicated): Date CC: Sho Fitzgerald MD DISCHARGE INSTRUCTION Observed: 04/05/2018 Status: F Source: YPSILANTI 12:18 AM [facility] REPOSITORY [facility] Medical Records Department [address] [place] [address] Discharge Instruction 04/04/181909 MR#: [id number] Acct: [id number] Name: HARRISON CDOY Rep #: [id number] : 1945 72 From: Dima Delatorre MD PCP: Sho Fitzgerald MD Status: [facility] ER ED Disposition - Plan for ED Patient: Disposition: Home or Assisted Living Chief Complaint: General Illness Diagnosis: Generalized weakness Instructions: ED Hypotension All Causes Referrals: Sho Fitzgerald MD [Primary Care Provider] - 1-2 Days if not improving Additional Instructions: Plenty of fluids and rest. Return if doing worse. Otherwise follow-up your primary care physician. What to do if you have Problems For any increased pain, shortness of breath, bleeding, nausea or vomiting, chest pain, or any unexpected problems, contact your Primary Care Provider. Call [facility] ([phone]) or report to the closest Emergency Room. Call 911 if necessary. 04/05/1817 <Electronically signed by Dima Delatorre MD> Date Dima Delatorre MD Cosigner Signature (If Indicated): Date CC: Sho Fitzgerald MD URINALYSIS, COMPLETE Collected: 04/04/2018 Status: F Source: DAVIN 6:10 PM [facility] REPOSITORY Order Comment: Order Date: 04/04/18 How was Urine Obtained? REGISTERED [facility]SE SURG[facility] SERVICES TO SPECIFY TYPE CODE TESTS RESULT OUT OF RANGE REFERENCE UNITS LAB L400.3000 Yellow COLOR Normal Yellow LAB L400.3050 Clear Normal CLARITY Clear LAB L400.3200 Normal mg/dl Normal GLUCOSE, UR Normal LAB L400.3300 Negative mg/dL Normal BILIRUBIN URINE Negative LAB L400.3400 Negative mg/dl Normal KETONE UR Negative LAB L400.3465 1.002-1.030 Normal SP.GR. DIPSTX 1.010 LAB L400.3550 5.0 - 8.0 pH UR Normal 6.5 LAB L400.3600 Negative mg/dl PROT Normal DIPSTX Negative LAB L400.3700 Normal mg/dl Normal UROBILI Normal LAB L400.3750 Negative Normal NITRITE UR Negative LAB L400.3780 Negative /ul High 10 OCCULT BLOOD-UR LAB L400.3800 Negative /ul LEUK Normal ESTERASE Negative LAB L400.4050 0-5 /hpf WBC 0 Normal SEEN LAB L400.4100 0-5 /hpf 0 Normal RBC-UA SEEN LAB L400.4150 0-5 /hpf SQUAM 0 Normal EPI SEEN LAB L400.4300 None Seen /hpf 0 Normal BACTERIA SEEN LAB L400.4350 <or=2+ /hpf 0 Normal MUCUS, URINE SEEN Performed By: #### L400.0001 #### [facility] [address] [place], [place], [address] CBC W/DIFF, AUTOMATED Collected: 04/04/2018 Status: F Source: DAVIN 5:33 PM [facility] REPOSITORY TYPE CODE TESTS RESULT OUT OF RANGE REFERENCE UNITS LAB L100.1000 4.4-11.0 K/mm3 High WBC 13.8 LAB L100.1200 4.6-6.2 M/mm3 Low RBC 4.07 LAB L100.1300 13.0-16.5 g/dl Normal HGB 13.2 LAB L100.1400 40-54 % Low HCT 39.4 LAB L100.1500 80-94 fL High MCV 96.8 LAB L100.1600 27.0-32.0 pg High MCH 32.4 LAB L100.1700 32-36 g/gl Normal MCHC 33.5 LAB L100.1810 11.6-14.6 % High RDW CV 15.6 LAB L100.1820 35.1-43.9 fl High RDW SD 54.1 LAB L100.1900 150-450 K/mm3 Normal PLT 317 LAB L100.2000 6.2-12.0 fl Normal MPV 9.5 LAB L100.2100 47-70 % High NEUT% 79.6 LAB L100.2200 19-41 % Low LY% 11.3 LAB L100.2300 0-10 % Normal MONO% 8.5 LAB L100.2400 0-5 % Normal EO% 0.2 LAB L100.2500 0-1 % Normal BASO% 0.1 LAB L100.2550 0.0-0.9 % Normal IM GRAN % 0.300 Result Comment: IG% - Immature Granulocytes (promyelocytes, myelocytes and metamyelocytes) > 1% indicates that a LEFT SHIFT is Present. LAB L100.2620 2.0-7.7 X10 3/uL High Absolute Neut 11.0 LAB L100.2720 0.83-4.51 X10 3/ul Normal Absolute Lymph 1.56 Performed By: #### L100.0100 #### [facility] [address] [place], [place], [address] BASIC METABOLIC Collected: 04/04/2018 Status: F Source: [facility]IL[place]I PROFILE ([facility]) 5:33 PM [facility] REPOSITORY TYPE CODE TESTS RESULT OUT OF RANGE REFERENCE UNITS LAB L501.0100 74-106 mg/dL Normal GLU 87 Result Comment: Please note revised GLUCOSE reference range effective 2017. LAB L501.1000 7-18 mg/dL Normal BUN 12 LAB L501.1100 0.70-1.30 mg/dL Normal CREAT,SERUM 0.80 Result Comment: The validity of the calculated GFR AND GFRAA in patients over 70 years has not been determined. Clinical correlation is essential. LAB L501.1110 >60 mL/min Normal EST GFR 101 Result Comment: Non- GFR Calc LAB L501.1115 >60 mL/min Normal EST GFR - AA 122 Result Comment: GFR Calc LAB L501.1255 ml/min Normal Estimated CRCL 72.81 LAB L501.1300 10-20 RATIO Normal BUN/CRE 15.1 LAB L501.2200 8.5-10 mg/dL Low .1 CA 8.3 LAB L501.5300 136-14 mmol/L Normal 5 NA 137 LAB L501.5600 3.5-5. mmol/L Normal 1 K 3.5 LAB L501.5900 98-107 mmol/L Normal CL 103 LAB L501.6100 21.0-3 mmol/L Normal 2.0 CO2 25.0 LAB L501.6200 5-15 Normal GAP 9 Performed By: #### L500.2500, L501.4010 #### [facility] [address] [facility] [place], [place], [address] TROPONIN-I Collected: 04/04/2018 Status: F Source: Y[place]I 5:33 PM [facility] REPOSITORY TYPE CODE TESTS RESULT OUT OF RANGE REFERENCE UNITS LAB L501.4010 <0.045 ng/mL Normal < 0.015 TROPONIN-I Result Comment: TROPONIN-I EXPECTED VALUES <0.045 Negative 0.045 - 0.590 Consistent with Cardiac Damage > OR = 0.600 Critical Value Not every elevated troponin is indicative of TN. These values should be used with clinical judgement in examining the patient's clinical picture for diagnosis. To establish a diagnosis of TN versus myocardial injury, there must be a demonstrated rise and/or fall in the troponin values, in addition to ischemic symptoms, EKG changes, new regional wall motion abnormality, and/or angiographical evidence. PLEASE NOTE: REFERENCE RANGES EDITED 18 Performed By: #### L500.2500, L501.4010 #### [facility] [address] [facility] [place], [address] LACTIC ACID Collected: 04/04/2018 Status: F Source: YPSIL[place]I 5:33 PM [facility] REPOSITORY Order Comment: Yes/No query for Sepsis Lactate Rule Y TYPE CODE TESTS RESULT OUT OF RANGE REFERENCE UNITS LAB L503.6005 0.4-2.0 mmol/L Normal LACTIC ACID 1.6 Performed By: #### L503.6005 #### [facility] [facility] [address] [place], [address] WRIST MIN 3 VIEWS Observed: 04/04/2018 Status: F Source: DAVIN 5:15 PM [facility] REPOSITORY [facility] Imaging Services [address] [place] [address] Wrist min 3 Views MR#: [id number] Acct: [id number] Name: YNES CODY Rep #: [id number] : 1945 M 72 From: Devyn Gustafson MD PCP: Sho Fitzgerald MD Status: REG ER Study: Wrist min 3 Views Date of Exam: 04/04/18 Exam# [id number] Ordering Dr: Dima Delatorre MD STUDY: X-RAY - LEFT WRIST REASON FOR EXAM: Male, 72 years old. Fall TECHNIQUE: 3 view(s) of the wrist were obtained. COMPARISON: None. FINDINGS: There is no evidence of fracture or dislocation. There are mild degenerative changes. There are no radiodense foreign bodies. RAD/Wrist min 3 Views IMPRESSION: No fracture or dislocation. Mild degenerative change. Electronically Signed: Devyn Gustafson, at 17:54 EDT Tel , Service support , CC: Sho Fitzgerald MD; Dima Delatorre MD Carriage Rider: Signed CHEST 1 VIEW Observed: 04/04/2018 Status: F Source: DAVIN (PORTABLE) 5:15 PM [facility] REPOSITORY [facility] Imaging Services [address] [place] [address] Chest 1 View (Portable) MR#: [id number] Acct: [id number] Name: YNES CODY Rep #: [id number] : 1945 M 72 From: Devyn Gustafson MD PCP: Sho Fitzgerald MD Status: REG ER Study: Chest 1 View (Portable) Date of Exam: 04/04/18 Exam# [id number] Ordering Dr: Dima Delatorre MD STUDY: X-RAY CHEST REASON FOR EXAM: Male, 72 years old. Chest pain TECHNIQUE: Frontal view of the chest COMPARISON: 07/30/2017 FINDINGS: There is a stable calcified granuloma in the lingula The lungs are otherwise clear. There are no pleural effusions. There is no pneumothorax. The heart is normal in size. The visualized osseous structures are within normal limits. RAD/Chest 1 View (Portable) IMPRESSION: No acute thoracic pathology. Electronically Signed: Devyn Gustafson, at 18:15 EDT Tel , Service support , CC: Sho Fitzgerald MD; Dima Delatorre MD Carriage Rider: Signed OT GENERAL EVALUATION Observed: 03/11/2018 Status: F Source: YPSILANTI 2:38 PM [facility] REPOSITORY [facility] [place] [address] Fax REHABILITATION SERVICES INITIAL EVALUATION MR#: [id number] Acct: [id number] Name: YNES CODY Rep #: [id number] : 1945 72 From: Kita Boyd Referring Dr.: Sho Fitzgerald MD Status: REG RCR Insurance: [employer] MEDICARE PPO Eval Date: SELF PAY INSURANCE Patient's Visit Information YNES CODY is a 72 year old M, referred to Occupational Therapy by Sho Fitzgerald, with a diagnosis of Parkinsons. Date of Evaluation: 03/11/18 Occupational Therapist: Kita Boyd - Subjective Subjective: Pt seen for initial occupational therapy evaluation for physical reconditioning, strengthening BUE, ROM BUE and increasing independence with ADL's using AE as needed. Pt has Parkinsons. Pt states pain in lower back and bilateral shoulders. Pt lives with in a one level condo with 1 step to enter holding onto door frame to get in/out of house. Bathroom setup-tub/shower w/ extended tub bench, grab bars and HHS, has walk in shower in other bathroom. BSC over std toilet. Requires assist with bathing tasks, sponge baths with assist on days he doesn't get in shower and requires assist. Completes own toileting 50% of the time, dressing requires increased assist with no AE. Indep w/ self feeding. AMB independently around house, has cane and WW, uses w/c in community occassionally pending on how he is feeling for the day. - Objective Objective/Observation: Lethargic, speaks very softly, slow moving extra time needed - ROM Shoulder: Flexion AROM R 100, L 90 PROM R 110, L 100 Elbow: WFL Forearm: WFL Wrist: WFL - Strength Shoulder: R 3+/5, L 3+/5 Elbow: R 3+/5, L 3+/5 Syrup Maker Cook: R 45#, L 45# Strength Comments: Generalized BUE strength 3+/5 - Edema Other: No Edema Noted - Sensation Sensation Comments: Numbness/Tingling L fingers - Movement Tremors: No tremors noted, spouse states he doesn't have tremors - Cognitive Skills Follows Directions: Yes Cognitive Comments: Oriented to person, place, date - Balance Static Sitting: Good Dynamic Sitting: Good - Transfers Transfers: Slow moving extra time needed, sit to stand transfer SBA/CGA with verbal cues for safety and proper hand placement. Pt sat on edge of w/c and had to scoot over with verbal cues to keep turning. - Quick DASH-Disab of Arm,Shoulder AND Hand Quick DASH Score: 47.7250 - Goals Goal:: Pt will progress w/ generalized BUE strength 4/5 to increase independence with functional transfers and BADLs. Goal:: Pt will demo no pain greater than 1/10 bilateral shoulders by d/c from OT. Goal:: Pt will progress w/ UB/LB dressing tasks SUP level using AE as needed with good safety awareness. Goal:: Pt will progress with toilet transfers SUP level with good safety awareness and use of handles on commode. Goal:: Pt will progress with functional activity tolerance for BADL's 8-10 minutes without rest breaks needed. Goal:: Pt will be educated on BUE HEP with good understanding and demo 100%x. Goal:: Pt/spouse will be educated on DME/AE to assist with BADLs and adaptive techniques/compensatory strategies with good understanding and demo 100%x. - Rehabilitation General Assessment: Pt demonstrates decreased BUE strength, increased pain bilateral shoulders, decreased safety with transfers and ADLs, decreased independence with ADLs and decreased activity tolerance all indicating a need for skilled OT interventions to increase activity tolerance, strength, decrease pain of bilateral shoulders and increase independence with ADLs with good safety awareness. Rehabilitation Potential: Good - Anticipated Interventions Anticipated Interventions: A/AAROM/PROM, Strengthening, Modalities, Joint Protection/Energy Conservation, Fine Motor Coord/Kain, Neuro Reeducation, Visual/Perceptual Skills, ADL Training, Education re assistive Equipment, Caregiver Training, Home Program - Visit Plan Frequency: 1x/Week Duration: 4 Weeks General Plan: increase activity tolerance, strength, decrease pain of bilateral shoulders and increase independence with ADLs with good safety awareness. TEXT: Thank you for the opportunity to evaluate your patient. For Medicare and Medicare HMO plans, please review the plan of care and approve it. It will need to be FAXED BACK to us at [phone] for Medicare purposes. Please let me know if there are questions or concerns regarding this plan of care. Physician Signature: Date: <Electronically signed by Kita Edwards Viar > 03/11/18 1438 CC: Sho Fitzgerald MD VERA Signed For Medicare only, by signing this I certify the plan of care. Physicians Signature Date MODIFIED BARIUM Observed: 01/04/2018 Status: F Source: DAVIN SWALLOW STUDY 3:14 PM [facility] REPOSITORY [facility] Speech Pathology [address] [place] [address] Modified Barium Swallow Study MR#: [id number] Acct: [id number] Name: YNES CODY Rep #: [id number] : 1945 72 From: Massimo Horvath M.A. CFY-HEAD ATHLETIC TRAINER PRIMARY / SECONDARY DIAGNOSIS: dysphagia (R13.12) REFERRING PHYSICIAN: Dr. Sho Fitzgerald MD CURRENT DIET: mechanical soft textures, nectar thickened liquids DENTITION: WFL MENTAL STATUS: mild impairment RESPIRATORY STATUS: O2 via room air PREVIOUS MODIFIED BARIUM SWALLOW STUDY: 11/15/2014 MBS revealing mild to moderate oropharyngeal dysphagia with penetration without ejection of thin liquids 10/09/2016 MBS revealing mild to moderate oropharyngeal dysphagia with SILENT aspiration of thin liquids via chin tuck 10/07/2017 MBS revealed moderate to severe oropharyngeal dysphagia with SILENT aspiration of thin, nectar, and honey thickened liquids via cup (cleared for honey via tsp.) 10/19/2017 MBS revealed moderate oropharyngeal dysphagia (R13.12) with SILENT aspiration of thin liquids REASON FOR REFERRAL: Patient is a 72 year old male referred for a modified barium swallow (MBS) study to reassess the Patients oropharyngeal swallow function under fluoroscopy following recent MBS completion demonstrating extensive silent aspiration secondary to the diagnosis of Parkinsons disease exacerbated by recent medical condition. Patient well known to this clinician, Patient and Patients report stable intake tolerance with use of thickened liquids since prior study. Continued overall improved physical appearance and functioning in comparison to prior session. MEDICAL HISTORY: Parkinsons disease, hypertension, history of cancer (approximately 10 years ago), history of an appendectomy, and previous knee replacement. STUDY FINDINGS: Patient participated in a Modified Barium Swallow (MBS) study on 01/04/2018. Dr. Barrera was the radiologist present for this evaluation. This study was recorded in the lateral view and images were sent to PACs for storage. The following consistencies were presented to this patient for analysis of oropharyngeal swallow function: thin liquids, nectar thickened liquids, pudding, and a regular textured, Lula Doone cookie. Results of the MBS are as follows: PENETRATION / ASPIRATION SCALE (TOLBERT): 1 = does not enter airway 2 = enters airway/above vocal folds/ejected 3 = enters airway/above vocal folds/not ejected 4 = enters airway/contacts vocal folds/ejected 5 = enters airway/contacts vocal folds/not ejected 6 = enters airway/below vocal folds/ejected 7 = enters airway/below vocal folds/not ejected despite effort 8 = enters airway/below vocal folds/no effort VIDEOFLOROSCOPIC SCALE SCORE (TOLBERT): Grade I = aspiration of material that has penetrated into the laryngeal vestibule, intact cough reflex Grade II = aspiration < 10 % of the bolus, intact cough reflex Grade III = aspiration of < 10 % of the bolus, reduced cough reflex or aspiration of > 10 % of the bolus, intact cough reflex Grade IV = aspiration of > 10 % of the bolus, reduced cough reflex PENETRATION / ASPIRATION SCALE (SCORE) WITH VIDEOFLOROSCOPIC SCALE SCORE: Thin liquid - 5 mL tsp.: 1 Thin liquids via cup (single sip): NA* Thin liquids via straw (single sip): NA Thin liquids via straw (single sip): 8 - Grade III Nina thickened liquids via cup (single sip): 1 Nina thickened liquids via cup (single sip): 5 Nina thickened liquids via cup (single sip): 1 Nina thickened liquids via cup (single sip): 1 Thin liquids via straw (single sip): 8 - Grade IV Pudding via spoon: 1 Regular textured cookie: 1 Nina thickened liquids via cup (single sip): 1 * denotes inability to consume liquid from cup, noted freezing of movement. denotes inability to visualize trial due to excessive forward movement IMPRESSION: DIAGNOSIS: moderate oropharyngeal dysphagia (R13.12) ORAL PHASE CHARACTERIZED BY: LABIAL SEAL: no labial escape TONGUE CONTROL DURING BOLUS MANIPULATION: intermittent posterior escape of greater than half of bolus; consistent posterior escape of less than half of bolus BOLUS PREPARATION / MASTICATION: timely and efficient chewing with notable anterior munching quality (improved) BOLUS TRANSPORT / LINGUAL MOTION: repetitive/disorganized tongue motion; slowed tongue motion ORAL RESIDUE: trace residue lining oral structures (improved) PHARYNGEAL PHASE CHARACTERIZED BY: INITIATION OF PHARYNGEAL SWALLOW: bolus head in pyriforms at first hyoid excursion SOFT PALATE ELEVATION: intermittent trace column of contrast/air between soft palate and pharyngeal wall LARYNGEAL ELEVATION: partial superior movement of thyroid cartilage/partial approximation of arytenoids cartilage to epiglottic petiole ANTERIOR HYOID EXCURSION: partial anterior movement EPIGLOTTIC MOVEMENT: intermittent complete epiglottic inversion LARYNGEAL VESTIBULE CLOSURE AT HEIGHT OF SWALLOW: incomplete laryngeal vestibule closure with narrow column of air/contrast in laryngeal vestibule PHARYNGEAL STRIPPING WAVE: pharyngeal stripping wave present / diminished PHARYNGOESOPHAGEAL SEGMENT OPENING: complete distension and complete duration with no obstruction of flow TONGUE BASE RETRACTION: narrow column of contrast between tongue base and posterior pharyngeal wall PHARYNGEAL RESIDUE: collection of residue within or on pharyngeal structures ESOPHAGEAL PHASE CHARACTERIZED BY: ESOPHAGEAL BOLUS CLEARANCE IN THE UPRIGHT POSITION: could not view EFFECTS OF TREATMENT STRATEGIES ATTEMPTED: Anterior lean = minimally effective 3 second prep = ineffective Cough and reswallow = ineffective Reduced bolus size = moderately effective Removal of straw = moderately effective DIET TEXTURE RECOMMENDATIONS: Will recommend a regular-soft textured, nectar thickened liquid diet. COMPENSATORY STRATEGIES RECOMMENDED: Supervision, forward anterior lean, reduced bolus volume with solid textures cut into bite sized pieces, avoid straws, seated upright at 90 degrees during PO intake, remain upright for 30-60 minutes post meal (GERD precaution), medications whole with applesauce. INTERPRETATION OF RESULTS: Patient presents with moderate oropharyngeal dysphagia (R13.12) secondary to the diagnosis of Parkinsons disease exacerbated by current medical condition very similar in nature to the previous assessment, with multiple minor improvements in swallow subdomains, though limited functional improvements. Oral phase primarily marked by suboptimal lingual control with noted lingual festinations / lingual rolling pattern resulting in premature bolus loss contributing to pre-prandial penetration and aspiration; and continued delayed oral swallow onset resulting in premature bolus loss contributing to pre-prandial penetration and aspiration. Pharyngeal phase primarily marked by delayed pharyngeal swallow onset timing resulting in suboptimal bolus location upon swallow onset contributing to prandial penetration and aspiration; reduced closure of the airway during deglutition attributed to reduced laryngeal elevation and reduced anterior hyoid excursion resulting in insufficient epiglottic inversion and inconsistent laryngeal vestibule closure / pressure contributing to prandial penetration and aspiration; and suboptimal pharyngeal motility attributed to reduced tongue based retraction and reduced posterior pharyngeal stripping wave action resulting in pharyngeal retention primarily within the valleculae contributing to post-prandial penetration of thin liquids. Insufficient cough response to expel penetrated material / laryngotracheal aspiration with weak cued cough noted. Patient noted to SILENTLY aspirate with thin liquids, with clinical assessment at bedside relying on identification of classic overt signs and symptoms of aspiration unreliable. Would consider current level of functioning to be patient intake representative of the Patients baseline abilities. RECOMMENDATIONS: Would strongly discourage advancement past nectar thickened liquids without completion of a repeat modified barium swallow study due to the extent of aspirate identified that was SILENT in nature. Would not anticipate any need for repeat MBS unless diet texture intolerance is suspected, as the Patient has likely returned to new baseline level of functioning. Recommend continued implementation of the Card Free Water Protocol (FFWP) following trials and Patient education to facilitate improved liquid intake between meals. No further skilled speech-language services warranted at this time targeting dysphagia. ADDITIONAL COMMENTS/RECOMMENDATIONS: Results and recommendations were discussed with the Patient immediately following MBS completion, with the Patient verbalizing understanding and agreement with all recommendations and education provided. IMAGE COUNT: [id number] G-CODES: SWALLOWING G8996 Current Status: SWALLOWING G8997 Goal Status: SWALLOWING G8998 Discharge Status: 01/04/18 1514 <Electronically signed by Massimo Horvath M.A., CFY-HEAD ATHLETIC TRAINER> Date Massimo Horvath M.A., CFY-HEAD ATHLETIC TRAINER Co-Signature Required for all Medicare patients Date/Time Co-Signature CC: SWALLOWING FUNCTION Observed: 01/04/2018 Status: F Source: DAVIN W/VIDEO 1:05 PM [facility] REPOSITORY [facility] Imaging Services [facility] [place] [address] Swallowing Function w/Video MR#: [id number] Acct: [id number] Name: YNES CODY Rep #: [id number] : 1945 M 72 From: Grayson Barrera MD PCP: Sho Fitzgerald MD Status: REG CLI Study: Swallowing Function w/Video Date of Exam: 01/04/18 Exam# [id number] Ordering Dr: Sho Fitzgerald MD STUDY: SWALLOWING STUDY REASON FOR EXAM: Male, 72 years old. Parkinson's disease. TECHNIQUE: The examination was performed with Speech Pathology in attendance. Under fluoroscopic observation, the patient ingested thin barium, thick barium, barium pudding, and barium coated cracker. FLUOROSCOPY TIME: 2:00 minutes/seconds. 3990 spot views were obtained. RADIOLOGIST INVOLVEMENT: Radiologist was present and providing direct supervision. COMPARISON: Comparison is made with prior study dated October 19, 2017. FINDINGS: The following was observed during swallowing of the various mixtures of barium: Thin Barium: 17 aspiration with ingestion of thin liquids. Thick Barium: There was no evidence of aspiration or laryngeal penetration. Barium Pudding: There was no evidence of aspiration or laryngeal penetration. Barium Coated Cracker: There was no evidence of aspiration or laryngeal penetration. RAD/Swallowing Function w/Video IMPRESSION: Silent aspiration with ingestion of thin liquids. The swallow study findings were discussed with the patient by the speech pathologist at the conclusion of the examination. Please see speech pathology report for more information and recommendations. Electronically Signed: Grayson Barrera MD at 15:11 EST Tel [phone], Service support , CC: Sho Fitzgerald MD Carriage Rider: Signed UPPER EXT JOINT Observed: 12/01/2017 Status: F Source: DAVIN ONLY(ROUTINE) 9:58 AM [facility] REPOSITORY [facility] Imaging Services [facility] [place] [address] Upper Ext Joint Only(Routine) MR#: [id number] Acct: [id number] Name: YNES CODY Rep #: [id number] : 1945 M 72 From: Jose Alejandro Nunes MD PCP: Sho Fitzgerald MD Status: REG CLI Study: Upper Ext Joint Only(Routine) Date of Exam: 12/01/17 Exam# [id number] Ordering Dr: Sho Fitzgerald MD STUDY: MRI LEFT SHOULDER REASON FOR EXAM: Left shoulder pain status post fall. TECHNIQUE: Standardized fat and water weighted pulse sequences were obtained in all 3 orthogonal planes. COMPARISON: Radiographs 11/19/2017. FINDINGS: Although there is image degradation secondary to patient motion, there is still significant diagnostically useful information available from this examination. There is a full-thickness tear of the supraspinatus tendon retracted approximately 3.3 cm to the level of acromioclavicular joint and extending into the anterior infraspinatus tendon (T2 coronal images 9-16). There is an undersurface partial-thickness tear of the distal subscapularis tendon with medial dislocation of the long biceps tendon (T2 axial images 11-13). Normal teres minor tendon. There is mild edema in the supraspinatus muscle. Normal infraspinatus muscle. Normal subscapularis muscle. Normal teres minor muscle. There is a glenohumeral joint effusion. Normal humeral head and visualized proximal humerus. Normal biceps labral complex. Normal labrum. Normal capsulo- ligamentous complex. There is acromioclavicular arthrosis without substantial undersurface osteophytes (T2 sagittal image 8). There is a Type II morphology (curved), with a neutral orientation. There is a small volume of subacromial-subdeltoid bursal fluid. There is thickening of the coracoacromial ligament (T2 sagittal image 10). Normal deltoid muscle. Normal trapezius muscle. MRI/Upper Ext Joint Only(Routine) IMPRESSION: Full-thickness tear of the supraspinatus and infraspinatus tendons. Partial-thickness tear of the subscapularis tendon with medial dislocation of the long biceps tendon. Acromioclavicular arthrosis. Thickening of the coracoacromial ligament. Glenohumeral joint fluid communicating with the subacromial-subdeltoid bursa. Electronically Signed: Jose Alejandro Nunes MD at 13:21 EST Tel , Service support , CC: Sho Fitzgerald MD Carriage Rider: Signed URINALYSIS Collected: 11/27/2017 Status: F Source: [facility] 7:00 [facility] REPOSITORY TYPE CODE TESTS RESULT OUT OF REFERENCE UNITS RANGE LAB URINALYSIS (LOINC) URINALYSIS Result Comment: URINALYSIS LAB Specimen Type(LOINC) Specimen Type Void LAB Color(LOINC) NORMAL: YELLOW Color brown LAB Clarity(LOINC) NORMAL: CLEAR Clarity clear LAB ph(LOINC) NORMAL: 5.0-8.0 ph 6 LAB Protein(LOINC) NORMAL: NEGATIVE Protein 15 Abnormal LAB Glucose(LOINC) NORMAL: NORMAL Glucose NORM LAB Ketone(LOINC) NORMAL: NEGATIVE Ketone 5 Abnormal LAB Bilirubin(LOINC) NORMAL: NEGATIVE Bilirubin NEG LAB Blood(LOINC) NORMAL: NEGATIVE Blood NEG LAB Urobilinog(LOINC NORMAL: ) NORMAL 4 Abnormal Urobilinog LAB Sp NORMAL: [place](LOINC) 1.010-1.030 Sp [place] 1.020 LAB Nitrite(LOINC) NORMAL: NEGATIVE Nitrite NEG LAB Leukocytes(LOINC NORMAL: ) NEGATIVE Leukocytes NEG LAB Microscopic(LOIN C) Microscopic NOT INDICATED Performed By: #### [id number] #### [facility],[address] [place] [address] Observed: 11/27/2017 Status: F Source: [facility] CULTURE URINE 7:00 [facility] REPOSITORY CULTURE URINE _URINE CULTURE_ M I C R O B I O L O G Y R E P O R T FINAL Antimicrobial Susceptibility and Organism Identification Report Specimen Number : [id number] Requested : 11/27/17 Specimen Source : URINE Collected : 11/27/17 07:00 [facility] : OUTPATIENT Received : 11/27/17 07:00 Requesting Physician : Patient/Specimen Tests and Comments Specimen Comments FINAL REPORT: URINE COLONY COUNT: [id number] CFU/CC >OR=TO 3 COLONY TYPES PROBABLE CONTAMINATION Tech : Source : URINE ID # : [id number] FINAL Report Date : / / : Collected : 11/27/17 07:00 11/30/17.1345.BERNICEO. 11/29/17.0954.STELLA. 11/30/17.ANDERSON.COMPLETE Performed By: #### [id number] #### [facility],[address] [place] [address] ALLERGIES ALLERGIES DATE TYPE / CODE NAME / CODE REACTION SEVERITY SOURCE 08/11/2018 Drug No Known Unknown [place] Allergy/[id number](S Allergies/F0019 [facility] NOM CT) 01780(RXNORM) Hospital Repository Miscellaneous No Known Drug Moderate [facility] Allergy/[id number](S Allergies ([facility] NOMED [facility]) Modifier) Hospital (Qualifier Repository Value) ENCOUNTERS ENCOUNTERS ADMIT/DISCHARGE ACCOUNT ADMITTING ENCOUNTER LOCATION SOURCE NUMBER CLASS 11/15/2018 [id number] Ambulatory [facility] [facility] [place] [place] 11/15/2018 [id number] [place] [facility] ing: Repository 11/02/2018 [id number] SHO GONZALEZ Ambulatory [facility] Repository 10/18/2018 [id number] Ambulatory BMSBuilding:[place] 8 [place] [place] 10/18/2018/ [id number] Ambulatory [place] 8 1 [facility] ing: Repository 09/27/2018 [id number] Ambulatory BMSBuilding:B [place] 9 [place] [place] 09/27/2018/ [id number] Ambulatory [place] 8 3 [facility] ing: Repository 09/13/2018 [id number] Ambulatory BMSBuilding:B [place] 5 [place] [place] 08/31/2018/ [id number] SHO GONZALEZ Ambulatory [facility] 8 [facility] Repository 08/28/2018/ [id number] DR MARCELO HERNANDEZ Emergency Buildin[address] [place] [address] 8 C oom: ERBed: E [facility] Repository 08/18/2018 [id number] Ambulatory BMSBuilding:B [place] 7 [facility] Repository 08/17/2018 [id number] Ambulatory BMSBuilding:B [place] 1 [facility] Repository 08/17/2018 [id number] Elier Bryant Ambulatory BMSBuilding:B [place] 4 [place] [place] 08/17/2018 [id number] Elier Bryant Ambulatory BMSBuilding:B [place] 9 [place].[facility] [place] 08/17/2018 [id number] Elier Bryant Ambulatory BMSBuilding:B [place] 2 [facility] Repository 08/17/2018 [id number] Elier Bryant Ambulatory BMSBuilding:B [place] 1 [facility] Repository 08/17/2018 [id number] lEier Bryant Ambulatory BMSBuilding:B [place] 7 [place].[facility] [place] 08/17/2018 [id number] Elier Bryant Ambulatory BMSBuilding:B [place] 7 [facility] Repository 08/17/2018 [id number] Elier Bryant Ambulatory BMSBuilding:B [place] 3 [place] [place] 08/17/2018 [id number] Elier Bryant Ambulatory BMSBuilding:B [place] 7 [facility] Repository 08/17/2018 [id number] Elier Bryant Ambulatory BMSBuilding:B [place] 4 [place].[facility] [place] 08/17/2018 [id number] Elier Bryant Ambulatory BMSBuilding:B [place] 5 MS.[facility] Repository 08/17/2018 [id number] Elier Bryant Ambulatory BMSBuilding:B [place] 7 [facility] Repository 08/17/2018 [id number] Elier Bryant Ambulatory BMSBuilding:B [place] 3 [place] [place] 08/17/2018 [id number] Elier Bryant Ambulatory BMSBuilding:B [place] 9 [place].[facility] [place] 08/17/2018/ [id number] Elier Bryant Inpatient [place] 8 8 [facility] ing:KF2Enha: Repository TD532Dzl: 1 07/27/2018/ [id number] Ambulatory [place] 8 4 [facility] ing: Repository 07/19/2018 [id number] Ambulatory BMSBuilding:B [place] 5 [place].[facility] [place] 06/28/2018/ [id number] Ambulatory [place] 8 6 [facility] ing:WC Repository 04/13/2018/ [id number] SHO GONZALEZ Ambulatory [facility] 8 [facility] Repository 04/06/2018 [id number] Ambulatory [place] Dav[place] 2 [facility] ing:LABSPEC Repository 04/04/2018/ [id number] Emergency [place] Dav[place] 8 6 [facility] ing:ED Repository 03/25/2018/ [id number] Ambulatory [place] 8 1 [facility] ing:OT Repository 01/04/2018 [id number] Ambulatory [place] 8 [facility] ing:RAD Repository 12/01/2017 [id number] Ambulatory [place] 6 [facility] ing:MRI Repository 11/27/2017/ [id number] SHO FITZGERALD [address] Repository PAYERS PAYERS ENCOUNTER GUARANTOR PAYER SUBSCRIBER SOURCE 11/15/2018 YNES Kolb Primary Insurance:SELF NOT GIVENUNK [place] [id number] PAY [facility] TR 366UNIT Number: Effective Hospital [address] [place] [address], Date:2018-11-15 Repository [place] [address]Cmf: () 11/15/2018 YNES Kolb Primary Insurance:SELF NOT GIVENUNK [place] [id number] PAY [facility] TR 366UNIT Number: Effective [address], Date:2018-11-02 [place]ository [place] [address]Xmr: () 11/02/2018 YNES Kolb Primary HARRISON W [facility] DETWEILERDOB: Insurance:HUMANA DETWEILERDOB: [facility] [id number] MEDICARE ADVANTAGE [id number] [address] Repository [address] [place] [address], Number: RDFREDERICKSFox [facility] [address]Goq: [id number] , [place] [address] Date:Plan Name: () 10/18/2018 YNES Kolb Primary Insurance:SELF NOT GIVENUNK [place] [id number] [facility] Number[facility] Effective Hospital [address] [place] [address], Date:2018-10-18 Repository [place] [address]Xgt: () 10/18/2018 YNES Kolb Primary Insurance:SELF NOT GIVENUNK [place] [id number] [facility] Number: Effective Hospital [address] [place] [address], Date:2018-10-02 Repository [place] [address]Obw: () 09/27/2018 YNES Kolb Primary Insurance:SELF NOT GIVENUNK [place] [id number] [facility] Number: Effective [address], Date:2018-09-27 Repository [place] [address]Ojh: () 09/27/2018 YNES Kolb Primary YNES Kolb [place] [id number] Insurance:HUMANA DETWEILERDOB: Community TR [address] MEDICARE OPolicy [id number], Number: Repository [place] [address]Fqr: [id number] Date:8320-18-14YY BOX () [address] [place] [address]TP: 09/27/2018 Secondary NOT GIVENUNK [place] Insurance:SELF PAY [facility] Number: Effective Repository Date:2018-08-02 09/13/2018 YNES W Primary YNES Cortes [place] [id number] Insurance:HUMANA DETWEILERDOB: Community TR [address] MEDICARE OPolicy [id number], Number: Repository [place] [address]Xej: [id number] Date:5986-59-12UY BOX () [address] [place] [address]SV: 09/13/2018 Secondary NOT GIVENUNK [place] Insurance:SELF PAY [facility] Number: Effective Repository Date:2018-09-13 08/31/2018 YNES W Primary HARRISON W Yassine Pomerene DETWEILERDOB: Insurance:HUMANA GOLD DETWEILERDOB: [facility] [id number] [facility] OUTPATIENTPolicy [address] Repository [place], Number: RDFREDERMICAELA [place] [address]Zfz: [id number] , [place] [address] Date:Plan Name: () 08/28/2018 YNES W Primary HARRISONAugustine Metzger Pomlashayne DETWEILERDOB: Insurance:AULTCARE - DETWEILERDOB: [facility] [id number] Number: [address] Repository [place], [id number] PABLITOFREDERMICAELA [place] [address]Xyi: Date:Plan Name:[facility] [address] ) [address]OK: 08/28/2018 Secondary HARRISONAugustine Metzger Pomkatharine Insurance:AULTCARE DETWEILERDOB: [facility] [id number] Hospital Number: [address] Repository [id number] RDFREDERICKSROMULO Date:Plan Name:[address] [address] 08/28/2018 Tertiary YNES Metzger [place] Insurance:HUMANA GOLD DETWEILERDOB: [facility] [id number] [facility] [place] [address] [address] Repository Number: RDFREDERMICAELA [id number] , [place] [address] Date:Plan Name: 08/28/2018 Tertiary YNES Metzger [place] Insurance:HUMANA DETWEILERDOB: [facility] MEDICARE ADVANTAGE [id number] [facility] [address] Repository Number: RDFREDERMICAELA [id number] , [place] [address] Date:Plan Name: 08/18/2018 YNES W Primary YNES W [place] [id number] Insurance:HUMANA DETWEILERDOB: Community TR [address] MEDICARE PPOPolicy [id number], Number: Repository [place] [address]Znv: [id number] Date:0080-53-59AG BOX () [address] [place] [address]CS: 08/18/2018 Secondary NOT GIVENUNK [place] Insurance:SELF PAY [facility] Number: Effective Repository Date:2018-08-18 08/17/2018 YNES Kolb Primary YNES Kolb [place] [id number] Insurance:HUMANA DETWEILERDOB: Community TR [address] MEDICARE PPOPolicy [id number], Number: Repository [place] [address]Kec: [id number] Date:5970-98-69GO BOX () [address] [place] [address]GJ: 08/17/2018 Secondary NOT GIVENUNK [place] Insurance:SELF PAY [facility] Number: Effective Repository Date:2018-08-17 08/17/2018 YNES Cortes Primary YNES Kolb Dav[place] [id number] Insurance:HUMANA DETWEILERDOB: Community TR [address] MEDICARE PPOPolicy [id number], Number: Repository [place] [address]Lcm: [id number] Date:8928-52-00SA BOX () [address] [place] [address]AW: 08/17/2018 Secondary NOT GIVENUNK [place] Insurance:SELF PAY [facility] Number: Effective Repository Date:2018-08-17 08/17/2018 YNES Cortes Primary YNES Kolb [place] [id number] Insurance:HUMANA DETWEILERDOB: Community TR [address] MEDICARE PPOPolicy [id number], Number: Repository [place] [address]Wsn: [id number] Date:1985-73-64ZV BOX () [address] [place] [address]BW: 08/17/2018 Secondary NOT GIVENUNK [place] Insurance:SELF PAY [facility] Number: Effective Repository Date:2018-08-17 08/17/2018 YNES Kolb Primary YNES Kolb [place] [id number] Insurance:HUMANA DETWEILERDOB: Community TR [address] MEDICARE [address], Number: Repository [place] [address]Qrg: [id number] Date:0128-18-29RX BOX () [address] [place] [address]UX: 08/17/2018 Secondary NOT GIVENUNK [place] Insurance:SELF PAY [facility] Number: Effective Repository Date:2018-08-17 08/17/2018 YNES Kolb Primary YNES Kolb Dav[place] [id number] Insurance:HUMANA DETWEILERDOB: Community TR [address] MEDICARE PPOPolicy [id number], Number: Repository [place] [address]Wsw: [id number] Date:5337-39-30GB BOX () [address] [place] [address]IW: 08/17/2018 Secondary NOT GIVENUNK [place] Insurance:SELF PAY [facility] Number: Effective Repository Date:2018-08-17 08/17/2018 YNES Kolb Primary YNES Kolb [place] [id number] Insurance:HUMANA DETWEILERDOB: [facility] TR 366UNIT MEDICARE [address], Number: Repository [place] [address]Ucr: [id number] Date:8797-53-91NK BOX () [address] [place] [address]ZE: 08/17/2018 Secondary NOT GIVENUNK [place] Insurance:SELF PAY [facility] Number: Effective Repository Date:2018-08-17 08/17/2018 YNES Kolb Primary YNES Kolb [place] [id number] Insurance:HUMANA DETWEILERDOB: Community TR [address] MEDICARE PPOPolicy [id number], Number: Repository [place] [address]Lwp: [id number] Date:9847-55-15WH BOX () [address] [place] [address]CF: 08/17/2018 Secondary NOT GIVENUNK [place] Insurance:SELF PAY [facility] Number: Effective Repository Date:2018-08-17 08/17/2018 YNES Kolb Primary YNES Kolb [place] [id number] Insurance:HUMANA DETWEILERDOB: Community TR [address] MEDICARE PPOPolicy [id number], Number: Repository [place] [address]Omp: [id number] Date:2721-84-08SG BOX () [address] [place] [address]JN: 08/17/2018 Secondary NOT GIVENUNK [place] Insurance:SELF PAY [facility] Number: Effective Repository Date:2018-08-17 08/17/2018 YNES Kolb Primary YNES Kolb [place] [id number] Insurance:HUMANA DETWEILERDOB: Community TR [address] MEDICARE PPOPolicy [id number], Number: Repository [place] [address]Gvu: [id number] Date:2178-70-49XU BOX () [address] [place] [address]NR: 08/17/2018 Secondary NOT GIVENUNK [place] Insurance:SELF PAY [facility] Number: Effective Repository Date:2018-08-17 08/17/2018 YNES Kobl Primary YNES Klob [place] [id number] Insurance:HUMANA DETWEILERDOB: Community TR [address] MEDICARE PPOPolicy [id number], Number: Repository [place] [address]Sck: [id number] Date:4577-93-09KU BOX () [address] [place] [address]GX: 08/17/2018 Secondary NOT GIVENUNK [place] Insurance:SELF PAY [facility] Number: Effective Repository Date:2018-08-17 08/17/2018 YNES Kolb Primary YNES Kolb [place] [id number] Insurance:HUMANA DETWEILERDOB: Community TR [address] MEDICARE [place] [id number], Number: Repository [place] [address]Jce: [id number] Date:2089-13-49QS BOX () [address] [place] [address]JZ: 08/17/2018 Secondary NOT GIVENUNK [place] Insurance:SELF PAY [facility] Number: Effective Repository Date:2018-08-17 08/17/2018 YNES Kolb Primary YNES Kolb [place] [id number] Insurance:HUMANA DETWEILERDOB: [facility] TR 366UNIT MEDICARE PPOPolicy [id number], Number: Repository [place] [address]Jcx: [id number] Date:5937-87-85WW BOX () [address] [place] [address]VU: 08/17/2018 Secondary NOT GIVENUNK [place] Insurance:SELF PAY [facility] Number: Effective Repository Date:2018-08-17 08/17/2018 YNES Kolb Primary YNES Kolb [place] [id number] Insurance:HUMANA DETWEILERDOB: Community TR [address] MEDICARE [address] [place] [address], Number: Repository [place] [address]Anx: [id number] Date:3615-04-16OP BOX () [address] [place] [address]KE: 08/17/2018 Secondary NOT GIVENUNK [place] Insurance:SELF PAY [facility] Number: Effective Repository Date:2018-08-17 08/17/2018 YNES Kolb Primary YNES Kolb [place] [id number] Insurance:HUMANA DETWEILERDOB: Community TR [address] MEDICARE PPOPolicy [id number], Number: [place]ository [place] [address]Jov: [id number] Date:0516-64-11FB BOX () [address] [place] [address]BT: 08/17/2018 Secondary NOT GIVENUNK [place] Insurance:SELF PAY [facility] Number: Effective Repository Date:2018-08-17 08/17/2018 YNES W Primary YNES W [place] [id number] Insurance:HUMANA DETWEILERDOB: Community TR [address] MEDICARE PPOPolicy [id number], Number: [place]ository [place] [address]Zag: [id number] Date:3971-88-68GJ BOX () [address] [place] [address]GZ: 08/17/2018 Secondary NOT GIVENUNK [place] Insurance:SELF PAY [facility] Number: Effective Repository Date:2018-07-30 07/27/2018 HARRISON W Primary HARRISON W [place] [id number] Insurance:HUMANA DETWEILERDOB: Community TR [address] MEDICARE PPOPolicy [id number], Number: Repository [place] [address]Ewd: [id number] Date:8816-99-37PL BOX () [address] [place] [address]VF: 07/27/2018 Secondary NOT GIVENUNK [place] Insurance:SELF PAY [facility] Number: Effective Repository Date:2018-07-03 07/19/2018 HARRISON W Primary HARRISON W [place] [id number] Insurance:HUMANA DETWEILERDOB: Community TR [address] MEDICARE PPOPolicy [id number], Number: Repository [place] [address]Gkn: [id number] Date:2722-59-69NC BOX () [address] [place] [address]BB: 07/19/2018 Secondary NOT GIVENUNK [place] Insurance:SELF PAY [facility] Number: Effective Repository Date:2018-07-19 06/28/2018 HARRISON W Primary HARRISON W [place] [id number] Insurance:HUMANA DETWEILERDOB: Community TR [address] MEDICARE PPOPolicy [id number], Number: Repository [place] [address]Gvl: [id number] Date:1352-57-64HZ BOX () [address] [place] [address]XQ: 06/28/2018 Secondary NOT GIVENUNK [place] Insurance:SELF PAY [facility] Number: Effective Repository Date:2018-06-07 04/13/2018 YNES W Primary HARRISON W Yassine Pomerene DETWEILERDOB: Insurance:HUMANA DETWEILERDOB: [facility] [id number] MEDICARE ADVANTAGE [id number] [place] [address] [place] [address], Number: RDDEISY [place] [address]Hog: [id number] , [place] [address] Date:Plan Name: () 04/13/2018 Secondary HARRISON W Yassine [place]ome[place] Insurance:HUMANA DETWEILERDOB: [facility] MEDICARE ADVANTAGE [id number] [place] [address] Repository Number: RDFREDERMICAELA [id number] , [place] [address] Date:Plan Name: 04/06/2018 HARRISON W Primary HARRISON W Dav[place] [id number] Insurance:HUMANA DETWEILERDOB: Community [address] MEDICARE PPOPolicy [id number], Number: Repository [place] [address]Opt: [id number] Date:1460-25-30JV BOX () [address] [place] [address]RR: 04/06/2018 Secondary NOT GIVENUNK [place] Insurance:SELF PAY [facility] Number: Effective Repository Date:2018-04-06 04/04/2018 HARRISON W Primary HARRISON W [place] [id number] Insurance:HUMANA DETWEILERDOB: Community TR [address] MEDICARE [address], Number: Repository [place] [address]Dxl: [id number] Date:7598-22-32WN BOX () [address] [place] [address]FM: 04/04/2018 Secondary NOT GIVENUNK [place] Insurance:SELF PAY [facility] Number: Effective Repository Date:2018-04-04 03/25/2018 YNES Kolb Primary YNES Kolb [place] [id number] Insurance:HUMANA DETWEILERDOB: [facility] 366[address] MEDICARE PPOPolicy [id number], Number: Repository [place] [address]Twc: [id number] Date:2611-53-87OY BOX () [address] [place] [address]IZ: 03/25/2018 Secondary NOT GIVENUNK [place] Insurance:SELF PAY [facility] Number: Effective Repository Date:2018-03-03 01/04/2018 YNES Kolb Primary YNES Kolb Dav[place] [id number] Insurance:HUMANA DETWEILERDOB: [facility] 366[address] MEDICARE [address] [place] [address], Number: Repository [place] [address]Alc: [id number] Date:6765-97-43CK BOX () [address] [place] [address]EW: 01/04/2018 Secondary NOT GIVENUNK [place] Insurance:SELF PAY [facility] Number: Effective Repository Date:2017-12-08 12/01/2017 YNES Primary YNES [place] [id number] Insurance:HUMANA DETWEILERDOB: Community TR [address] MEDICARE [address], Number: Repository [place] [address]Sac: [id number] Date:7798-14-95ER BOX () [address]NU[place], [place] [address]JN: 12/01/2017 Secondary NOT GIVENUNK [place] Insurance:SELF PAY [facility] Number: Effective Repository Date:2017-11-23 11/27/2017 YNES Callaway DETWEILERDOB: Insurance:HUMANA DETWEILERDOB: [facility] [id number] MEDICARE ADVANTAGE [id number] [address] RDFREDERICKSBUR Number: RDFRPRICILLA [place], [place] [address]Ihx: [id number] , [place] [address] Date:Plan Name: ()
== END 2018-11-01 23:59 ==
LOC: WC 09:25
PROVIDERS: Family Provider Family Medicine; PCP Family Medicine; Referring Provider Surgery; Visit Provider Surgery
DX: L89.154 Pressure ulcer of sacral region, stage 4 (principal); M46.28 Osteomyelitis of vertebra, sacral and sacrococcygeal region; Z86.14 Personal history of Methicillin resistant Staphylococcus aureus infection; F03.90 Unspecified dementia, unspecified severity, without behavioral disturbance, psychotic disturbance, mood disturbance, and anxiety
CPT/HCPCS: 11043

== ENCOUNTER 2018-11-15 08:24 | Outpatient (RCR) | payer MEDICARE, SELFPAY ==
[2018-11-02 00:25] VITALS: BP 126/84; PULSE 81; RESP 18; TEMP 27.2
[2018-11-15 11:05] VITALS: BP 131/74; PULSE 83; RESP 16; TEMP 36.6; BMI 25.1
--- NOTE | 2018-11-15 12:20 | PN.PCM_ITS ---
(1) Pressure ulcer of sacral region, stage 4 Status: Chronic Current Visit: Yes Code(s): L89.154 - Pressure ulcer of sacral region, stage 4 (2) Chronic osteomyelitis of sacrum Status: Chronic Current Visit: Yes Code(s): M86.68 - Other chronic osteomyelitis, other site (3) Urinary incontinence Status: Chronic Current Visit: Yes Code(s): R32 - Unspecified urinary incontinence (4) Parkinson's disease dementia Status: Chronic Current Visit: Yes Code(s): G20 - Parkinson's disease; F02.80 - Dementia in other diseases classified elsewhere without behavioral disturbance Type of Wound Date of Service: 11/15/18 Chief Complaint: Sacral pressure sore, stage IV. History of Wound: Surgery 08/17/18 - Excision sacral pressure sore, Stage IV, with partial ostectomy for osteomyelitis. Wound care - VAC. Operative culture - soft tissue, MRSE, and bone, MRSA. He was placed on Vancomycin and has finished them. Pathology - acute osteomyelitis. Prealbumin from 08/18/18 was 27.6. Encourage nutritional supplementation with protein to help with the healing process. MRI Pelvis from 06/19/18 was consistent with osteomyelitis. Today the patient denies fever. His appetite is ok. It was noted when the NPWT device was being changed that there were bugs in the canister. Patient's is concerned about the bugs. Progress of Wound: Slight amount of improvement. - Physical Exam Vital Signs Temp Pulse Resp BP 97.8 F 83 16 131/74 H 11/15/18 11:05 11/15/18 11:05 11/15/18 11:05 11/15/18 11:05 General: Alert, Cooperative HEENT: Atraumatic Oral: Moist Mucosa Extremities: No edema, Capillary Refill Less than 3 Seconds Skin: Ulcer/ Wound - Coccyx Stage IV ulcer Wound Measurements and Assessment WC - Nurse 1 - General Ulcer Measurement Start: 11/15/18 11:05 Freq: Status: Active Protocol: Activity Type Activity Date Activity User E-Sign Co-Sign Detail Recorded Client Recorded Date Recorded By Document 11/15/18 11:05 EKTA [id number] 11/15/18 11:08 EKTA 11/15/18 11:05 Wound Center Nurse 1 [Ulcer Assessment] #2 coccyx -Combined with other wound No -Current Size (cm) - Length 3.6 -Current Size (cm) - Width 2.4 -Current Size (cm) - Depth 3.8 -Total Square Cm 8.64 -Date of Last Picture (Recall this 11/15/18 field) -Photo Taken Yes -Epithelialization None Present -Tunneling No -Undermining/Tunneling Yes -Undermining/Tunneling Starts (O' 12 clock) -Undermining/Tunneling Ends (O'clock) 6 -Maximum Distance (cm) 3.3 -Exudate Amt Medium -Exudate Type Serosanguineous -Wound Margin Distinct, Outline Attached -Granulation Amt Medium (34-66%) -Granulation Quality Pale [place] -Slough/Fibrin Yes -Necrosis Amt Small (1-33%) -Necrotic Tissue Type Adherent Slough -Structure Exposed Bone -Texture (Bertha-wound Skin Appearance) No Abnormality Assessed -Moisture (Bertha-wound Skin Appearance No Abnormality ) Assessed -Color (Bertha-wound Skin Appearance) No Abnormality Assessed -Temperature (Bertha-wound Skin No Abnormality Appearance) (Pt Warm) -Tenderness on Palpation (Bertha-wound Yes Skin Appearance) -Ulcer Cleansing saop -Foul Odor after Cleansing Yes -Anesthetic Used 4% Lidocaine Solution WC - Nurse 2 - General Ulcer CM Notes Start: 11/15/18 11:05 Freq: Status: Active Protocol: Activity Type Activity Date Activity User E-Sign Co-Sign Detail Recorded Client Recorded Date Recorded By Document 11/15/18 11:28 [email or web address] [id number] 11/15/18 11:30 MARICRUZ 11/15/18 11:28 Wound Center Nurse 2 [Procedure/Treatment] -Time 11:29 -Correct Patient Yes -Correct Side, Site, Position Yes -Correct Procedure Yes -Procedure Performed Yes -Type of Procedure Debridement -Clinical Debridement Muscle -Post Debridement Size (cm) - Length 4.2 -Post Debridement Size (cm) - Width 2.0 -Post Debridement Size (cm) - Depth 2.5 -Total Square Cm 8.40 -Wound/Ulcer Outcome Not Healed -Ulcer Cleansing Rinsed/ Irrigated with Saline -Foul Odor after Cleansing No -Bioengineered Tissue No -Bleeding Controlled with Pressure -Other tunnel=12-2.2cm /6-3.0cm/9-4. 0cm -Offloading No -Treatment Response Procedure Tolerated Well [See Physician Procedure note for Specifics] Pain Scale: 0-10 Numeric [Pain] -Is Patient Pain Free? Yes Debridement Note Post-Debridement Measurements/Treatment WC - Nurse 2 - General Ulcer CM Notes Start: 11/15/18 11:05 Freq: Status: Active Protocol: Activity Type Activity Date Activity User E-Sign Co-Sign Detail Recorded Client Recorded Date Recorded By Document 11/15/18 11:28 [id number] 11/15/18 11:30 MARICRUZ 11/15/18 11:28 Wound Center Nurse 2 #2 coccyx -Time 11:29 -Correct Patient Yes -Correct Side, Site, Position Yes -Correct Procedure Yes -Procedure Performed Yes -Type of Procedure Debridement -Clinical Debridement Muscle -Post Debridement Size (cm) - Length 4.2 -Post Debridement Size (cm) - Width 2.0 -Post Debridement Size (cm) - Depth 2.5 -Total Square Cm 8.40 -Wound/Ulcer Outcome Not Healed -Ulcer Cleansing Rinsed/ Irrigated with Saline -Foul Odor after Cleansing No -Bioengineered Tissue No -Bleeding Controlled with Pressure -Other tunnel=12-2.2cm /6-3.0cm/9-4. 0cm -Offloading No -Treatment Response Procedure Tolerated Well Pain Scale: 0-10 Numeric Is Patient Pain Free? Yes Wound debrided: coccy ulcer Wound Grade/Stage: Stage IV Type of Debridement: Excisional debridement Anesthesia Used: 4% Lidocaine Solution Depth: Down to and including healthy tissue, in the subcutaneous layer Percentage of wound debrided: 100 Instrument Used: 3mm curette Tissue Removed: Subcutaneous tissue and slough Severity: Fat Layer Exposed Amount of bleeding with debridement: Mild Bleeding Controlled with: Pressure Patient tolerated procedure well Assessment/Plan Active Problems Chronic osteomyelitis of sacrum (Chronic) Pressure ulcer of sacral region, stage 4 (Chronic) Urinary incontinence (Chronic) Parkinson's disease dementia (Chronic) Assessment: 1. Sacral pressure sore, Stage IV. 2. Osteomyelitis. 3. MRSA. 4. Dementia. Plan: Continue NPWT device. To be changed three times per week. The Vancomycin for MRSA has been completed. Prealbumin from 08/18/18 was 27.6. Encourage nutritional supplementation with protein to help the healing process. With his advanced age and medical comorbidities, he is not a good candidate for future surgery to close the pressure sore with muscle flaps. That would require 6 weeks of bedrest. Even before considering a discussion about wound closure with muscle flaps in the future, the infection needs to be controlled and his nutrition needs to be maximized. Family states he gets up at the [facility] with assist. He is working with therapy for strengthening and ambulation. He now has a Roho cushion for his wheelchair. The [facility] facility has been getting him up for meals but they will put him back to bed between meals so he is not sitting in his wheelchair for long periods of time. The bug/gnat issue has been resolved also. The family is wanting to know if there is anything else that can be done to help with closure of his ulcer. We will order another CT due to his chronic osteomylitis. Followup [address] Bryant. Code Visit [id number]
== END 2018-12-02 23:59 ==
LOC: WC 08:24
PROVIDERS: Family Provider Family Medicine; PCP Family Medicine; Referring Provider Surgery; Visit Provider Surgery
DX: L89.154 Pressure ulcer of sacral region, stage 4 (principal); M86.68 Other chronic osteomyelitis, other site; R32 Unspecified urinary incontinence; G20 Parkinson's disease; F02.80 Dementia in other diseases classified elsewhere, unspecified severity, without behavioral disturbance, psychotic disturbance, mood disturbance, and anxiety; Z86.14 Personal history of Methicillin resistant Staphylococcus aureus infection
CPT/HCPCS: 11043; 97605

== ENCOUNTER → 2018-12-06 08:04 | Outpatient (CLI) | payer MEDICARE, MEDICAID, SELFPAY ==
[2018-11-15 11:05] VITALS: BMI 25.1
--- NOTE | 2018-12-06 08:09 | CT_ITS ---
STUDY: CT PELVIS WITHOUT CONTRAST REASON FOR EXAM: Male, 73 years old. Wound. Osteomyelitis of the coccyx. RADIATION DOSAGE (If Supplied By Facility): CTDIvol = ( 12.30 ) mGy, DLP = ( 482.46 ) mGycm TECHNIQUE: Transaxial imaging of the pelvis was performed with oral contrast, and without intravenous administration of contrast material. Individualized dose optimization techniques were used for this CT. COMPARISON: None. FINDINGS: There is a 2.2 cm x 1 cm soft tissue defect overlying the posterior aspect of the coccyx. The underlying coccyx and distal portion of the sacral bone is of heterogeneous density suggestive of a chronic osteomyelitis. Acute osteomyelitis superimposed cannot be excluded. A Sanchez catheter is seen within the urinary bladder. The bladder is empty. There is diffuse thickening of the bladder wall. A 2 mm calcification is seen in the right ureterovesical junction. Bilateral renal cysts. Prostate calcifications. Normal visualized small intestine. Moderate amount of fecal material is seen within the colon. There is no pelvic fluid. There is no pelvic mass lesion or lymphadenopathy. There is diffuse atherosclerotic calcification of the aorta and pelvic arteries. Left inguinal hernia containing nondilated small bowel loop. Stable 6.5 cm lipoma in the right gluteus muscle. CT/Pelvis without IV Contrast IMPRESSION: Ulceration overlying the coccyx and distal sacrum as described. There is destruction of the underlying coccyx and distal sacrum suggestive of a chronic osteomyelitis and possible superimposition of acute osteomyelitis. Diffuse thickening of the bladder wall. Left inguinal hernia. Electronically Signed: Grayson Barrera MD at 10:27 EST , Service support ,
== END ==
PROVIDERS: Family Provider Family Medicine; PCP Family Medicine; Referring Provider Nurse Practitioner Family; Visit Provider Nurse Practitioner Family
DX: M86.9 Osteomyelitis, unspecified (principal)
CPT/HCPCS: 72192

== ENCOUNTER 2018-12-06 08:34 | Outpatient (RCR) | payer MEDICARE, MEDICAID, SELFPAY ==
[2018-12-03 00:54] VITALS: BP 131/74; PULSE 83; RESP 16; TEMP 36.6
[2018-12-06 09:38] VITALS: BP 105/65; PULSE 80; RESP 18; TEMP 37; BMI 25.1
--- NOTE | 2018-12-06 09:47 | WC ---
pt had stool in in wound bed and sponge. returned case inspector made aware. pt cleansed with soap a nd water.
--- NOTE | 2018-12-06 10:40 | PCM.WC.PN ---
(1) Pressure ulcer of sacral region, stage 4 Status: Chronic Code(s): L89.154 - Pressure ulcer of sacral region, stage 4 (2) Chronic osteomyelitis of sacrum Status: Chronic Code(s): M86.68 - Other chronic osteomyelitis, other site (3) Debility Status: Chronic Code(s): R53.81 - Other malaise Type of Wound Chief Complaint: Sacral pressure sore, stage IV. History of Wound: Surgery 08/17/18 - Excision sacral pressure sore, Stage IV, with partial ostectomy for osteomyelitis. Wound care - VAC. Operative culture - soft tissue, MRSE, and bone, MRSA. He was placed on Vancomycin and has finished them. Pathology - acute osteomyelitis. Prealbumin from 08/18/18 was 27.6. Encourage nutritional supplementation with protein to help with the healing process. MRI Pelvis from 06/19/18 was consistent with osteomyelitis. Today the patient denies fever. His appetite is ok. Today when the wound VAC dressing was removed, there appears to be stool on the sponge from in the wound. states that he has been weaker than normal and requiring more assistance with walking. Progress of Wound: No improvement. Suspect stool in wound. - Physical Exam Vital Signs Temp Pulse Resp BP 98.6 F 80 18 105/65 12/06/18 09:38 12/06/18 09:38 12/06/18 09:38 12/06/18 09:38 General: Alert, Cooperative Lungs: Normal air movement Cardiovascular: Regular rate Skin: Ulcer/ Wound - Coccyx ulcer with stool present when dressing removed. Stool under the drape of the wound VAC Wound Measurements and Assessment WC - Nurse 1 - General Ulcer Measurement Start: 12/06/18 09:37 Freq: Status: Active Protocol: Activity Type Activity Date Activity User E-Sign Co-Sign Detail Recorded Client Recorded Date Recorded By Document 12/06/18 09:38 RB [id number] 12/06/18 09:48 RB 12/06/18 09:38 Wound Center Nurse 1 [Ulcer Assessment] #2 coccyx -Combined with other wound No -Current Size (cm) - Length 3 -Current Size (cm) - Width 1.2 -Current Size (cm) - Depth 3.3 -Total Square Cm 3.6 -Tunneling No -Undermining/Tunneling Yes -Maximum Distance #2 (cm) 4 -Circular Undermining Yes -Exudate Amt Medium -Exudate Type Serosanguineous -Wound Margin Thickened & Rolled Under -Granulation Amt Medium (34-66%) -Granulation Quality [place] Red -Slough/Fibrin Yes -Necrosis Amt Medium (34-66%) -Necrotic Tissue Type Adherent Slough -Structure Exposed Bone -Texture (Bertha-wound Skin Appearance) Assessed -Moisture (Bertha-wound Skin Appearance Assessed ) -Color (Bertha-wound Skin Appearance) Assessed -Temperature (Bertha-wound Skin No Abnormality Appearance) (Pt Warm) -Tenderness on Palpation (Bertha-wound No Skin Appearance) -Ulcer Cleansing Wound Cleanser -Foul Odor after Cleansing No -Anesthetic Used 4% Lidocaine Solution 12/06/18 09:47 Wound Center by Kelin Clark pt had stool in in wound bed and sponge. rifle case repairer made aware. pt cleansed with soap a nd water. Initialized on 12/06/18 09:47 - END OF NOTE WC - Nurse 2 - General Ulcer CM Notes Start: 12/06/18 09:37 Freq: Status: Active Protocol: Activity Type Activity Date Activity User E-Sign Co-Sign Detail Recorded Client Recorded Date Recorded By Document 12/06/18 10:06 [email or web address] [id number] 12/06/18 10:12 MARICRUZ 12/06/18 10:06 Wound Center Nurse 2 [Procedure/Treatment] -Time 10:11 -Correct Patient Yes -Correct Side, Site, Position Yes -Correct Procedure Yes -Procedure Performed Yes -Type of Procedure Debridement -Clinical Debridement Muscle -Post Debridement Size (cm) - Length 3.2 -Post Debridement Size (cm) - Width 1.8 -Post Debridement Size (cm) - Depth 3.0 -Total Square Cm 5.76 -Wound/Ulcer Outcome Not Healed -Ulcer Cleansing Rinsed/ Irrigated with Saline -Foul Odor after Cleansing No -Bioengineered Tissue No -Bleeding Controlled with Pressure -Other circumferial undermining to sacral ulcer -Offloading No -Treatment Response Procedure Tolerated Well [See Physician Procedure note for Specifics] Pain Scale: 0-10 Numeric [Pain] -Is Patient Pain Free? Yes Musculoskeletal: No Tenderness to Palpation of Joints or Extremities Neurological: Neuro grossly intact Psych/Mental Status: Flat Affect Debridement Note Post-Debridement Measurements/Treatment WC - Nurse 2 - General Ulcer CM Notes Start: 12/06/18 09:37 Freq: Status: Active Protocol: Activity Type Activity Date Activity User E-Sign Co-Sign Detail Recorded Client Recorded Date Recorded By Document 12/06/18 10:06 [email or web address] [id number] 12/06/18 10:12 MARICRUZ 12/06/18 10:06 Wound Center Nurse 2 #2 coccyx -Time 10:11 -Correct Patient Yes -Correct Side, Site, Position Yes -Correct Procedure Yes -Procedure Performed Yes -Type of Procedure Debridement -Clinical Debridement Muscle -Post Debridement Size (cm) - Length 3.2 -Post Debridement Size (cm) - Width 1.8 -Post Debridement Size (cm) - Depth 3.0 -Total Square Cm 5.76 -Wound/Ulcer Outcome Not Healed -Ulcer Cleansing Rinsed/ Irrigated with Saline -Foul Odor after Cleansing No -Bioengineered Tissue No -Bleeding Controlled with Pressure -Other circumferial undermining to sacral ulcer -Offloading No -Treatment Response Procedure Tolerated Well Pain Scale: 0-10 Numeric Is Patient Pain Free? Yes Wound debrided: Coccyx ulcer Wound Grade/Stage: Stage 4 Type of Debridement: Excisional debridement Anesthesia Used: 4% Lidocaine Solution Depth: Down to and including healthy tissue, in the subcutaneous layer, to muscle Percentage of wound debrided: 100 Instrument Used: 7mm curette Tissue Removed: Subcutaneous tissue and slough Severity: Fat Layer Exposed Amount of bleeding with debridement: Mild Bleeding Controlled with: Pressure, Compression and gauze Patient tolerated procedure well Assessment/Plan Active Problems MRSA (methicillin resistant Staphylococcus aureus) infection (Acute) Incontinence of feces (Chronic) Assessment: 1. Sacral pressure sore, Stage IV. 2. Osteomyelitis. 3. MRSA. 4. Dementia. Plan: Stop NPWT device. Due to the suspected stool found in the wound, we are sending him to the ED for admission. He may need a colostomy to help keep the stool out of his wound. He had his CT this morning to evaluate his chronic osteomylitis. Code Visit 111xxx-113xx: [id number] Amber musc/fascia 20 sq cm/<
== END 2018-12-30 23:59 ==
LOC: WC 08:34
PROVIDERS: Family Provider Family Medicine; PCP Family Medicine; Referring Provider Surgery; Visit Provider Surgery
DX: L89.154 Pressure ulcer of sacral region, stage 4 (principal); M86.68 Other chronic osteomyelitis, other site; R53.81 Other malaise; Z86.14 Personal history of Methicillin resistant Staphylococcus aureus infection; R15.9 Full incontinence of feces; F03.90 Unspecified dementia, unspecified severity, without behavioral disturbance, psychotic disturbance, mood disturbance, and anxiety
CPT/HCPCS: 11043

== ENCOUNTER 2018-12-06 10:43 | Inpatient (IN) | payer MEDICARE, MEDICAID, SELFPAY ==
[2018-12-06] VITALS (9 sets, daily range): BP systolic 128–148; BP diastolic 66–80; PULSE 75–80; RESP 14–18; TEMP 36.6–37.6; O2SAT 94–97; BMI 25.1; BMI 25.0; BMI 23.5
[2018-12-06 14:49] LABS: Absolute Lymphocyte Count 1.26 X10^3/ul (0.83-4.51); Absolute Neutrophil Count 9.9 X10^3/uL (2.0-7.7); Basophil# 0.01 X10^3/uL; Basophil% 0.1 % (0-1); Eosinophil# 0.08 X10^3/uL; Eosinophils% 0.7 % (0-5); Hematocrit 27.5 % (40-54); Hemoglobin 8.3 g/dl (13.0-16.5); Lymphocyte # 1.26 X10^3/ul (4.0); Lymphocyte % 10.3 % (19-41); Mean Corp Hgb Conc 30.2 g/gl (32-36); Mean Corpuscular Hgb 28.3 pg (27.0-32.0); Mean Corpuscular Volume 93.9 fL (80-94); Mean Platelet Vol. 8.6 fl (6.2-12.0); Monocyte# 1.03 X10^3/uL; Monocyte% 8.4 % (0-10); Neutrophil # 9.85 X10^3/uL (2.7-7.7); Neutrophil % 80.2 % (47-70); POSITIVE COUNT NO; POSITIVE DIFFERENTIAL NO; POSITIVE MORPHOLOGY NO; Platelet Count 421 K/mm3 (150-450); RBC Distribution Width CV 18.5 % (11.6-14.6); RBC Distribution Width SD 63.6 fl (35.1-43.9); Red Blood Count 2.93 M/mm3 (4.6-6.2); White Blood Count 12.3 K/mm3 (4.4-11.0)
[2018-12-06 14:57] LABS: Anion Gap 10 (5-15); BUN 35 mg/dL (7-18); BUN/Creat Ratio 52.7 RATIO (10-20); Calcium,Total 8.7 mg/dL (8.5-10.1); Chloride 105 mmol/L (98-107); Creatinine, Serum 0.66 mg/dL (0.70-1.30); EST Glomerular Filtration Rate 124 mL/min (>60); Est Glom Filt Rate - Afr Amer 151 mL/min (>60); Estimated Creatinine Clearance 60.59 ml/min; Glucose 89 mg/dL (74-106); Potassium 4.2 mmol/L (3.5-5.1); Sodium Level 143 mmol/L (136-145)
--- NOTE | 2018-12-06 15:27 | NURSING ---
called nsg home and left message for medication list.
--- NOTE | 2018-12-06 16:18 | PCM.HP.STD ---
Problem List (1) Chronic osteomyelitis of sacrum Status: Chronic (2) Dementia Status: Chronic Qualifiers: Dementia type: unspecified type Dementia behavioral disturbance: without behavioral disturbance Qualified Code(s): F03.90 - Unspecified dementia without behavioral disturbance (3) Debility Status: Chronic (4) Macrocytic anemia Status: Chronic (5) Parkinson's disease dementia Status: Chronic Qualifiers: Dementia behavioral disturbance: without behavioral disturbance Qualified Code(s): G20 - Parkinson's disease; F02.80 - Dementia in other diseases classified elsewhere without behavioral disturbance History of Present Illness Date of Admission: 12/06/18 Chief Complaint: Sacral wound infection The patient is a 73 year old M with past medical history of Parkinson's disease, chronic osteomyelitis of his sacrum, chronic stage IV stage V decubitus ulcers, resident in [facility]. History was taken from the ED physician and his as well as his son as patient is not really communicative. Patient follows with Dr. Bryant in the wound center. He was recently discharged from the hospital in August 2018 after he had partial ostectomy for acute on chronic osteomyelitis. Wound cultures from that admission grew staph epidermidis in the soft tissue cultures, and MRSA in the bone culture. Patient was seen in the wound center and was said to have fecal soiling of his wound. The nurses had discussed with Dr. Bryant and the plan was to bring the patient to the hospital for antibiotic treatment and to be evaluated for diverting colostomy. According to the , patient has not had any diarrhea, fever, chills or any recent acute illness. Vitals in the ED showed temperature of 98F, blood pressure was 146/80, HR was 80, respiratory rate was 18, SPO2 is 96% on room air. His admitting blood work showed RBC count of 12.3, hemoglobin 8.3, platelet 421, BMP was unremarkable Pelvic CT showed possible acute on chronic osteomyelitis Past Medical History Past Medical History (Chronic Problems): Chronic Problems Chronic osteomyelitis of sacrum (Chronic) Pressure ulcer of sacral region, stage 4 (Chronic) Urinary incontinence (Chronic) Dementia (Chronic) Debility (Chronic) Pressure ulcer, stage 4 (Chronic) Failure to thrive (Chronic) Macrocytic anemia (Chronic) Parkinson's disease dementia (Chronic) Parkinson disease (Chronic) Generalized weakness (Chronic) Allergies No Known Allergies Allergy (Verified 12/06/18 10:47) Home Medications: Ambulatory Orders Medication Instructions Recorded Carbidopa/Levodopa 50/200 [Sinemet 1 tablet PO HS@2100 tablet.sa 10/09/17 CR 50/200] Acetaminophen [Tylenol] 1,000 mg PO BID 08/11/18 Carbidopa/Levodopa 25/100 [Sinemet 2 tablet PO TIDAC 08/11/18 25/100] Multivitamin [Multiple Vitamins] 1 each PO DAILY 08/11/18 Polyethylene Glycol 3350 [Miralax] 17 gm PO DAILY 08/11/18 Cholecalciferol (VIT D3) [Vitamin 1,000 unit PO DAILY 12/06/18 D] Donepezil HCl [Aricept] 10 mg PO QHS 12/06/18 Losartan Potassium [Cozaar] 50 mg PO DAILY 12/06/18 Oxycodone HCl 5 mg PO TID 12/06/18 Propylene Glycol/Peg 400 [Systane 1 drop EACH EYE BID 12/06/18 Ultra 0.4-0.3% Eye Drp] Vitamin B Complex 1 cap PO DAILY 12/06/18 Surgical History: appendectomy, herniorrhaphy - Multiple procedures in his groin., total knee arthroplasty - Right knee, - - Cervical spine surgery-fusion, 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 Review of Systems Unable to obtain accurate/complete ROS d/t: Not reliably be obtained because of patient's advanced dementia. VTE Information - Inpt Only VTE Present on Admission: No VTE Pharm Prophylaxis ordered?: Yes - Physical Exam General: Alert, Cooperative, No apparent distress, - - Oriented x2 -oriented to person and place HEENT: Atraumatic, PERRLA, EOMI, Normocephalic Oral: Moist Mucosa Neck: Supple, No JVD, Negative Carotid Bruits Lungs: Normal air movement, Diminished - at the lung bases Cardiovascular: Regular rate, Regular Rhythm, Normal S1, Normal S2, No murmurs Abdomen: Bowel Sounds Present, Soft, Non Tender, Non-Distended, No Hepato-splenomegaly, - - Chronic sacral ulcer, stage V, no surrounding erythema, no discharge seen. Extremities: No edema Skin: No rashes, No breakdown Musculoskeletal: No Tenderness to Palpation of Joints or Extremities Lymphatic: No Cervical, Supraclavicular, or Inguinal Adenopathy Neurological: Cranial nerves II-XII grossly intact, Neuro grossly intact Psych/Mental Status: Normal Affect, Appropriate Vital Signs Temp Pulse Resp BP Pulse Ox 99.6 F H 77 14 130/66 H 94 12/06/18 15:55 12/06/18 15:16 12/06/18 15:16 12/06/18 15:16 12/06/18 15:16 Oxygen Delivery Method Room Air Weight: 72.575 kg Body Mass Index (BMI) 25.0 Laboratory Tests Past 24 Hrs 12/06/18 12/06/18 14:29 14:29 WBC 12.3 H RBC 2.93 L Hgb 8.3 L Hct 27.5 L MCV 93.9 MCH 28.3 MCHC 30.2 L RDW 18.5 H RDW Differential 63.6 H Plt Count 421 MPV 8.6 Immature Gran % (Auto) 0.300 Neut % (Auto) 80.2 H Lymph % (Auto) 10.3 L [place] % (Auto) 8.4 Eos % (Auto) 0.7 Baso % (Auto) 0.1 Absolute Neuts (auto) 9.9 H Absolute Lymphs (auto) 1.26 Total Counted Not Reportable Sodium 143 Potassium 4.2 Chloride 105 Carbon Dioxide 28.0 Anion Gap 10 BUN 35 H Creatinine 0.66 L Estim Creat Clear Calc 60.59 Est GFR (MDRD) Af Amer 151 Est GFR (MDRD) Non-Af 124 BUN/Creatinine Ratio 52.7 H Glucose 89 Calcium 8.7 Assessment/Plan 73 year old M with past medical history of Parkinson's disease, chronic osteomyelitis of his sacrum, chronic stage IV stage V decubitus ulcers[place] [facility] with fecal soiling of his chronic sacral decubitus ulcer/osteomyelitis evaluation for possible diverting colostomy. 1. Possible acute on chronic osteomyelitis/infected stage IV/V sacral pressure ulcer, previous cultures grew MRSA, strep agalactiae Plan: Admit to the MedSur floor, plastic surgery consult, infectious disease consult, MRSA PCR pending patient received IV vancomycin and Zosyn in the ED, Will continue with IV vancomycin, de-escalate Zosyn based on previous cultures to ceftriaxone, pending sensitivities, labs in a.m. General surgery consult for possible diverting colostomy to assist in wound healing 2. Leucocytosis, with a left shift, started on IV vancomycin and Zosyn, continue antibiotics, ID consulted, trend leukocytosis 3. Acute on chronic microcytic microchromic anemia, admitting hemoglobin is 8.3, last hemoglobin was 10.8 before discharge, will check stool for occult blood, trend H&H, repeat blood work in a.m., check for iron stores, will transfuse when hemoglobin is less than 7 4. Parkinson's disease with dementia, continue on Aricept, carbidopa/levodopa 5. Hypertension, controlled, will continue on losartan 6. DVt PPx- Heparin SC 7. Code-status: DNR-CCA Discussed with the patient's who is a power of transactional attorney for healthcare as well as his son in detail, clarified goals of care. Explained in detail the different types of CODE STATUS; full code, DNR CCA, DNR CC. Patient's states that patient with not want to have CPR, intubations, mechanical ventilations in the event of a cardiopulmonary arrest. She however wants patient to receive aggressive treatment. Patient was made DNR CCA. Time spent discussing goals of care and CODE STATUS: 18 minutes Code Visit Inpatient E&M: [id number] Init Hosp L3
--- NOTE | 2018-12-06 16:33 | NURSING ---
213 ACUTE ON CHRONIC OSTEOMYELITIS PAINTSIL
[2018-12-06] MEDS: Vancomycin IV 1,000 MG/200 ML BAG 200 MG IV (17:25)
--- NOTE | 2018-12-06 17:59 | ED.VISSUMM ---
- ER Visit Summary Date of Service: 12/06/18 Chief Complaint: Wound check History of Present Illness: The patient is a 73 M with advanced Parkinson's disease. Patient has chronic osteomyelitis in his pelvis secondary to chronic decubitus wounds. Patient recently had vancomycin through decline. He went to the wound center today where stool was noted to be in his wound underneath the wound VAC. CT scan was obtained which revealed ulceration overlying the coccyx and distal sacrum. There is destruction of the underlying coccyx and distal sacrum suggestive of chronic osteomyelitis and possible super in position of acute osteomyelitis. Physical Examination: Vital signs are unremarkable. Patient is afebrile. Patient is lying in bed with his eyes closed. Head and neck examination was no trauma. Heart is regular rate and rhythm. Lungs sounds are clear. Abdomen is soft nontender. Extremity examination reveals chronic contractures. Back examination was a 4 x 1 x 4 cm coccyx wound with serosanguineous drainage on the dressing. The wound bed itself has granulation and exposed bone. Test Results: CBC was a white count of 12.3 with 80% neutrophils. Hemoglobin is 8.3. Chemistry studies grossly unremarkable. Blood cultures were obtained. Emergency Department Course and Treatment: We spoke with nurse from the wound center and I spoke with Dr Bryant. Plan is to have the patient admitted for IV antibiotics, Zosyn and vancomycin. Dr. Bryant will see the patient tomorrow for wound care. Patient may require diverting colostomy and will likely to be seen by surgery if they are in agreement with this. I have spoken with the hospitalist. Treatment Plan: [] Disposition: Admit Impression: Acute on chronic osteomyelitis This note was generated with [employer] dictation software. It may contain incorrect words, spelling, and punctuation that were not noted in review of the chart prior to signing ED Disposition - Plan for ED Patient: Disposition: [facility]
--- NOTE | 2018-12-06 19:56 | PCM.RX.CS ---
Consult Pharmacy has been consulted to manage selected antiobiotic: Vancomycin Type of Consult: New start Suspected Infection: Osteomyelitis Labs: Sodium 143 mmol/L (136-145) 12/06/18 14:29 Potassium 4.2 mmol/L (3.5-5.1) 12/06/18 14:29 Chloride 105 mmol/L (98-107) 12/06/18 14:29 Carbon Dioxide 28.0 mmol/L (21.0-32.0) 12/06/18 14:29 Anion Gap 10 (5-15) 12/06/18 14:29 BUN 35 mg/dL (7-18) H 12/06/18 14:29 Creatinine 0.66 mg/dL (0.70-1.30) L 12/06/18 14:29 Est GFR (MDRD) Af Amer 151 mL/min (>60) 12/06/18 14:29 Est GFR (MDRD) Non-Af 124 mL/min (>60) 12/06/18 14:29 BUN/Creatinine Ratio 52.7 RATIO (10-20) H 12/06/18 14:29 Glucose 89 mg/dL (74-106) 12/06/18 14:29 Weight used for dosin lb 14.629 oz Estimated Creatinine Clearance: 60.6 Goal Trough: 15-20 mcg/mL Pharmacy Plan for Drug Dosing: Initial dose of 1000mg given in ed Calculated dose of 750mg q12h to start 12/07 at 0600 Dose will be adjusted to maintain a trough of 15-20. Trough will be done 12/08 at 0530 Pharmacy Service will continue to monitor and adjust dosing as required. Follow-Up Labs: Trough Vancomycin - 12/08 AT 0530
[2018-12-06] MEDS: 0.9% Normal Saline 1,000 ML 75 ML IV (20:11)
[2018-12-06] MEDS: Ceftriaxone 1 GM/50 ML BAG IV (20:11)
[2018-12-06] MEDS: 0.9% NaCl Peripheral Flush Adult/Peds IV (20:11)
[2018-12-06 20:15] LABS: AST(SGOT) 30 U/L (15-37); Alanine Aminotransfer ALT/SGPT 19 U/L (16-61); Albumin, Serum 2.5 g/dL (3.2-5.0); Alkaline Phosphatase 72 U/L (45-117); Bilirubin, Direct 0.12 mg/dL (0.00-0.30); Globulin 4.8 g/dL (2.2-4.2); Iron 17 ug/dL (65-175); Iron Binding Capacity,Total 148 ug/dL (250-450); PERCENT IRON SATURATION 11.5 % (15.0-55.0); Protein, Total 7.3 g/dL (6.4-8.2)
[2018-12-06 21:00] LABS: Hematocrit 27.1 % (40-54); Hemoglobin 8.2 g/dl (13.0-16.5)
[2018-12-06] MEDS: Heparin Injection (Vial) 5,000 UNIT/ML VIAL 5000 UNIT SC (21:17)
[2018-12-06] MEDS: Acetaminophen 500 MG Tablet 1000 MG PO (21:17)
[2018-12-06] MEDS: Donepezil HCl 10 MG Tablet PO (21:17)
[2018-12-06] MEDS: oxyCODONE 5 MG Tablet PO (21:17)
[2018-12-06] MEDS: CARBIDOPA/LEVODOPA CR 50/200 Tablet PO (21:22)
[2018-12-06 22:21] LABS: Probe Check PASS; Staph aureus DNA By PCR POSITIVE (Negative)
[2018-12-06 22:22] LABS: M R Staph aureus DNA By PCR POSITIVE (Negative)
[2018-12-06 23:16] LABS: Hematocrit 25.6 % (40-54); Hemoglobin 7.9 g/dl (13.0-16.5)
[2018-12-07] VITALS (10 sets, daily range): BP systolic 121–146; BP diastolic 74–86; PULSE 71–80; RESP 18; TEMP 37.1–37.5; O2SAT 94–98
[2018-12-07 05:51] LABS: Absolute Lymphocyte Count 1.32 X10^3/ul (0.83-4.51); Absolute Neutrophil Count 8.1 X10^3/uL (2.0-7.7); Basophil# 0.02 X10^3/uL; Basophil% 0.2 % (0-1); Eosinophil# 0.12 X10^3/uL; Eosinophils% 1.1 % (0-5); Hematocrit 26.1 % (40-54); Lymphocyte # 1.32 X10^3/ul (4.0); Lymphocyte % 12.6 % (19-41); Mean Corp Hgb Conc 30.7 g/gl (32-36); Mean Corpuscular Hgb 28.8 pg (27.0-32.0); Mean Corpuscular Volume 93.9 fL (80-94); Mean Platelet Vol. 8.7 fl (6.2-12.0); Monocyte# 0.88 X10^3/uL; Monocyte% 8.4 % (0-10); Neutrophil % 77.4 % (47-70); Platelet Count 357 K/mm3 (150-450); RBC Distribution Width CV 18.6 % (11.6-14.6); RBC Distribution Width SD 63.8 fl (35.1-43.9); Red Blood Count 2.78 M/mm3 (4.6-6.2); White Blood Count 10.5 K/mm3 (4.4-11.0)
[2018-12-07 05:57] LABS: POSITIVE COUNT NO; POSITIVE DIFFERENTIAL NO; POSITIVE MORPHOLOGY NO
[2018-12-07 06:03] LABS: Albumin, Serum 2.3 g/dL (3.2-5.0); BUN 28 mg/dL (7-18); BUN/Creat Ratio 37.9 RATIO (10-20); Calcium,Total 8.1 mg/dL (8.5-10.1); Chloride 109 mmol/L (98-107); Creatinine, Serum 0.74 mg/dL (0.70-1.30); EST Glomerular Filtration Rate 110 mL/min (>60); Est Glom Filt Rate - Afr Amer 133 mL/min (>60); Estimated Creatinine Clearance 60.59 ml/min; Glucose 86 mg/dL (74-106); Phosphorus 3.5 mg/dL (2.5-4.9); Potassium 4.2 mmol/L (3.5-5.1); Sodium Level 143 mmol/L (136-145)
[2018-12-07] MEDS: oxyCODONE 5 MG Tablet PO ×3 (06:21→21:23)
[2018-12-07] MEDS: Carbidopa/Levodopa 25/100 Tablet PO ×3 (06:21→16:29)
[2018-12-07] MEDS: Heparin Injection (Vial) 5,000 UNIT/ML VIAL 5000 UNIT SC ×3 (06:21→21:23)
[2018-12-07] MEDS: Multivitamins,Therapeutic Tablet 1 TABLET PO (08:40)
--- NOTE | 2018-12-07 09:22 | PCM.PN.HOSP ---
Subjective: Noncommunicative does appear to be resting comfortably Vitals/I&O's: Vital Signs Temp Pulse Resp BP Pulse Ox 98.7 F 76 18 134/75 H 94 12/07/18 03:40 12/07/18 04:00 12/07/18 03:40 12/07/18 03:40 12/07/18 03:40 Oxygen Delivery Method Room Air Weight: 149 lb 15.84 oz Body Mass Index (BMI) 23.5 Intake and Output for Last 24 Hours 12/05/18 12/06/18 12/07/18 23:59 23:59 23:59 Intake Total 120 / 120 898 / 898 Output Total 400 / 400 525 / 525 Balance -280 / -280 373 / 373 General: Alert, No apparent distress, - - Does not respond to questions HEENT: Atraumatic, EOMI, Normocephalic Oral: Moist Mucosa Neck: Supple, No JVD, Trachea Midline Lungs: Clear to auscultation, Normal air movement, No rhonchi, No wheeze, No rales, Diminished Cardiovascular: Regular rate, Regular Rhythm, Normal S1, Normal S2, No murmurs, No rub noted, No Gallop Abdomen: Soft, Non Tender, Non-Distended, No Hepato-splenomegaly Extremities: No edema, Capillary Refill Less than 3 Seconds Skin: No rashes, No breakdown Neurological: - - Difficult to perform exam as patient is not communicative or following commands Psych/Mental Status: Flat Affect Microbiology Past 72 Hours 12/06/18 21:16 Stool Stool Occult Blood (JUAN CARLOS) - Final Laboratory Results 12/06/18 14:29: WBC 12.3 H, RBC 2.93 L, Hgb 8.3 L, Hct 27.5 L, MCV 93.9, MCH 28.3, MCHC 30.2 L, RDW 18.5 H, RDW Differential 63.6 H, Plt Count 421, MPV 8.6, Immature Gran % (Auto) 0.300, Neut % (Auto) 80.2 H, Lymph % (Auto) 10.3 L, [place] % (Auto) 8.4, Eos % (Auto) 0.7, Baso % (Auto) 0.1, Absolute Neuts (auto) 9.9 H, Absolute Lymphs (auto) 1.26, Total Counted Not Reportable 12/06/18 14:29: Sodium 143, Potassium 4.2, Chloride 105, Carbon Dioxide 28.0, Anion Gap 10, BUN 35 H, Creatinine 0.66 L, Estim Creat Clear Calc 60.59, Est GFR (MDRD) Af Amer 151, Est GFR (MDRD) Non-Af 124, BUN/Creatinine Ratio 52.7 H, Glucose 89, Calcium 8.7 12/06/18 14:29: Iron 17 L, TIBC 148 L, Iron Saturation 11.5 L, Total Bilirubin 0.40, Direct Bilirubin 0.12, AST 30, ALT 19, Alkaline Phosphatase 72, Total Protein 7.3, Albumin 2.5 L, Globulin 4.8 H 12/06/18 18:00: S.aureus Protein A PCR POSITIVE H, MRSA (PCR) POSITIVE H 12/06/18 20:20: Hgb 8.2 L, Hct 27.1 L 12/06/18 23:10: Hgb 7.9 L, Hct 25.6 L 12/07/18 05:15: WBC 10.5, RBC 2.78 L, Hgb 8.0 L, Hct 26.1 L, MCV 93.9, MCH 28.8, MCHC 30.7 L, RDW 18.6 H, RDW Differential 63.8 H, Plt Count 357, MPV 8.7, Immature Gran % (Auto) 0.300, Neut % (Auto) 77.4 H, Lymph % (Auto) 12.6 L, [place] % (Auto) 8.4, Eos % (Auto) 1.1, Baso % (Auto) 0.2, Absolute Neuts (auto) 8.1 H, Absolute Lymphs (auto) 1.32, Total Counted Not Reportable 12/07/18 05:15: Sodium 143, Potassium 4.2, Chloride 109 H, Carbon Dioxide 26.0, BUN 28 H, Creatinine 0.74, Estim Creat Clear Calc 60.59, Est GFR (MDRD) Af Amer 133, Est GFR (MDRD) Non-Af 110, BUN/Creatinine Ratio 37.9 H, Glucose 86, Calcium 8.1 L, Phosphorus 3.5, Albumin 2.3 L Current Medications Acetaminophen (Tylenol) 1,000 mg PO BID [facility] Last Admin: 12/06/18 21:17 Dose: 1,000 mg Carbidopa/Levodopa (Sinemet) 2 tablet PO TIDAC [facility] Last Admin: 12/07/18 06:21 Dose: 2 tablet Carbidopa/Levodopa (Sinemet Cr) 1 tablet PO HS@2100 [facility] Last Admin: 12/06/18 21:22 Dose: 1 tablet Cholecalciferol (Vitamin D) 1,000 unit PO DAILY [facility] Donepezil HCl (Aricept) 10 mg PO QHS [facility] Last Admin: 12/06/18 21:17 Dose: 10 mg Heparin Sodium (Porcine) (Heparin Na) 5,000 unit SC Q8 [facility] Last Admin: 12/07/18 06:21 Dose: 5,000 unit Ceftriaxone Sodium (Rocephin) 1 gm in 50 mls @ 100 mls/hr IV QHS [facility] Last Admin: 12/06/18 20:11 Dose: 100 mls/hr Vancomycin IV Pharmacy to Dose (1 ea/ Sodium Chloride) 500 mls @ 250 mls/hr IV X1 PRN; Protocol PRN Reason: Rx to Dose Sodium Chloride () 1,000 mls @ 75 mls/hr IV .[id number] [facility] Stop: 12/07/18 22:19 Last Admin: 12/06/18 20:11 Dose: 75 mls/hr Vancomycin HCl 750 mg/ Sodium (Chloride) 265 mls @ 250 mls/hr IV Q12H [facility] Last Admin: 12/07/18 06:21 Dose: 250 mls/hr Losartan Potassium (Cozaar) 50 mg PO DAILY [facility] Magnesium Hydroxide (Milk Of Magnesia) 30 ml PO DAILY PRN PRN PRN Reason: Constipation Multivitamins (Multivitamin) 1 tablet PO DAILY@0800 [facility] Last Admin: 12/07/18 08:40 Dose: 1 tablet Nutritional Formula (Lactose Free) (Ensure Enlive) 120 ml PO 4X/DAY [facility] Last Admin: 12/06/18 21:18 Dose: 120 ml Oxycodone HCl (Oxyir) 5 mg PO TID [facility] Last Admin: 12/07/18 06:21 Dose: 5 mg Sodium Chloride () 5 - 15 ml IV UD PRN PRN Reason: SALINE FLUSH Last Admin: 12/06/18 20:11 Dose: 10 ml Medical Necessity - Tobacco Use Smoking Status: Former smoker Tobacco Use: Cigarettes Assessment/Plan 1. Chronic sacral decubitus ulcer with possibly acute on chronic osteomyelitis -Resented from the wound center with stool and his chronic decubitus ulcers -At the moment he is not a great candidate for a diverting colostomy -We will discuss case with hospice who is coming this afternoon -Given patient's condition and quality of life would not recommend further surgical interventions -MRSA screen is positive we will continue with Rodrigo, consult to infectious disease 2. Acute on chronic microcytic anemia -Hemoglobin on admission was 8.3 -Repeat this morning was 8 -Fecal occult is negative -We will hold off on any transfusions until after decision on whether or not to go to hospice has been reached 3. Parkinson's disease with dementia -Continue with Sinemet and Aricept -He appears to be at baseline 4. HTN -Stable -Continue with losartan DVT: Heparin Code Visit Inpatient E&M: 33151 Subs Hosp L2
--- NOTE | 2018-12-07 09:25 | CASEMGMT ---
Social Work Note Pt is being listed as being from [facility]. Per nursing reports, pt is noncommunicative. GABRIELLE placed a call to pt's Ginger. 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 GABRIELLE spoke with Charge Nurse who states Hospice is scheduled to meet with pt and pt's family today at 3:00pm. GABRIELLE placed a call to [facility] and spoke with Zenia who confirms pt is fdc resident at [facility]. GABRIELLE informed Ahsan that Hospice is scheduled to meet with pt and pt's family today. Plan: Hospice to meet with pt's family today Keely Hanna ESTIMATOR JEWELRY, BANQUET ATTENDANT
--- NOTE | 2018-12-07 09:48 | PN_ITS ---
Subjective: Noncommunicative does appear to be resting comfortably Vitals/I&O's: Vital Signs Temp Pulse Resp BP Pulse Ox 98.7 F 76 18 134/75 H 94 12/07/18 03:40 12/07/18 04:00 12/07/18 03:40 12/07/18 03:40 12/07/18 03:40 Oxygen Delivery Method Room Air Weight: 149 lb 15.84 oz Body Mass Index (BMI) 23.5 Intake and Output for Last 24 Hours 12/05/18 12/06/18 12/07/18 23:59 23:59 23:59 Intake Total 120 / 120 898 / 898 Output Total 400 / 400 525 / 525 Balance -280 / -280 373 / 373 General: Alert, No apparent distress, - - Does not respond to questions HEENT: Atraumatic, EOMI, Normocephalic Oral: Moist Mucosa Neck: Supple, No JVD, Trachea Midline Lungs: Clear to auscultation, Normal air movement, No rhonchi, No wheeze, No rales, Diminished Cardiovascular: Regular rate, Regular Rhythm, Normal S1, Normal S2, No murmurs, No rub noted, No Gallop Abdomen: Soft, Non Tender, Non-Distended, No Hepato-splenomegaly Extremities: No edema, Capillary Refill Less than 3 Seconds Skin: No rashes, No breakdown Neurological: - - Difficult to perform exam as patient is not communicative or following commands Psych/Mental Status: Flat Affect Microbiology Past 72 Hours 12/06/18 21:16 Stool Stool Occult Blood (JUAN CARLOS) - Final Laboratory Results 12/06/18 14:29: WBC 12.3 H, RBC 2.93 L, Hgb 8.3 L, Hct 27.5 L, MCV 93.9, MCH 28.3, MCHC 30.2 L, RDW 18.5 H, RDW Differential 63.6 H, Plt Count 421, MPV 8.6, Immature Gran % (Auto) 0.300, Neut % (Auto) 80.2 H, Lymph % (Auto) 10.3 L, [place] % (Auto) 8.4, Eos % (Auto) 0.7, Baso % (Auto) 0.1, Absolute Neuts (auto) 9.9 H, Absolute Lymphs (auto) 1.26, Total Counted Not Reportable 12/06/18 14:29: Sodium 143, Potassium 4.2, Chloride 105, Carbon Dioxide 28.0, Anion Gap 10, BUN 35 H, Creatinine 0.66 L, Estim Creat Clear Calc 60.59, Est GFR (MDRD) Af Amer 151, Est GFR (MDRD) Non-Af 124, BUN/Creatinine Ratio 52.7 H, Glucose 89, Calcium 8.7 12/06/18 14:29: Iron 17 L, TIBC 148 L, Iron Saturation 11.5 L, Total Bilirubin 0.40, Direct Bilirubin 0.12, AST 30, ALT 19, Alkaline Phosphatase 72, Total Protein 7.3, Albumin 2.5 L, Globulin 4.8 H 12/06/18 18:00: S.aureus Protein A PCR POSITIVE H, MRSA (PCR) POSITIVE H 12/06/18 20:20: Hgb 8.2 L, Hct 27.1 L 12/06/18 23:10: Hgb 7.9 L, Hct 25.6 L 12/07/18 05:15: WBC 10.5, RBC 2.78 L, Hgb 8.0 L, Hct 26.1 L, MCV 93.9, MCH 28.8, MCHC 30.7 L, RDW 18.6 H, RDW Differential 63.8 H, Plt Count 357, MPV 8.7, Immature Gran % (Auto) 0.300, Neut % (Auto) 77.4 H, Lymph % (Auto) 12.6 L, [place] % (Auto) 8.4, Eos % (Auto) 1.1, Baso % (Auto) 0.2, Absolute Neuts (auto) 8.1 H, Absolute Lymphs (auto) 1.32, Total Counted Not Reportable 12/07/18 05:15: Sodium 143, Potassium 4.2, Chloride 109 H, Carbon Dioxide 26.0, BUN 28 H, Creatinine 0.74, Estim Creat Clear Calc 60.59, Est GFR (MDRD) Af Amer 133, Est GFR (MDRD) Non-Af 110, BUN/Creatinine Ratio 37.9 H, Glucose 86, Calcium 8.1 L, Phosphorus 3.5, Albumin 2.3 L Current Medications Acetaminophen (Tylenol) 1,000 mg PO BID [facility] Last Admin: 12/06/18 21:17 Dose: 1,000 mg Carbidopa/Levodopa (Sinemet) 2 tablet PO TIDAC [facility] Last Admin: 12/07/18 06:21 Dose: 2 tablet Carbidopa/Levodopa (Sinemet Cr) 1 tablet PO HS@2100 [facility] Last Admin: 12/06/18 21:22 Dose: 1 tablet Cholecalciferol (Vitamin D) 1,000 unit PO DAILY [facility] Donepezil HCl (Aricept) 10 mg PO QHS [facility] Last Admin: 12/06/18 21:17 Dose: 10 mg Heparin Sodium (Porcine) (Heparin Na) 5,000 unit SC Q8 [facility] Last Admin: 12/07/18 06:21 Dose: 5,000 unit Ceftriaxone Sodium (Rocephin) 1 gm in 50 mls @ 100 mls/hr IV QHS [facility] Last Admin: 12/06/18 20:11 Dose: 100 mls/hr Vancomycin IV Pharmacy to Dose (1 ea/ Sodium Chloride) 500 mls @ 250 mls/hr IV X1 PRN; Protocol PRN Reason: Rx to Dose Sodium Chloride () 1,000 mls @ 75 mls/hr IV .[id number] [facility] Stop: 12/07/18 22:19 Last Admin: 12/06/18 20:11 Dose: 75 mls/hr Vancomycin HCl 750 mg/ Sodium (Chloride) 265 mls @ 250 mls/hr IV Q12H [facility] Last Admin: 12/07/18 06:21 Dose: 250 mls/hr Losartan Potassium (Cozaar) 50 mg PO DAILY [facility] Magnesium Hydroxide (Milk Of Magnesia) 30 ml PO DAILY PRN PRN PRN Reason: Constipation Multivitamins (Multivitamin) 1 tablet PO DAILY@0800 [facility] Last Admin: 12/07/18 08:40 Dose: 1 tablet Nutritional Formula (Lactose Free) (Ensure Enlive) 120 ml PO 4X/DAY [facility] Last Admin: 12/06/18 21:18 Dose: 120 ml Oxycodone HCl (Oxyir) 5 mg PO TID [facility] Last Admin: 12/07/18 06:21 Dose: 5 mg Sodium Chloride () 5 - 15 ml IV UD PRN PRN Reason: SALINE FLUSH Last Admin: 12/06/18 20:11 Dose: 10 ml Medical Necessity - Tobacco Use Smoking Status: Former smoker Tobacco Use: Cigarettes Assessment/Plan 1. Chronic sacral decubitus ulcer with possibly acute on chronic osteomyelitis -Resented from the wound center with stool and his chronic decubitus ulcers -At the moment he is not a great candidate for a diverting colostomy -We will discuss case with hospice who is coming this afternoon -Given patient's condition and quality of life would not recommend further surgical interventions -MRSA screen is positive we will continue with Rodrigo, consult to infectious disease 2. Acute on chronic microcytic anemia -Hemoglobin on admission was 8.3 -Repeat this morning was 8 -Fecal occult is negative -We will hold off on any transfusions until after decision on whether or not to go to hospice has been reached 3. Parkinson's disease with dementia -Continue with Sinemet and Aricept -He appears to be at baseline 4. HTN -Stable -Continue with losartan DVT: Heparin Code Visit Inpatient E&M: 41316 Subs Hosp L2
[2018-12-07] MEDS: Acetaminophen 500 MG Tablet 1000 MG PO ×2 (10:41→21:23)
[2018-12-07] MEDS: Losartan Potassium 50 MG Tablet PO (10:42)
--- NOTE | 2018-12-07 11:49 | PN.SURG_ITS ---
Addendum entered and electronically signed by Elier Bryant MD 12/09/18 11:34: Code Visit Advance Directive Planning Charges 98511 L89.154, M86.68, A49.02, R15.9, G20 Original Note: <Elier Bryant - Last Filed: 12/08/18 23:46> Patient Problems: Active and Suspected Problems MRSA (methicillin resistant Staphylococcus aureus) infection (Acute) Subjective: Patient known to me. He had surgery on 08/17/18 where he underwent excision sacral pressure sore, Stage IV, with partial ostectomy for osteomyelitis. Bone culture at that time showed MRSA. Pathology was positive for osteomyelitis. He was treated with IV Vancomycin for 6 weeks. He is currently at [facility] with the VAC for wound care. Patient came to the Wound Center for an evaluation. When the VAC was removed, there was stool in the sacral pressure sore ulcer. The family reported the patient wasn't feeling well the last several days, and they had noticed an odor in the wound when visiting him. He comes in today for more aggressive wound care, IV antibiotics, and evaluation by General Surgery for a diverting colostomy. - Physical Exam General: Alert, - - nonverbal. HEENT: PERRLA, EOMI Oral: Moist Mucosa Neck: Supple Lungs: Clear to auscultation Cardiovascular: Regular rate, Regular Rhythm Abdomen: Soft, Non-Distended Skin: Ulcer/ Wound - sacral pressure sore is stable. Measures 3.5 x 1.5 x 3 cm. Bone is exposed. Some granulation tissue present. Some exudate present. No odor present. No purulent drainage noted. Neurological: Cranial nerves II-XII grossly intact Psych/Mental Status: Flat Affect - nonverbal. Vital Signs Temp Pulse Resp BP Pulse Ox 98.8 F 77 18 133/74 H 95 12/07/18 21:20 12/07/18 21:20 12/07/18 21:20 12/07/18 21:20 12/07/18 21:20 Oxygen Delivery Method Room Air Weight: 149 lb 15.687 oz Body Mass Index (BMI) 23.5 Intake and Output for Last 24 Hours 12/05/18 12/06/18 12/07/18 23:59 23:59 23:59 Intake Total 120 / 120 2298 / 2298 Output Total 400 / 400 1575 / 1575 Balance -280 / -280 723 / 723 Microbiology Past 72 Hours 12/06/18 18:00 Gram Stain - Final Wound - Sacral Wound Culture - Preliminary Staphylococcus aureus 12/06/18 21:16 Stool Occult Blood (JUAN CARLOS) - Final Stool Laboratory Tests Past 24 Hrs 12/06/18 12/07/18 12/07/18 23:10 05:15 05:15 WBC 10.5 RBC 2.78 L Hgb 7.9 L 8.0 L Hct 25.6 L 26.1 L MCV 93.9 MCH 28.8 MCHC 30.7 L RDW 18.6 H RDW Differential 63.8 H Plt Count 357 MPV 8.7 Immature Gran % (Auto) 0.300 Neut % (Auto) 77.4 H Lymph % (Auto) 12.6 L Mercer % (Auto) 8.4 Eos % (Auto) 1.1 Baso % (Auto) 0.2 Absolute Neuts (auto) 8.1 H Absolute Lymphs (auto) 1.32 Total Counted Not Reportable Sodium 143 Potassium 4.2 Chloride 109 H Carbon Dioxide 26.0 BUN 28 H Creatinine 0.74 Estim Creat Clear Calc 60.59 Est GFR (MDRD) Af Amer 133 Est GFR (MDRD) Non-Af 110 BUN/Creatinine Ratio 37.9 H Glucose 86 Calcium 8.1 L Phosphorus 3.[address]/Pelvis without IV Contrast IMPRESSION: Ulceration overlying the coccyx and distal sacrum as described. There is destruction of the underlying coccyx and distal sacrum suggestive of a chronic osteomyelitis and possible superimposition of acute osteomyelitis. Diffuse thickening of the bladder wall. Left inguinal hernia. Electronically Signed: Grayson Barrera MD at 10:27 EST , Service support , Assessment/Plan All Active Problems MRSA (methicillin resistant Staphylococcus aureus) infection (Acute) ASSESSMENT 1. Sacral pressure sore, Stage IV. 2. Osteomyelitis. 3. MRSA. 4. Parkinson's disease. 5. Stool contamination. 6. Anemia of chronic disease. PLAN Hold the VAC because of the stool contamination. Begin Dakin's dressing changes to help clean up the wound secondary to stool contamination. Continue IV Vancomycin and Ceftriaxone. Anticipate increased metabolic demands. Will check a Prealbumin. Encourage nutritional supplementation with protein to help the healing process. With the stool contamination in the pressure sore, recommend General Surgery evaluation for diverting colostomy. Patient has anemia of chronic disease with a Hgb of 8. Will begin Iron supplementation. Will consider transfusion if it drifts below 7. Discussed the plan with the patient's family. They had questions regarding how aggressive the treatment should be versus Hospice care. They met with the Hospice team. I also had a long conversation with the patient's family ( and daughter) for an hour. We discussed the various medical and surgical options for continued care versus making him comfortable with Hospice Care. They are undecided at this time. There are two other sons that they will converse with concerning these medical matters before reaching a decision. If they decide against any further surgery at this time (i.e., diverting colostomy) I will stop the VAC and proceed with saline gauze dressing changes when he returns back to [facility]. It will be easier to change the saline gauze dressing when it becomes soiled with stool in the future as opposed to changing the VAC if stool gets underneath the drape dressing. Code Visit Inpatient E&M: 68271 Subs Hosp L2 - L89.154, M86.68, A49.02, R15.9, G20 <Kita Hussein E - Last Filed: 12/09/18 11:30> - Physical Exam General: Alert, No apparent distress HEENT: Atraumatic Oral: Moist Mucosa Lungs: Normal air movement Extremities: No edema Skin: Ulcer/ Wound - Sacral Stage IV ulcer. Undermining around entire opening. Able to palpate bone around 6 o'clock. Currently has green drainage. Musculoskeletal: No Tenderness to Palpation of Joints or Extremities Neurological: Neuro grossly intact Psych/Mental Status: Flat Affect Vital Signs Temp Pulse Resp BP Pulse Ox 98.9 F 71 18 146/86 H 98 12/07/18 09:55 12/07/18 09:55 12/07/18 09:55 12/07/18 09:55 12/07/18 09:55 Oxygen Delivery Method Room Air Weight: 149 lb 15.687 oz Body Mass Index (BMI) 23.5 Intake and Output for Last 24 Hours 12/05/18 12/06/18 12/07/18 23:59 23:59 23:59 Intake Total 120 / 120 898 / 898 Output Total 400 / 400 525 / 525 Balance -280 / -280 373 / 373 Microbiology Past 72 Hours 12/06/18 18:00 Gram Stain - Final Wound - Sacral 12/06/18 21:16 Stool Occult Blood (JUAN CARLOS) - Final Stool Laboratory Tests Past 24 Hrs 12/06/18 12/06/18 12/06/18 14:29 14:29 14:29 WBC 12.3 H RBC 2.93 L Hgb 8.3 L Hct 27.5 L MCV 93.9 MCH 28.3 MCHC 30.2 L RDW 18.5 H RDW Differential 63.6 H Plt Count 421 MPV 8.6 Immature Gran % (Auto) 0.300 Neut % (Auto) 80.2 H Lymph % (Auto) 10.3 L Mercer % (Auto) 8.4 Eos % (Auto) 0.7 Baso % (Auto) 0.1 Absolute Neuts (auto) 9.9 H Absolute Lymphs (auto) 1.26 Total Counted Not Reportable Sodium 143 Potassium 4.2 Chloride 105 Carbon Dioxide 28.0 Anion Gap 10 BUN 35 H Creatinine 0.66 L Estim Creat Clear Calc 60.59 Est GFR (MDRD) Af Amer 151 Est GFR (MDRD) Non-Af 124 BUN/Creatinine Ratio 52.7 H Glucose 89 Calcium 8.7 Phosphorus Iron 17 L TIBC 148 L Iron Saturation 11.5 L Total Bilirubin 0.40 Direct Bilirubin 0.12 AST 30 ALT 19 Alkaline Phosphatase 72 Total Protein 7.3 Albumin 2.5 L Globulin 4.8 H S.aureus Protein A PCR MRSA (PCR) 12/06/18 12/06/18 12/06/18 18:00 20:20 23:10 WBC RBC Hgb 8.2 L 7.9 L Hct 27.1 L 25.6 L MCV MCH MCHC RDW RDW Differential Plt Count MPV Immature Gran % (Auto) Neut % (Auto) Lymph % (Auto) Mercer % (Auto) Eos % (Auto) Baso % (Auto) Absolute Neuts (auto) Absolute Lymphs (auto) Total Counted Sodium Potassium Chloride Carbon Dioxide Anion Gap BUN Creatinine Estim Creat Clear Calc Est GFR (MDRD) Af Amer Est GFR (MDRD) Non-Af BUN/Creatinine Ratio Glucose Calcium Phosphorus Iron TIBC Iron Saturation Total Bilirubin Direct Bilirubin AST ALT Alkaline Phosphatase Total Protein Albumin Globulin S.aureus Protein A PCR POSITIVE H MRSA (PCR) POSITIVE H 12/07/18 12/07/18 05:15 05:15 WBC 10.5 RBC 2.78 L Hgb 8.0 L Hct 26.1 L MCV 93.9 MCH 28.8 MCHC 30.7 L RDW 18.6 H RDW Differential 63.8 H Plt Count 357 MPV 8.7 Immature Gran % (Auto) 0.300 Neut % (Auto) 77.4 H Lymph % (Auto) 12.6 L Mercer % (Auto) 8.4 Eos % (Auto) 1.1 Baso % (Auto) 0.2 Absolute Neuts (auto) 8.1 H Absolute Lymphs (auto) 1.32 Total Counted Not Reportable Sodium 143 Potassium 4.2 Chloride 109 H Carbon Dioxide 26.0 Anion Gap BUN 28 H Creatinine 0.74 Estim Creat Clear Calc 60.59 Est GFR (MDRD) Af Amer 133 Est GFR (MDRD) Non-Af 110 BUN/Creatinine Ratio 37.9 H Glucose 86 Calcium 8.1 L Phosphorus 3.5 Iron TIBC Iron Saturation Total Bilirubin Direct Bilirubin AST ALT Alkaline Phosphatase Total Protein Albumin 2.3 L Globulin S.aureus Protein A PCR MRSA (PCR) Medical Necessity - Tobacco Use Smoking Status: Former smoker Tobacco Use: Cigarettes Assessment/Plan 1. Pressure ulcer of sacrum Stage IV with chronic osteomyelitis - CT pelvis results from 12/06/18 showed: Ulceration overlying the coccyx and distal sacrum as described. There is destruction of the underlying coccyx and distal sacrum suggestive of a chronic osteomyelitis and possible superimposition of acute osteomyelitis. Diffuse thickening of the bladder wall. Left inguinal hernia. - Wound culture obtained 12/06/18 which is positive for MRSA, final result pending. Patient is on Vancomycin and Zosyn - General surgery has been consulted for possible colostomy to help divert stool from wound -Spoke with patient's son. Gave him the results of the CT scan. 2. Debility -Patient follows commands with some verbal responses. -Hospice is scheduled to speak with family this afternoon to discuss options.
--- NOTE | 2018-12-07 11:53 | NURSING ---
wound photo: sacrum
--- NOTE | 2018-12-07 15:55 | CHAPLAIN ---
Type of Pastoral Visit _x__ Initial Visit ___ Follow-up Visit ___ On-call Visit ___ General Patient Visit ___ Spiritual Assessment ___ Family Conference ___ Bereavement ___ Rapid Response ___ Code Blue ___ Other (describe below) Pastoral Care Referral From _x__ Patient _x__ Family ___ Nurse ___ Physician ___ Compo Conveyor Operator ___ Operations Accountant ___ Other (describe below) Sacrament/Intervention _x__ Active listening ___ Anointing ___ Latter Day ___ Bereavement ___ Communion _x__ Helen exploration ___ _x__ Life review _x__ Prayer ___ Reconciliation ___ Sacrament of Sick _x__ Supportive presence ___ Wedding ___ Other (describe below) Pastoral Comments the above interventions were for family members; the pt mostly slept through the discussion; family will gather to talk with hospice about options soon;
[2018-12-07] MEDS: CARBIDOPA/LEVODOPA CR 50/200 Tablet PO (21:23)
[2018-12-07] MEDS: Ceftriaxone 1 GM/50 ML BAG IV (21:23)
[2018-12-07] MEDS: Donepezil HCl 10 MG Tablet PO (21:23)
[2018-12-08] VITALS: PULSE 78
[2018-12-08 03:32] VITALS: BP 146/92; PULSE 75; RESP 18; TEMP 36.2; O2SAT 95
[2018-12-08 04:00] VITALS: PULSE 68
[2018-12-08 06:12] LABS: Absolute Lymphocyte Count 1.33 X10^3/ul (0.83-4.51); Absolute Neutrophil Count 7.6 X10^3/uL (2.0-7.7); Basophil# 0.02 X10^3/uL; Basophil% 0.2 % (0-1); Eosinophil# 0.11 X10^3/uL; Eosinophils% 1.1 % (0-5); Hematocrit 25.8 % (40-54); Hemoglobin 7.7 g/dl (13.0-16.5); Lymphocyte # 1.33 X10^3/ul (4.0); Lymphocyte % 13.5 % (19-41); Mean Corp Hgb Conc 29.8 g/gl (32-36); Mean Corpuscular Hgb 28.2 pg (27.0-32.0); Mean Corpuscular Volume 94.5 fL (80-94); Mean Platelet Vol. 8.6 fl (6.2-12.0); Monocyte# 0.78 X10^3/uL; Monocyte% 7.9 % (0-10); Neutrophil # 7.61 X10^3/uL (2.7-7.7); Platelet Count 340 K/mm3 (150-450); RBC Distribution Width CV 18.5 % (11.6-14.6); RBC Distribution Width SD 63.2 fl (35.1-43.9); Red Blood Count 2.73 M/mm3 (4.6-6.2); White Blood Count 9.9 K/mm3 (4.4-11.0)
[2018-12-08] MEDS: Heparin Injection (Vial) 5,000 UNIT/ML VIAL 5000 UNIT SC ×2 (06:19→14:23)
[2018-12-08 06:20] LABS: POSITIVE COUNT NO; POSITIVE DIFFERENTIAL NO; POSITIVE MORPHOLOGY NO
[2018-12-08] MEDS: Carbidopa/Levodopa 25/100 Tablet PO ×2 (06:20→12:15)
[2018-12-08] MEDS: oxyCODONE 5 MG Tablet PO ×2 (06:20→14:23)
[2018-12-08 06:40] LABS: Vancomycin, Trough Level 10.8 ug/mL (5.0-15.0)
[2018-12-08 06:43] LABS: Albumin, Serum 2.3 g/dL (3.2-5.0); BUN 24 mg/dL (7-18); BUN/Creat Ratio 36.3 RATIO (10-20); Calcium,Total 7.8 mg/dL (8.5-10.1); Chloride 111 mmol/L (98-107); Creatinine, Serum 0.66 mg/dL (0.70-1.30); EST Glomerular Filtration Rate 125 mL/min (>60); Est Glom Filt Rate - Afr Amer 151 mL/min (>60); Estimated Creatinine Clearance 60.59 ml/min; Glucose 91 mg/dL (74-106); Phosphorus 3.1 mg/dL (2.5-4.9); Potassium 4.2 mmol/L (3.5-5.1); Sodium Level 143 mmol/L (136-145)
--- NOTE | 2018-12-08 08:48 | CON.PCM_ITS ---
Problem List (1) Chronic osteomyelitis of sacrum Status: Chronic Reason for Consult Date of Consultation: 12/08/18 Reason for Consultation: Diverting colostomy History of Present Illness: The patient is a 73 year old M with end-stage Alzheimer's and a sacral wound with infection and osteomyelitis. I was consulted for diverting colostomy. The patient has been dealing with this for months and has been seen and chronically treated at the wound center for infections and nonhealing of his ulcer. Past Medical History Past Medical History (Chronic Problems): Chronic Problems Chronic osteomyelitis of sacrum (Chronic) Pressure ulcer of sacral region, stage 4 (Chronic) Urinary incontinence (Chronic) Dementia (Chronic) Debility (Chronic) Pressure ulcer, stage 4 (Chronic) Failure to thrive (Chronic) Macrocytic anemia (Chronic) Parkinson's disease dementia (Chronic) Parkinson disease (Chronic) Generalized weakness (Chronic) Allergies No Known Allergies Allergy (Verified 12/06/18 10:47) Home Medications: Ambulatory Orders Medication Instructions Recorded Carbidopa/Levodopa 50/200 [Sinemet 1 tablet PO HS@2100 tablet.sa 10/09/17 CR 50/200] Acetaminophen [Tylenol] 1,000 mg PO BID 08/11/18 Carbidopa/Levodopa 25/100 [Sinemet 2 tablet PO TIDAC 08/11/18 25/100] Multivitamin [Multiple Vitamins] 1 each PO DAILY 08/11/18 Polyethylene Glycol 3350 [Miralax] 17 gm PO DAILY 08/11/18 Cholecalciferol (VIT D3) [Vitamin 1,000 unit PO DAILY 12/06/18 D] Donepezil HCl [Aricept] 10 mg PO QHS 12/06/18 Losartan Potassium [Cozaar] 50 mg PO DAILY 12/06/18 Oxycodone HCl 5 mg PO TID 12/06/18 Propylene Glycol/Peg 400 [Systane 1 drop EACH EYE BID 12/06/18 Ultra 0.4-0.3% Eye Drp] Vitamin B Complex 1 cap PO DAILY 12/06/18 Surgical History: appendectomy, herniorrhaphy - Multiple procedures in his groin., total knee arthroplasty - Right knee, - - Cervical spine surgery-fusion, 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 Review of Systems Unable to obtain accurate/complete ROS d/t: Patient's end-stage Alzheimer's - Physical Exam General: Confused, Disoriented HEENT: Atraumatic Neck: No JVD Cardiovascular: Regular rate, Regular Rhythm Abdomen: Soft, Non Tender, Non-Distended Extremities: No clubbing Skin: Ulcer/ Wound Neurological: Cranial nerves II-XII grossly intact Vital Signs Temp Pulse Resp BP Pulse Ox 97.2 F L 68 18 146/92 H 95 12/08/18 03:32 12/08/18 04:00 12/08/18 03:32 12/08/18 03:32 12/08/18 03:32 Oxygen Delivery Method Room Air Weight: 146 lb 6.191 oz Body Mass Index (BMI) 23.5 Intake and Output for Last 24 Hours 12/06/18 12/07/18 12/08/18 23:59 23:59 23:59 Intake Total 120 / 120 2298 / 2298 616 / 616 Output Total 400 / 400 1575 / 1575 800 / 800 Balance -280 / -280 723 / 723 -184 / -184 Microbiology Past 72 Hours 12/06/18 18:00 Gram Stain - Final Wound - Sacral Wound Culture - Preliminary Staphylococcus aureus 12/06/18 21:16 Stool Occult Blood (JUAN CARLOS) - Final Stool Laboratory Tests Past 24 Hrs 12/08/18 12/08/18 12/08/18 05:54 05:54 05:54 WBC 9.9 RBC 2.73 L Hgb 7.7 L Hct 25.8 L MCV 94.5 H MCH 28.2 MCHC 29.8 L RDW 18.5 H RDW Differential 63.2 H Plt Count 340 MPV 8.6 Immature Gran % (Auto) 0.300 Neut % (Auto) 77.0 H Lymph % (Auto) 13.5 L [place] % (Auto) 7.9 Eos % (Auto) 1.1 Baso % (Auto) 0.2 Absolute Neuts (auto) 7.6 Absolute Lymphs (auto) 1.33 Total Counted Not Reportable Sodium 143 Potassium 4.2 Chloride 111 H Carbon Dioxide 25.0 BUN 24 H Creatinine 0.66 L Estim Creat Clear Calc 60.59 Est GFR (MDRD) Af Amer 151 Est GFR (MDRD) Non-Af 125 BUN/Creatinine Ratio 36.3 H Glucose 91 Calcium 7.8 L Phosphorus 3.1 Albumin 2.3 L Vancomycin Trough 10.8 Assessment/Plan 73-year-old male with nonhealing sacral ulcer with infection 1. I was consulted for possible diverting colostomy. I explained this to the family in great detail. I had an extensive conversation with the family yesterday as they are also considering hospice. I explained that a diverting colostomy would allow the wound to not be soiled with stool but that this would not ensure healing. I explained that even though the stool would be diverted there is a chronic infection in the wound and with his debility he would be unable to keep pressure off of this wound also. There is still a chance that this wound would not heal even after diverting colostomy. 2. I also explained the risks of diverting colostomy such as bleeding, infection, injury to surrounding organs. The colostomy would also have a possibility of converting to open and there is increased risk given the fact the patient has had several hernia repairs with mesh. There is also the risk of postoperative complications such as ileus, wound infection, staple line breakdown, aspiration. 3. The patient's family is discussing how they would like to proceed. I explained that if they would like to do surgery this would likely mean aggressive treatment of the wound as well. I explained that it would not be advisable to do the surgery and then convert straight to hospice. I also find that if they were considering hospice surgery would be contraindicated. The family was asking if they could do hospice and have the surgery at the same time. I believe they are misunderstanding what hospice entails as they think that once the patient goes to hospice he will be more aggressively moved and positioned to allow his wound to heal. 4. I will revisit the family tomorrow to discuss again. Gary Cole MD Pager: [facility] [address] [place] [address], [address] [place] [address] Office:
[2018-12-08] MEDS: Acetaminophen 500 MG Tablet 1000 MG PO (08:59)
[2018-12-08] MEDS: Losartan Potassium 50 MG Tablet PO (09:00)
[2018-12-08] MEDS: Multivitamins,Therapeutic Tablet 1 TABLET PO (09:00)
--- NOTE | 2018-12-08 09:18 | PCM.RX.CS ---
Consult Pharmacy has been consulted to manage selected antiobiotic: Vancomycin Type of Consult: Follow-up Suspected Infection: Osteomyelitis Prior Doses of Antibiotics Received/Current Regimen: currently on 750mg IV q12h with the previous 2 doses given last night at 18:17 and today at 06:19 Labs: Sodium 143 mmol/L (136-145) 12/08/18 05:54 Potassium 4.2 mmol/L (3.5-5.1) 12/08/18 05:54 Chloride 111 mmol/L (98-107) H 12/08/18 05:54 Carbon Dioxide 25.0 mmol/L (21.0-32.0) 12/08/18 05:54 Anion Gap 10 (5-15) 12/06/18 14:29 BUN 24 mg/dL (7-18) H 12/08/18 05:54 Creatinine 0.66 mg/dL (0.70-1.30) L 12/08/18 05:54 Est GFR (MDRD) Af Amer 151 mL/min (>60) 12/08/18 05:54 Est GFR (MDRD) Non-Af 125 mL/min (>60) 12/08/18 05:54 BUN/Creatinine Ratio 36.3 RATIO (10-20) H 12/08/18 05:54 Glucose 91 mg/dL (74-106) 12/08/18 05:54 Vancomycin Trough 10.8 ug/mL (5.0-15.0) 12/08/18 05:54 Microbiology: Microbiology 12/06/18 18:00 Wound - Sacral Gram Stain - Final 12/06/18 18:00 Wound - Sacral Wound Culture - Preliminary Staphylococcus aureus 12/06/18 21:16 Stool Stool Occult Blood (JUAN CARLOS) - Final Estimated Creatinine Clearance: 61 ml/min Goal Trough: 15-20 mcg/mL Pharmacy Plan for Drug Dosing: Trough obtained before this morning's dose returned as 10.8. Considering that the patient's CrCl has remained stable, the dose will be increased to 1250mg IV q12h to try to get the next trough up to the goal range of 15-20. The trough will be drawn before the 4th dose of the new regimen. Pharmacy Service will continue to monitor and adjust dosing as required. Follow-Up Labs: Trough Vancomycin Labs to be done on [date and time ordered]: 12/10/18 05:30
[2018-12-08 09:30] VITALS: BP 133/73; PULSE 74; RESP 18; TEMP 37.6; O2SAT 95
--- NOTE | 2018-12-08 09:46 | CASEMGMT ---
Addendum entered by Tyra Rice 12/08/18 11:32: SW spoke w/Iain from [facility], pt will be transported to the inpt unit today at 4:30pm. SW called Merle at [facility], let him know pt is going to the inpt hospice unit today. SW also texted the physician to let him know pt will go to inpt hospice today. XIAO Locke, MANAGER DESKTOP Original Note: GABRIELLE called [facility] for clarification on the plan for pt. As per Genoveva, family was deciding about surgery, they have decided to not opt for surgery at this time. Iain from [facility] is coming to assist pt in the next hour or so, for the inpt unit. GABRIELLE will continue to follow. XIAO Locke, MANAGER DESKTOP
--- NOTE | 2018-12-08 10:08 | PCM.TXEXTCAR ---
- Diet 12/06/18 17:47 Diet: Regular Diet Food consistency:: Mechanical Soft/Ground Liquid Consistency:: [place] Thick Dietary Modifications:: [place] Thick Liquids Mechanical Soft Diet - Wound(s) coccyx Wound Type: Pressure Injury sacrum Wound Type: Pressure Injury Dressing Change: Wet to Dry Dressing - Allergies/Procedures Done in Hospital Allergies/Adverse Reactions: Allergies No Known Allergies Allergy (Verified 12/06/18 10:47) - Type of Care/Length of Stay Estimated LOS: More Than 30 Days Type of Care Needed: Skilled Rehab Potential: Poor Prognosis: Poor - Additional Orders/Day of Discharge Additional Orders: Hospice Day of Discharge: 12/08/18 - Dietary and Speech Recommendations Dietitian Recommendations/Changes: Continue regular diet- consistency per [employer]ICLE [employer]. Continue Ensure Enlive w/ medpass. May benefit from 1 packet Inderjit BID to assist w/ wound healing. - Follow Up Care Primary Care Physician: Kameron Fitzgerald MD [Primary Care Provider] -
--- NOTE | 2018-12-08 10:11 | PCM.DC.SUM ---
Discharge Date and Diagnosis Date of Admission: 12/06/18 Date of Discharge: 12/08/18 - Secondary Discharge Diagnosis Chronic Problems Chronic osteomyelitis of sacrum (Chronic) Pressure ulcer of sacral region, stage 4 (Chronic) Urinary incontinence (Chronic) Dementia (Chronic) Debility (Chronic) Pressure ulcer, stage 4 (Chronic) Failure to thrive (Chronic) Macrocytic anemia (Chronic) Parkinson's disease dementia (Chronic) Parkinson disease (Chronic) Generalized weakness (Chronic) Hospital Course and Treatment Imaging Results: None Consultations 12/06/18 19:33 Consult: Onc/Wound/sales director Routine Comment: General Surgery Plastic Surgery Operations: - - 08/17/18 - Excision sacral pressure sore, Stage IV, with partial ostectomy for osteomyelitis. Procedures: None Summary of Care Provided: Per HPI: The patient is a 73 year old M with past medical history of Parkinson's disease, chronic osteomyelitis of his sacrum, chronic stage IV stage V decubitus ulcers, resident in [place] [facility]. History was taken from the ED physician and his as well as his son as patient is not really communicative. Patient follows with Dr. Bryant in the wound center. He was recently discharged from the hospital in August 2018 after he had partial ostectomy for acute on chronic osteomyelitis. Wound cultures from that admission grew staph epidermidis in the soft tissue cultures, and MRSA in the bone culture. Patient was seen in the wound center and was said to have fecal soiling of his wound. The nurses had discussed with Dr. Bryant and the plan was to bring the patient to the hospital for antibiotic treatment and to be evaluated for diverting colostomy. According to the , patient has not had any diarrhea, fever, chills or any recent acute illness. Vitals in the ED showed temperature of 98F, blood pressure was 146/80, HR was 80, respiratory rate was 18, SPO2 is 96% on room air. His admitting blood work showed RBC count of 12.3, hemoglobin 8.3, platelet 421, BMP was unremarkable Pelvic CT showed possible acute on chronic osteomyelitis Hospital Course: 1. Chronic sacral decubitus ulcer with possible acute on chronic [id number] male who is nonverbal due to his Parkinson's and Parkinson's dementia presents from the wound care clinic because of soiling of cubitus ulcer. Initially the plan was to potentially have a diverting colostomy placed, however it was discussed with the family that hospice may be more suitable for them and the patient given his current quality of life. Hospice evaluated and felt that he was appropriate for hospice and further discussion was had with the patients family and they agreed to proceed with hospice at the facility. Of note he is growing MSSA as well as a gram-negative ronaldo that has not had sensitivities performed at I did discuss with them that they can continue all of his home oral medications however he will not be receiving any IV antibiotics. They do understand that this is for comfort measures only. 2. His other medical diagnoses were evaluated and his home medications were continued where appropriate Objective: General: Alert, No apparent distress, - - Does not respond to questions HEENT: Atraumatic, EOMI, Normocephalic Oral: Moist Mucosa Neck: Supple, No JVD, Trachea Midline Lungs: Clear to auscultation, Normal air movement, No rhonchi, No wheeze, No rales, Diminished Cardiovascular: Regular rate, Regular Rhythm, Normal S1, Normal S2, No murmurs, No rub noted, No Gallop Abdomen: Soft, Non Tender, Non-Distended, No Hepato-splenomegaly Extremities: No edema, Capillary Refill Less than 3 Seconds Skin: No rashes, No breakdown Neurological: - - Difficult to perform exam as patient is not communicative or following commands Psych/Mental Status: Flat Affect - Physical Exam Vital Signs Temp Pulse Resp BP Pulse Ox 97.2 F L 68 18 146/92 H 95 12/08/18 03:32 12/08/18 04:00 12/08/18 03:32 12/08/18 03:32 12/08/18 03:32 Oxygen Delivery Method Room Air Weight: 146 lb 6.191 oz Body Mass Index (BMI) 23.5 Intake and Output for Last 24 Hours 12/06/18 12/07/18 12/08/18 23:59 23:59 23:59 Intake Total 120 / 120 2298 / 2298 616 / 616 Output Total 400 / 400 1575 / 1575 800 / 800 Balance -280 / -280 723 / 723 -184 / -184 Microbiology Past 72 Hours 12/06/18 18:00 Gram Stain - Final Wound - Sacral Wound Culture - Preliminary Staphylococcus aureus Gram negative ronaldo 12/06/18 21:16 Stool Occult Blood (JUAN CARLOS) - Final Stool Laboratory Tests Past 24 Hrs 12/08/18 12/08/18 12/08/18 05:54 05:54 05:54 WBC 9.9 RBC 2.73 L Hgb 7.7 L Hct 25.8 L MCV 94.5 H MCH 28.2 MCHC 29.8 L RDW 18.5 H RDW Differential 63.2 H Plt Count 340 MPV 8.6 Immature Gran % (Auto) 0.300 Neut % (Auto) 77.0 H Lymph % (Auto) 13.5 L Craven % (Auto) 7.9 Eos % (Auto) 1.1 Baso % (Auto) 0.2 Absolute Neuts (auto) 7.6 Absolute Lymphs (auto) 1.33 Total Counted Not Reportable Sodium 143 Potassium 4.2 Chloride 111 H Carbon Dioxide 25.0 BUN 24 H Creatinine 0.66 L Estim Creat Clear Calc 60.59 Est GFR (MDRD) Af Amer 151 Est GFR (MDRD) Non-Af 125 BUN/Creatinine Ratio 36.3 H Glucose 91 Calcium 7.8 L Phosphorus 3.1 Albumin 2.3 L Vancomycin Trough 10.8 Home Medications: Medications to take at Discharge Carbidopa/Levodopa 50/200 [Sinemet CR 50/200] 1 tablet PO HS@2100 tablet.sa 10/09/17 Acetaminophen [Tylenol] 1,000 mg PO BID 08/11/18 Carbidopa/Levodopa 25/100 [Sinemet 25/100] 2 tablet PO TIDAC 08/11/18 Multivitamin [Multiple Vitamins] 1 each PO DAILY 08/11/18 Polyethylene Glycol 3350 [Miralax] 17 gm PO DAILY 08/11/18 Cholecalciferol (VIT D3) [Vitamin D3] 1,000 unit PO DAILY 12/06/18 Donepezil HCl [Aricept] 10 mg PO QHS 12/06/18 Losartan Potassium [Cozaar] 50 mg PO DAILY 12/06/18 Oxycodone HCl 5 mg PO TID 12/06/18 Propylene Glycol/Peg 400 [Systane Ultra 0.4-0.3% Eye Drp] 1 drop EACH EYE BID 12/06/18 Vitamin B Complex 1 cap PO DAILY 12/06/18 Primary Care Physician: Kameron Fitzgerald MD [Primary Care Provider] - Disposition[facility] facility - With hospice Minutes spent on discharge:: 35 Patient Condition:: Stable Medical Necessity - Tobacco Use Smoking Status: Former smoker Tobacco Use: Cigarettes Meaningful Use Info Meaningful Use Diagnoses (Choose all that apply): None applicable Code Visit Inpatient E&M: 74630 Disch Hosp
--- NOTE | 2018-12-08 10:17 | DS.PCM_ITS ---
Discharge Date and Diagnosis Date of Admission: 12/06/18 Date of Discharge: 12/08/18 - Secondary Discharge Diagnosis Chronic Problems Chronic osteomyelitis of sacrum (Chronic) Pressure ulcer of sacral region, stage 4 (Chronic) Urinary incontinence (Chronic) Dementia (Chronic) Debility (Chronic) Pressure ulcer, stage 4 (Chronic) Failure to thrive (Chronic) Macrocytic anemia (Chronic) Parkinson's disease dementia (Chronic) Parkinson disease (Chronic) Generalized weakness (Chronic) Hospital Course and Treatment Imaging Results: None Consultations 12/06/18 19:33 Consult: Onc/Wound/burrito maker Routine Comment: General Surgery Plastic Surgery Operations: - - 08/17/18 - Excision sacral pressure sore, Stage IV, with partial ostectomy for osteomyelitis. Procedures: None Summary of Care Provided: Per HPI: The patient is a 73 year old M with past medical history of Parkinson's disease, chronic osteomyelitis of his sacrum, chronic stage IV stage V decubitus ulcers, resident in correction, [facility]. History was taken from the ED physician and his as well as his son as patient is not really comm unicative. Patient follows with Dr. Bryant in the wound center. He was recently discharged from the hospital in August 2018 after he had partial ostectomy for acute on chronic osteomyelitis. Wound cultures from that admission grew staph epidermidis in the soft tissue cultures, and MRSA in the bone culture. Patient was seen in the wound center and was said to have fecal soiling of his wound. The nurses had discussed with Dr. Bryant and the plan was to bring the patient to the hospital for antibiotic treatment and to be evaluated for diverting colostomy. According to the , patient has not had any diarrhea, fever, chills or any recent acute illness. Vitals in the ED showed temperature of 98F, blood pressure was 146/80, HR was 80, respiratory rate was 18, SPO2 is 96% on room air. His admitting blood work showed RBC count of 12.3, hemoglobin 8.3, platelet 421, BMP was unremarkable Pelvic CT showed possible acute on chronic osteomyelitis Hospital Course: 1. Chronic sacral decubitus ulcer with possible acute on chronic osteomyelitis- 73-year-old male who is nonverbal due to his Parkinson's and Parkinson's dementia presents from the wound care clinic because of soiling of cubitus ulcer. Initially the plan was to potentially have a diverting colostomy placed, however it was discussed with the family that hospice may be more suitable for them and the patient given his current quality of life. Hospice evaluated and felt that he was appropriate for hospice and further discussion was had with the patients family and they agreed to proceed with hospice at the facility. Of note he is growing MSSA as well as a gram-negative ronaldo that has not had sensitivities performed at I did discuss with them that they can continue all of his home oral medications however he will not be receiving any IV antibiotics. They do understand that this is for comfort measures only. 2. His other medical diagnoses were evaluated and his home medications were continued where appropriate Objective: General: Alert, No apparent distress, - - Does not respond to questions HEENT: Atraumatic, EOMI, Normocephalic Oral: Moist Mucosa Neck: Supple, No JVD, Trachea Midline Lungs: Clear to auscultation, Normal air movement, No rhonchi, No wheeze, No rales, Diminished Cardiovascular: Regular rate, Regular Rhythm, Normal S1, Normal S2, No murmurs, No rub noted, No Gallop Abdomen: Soft, Non Tender, Non-Distended, No Hepato-splenomegaly Extremities: No edema, Capillary Refill Less than 3 Seconds Skin: No rashes, No breakdown Neurological: - - Difficult to perform exam as patient is not communicative or following commands Psych/Mental Status: Flat Affect - Physical Exam Vital Signs Temp Pulse Resp BP Pulse Ox 97.2 F L 68 18 146/92 H 95 12/08/18 03:32 12/08/18 04:00 12/08/18 03:32 12/08/18 03:32 12/08/18 03:32 Oxygen Delivery Method Room Air Weight: 146 lb 6.191 oz Body Mass Index (BMI) 23.5 Intake and Output for Last 24 Hours 12/06/18 12/07/18 12/08/18 23:59 23:59 23:59 Intake Total 120 / 120 2298 / 2298 616 / 616 Output Total 400 / 400 1575 / 1575 800 / 800 Balance -280 / -280 723 / 723 -184 / -184 Microbiology Past 72 Hours 12/06/18 18:00 Gram Stain - Final Wound - Sacral Wound Culture - Preliminary Staphylococcus aureus Gram negative ronaldo 12/06/18 21:16 Stool Occult Blood (JUAN CARLOS) - Final Stool Laboratory Tests Past 24 Hrs 12/08/18 12/08/18 12/08/18 05:54 05:54 05:54 WBC 9.9 RBC 2.73 L Hgb 7.7 L Hct 25.8 L MCV 94.5 H MCH 28.2 MCHC 29.8 L RDW 18.5 H RDW Differential 63.2 H Plt Count 340 MPV 8.6 Immature Gran % (Auto) 0.300 Neut % (Auto) 77.0 H Lymph % (Auto) 13.5 L Dawes % (Auto) 7.9 Eos % (Auto) 1.1 Baso % (Auto) 0.2 Absolute Neuts (auto) 7.6 Absolute Lymphs (auto) 1.33 Total Counted Not Reportable Sodium 143 Potassium 4.2 Chloride 111 H Carbon Dioxide 25.0 BUN 24 H Creatinine 0.66 L Estim Creat Clear Calc 60.59 Est GFR (MDRD) Af Amer 151 Est GFR (MDRD) Non-Af 125 BUN/Creatinine Ratio 36.3 H Glucose 91 Calcium 7.8 L Phosphorus 3.1 Albumin 2.3 L Vancomycin Trough 10.8 Home Medications: Medications to take at Discharge Carbidopa/Levodopa 50/200 [Sinemet CR 50/200] 1 tablet PO HS@2100 tablet.sa 10/09/17 Acetaminophen [Tylenol] 1,000 mg PO BID 08/11/18 Carbidopa/Levodopa 25/100 [Sinemet 25/100] 2 tablet PO TIDAC 08/11/18 Multivitamin [Multiple Vitamins] 1 each PO DAILY 08/11/18 Polyethylene Glycol 3350 [Miralax] 17 gm PO DAILY 08/11/18 Cholecalciferol (VIT D3) [Vitamin D3] 1,000 unit PO DAILY 12/06/18 Donepezil HCl [Aricept] 10 mg PO QHS 12/06/18 Losartan Potassium [Cozaar] 50 mg PO DAILY 12/06/18 Oxycodone HCl 5 mg PO TID 12/06/18 Propylene Glycol/Peg 400 [Systane Ultra 0.4-0.3% Eye Drp] 1 drop EACH EYE BID 12/06/18 Vitamin B Complex 1 cap PO DAILY 12/06/18 Primary Care Physician: Kameron Fitzgerald MD [Primary Care Provider] - Disposition: Long Term facility - With hospice Minutes spent on discharge:: 35 Patient Condition:: Stable Medical Necessity - Tobacco Use Smoking Status: Former smoker Tobacco Use: Cigarettes Meaningful Use Info Meaningful Use Diagnoses (Choose all that apply): None applicable Code Visit Inpatient E&M: 86549 Disch Hosp
[2018-12-08] MEDS: Morphine 2 MG/ML Syringe IV (16:40)
[2018-12-08 16:46] VITALS: BP 137/74; PULSE 84; RESP 18; TEMP 36.9; O2SAT 97
== END 2018-12-08 16:40 | disposition hospice, inpatient (51) | DRG 593 ==
LOC: ED 13:03 → MS2 17:05
PROVIDERS: Admitting Provider Internal Medicine; Emergency Provider Emergency Medicine; Family Provider Family Medicine; PCP Family Medicine; Visit Provider Family Medicine
DX: L89.154 Pressure ulcer of sacral region, stage 4 (principal); M46.28 Osteomyelitis of vertebra, sacral and sacrococcygeal region; G20 Parkinson's disease; F03.90 Unspecified dementia, unspecified severity, without behavioral disturbance, psychotic disturbance, mood disturbance, and anxiety; R53.81 Other malaise; D53.9 Nutritional anemia, unspecified; R62.7 Adult failure to thrive; Z68.25 Body mass index [BMI] 25.0-25.9, adult; Z79.891 Long term (current) use of opiate analgesic; Z79.899 Other long term (current) drug therapy; Z87.891 Personal history of nicotine dependence; D72.829 Elevated white blood cell count, unspecified; I10 Essential (primary) hypertension; Z66 Do not resuscitate; D50.9 Iron deficiency anemia, unspecified; D63.8 Anemia in other chronic diseases classified elsewhere; A49.01 Methicillin susceptible Staphylococcus aureus infection, unspecified site
CPT/HCPCS: 11043; 36415; 72192; 80048; 80069; 80076; 80202; 82274; 83540; 83550; 85014; 85018; 85025; 87040; 87070; 87077; 87186; 87205; 87640; 97163; 97166; 97530; 97535; 99285; J7030; J7040; J7050; A4216